=== PATIENT | male | born 1945 | race Caucasian/White ===

== ENCOUNTER → 2019-08-10 08:56 | Outpatient (CLI) | payer MEDICARE, SELFPAY ==
[2019-08-07 15:00] VITALS: BMI 33.2
[2019-08-10 10:26] LABS: AST(SGOT) 18 U/L (15-37); Alanine Aminotransfer ALT/SGPT 27 U/L (16-61); Albumin, Serum 3.7 g/dL (3.2-5.0); Alkaline Phosphatase 42 U/L (45-117); Bilirubin, Direct 0.17 mg/dL (0.00-0.30); Cholesterol 194 mg/dL (200); High Density Lipoprotein 51 mg/dL; Protein, Total 7.7 g/dL (6.4-8.2); Triglycerides 102 mg/dL; Very Low Density Lipoprotein 20 mg/dL (5-40)
== END ==
PROVIDERS: Family Provider Family Medicine; PCP Family Medicine; Referring Provider Internal Medicine Cardiovascular Disease; Visit Provider Internal Medicine Cardiovascular Disease
DX: E78.00 Pure hypercholesterolemia, unspecified (principal)
CPT/HCPCS: 36415; 80061; 80076

== ENCOUNTER → 2019-08-23 15:03 | Outpatient (CLI) | payer MEDICARE, SELFPAY ==
[2019-08-07 15:00] VITALS: BMI 33.2
--- NOTE | 2019-08-23 15:06 | ECHOD_ITS ---
Reason For Study: CHEST PAIN Procedure This was a 2D Doppler, Color Flow transthoracic echocardiogram. Exam performed in department. Left Ventricle Normal size and thickness. The estimated ejection fraction is 65 %. Stage 2 diastolic dysfunction. No regional wall motion abnormalities noted. Right Ventricle Normal size and thickness. Normal systolic function. Atria The left atrium is moderately enlarged. The right atrium is mildly enlarged. Normal atrial septum. Mitral Valve The mitral valve is structurally normal. No prolapse or stenosis seen. Tricuspid Valve Normal tricuspid valve. Trivial tricuspid valve insufficiency. Right ventricular systolic pressure estimated to be 29 mmHg. Aortic Valve Trisinus/trileaflet aortic valve. Pulmonic Valve Normal pulmonic valve. Trivial pulmonic valve insufficiency. Great Vessels Normal aortic root. Normal arch. Normal inferior vena cava. Inferior vena cava collapse with sniff. Pericardium/Pleural No pericardial effusion. MMode/2D Measurements & Calculations LVIDd: 4.9 cm IVSd: 1.2 cm Ao root diam: 2.9 cm LVIDs: 3.1 cm LVPWd: 1.2 cm RVDd: 3.4 cm FS: 35.5 % LAV(MOD-bp): 89.8 ml LA A4 area: 26.4 cm2 LA dimension(2D): 4.1 cm LAV(MOD-bp) Indexed: 43.3 ml/m2 LAV(MOD-sp2): 92.1 ml LAV(MOD-sp4): 87.8 ml RA A4 area: 21.2 cm2 Time Measurements MV dec time: 0.19 sec Doppler Measurements & Calculations MV E max woo: 79.9 cm/sec Lat Peak E' Woo: 6.6 cm/sec Med Peak E' Woo: 5.7 cm/sec MV A max woo: 73.3 cm/sec E/E' lat: 12.1 E/E' med: 14.1 MV E/A: 1.1 Ao V2 max: 137.0 cm/sec LV V1 max: 80.6 cm/sec PA V2 max: 84.6 cm/sec Ao max P.5 mmHg LV V1 max P.6 mmHg TR max woo: 250.2 cm/sec TR max P.0 mmHg Interpretation Summary The estimated ejection fraction is 65 %. Stage 2 diastolic dysfunction. The left atrium is moderately enlarged. The right atrium is mildly enlarged. Right ventricular systolic pressure estimated to be 29 mmHg. There is no comparison study available. Ordering Physician: Wilfred Yepez Referring Physician: Marcial Grover Performed By: Saundra Mendoza RDCS, RVT
== END ==
PROVIDERS: Family Provider Family Medicine; PCP Family Medicine; Referring Provider Internal Medicine Cardiovascular Disease; Visit Provider Internal Medicine Cardiovascular Disease
DX: R00.2 Palpitations (principal)
CPT/HCPCS: 93306

== ENCOUNTER → 2019-08-30 13:26 | Outpatient (CLI) | payer MEDICARE, SELFPAY ==
[2019-08-07 15:00] VITALS: BMI 33.2
--- NOTE | 2019-08-30 13:30 | STEWCON_ITS ---
Reason For Study: CHEST PAIN Stress Results Protocol: Stress Echocardiogram Maximum Predicted HR: 147 bpm Target HR: 125 bpm % Maximum Predicted HR: 90 % Heart Stage Duration Rate BP Comment (mm:ss) (bpm) DILUTED DEFINITY 3 CC USED. TRIGEMINY AND QUADRIGEMINY BASELINE 75 148/84PVCS AISHWARYA PROTOCOL- STAGE 1 3:00 120 130/80TRIGEMINY AND QUADRIGEMINY PVCS, NO CP AISHWARYA PROTOCOL- STAGE 2 3:00 133 144/84TRIGEMINY AND QUADRIGEMINY PVCS, NO CP, FATIGUE RECOVERY 93 120/74NO COMPLAINT Stress Duration: 6:00 mm:ss Maximum Stress HR: 133 bpm Baseline Echocardiogram Findings The estimated ejection fraction is 65 %. Stress Echo Wall motion Data Resting WM Intermediate WM Stress WM Resting Wall Motion Wall Motion Stress No regional wall motion Posterior-Basal: Mildly abnormalities noted. hypokinetic. Mid-Posterior: Mildly hypokinetic. Basal inferoseptal: Mildly hypokinetic. EKG Data The baseline ECG displays normal sinus rhythm. The patient exercised according to the regular Aishwarya protocol for a total duration of 6:07. The maximum heart rate attained was 133 beats per minute. This was 90% of maximum predicted heart rate. The patient exercised into stage 3 of the Aishwarya protocol. During stress, there were no ST or T wave changes noted to suggest ischemia. No clinical angina was noted. Interpretation Summary The estimated ejection fraction is 65 %. Posterior-Basal: Mildly hypokinetic Mid-Posterior: Mildly hypokinetic Basal inferoseptal: Mildly hypokinetic Abnormal, adequate, treadmill echocardiogram. Positive for ischemia by echocardiographic criteria. No anginal symptoms noted. Frequent PVCs during exercise in a trigeminal pattern. Patient appeared develop mid inferior posterior hypokinesis at peak exercise. Final LVEF of 55%. Poor echo windows requiring Definity agent may affect the outcome of the test. Test terminated due to target heart rate achieved and fatigue as well as dyspnea which may be an anginal equivalent. Patient tolerated the procedure well. No complications. The study was technically difficult. Contrast injection was performed. Ordering Physician: Wilfred Yepez Referring Physician: Wilfred Yepez Performed By: Azalea Garcia RDCS
== END ==
PROVIDERS: Family Provider Family Medicine; PCP Family Medicine; Referring Provider Internal Medicine Cardiovascular Disease; Visit Provider Internal Medicine Cardiovascular Disease
DX: R07.9 Chest pain, unspecified (principal)
CPT/HCPCS: 93017; 93350; Q9957; A4216; C8928

== ENCOUNTER 2019-09-14 09:42 | Day surgery (SDC) | payer MEDICARE, SELFPAY ==
--- NOTE | 2019-08-07 03:37 | HP_ITS ---
HPI HPI History of Present Illness Surgical H&P: Yes Details: Mr. Vazquez is a very pleasant 74-year-old nondiabetic, currently non- smoking gentleman with a history of hypertension, referred to our office for palpitations and shortness of breath. Patient has a history of [id number] smoking when quit in 1992. The patient's most recent nuclear stress test took place on 12/17/2008 at [facility] oriented no chest pain during exercise, negative EKG, and negative nuclear results. His most recent echocardiogram took place on 11/15/2008 which showed an EF of 55%, mild concentric LVH, stage I diastolic dysfunction, and elevated RVSP of 37 mmHg. His most recent EKG dated 12/18/2008 showed normal sinus rhythm, nonspecific ST and T wave changes. Patient was in normal health up until last when he developed and noted new onset midsternal chest pressure, which was nonradiating and described as a 4 out of 10 in severity. Apparently he had been engaging quite heavy work the day before, and had no associated nausea, vomiting, shortness of breath or dyspnea on exertion. Patient has noted a decrease in his exercise capacity over the last 6 months. This is the first time he had actual chest pressure however. He has never had a heart catheterization, TIA, CVA. He is compliant with his antihypertensive medications. His blood pressures at home range in the 140s to 160s systolic. In our office today's blood pressure is 140/70, pulse is 64 and regular. His physical exam demonstrates clear lungs bilaterally, no carotid bruits, regular rate and rhythm, normal S1/S2, no S3 or S4. No murmurs detected. No edema noted. Lipids dated 10/02/2018 showed an HDL of 46 and an LDL of 113. Intake Vital Signs 08/07/19 Height 5 ft 7 in 08/07/19 Weight: 212 lb 08/07/19 Body Mass Index (BMI) 33.2 08/07/19 Blood Pressure 140/70 H 08/07/19 Blood Pressure Location Lt brachial 08/07/19 Blood Pressure Position Sitting 08/07/19 Respiratory Rate 20 H 08/07/19 Pulse Rate 64 08/07/19 Pulse Source Auscultation Intake Visit Reasons: SOB, IRREG HR, HTN (SELF/FAMILY REF) Shank Maker Required: No Accompanied by: Is patient in pain?: No Allergies nitroglycerin Allergy (Intermediate, Verified 08/06/19 14:04) Unknown Medications Atenolol [Tenormin (beta Andrae)] 25 mg PO DAILY 09/25/17 [History Confirmed 08/06/19] losartan 25 mg tablet 25 mg PO DAILY 08/06/19 [History Confirmed 08/06/19] aspirin 81 mg tablet,delayed release 81 mg PO DAILY #30 tab 08/07/19 [Rx Confirmed 08/07/19] [facility] Medical History (Updated 08/07/19 @ 15:02 by Valarie Bucio) Palpitations (Acute) Shortness of breath (Acute) Essential hypertension (Chronic) Arthritis (Chronic) Asthma (Chronic) 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 Brother heart on right side Tachycardia Social History (Updated 08/07/19 @ 15:37 by Wilfred Yepez MD) Smoking Status: Never smoker alcohol intake: current ROS Const Const: Positive for other (referred self: sob and palps, Rocio Grover is PCP); negative for fatigue, weakness, body ache, fever(s), headache(s), chills, frequent falls, night sweats, daytime sleepiness, difficulty sleeping, excessive sweating, weight gain, weight loss, increased appetite, poor appetite or anorexia Eyes Eyes: Negative for blind spots, loss of peripheral vision, transient loss of vision, blurry vision, change in vision, double vision, floaters, tunnel vision or other ENT ENT: Negative for headache(s), dizziness, hearing loss, tinnitus, Nosebleed/epistaxis, balance problems, post nasal drip, lip swelling, tongue swelling, bleeding gums, hoarseness, neck pain, dry mouth or other Cardio Chest Pain: Yes (hasn't had for a long time, then last tuesday had some) Frequency: other (isolated incident) Character: other (discomfort, ache like a bruise) Onset: at rest Location: mid sternal Duration: hours (a couple hours until he took ibuprofen) Palpitations: Yes (None today) feels like its: skipping Edema: None Muscle aches with walking: None Resp Respiratory: Positive for SOB with activity (States noticed last 2 years with gaining weight in abdomen (not fluid)); negative for SOB at rest, SOB orthopnea\SOB lying down, Cough, Coughing up blood/hemoptysis, chest congestion, pain on inspiration, snoring, stridor, wheezing, crackles, paroxysmal nocturnal dyspnea or other GI GI: Negative nausea, vomiting, heartburn, constipation, belching, bloating, cramping, vomiting blood/hematemesis, bright, red blood in stools, black,tarry stools, loose stools, Difficulty Swallowing or other : Negative for hematuria, frequent nighttime urination/ nocturia, erectile dysfunction or abnormal vaginal bleeding Musc Musc: Negative for muscle aches/ myalgia, muscle weakness, joint pain or balance problems Skin Skin: Negative redness, non-healing lesions, rash, unusual bruising, skin ulcer, wounds, jaundice or other Neuro Neuro: Negative for dizziness, lightheadedness, near syncope, syncope, orthostatic symptoms, frequent falls, headache(s), weakness, confusion, memory loss, restless legs, blurry vision, double vision, vertigo, seizures, lack of coordination or other Jamal Hematologic/Lymphatic: Negative for easy bleeding, easy bruising, enlarged lymph nodes or other Endo Endo: Negative for fatigue, cold intolerance, heat intolerance, excessive sweating, flushing, increased thirst/drinking, increased hunger, hair loss, hair growth or other Psych Psych: Negative for anxiety, depression, thoughts of harming anyone, thoughts of harming yourself, visual hallucinations, panic attacks or audible hallucinations Allergy Allergy/Immunology: Negative for throat swelling, Negative for tongue swelling, Negative for hives, Negative for rash, Negative for lip swelling Cardiology Exam Const Appearance: cooperative, healthy appearing and no acute distress Nutritional Appearance: well nourished Orientation: alert, oriented x3 and oriented to person Head Head: normal to inspection, normocephalic and atraumatic Nose: external nose normal Face and Sinus: face symmetric Mouth: oral mucosae normal Eyes General: appearance normal, both eyes and all related structures Eyelids: eyelids normal Conjunctivae: conjunctivae normal Pupils: PERRL and normal by confrontation EOM: EOM intact bilaterally Neck Neck: normal visual inspection and full ROM Carotids: normal carotid upstroke Chest Chest inspection: normal inspection of the chest Auscultation: Bilateral: Clear to Auscultation Cardio Palpation: normal PMI Rate: regular rate Rhythm: regular rhythm Heart sounds: S1 normal and S2 normal GI GI: normal to inspection, no hepatosplenomegaly and bowel sounds present Neuro General: alert, awake, oriented x3, CN's II-XI intact bilaterally and moves all extremities Skin Skin: no rashes or lesions noted Extremities Pulses: Normal: Right Femoral Pulse, Left Femoral Pulse, Right Dorsalis Pedis Pulse, Left Dorsalis Pedis Pulse, Right Posterior Tibial Pulse, Left Posterior Tibial Pulse, Right Radial Pulse, Left Radial Pulse Lower Extremity Edema: None: Bilateral Psych Psychological: normal affect Assessment & Plan 1. Chest pain R07.9 Plan 1. Chest pain: The patient has new onset substernal chest pressure occurring last after heavy exertion. Is possible the patient may have hypertension induced chest pain but given the patient's age, hypertension, previous heavy smoking, I am concerned that he may have concomitant coronary atherosclerosis contributing to his symptoms. I recommended the patient undergo a repeat 2D echo with Doppler to determine if he has any deterioration in his LV function compared to October 2008. Assuming this is normal, I would recommend also that he undergo a treadmill echocardiogram to evaluate for chronotropic competence, blood pressure response to exercise, angina, or ischemia. If either 1 of these are grossly abnormal, he may require diagnostic coronary angiogram. In addition we will obtain an EKG today. In the meantime we will start him on baby aspirin preventatively 81 mg p.o. daily, continue his atenolol and losartan. 2. Hyperlipidemia: Recommend obtaining a fasting in the profile. Would recommend treating his LDL of greater than 130. 3. Return office in 6 months. This note was generated using a voice recognition system and there may be incorrect words, spelling or punctuation that were not noted when reviewing the office note prior to saving. Orders Orders: Stress Test Echo w/o Contrast Today Plan Detail Other Orders Orders: 12 Lead EKG performed by [facility] Today R00.2, R06.02 Lipid Profile 1 Week E78.00 Liver Profile 1 Week E78.00 Echo Complete Today R00.2 Other Medications New: aspirin (Adult Aspirin Regimen) 81 mg PO DAILY 30 tabs 11RF Follow Up +6M (Lucho) Coding Level of Care Code Off vis,new,level 4 Diagnoses Chest pain R07.9 Coding Level of Care Code Off vis,new,level 4 Diagnoses Chest pain R07.9 Supplemental Info Supplemental Information Labs LDL Cholesterol 123 mg/dL (0-130) 06/16/16 HDL Cholesterol 54 mg/dL (40-) 06/16/16 Triglycerides 74 mg/dL (-199) 06/16/16 VLDL Cholesterol 15 mg/dL (5-40) 06/16/16 08/07/19 1538 <Electronically signed by Wilfred Yepez MD> Date _ Wilfred Yepez MD
[2019-08-07 15:00] VITALS: BMI 33.2
[2019-09-03 10:54] VITALS: BMI 33.2
--- NOTE | 2019-09-03 11:35 | RAD_ITS ---
STUDY: X-RAY CHEST REASON FOR EXAM: Male, 74 years old. Shortness of breath TECHNIQUE: Frontal and lateral views of the chest. COMPARISON: None. FINDINGS: The lungs are clear and expanded. There is no demonstrated pleural abnormality. Normal size heart. Normal mediastinum and yo. Normal visualized pulmonary arteries. There is atherosclerotic calcification of the aortic arch with tortuosity. There are diffuse degenerative changes of the visualized thoracic spine. Normal visualized ribs, clavicles, and shoulders. There is no demonstrated abnormality of the visualized soft tissue structures of the upper abdomen. RAD/Chest PA and Lateral IMPRESSION: No acute chest disease. Electronically Signed: King Valladares MD at 23:21 EST , Service support ,
[2019-09-03 12:25] LABS: Hematocrit 45.6 % (40-54); Hemoglobin 15.3 g/dL (13.0-16.5); Mean Corp Hgb Conc 33.6 g/dL (32-36); Mean Corpuscular Hgb 31.1 pg (27.0-32.0); Mean Corpuscular Volume 92.7 fL (80-94); Mean Platelet Vol. 9.7 fl (6.2-12.0); Platelet Count 172 K/mm3 (150-450); RBC Distribution Width CV 12.9 % (11.6-14.6); RBC Distribution Width SD 43.9 fl (35.1-43.9); Red Blood Count 4.92 M/mm3 (4.6-6.2); White Blood Count 7.2 K/mm3 (4.4-11.0)
[2019-09-03 12:33] LABS: International Normalized Ratio 1.1; Prothrombin Time (Protime)PT. 14.2 SECONDS (11.7-14.9)
[2019-09-03 12:34] LABS: Partial Thromboplast Time 31.7 Seconds (24.1-36.2)
[2019-09-03 13:10] LABS: Anion Gap 5 (5-15); BUN 12 mg/dL (7-18); BUN/Creat Ratio 10.9 RATIO (10-20); Calcium,Total 8.7 mg/dL (8.5-10.1); Chloride 109 mmol/L (98-107); EST Glomerular Filtration Rate 70 mL/min (>60); Est Glom Filt Rate - Afr Amer 84 mL/min (>60); Glucose 77 mg/dL (74-106); Potassium 4.1 mmol/L (3.5-5.1); Sodium Level 139 mmol/L (136-145)
[2019-09-04 09:31] VITALS: BMI 33.2
--- NOTE | 2019-09-14 10:14 | HP.PCM_ITS ---
History and Physical Date of Admission: 09/14/19 Mr. Vazquez is a very pleasant 74-year-old nondiabetic, currently non-smoking gentleman with a history of hypertension, referred to our office for palpitations and shortness of breath. Patient has a history of [id number] smoking when quit in 1992. He did undergo a stress echo which was positive for ischemia, the mid inferior posterior was noted to be hypokinetic at peak exercise. He is here today to undergo a left heart cath. Patient was in normal health up until about a month ago when he developed and noted new onset midsternal chest pressure, which was nonradiating and described as a 4 out of 10 in severity. Apparently he had been engaging quite heavy work the day before, and had no associated nausea, vomiting, shortness of breath or dyspnea on exertion. Patient has noted a decrease in his exercise capacity over the last 6 months. This is the first time he had actual chest pressure however. He has never had a heart catheterization, TIA, CVA. He is compliant with his antihypertensive medications. His blood pressures at home range in the 140s to 160s systolic. Intake VS see list Allergies nitroglycerin Allergy (Intermediate, Verified 08/06/19 14:04) Unknown Medications See list [facility] Medical History (Updated 08/07/19 @ 15:02 by Valarie Bucio) Palpitations (Acute) Shortness of breath (Acute) Essential hypertension (Chronic) Arthritis (Chronic) Asthma (Chronic) 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 Brother heart on right side Tachycardia Social History (Updated 08/07/19 @ 15:37 by Wilfred Yepez MD) Smoking Status: Never smoker alcohol intake: current ROS Const Const: Positive for other (referred self: sob and palps, Rocio Grover is PCP); negative for fatigue, weakness, body ache, fever(s), headache(s), chills, frequent falls, night sweats, daytime sleepiness, difficulty sleeping, excessive sweating, weight gain, weight loss, increased appetite, poor appetite or anorexia Eyes Eyes: Negative for blind spots, loss of peripheral vision, transient loss of vision, blurry vision, change in vision, double vision, floaters, tunnel vision or other ENT ENT: Negative for headache(s), dizziness, hearing loss, tinnitus, Nosebleed/epistaxis, balance problems, post nasal drip, lip swelling, tongue swelling, bleeding gums, hoarseness, neck pain, dry mouth or other Cardio Chest Pain: Yes (hasn't had for a long time, then last tuesday had some) Frequency: other (isolated incident) Character: other (discomfort, ache like a bruise) Onset: at rest Location: mid sternal Duration: hours (a couple hours until he took ibuprofen) Palpitations: Yes (None today) feels like its: skipping Edema: None Muscle aches with walking: None Resp Respiratory: Positive for SOB with activity (States noticed last 2 years with gaining weight in abdomen (not fluid)); negative for SOB at rest, SOB orthopnea\SOB lying down, Cough, Coughing up blood/hemoptysis, chest congestion, pain on inspiration, snoring, stridor, wheezing, crackles, paroxysmal nocturnal dyspnea or other GI GI: Negative nausea, vomiting, heartburn, constipation, belching, bloating, cramping, vomiting blood/hematemesis, bright, red blood in stools, black,tarry stools, loose stools, Difficulty Swallowing or other : Negative for hematuria, frequent nighttime urination/ nocturia, erectile dysfunction or abnormal vaginal bleeding Musc Musc: Negative for muscle aches/ myalgia, muscle weakness, joint pain or balance problems Skin Skin: Negative redness, non-healing lesions, rash, unusual bruising, skin ulcer, wounds, jaundice or other Neuro Neuro: Negative for dizziness, lightheadedness, near syncope, syncope, orthostatic symptoms, frequent falls, headache(s), weakness, confusion, memory loss, restless legs, blurry vision, double vision, vertigo, seizures, lack of coordination or other Jamal Hematologic/Lymphatic: Negative for easy bleeding, easy bruising, enlarged lymph nodes or other Endo Endo: Negative for fatigue, cold intolerance, heat intolerance, excessive sweating, flushing, increased thirst/drinking, increased hunger, hair loss, hair growth or other Psych Psych: Negative for anxiety, depression, thoughts of harming anyone, thoughts of harming yourself, visual hallucinations, panic attacks or audible hallucinations Allergy Allergy/Immunology: Negative for throat swelling, Negative for tongue swelling, Negative for hives, Negative for rash, Negative for lip swelling Cardiology Exam Const Appearance: cooperative, healthy appearing and no acute distress Nutritional Appearance: well nourished Orientation: alert, oriented x3 and oriented to person Head Head: normal to inspection, normocephalic and atraumatic Nose: external nose normal Face and Sinus: face symmetric Mouth: oral mucosae normal Eyes General: appearance normal, both eyes and all related structures Eyelids: eyelids normal Conjunctivae: conjunctivae normal Pupils: PERRL and normal by confrontation EOM: EOM intact bilaterally Neck Neck: normal visual inspection and full ROM Carotids: normal carotid upstroke Chest Chest inspection: normal inspection of the chest Auscultation: Bilateral: Clear to Auscultation Cardio Palpation: normal PMI Rate: regular rate Rhythm: regular rhythm Heart sounds: S1 normal and S2 normal GI GI: normal to inspection, no hepatosplenomegaly and bowel sounds present Neuro General: alert, awake, oriented x3, CN's II-XI intact bilaterally and moves all extremities Skin Skin: no rashes or lesions noted Extremities Pulses: Normal: Right Femoral Pulse, Left Femoral Pulse, Right Dorsalis Pedis Pulse, Left Dorsalis Pedis Pulse, Right Posterior Tibial Pulse, Left Posterior Tibial Pulse, Right Radial Pulse, Left Radial Pulse Lower Extremity Edema: None: Bilateral Psych Psychological: normal affect Assessment & Plan 1. Chest pain/abnormal stress test: pt will undergo a heart cath for further evaluation. He will follow up accordingly in our office. 2. Hyperlipidemia: Recommend obtaining a fasting in the profile. Would recommend treating his LDL of greater than 130.
--- NOTE | 2019-09-14 11:28 | HP.PCM_ITS ---
Problem List (1) Abnormal stress echo Status: Acute (2) PVCs (premature ventricular contractions) Status: Acute (3) Palpitations Status: Acute (4) Shortness of breath Status: Acute (5) Essential hypertension Status: Chronic History and Physical Date of Admission: 09/14/19 [facility] [address] [place] [address] OFFICE VISIT Date of Service: 08/07/19 MR#: [id number] Acct: [id number] Name: JODEE VAZQUEZ Rep #: [id number] : 1945 Provider: Wilfred cardona MD Age/Sex: 74/M Location: [facility] [place] Status: Signed HPI HPI History of Present Illness Surgical H&P: Yes Details: Mr. Vazquez is a very pleasant 74-year-old nondiabetic, currently non- smoking gentleman with a history of hypertension, referred to our office for palpitations and shortness of breath. Patient has a history of [id number] smoking when quit in 1992. The patient's most recent nuclear stress test took place on 12/17/2008 at [facility] oriented no chest pain during exercise, negative EKG, and negative nuclear results. His most recent echocardiogram took place on 11/15/2008 which showed an EF of 55%, mild concentric LVH, stage I diastolic dysfunction, and elevated RVSP of 37 mmHg. His most recent EKG dated 12/18/2008 showed normal sinus rhythm, nonspecific ST and T wave changes. Patient was in normal health up until last when he developed and noted new onset midsternal chest pressure, which was nonradiating and described as a 4 out of 10 in severity. Apparently he had been engaging quite heavy work the day before, and had no associated nausea, vomiting, shortness of breath or dyspnea on exertion. Patient has noted a decrease in his exercise capacity over the last 6 months. This is the first time he had actual chest pressure however. He has never had a heart catheterization, TIA, CVA. He is compliant with his antihypertensive medications. His blood pressures at home range in the 140s to 160s systolic. In our office today's blood pressure is 140/70, pulse is 64 and regular. His physical exam demonstrates clear lungs bilaterally, no carotid bruits, regular rate and rhythm, normal S1/S2, no S3 or S4. No murmurs detected. No edema noted. Lipids dated 10/02/2018 showed an HDL of 46 and an LDL of 113. Intake Vital Signs 08/07/19 Height 5 ft 7 in 08/07/19 Weight: 212 lb 08/07/19 Body Mass Index (BMI) 33.2 08/07/19 Blood Pressure 140/70 H 08/07/19 Blood Pressure Location Lt brachial 08/07/19 Blood Pressure Position Sitting 08/07/19 Respiratory Rate 20 H 08/07/19 Pulse Rate 64 08/07/19 Pulse Source Auscultation Intake Visit Reasons: SOB, IRREG HR, HTN (SELF/FAMILY REF) C Winforms Developer Required: No Accompanied by: Is patient in pain?: No Allergies nitroglycerin Allergy (Intermediate, Verified 08/06/19 14:04) Unknown Medications Atenolol [Tenormin (beta Andrae)] 25 mg PO DAILY 09/25/17 [History Confirmed 08/06/19] losartan 25 mg tablet 25 mg PO DAILY 08/06/19 [History Confirmed 08/06/19] aspirin 81 mg tablet,delayed release 81 mg PO DAILY #30 tab 08/07/19 [Rx Confirmed 08/07/19] PFS Medical History (Updated 08/07/19 @ 15:02 by Valarie Bucio) Palpitations (Acute) Shortness of breath (Acute) Essential hypertension (Chronic) Arthritis (Chronic) Asthma (Chronic) 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 Brother heart on right side Tachycardia Social History (Updated 08/07/19 @ 15:37 by Wilfred Yepez MD) Smoking Status: Never smoker alcohol intake: current ROS Const Const: Positive for other (referred self: sob and palps, Rocio Grover is PCP); negative for fatigue, weakness, body ache, fever(s), headache(s), chills, frequent falls, night sweats, daytime sleepiness, difficulty sleeping, excessive sweating, weight gain, weight loss, increased appetite, poor appetite or anorexia Eyes Eyes: Negative for blind spots, loss of peripheral vision, transient loss of vision, blurry vision, change in vision, double vision, floaters, tunnel vision or other ENT ENT: Negative for headache(s), dizziness, hearing loss, tinnitus, Nosebleed/epistaxis, balance problems, post nasal drip, lip swelling, tongue swelling, bleeding gums, hoarseness, neck pain, dry mouth or other Cardio Chest Pain: Yes (hasn't had for a long time, then last tuesday had some) Frequency: other (isolated incident) Character: other (discomfort, ache like a bruise) Onset: at rest Location: mid sternal Duration: hours (a couple hours until he took ibuprofen) Palpitations: Yes (None today) feels like its: skipping Edema: None Muscle aches with walking: None Resp Respiratory: Positive for SOB with activity (States noticed last 2 years with gaining weight in abdomen (not fluid)); negative for SOB at rest, SOB orthopnea\SOB lying down, Cough, Coughing up blood/hemoptysis, chest congestion, pain on inspiration, snoring, stridor, wheezing, crackles, paroxysmal nocturnal dyspnea or other GI GI: Negative nausea, vomiting, heartburn, constipation, belching, bloating, cramping, vomiting blood/hematemesis, bright, red blood in stools, black,tarry stools, loose stools, Difficulty Swallowing or other : Negative for hematuria, frequent nighttime urination/ nocturia, erectile dysfunction or abnormal vaginal bleeding Musc Musc: Negative for muscle aches/ myalgia, muscle weakness, joint pain or balance problems Skin Skin: Negative redness, non-healing lesions, rash, unusual bruising, skin ulcer, wounds, jaundice or other Neuro Neuro: Negative for dizziness, lightheadedness, near syncope, syncope, orthostatic symptoms, frequent falls, headache(s), weakness, confusion, memory loss, restless legs, blurry vision, double vision, vertigo, seizures, lack of coordination or other Jamal Hematologic/Lymphatic: Negative for easy bleeding, easy bruising, enlarged lymph nodes or other Endo Endo: Negative for fatigue, cold intolerance, heat intolerance, excessive sweating, flushing, increased thirst/drinking, increased hunger, hair loss, hair growth or other Psych Psych: Negative for anxiety, depression, thoughts of harming anyone, thoughts of harming yourself, visual hallucinations, panic attacks or audible hallucinations Allergy Allergy/Immunology: Negative for throat swelling, Negative for tongue swelling, Negative for hives, Negative for rash, Negative for lip swelling Cardiology Exam Const Appearance: cooperative, healthy appearing and no acute distress Nutritional Appearance: well nourished Orientation: alert, oriented x3 and oriented to person Head Head: normal to inspection, normocephalic and atraumatic Nose: external nose normal Face and Sinus: face symmetric Mouth: oral mucosae normal Eyes General: appearance normal, both eyes and all related structures Eyelids: eyelids normal Conjunctivae: conjunctivae normal Pupils: PERRL and normal by confrontation EOM: EOM intact bilaterally Neck Neck: normal visual inspection and full ROM Carotids: normal carotid upstroke Chest Chest inspection: normal inspection of the chest Auscultation: Bilateral: Clear to Auscultation Cardio Palpation: normal PMI Rate: regular rate Rhythm: regular rhythm Heart sounds: S1 normal and S2 normal GI GI: normal to inspection, no hepatosplenomegaly and bowel sounds present Neuro General: alert, awake, oriented x3, CN's II-XI intact bilaterally and moves all extremities Skin Skin: no rashes or lesions noted Extremities Pulses: Normal: Right Femoral Pulse, Left Femoral Pulse, Right Dorsalis Pedis Pulse, Left Dorsalis Pedis Pulse, Right Posterior Tibial Pulse, Left Posterior Tibial Pulse, Right Radial Pulse, Left Radial Pulse Lower Extremity Edema: None: Bilateral Psych Psychological: normal affect Assessment & Plan 1. Chest pain R07.9 Plan 1. Chest pain: The patient has new onset substernal chest pressure occurring last after heavy exertion. Is possible the patient may have hypertension induced chest pain but given the patient's age, hypertension, previous heavy smoking, I am concerned that he may have concomitant coronary atherosclerosis contributing to his symptoms. I recommended the patient undergo a repeat 2D echo with Doppler to determine if he has any deterioration in his LV function compared to October 2008. Assuming this is normal, I would recommend also that he undergo a treadmill echocardiogram to evaluate for chronotropic competence, blood pressure response to exercise, angina, or ischemia. If either 1 of these are grossly abnormal, he may require diagnostic coronary angiogram. In addition we will obtain an EKG today. In the meantime we will start him on baby aspirin preventatively 81 mg p.o. daily, continue his atenolol and losartan. 2. Hyperlipidemia: Recommend obtaining a fasting in the profile. Would recommend treating his LDL of greater than 130. 3. Return office in 6 months. This note was generated using a voice recognition system and there may be incorrect words, spelling or punctuation that were not noted when reviewing the office note prior to saving. Orders Orders: Stress Test Echo w/o Contrast Today Plan Detail Other Orders Orders: 12 Lead EKG performed by BMS Today R00.2, R06.02 Lipid Profile 1 Week E78.00 Liver Profile 1 Week E78.00 Echo Complete Today R00.2 Other Medications New: aspirin (Adult Aspirin Regimen) 81 mg PO DAILY 30 tabs 11RF Follow Up +6M (Lucho) Coding Level of Care Code Off vis,new,level 4 Diagnoses Chest pain R07.9 Coding Level of Care Code Off vis,new,level 4 Diagnoses Chest pain R07.9 Supplemental Info Supplemental Information Labs LDL Cholesterol 123 mg/dL (0-130) 06/16/16 HDL Cholesterol 54 mg/dL (40-) 06/16/16 Triglycerides 74 mg/dL (-199) 06/16/16 VLDL Cholesterol 15 mg/dL (5-40) 06/16/16 08/07/19 0778 <Electronically signed by Wilfred Yepez MD> Date _ Wilfred Yepez MD [facility] Signature: Date (if applicable) CC: Marcial Grover III, MD ~ Interventional cardiology addendum: Patient seen and examined and no interim change noted. The risk/benefits of the procedure were thoroughly explained the patient including specific attention to lack of onsite surgical backup, and informed consent was obtained. Catheterization to follow.
--- NOTE | 2019-09-14 11:56 | CL.D_ITS ---
Patient Name: JODEE DONOVAN Study Date: 09/14/2019 Performing: Wilfred Yepez MD Ht: 66.92 inches 170 cm : 1945 Wt: 211.64 lbs 96 kg Age: 74 Gender: male BSA: 2.07 PROCEDURE(S) PERFORMED OP42-[id number]/COR/LV CLINICAL PROFILE AND INDICATIONS Indications: Suspected CAD, LV Dysfunction Heart Failure: NYHA Class: 1, Newly Diagnosed: No, Heart Failure Type: Systolic Stress/Imaging Date: 08/30/2019Stress Echocardiogram: Positive Low Risk Angina Classification Anginal Classification w/in 2 Weeks: No symptoms CAD Presentations: Other: Dyspnea on exertion, PVCs, abnl stress test Comorbidities/Risk Factors: Hypertension Dyslipidemia Prior CHF CONCLUSIONS Non obstructive coronary arteries Normal Left Ventricular systolic function LVEF: by LV gram 65 % Elevated Left Ventricular End Diastolic Pressure RECOMMENDATIONS Management as per referring Sales Ledger Administrator D/c plavix, cont baby asa, start zocor 20mg po qhs, increase losartan to 50mg po qd and start lasix 2 0mg po daily. Repeat BP check in 1 week, FLP in 6 weeks. Manual sheath removal. Medical management of small AV LCX unless or until pt has anginal symptoms; abnl stress test out of p roprortion to size of small LCX vessel. DESCRIPTION OF PROCEDURE The patient arrived to the procedure lab. The risks and benefits of the procedure as well as a full d escription of our services here and current unavailability of surgical backup were fully explained to the patient and/or their significant other prior to the catheterization. The Timeout was completed, verifying the correct patient and procedure. The patient's procedural site was prepped and draped in the usual fashion. Local anesthetic was given subcutaneously to right groin region with Lidocaine 2%. Using a modified Seldinger technique, arterial access was obtained via the right femoral artery, a 4 Fr sheath was inserted Left Coronary Artery selective angiography was performed in multiple views us ing a 4 Fr. JL5 catheter. Right Coronary Artery selective angiography was then performed in multiple views using a 4 Fr. 3DRC catheter. Left Ventriculography was performed in TARANGO projection using a 4 Fr . Pigtail catheter. LV to AO pullback pressures were then recorded.The arterial sheath was pulled and manual compression applied until hemostasis is achieved. CORONARY ANGIOGRAPHY DOMINANCE: Right Dominant LEFT HEART ASSESSMENT Left Ventricular Ejection Fraction: by LV Gram 65 % Normal LV wall motion Normal Left Ventricular systolic function LVEDP: 17 mmHg LEFT MAIN: Angiographically normal LEFT ANTERIOR DESCENDING ARTERY: Angiographically normal CIRCUMFLEX ARTERY: MID CIRC: Moderate luminal irregularities up to 50% OM 1: Proximal - Angiographically normal RIGHT CORONARY ARTERY: Angiographically normal COMPLICATIONS No Complications PROCEDURE MEDICATIONS Versed 1 mg IV Oxygen: 2 L/min via nasal cannula SUMMARY OF HEMODYNAMIC DATA Time AIR REST ECG 10:06:33 AO 119/72 (93) SA 11:33:33 LV 144/-12, 10 11:39:15 LV 141/-9, 11 11:39:23 LVp 143/-13, 17 11:39:31 AOp 143/64 (94) 11:39:36 AO 146/63 (91) 11:39:40 Signed By Wilfred Yepez MD On 09/14/2019 11:55:14 Wilfred Yepez MD
== END 2019-09-14 16:15 | disposition home or self-care (01) ==
LOC: CLSP 09:45
PROVIDERS: Family Provider Family Medicine; PCP Family Medicine; Referring Provider Internal Medicine Cardiovascular Disease; Visit Provider Internal Medicine Cardiovascular Disease
DX: R07.9 Chest pain, unspecified (principal); R06.02 Shortness of breath; E78.5 Hyperlipidemia, unspecified; R94.39 Abnormal result of other cardiovascular function study; I49.3 Ventricular premature depolarization; I10 Essential (primary) hypertension; Z79.82 Long term (current) use of aspirin; Z87.891 Personal history of nicotine dependence
CPT/HCPCS: 36415; 71046; 80048; 85027; 85610; 85730; 93458; 99152; J7040; Q9967; C1769; C1894

== ENCOUNTER → 2020-08-13 13:07 | Outpatient (CLI) | payer MEDICARE, SELFPAY ==
[2020-02-25 10:29] VITALS: BMI 32.2
[2020-08-13 13:52] LABS: AST(SGOT) 15 U/L (15-37); Alanine Aminotransfer ALT/SGPT 25 U/L (16-61); Albumin, Serum 3.4 g/dL (3.2-5.0); Alkaline Phosphatase 47 U/L (45-117); Bilirubin, Direct 0.21 mg/dL (0.00-0.30); Cholesterol 195 mg/dL (200); High Density Lipoprotein 43 mg/dL; Protein, Total 7.4 g/dL (6.4-8.2); Triglycerides 82 mg/dL; Very Low Density Lipoprotein 16 mg/dL (5-40)
== END ==
PROVIDERS: PCP Family Medicine; Referring Provider Internal Medicine Cardiovascular Disease; Visit Provider Internal Medicine Cardiovascular Disease
DX: E78.00 Pure hypercholesterolemia, unspecified (principal); I10 Essential (primary) hypertension; R00.2 Palpitations; R06.02 Shortness of breath
CPT/HCPCS: 36415; 80061; 80076

== ENCOUNTER → 2020-10-13 12:07 | Outpatient (CLI) | payer MEDICARE, SELFPAY ==
[2020-10-07 15:33] VITALS: BMI 33.6
== END ==
PROVIDERS: PCP Family Medicine; Referring Provider Physician Assistant Medical; Visit Provider Physician Assistant Medical
DX: I25.10 Atherosclerotic heart disease of native coronary artery without angina pectoris (principal); R00.2 Palpitations
CPT/HCPCS: 93225; 93226

== ENCOUNTER 2022-01-29 00:48 | Emergency (ER) | payer MEDICARE, SELFPAY ==
[2022-01-29 00:49] VITALS: BP 200/76; PULSE 78; RESP 18; TEMP 36.1; O2SAT 98; BMI 34.9
[2022-01-29 01:11] LABS: Mucous, Urine 0 SEEN /hpf (<or=2+); Squamous Epithelial Cells - UA 0 SEEN /hpf (0-5)
[2022-01-29 01:12] LABS: Color, Urine Red (Yellow); Glucose, Dipstick Normal (Normal); Ketone-Dipstick 5 mg/dl (Negative); Leukocyte Esterase-Dipstick 25 /ul (Negative); Nitrite-Dipstick Positive (Negative); Occult Blood-Urine 250 /ul (Negative); Protein-Dipstick 100 mg/dl (Negative); Urine Bilirubin Dipstick Negative (Negative); Urine Clarity Cloudy (Clear); Urine Urobilinogen 1 mg/dl (Normal)
[2022-01-29 01:19] LABS: Bacteria 1+ /hpf (None Seen); Red Blood Cells-Urine > 100 SEEN /hpf (0-5); White Blood Cells 0-5 SEEN /hpf (0-5)
--- NOTE | 2022-01-29 01:28 | EDS_ITS ---
HPI History of Present Illness Chief Complaint: Complaint Informant: patient Narrative Narrative: Hematuria with suprapubic discomfort this evening. No fevers or back pain. No nausea or vomiting. History of enlarged prostate however had laser surgery in 2017 with urology 1 in [place]. He does not recall the physician's name. Does not want to go back to him. He is on baby aspirin. On blood pressure medicines. No history of kidney stones. [facility] Medical History (Updated 01/29/22 @ 02:[address] Schuyler Connell DO) Abnormal stress echo Arthritis Asthma Benign prostatic hyperplasia with lower urinary tract symptoms Essential hypertension Palpitations PVCs (premature ventricular contractions) Shortness of breath Home Medications aspirin 81 mg tablet,delayed release 81 mg PO DAILY #90 tab 10/12/21 [Rx Last Taken Unknown] losartan 100 mg tablet 100 mg PO DAILY #90 tab 10/12/21 [Rx Last Taken Unknown] metoprolol succinate 25 mg tablet,extended release 24 hr 25 mg PO DAILY #90 tab 10/12/21 [Rx Last Taken Unknown] cephalexin 500 mg PO TID #21 cap 01/29/22 [Rx Last Taken Unknown] Allergy/AdvReac Type Severity Reaction Status Date / Time nitroglycerin Allergy Intermediate Unknown Verified 01/29/22 00:52 Family History Father Congestive heart failure Mother , pneumonia No problems noted. Brother heart on right side Tachycardia Surgical History History of hand surgery History of laparoscopic cholecystectomy History of left heart catheterization (09/14/19) History of prostate surgery (~2016) Social History Smoking Status: Never smoker alcohol intake: current ROS ROS ED Constitutional Constitutional ED: Denies chills, fever(s) or sweats Eyes Eyes: Denies change in vision ENT ENT ED: Denies dysphagia or sore throat Cardiovascular Cardiovascular: Denies chest pain, leg edema, palpitations or racing heartbeat Respiratory/Chest Respiratory/Chest: Denies cough, dyspnea or dyspnea on exertion Gastrointestinal Gastrointestinal: Denies abdominal pain, diarrhea, nausea or vomiting Genitourinary Genitourinary ED: Reports hematuria; Denies dysuria or urinary frequency Musculoskeletal Musculoskeletal: Denies back pain, extremity pain or neck pain Integumentary Denies rash or wounds Neurologic Neurologic: Denies headache(s), paresthesias or weakness EXAM Physical Exam Const Vital Signs: 01/29/22 00:49 Temperature 96.9 F L Temperature Source Temporal Pulse Rate 78 Respiratory Rate 18 Blood Pressure 200/76 H Blood Pressure Mean 117 Pulse Ox 98 Oxygen Delivery Method Room Air Positive well nourished and well developed General Appearance ED: well developed and NAD HEENT Reports moist mucous membranes normocephalic and atraumatic Eyes PERRL, EOMs intact bilaterally and conjunctivae normal General Eye ED: Yes normal appearance of both eyes Neck no lymphadenopathy and supple General: Negative for tenderness Chest Wall Chest: Negative for tenderness Resp normal respiratory effort and normal air movement Effort and Inspection: symmetric chest movement; Negative for respiratory distress Cardio regular rate, regular rhythm and no murmurs Peripheral Pulses: pulses 2+ throughout GI normal to inspection, nondistended, normoactive bowel sounds, non-tender and non-distended Palpation: soft; Negative for guarding or rebound tenderness present no CVA tenderness Back/Spine no CVA tenderness and no thoracic nor lumbar tenderness Extremity normal to inspection General Extremety ED: Negative for edema or tenderness General Extremity: Negative for edema Neuro oriented x3 and no sensory deficits noted Sensorium / Orientation: awake and alert Skin no rashes or lesions noted and no wounds Rashes: no rashes MDM MDM MDM Narrative Medical decision making narrative: Urine obtained from triage noted nitrites and blood. He is nontoxic-appearing. Does not present for concerns or kidney stones at this time. However I did check labs white count 7.1 hemoglobin 14.2 creatinine 1.28. He is given Rocephin with urine culture sent. Blood pressure elevated on arrival is asymptomatic. He is on blood pressure medicines. He did not want to follow-up with urology 1. He is given follow-up with urology here with Dr. Shaikh. I discussed return precautions with the patient. All questions were answered. Lab Data Attestation: I reviewed the patient's lab results. Labs: Laboratory Results - last 24 hr 01/29/22 01/29/22 01/29/22 01:05 01:40 01:40 WBC 7.1 RBC 4.42 L Hgb 14.2 Hct 41.0 MCV 92.8 MCH 32.1 H MCHC 34.6 RDW Std Deviation 44.1 H RDW Coeff of Avila 12.9 Plt Count 160 MPV 9.2 Immature Gran % (Auto) 0.300 Neut % (Auto) 44.7 L Lymph % (Auto) 38.8 Dougherty % (Auto) 13.0 H Eos % (Auto) 2.9 Baso % (Auto) 0.3 Absolute Neuts (auto) 3.2 Absolute Lymphs (auto) 2.77 Nucleated RBC % 0 Sodium 142 Potassium 3.8 Chloride 111 H Carbon Dioxide 27.0 Anion Gap 4 L BUN 24 H Creatinine 1.28 Estim Creat Clear Calc 46.62 Est GFR (MDRD) Af Amer 70 Est GFR (MDRD) Non-Af 58 L BUN/Creatinine Ratio 18.8 Glucose 116 H Calcium 9.1 Urine Color Red Urine Clarity Cloudy Urine pH 5.0 Ur Specific [place] 1.020 Urine Protein 100 H Urine Glucose (UA) Normal Urine Ketones 5 H Urine Occult Blood 250 H Urine Nitrite Positive H Urine Bilirubin Negative Urine Urobilinogen 1 H Ur Leukocyte Esterase 25 H Urine RBC > 100 SEEN Urine WBC 0-5 SEEN Ur Squamous Epith Cells 0 SEEN Urine Bacteria 1+ Urine Mucus 0 SEEN Discharge Plan Triage Chief Complaint: Complaint ED Provider: Schuyler Connell Dx/Rx/DC Orders Clinical Impression: Acute UTI, Hematuria, Essential hypertension Instructions: What is Hematuria?, Urinary Tract Infections in Men Prescriptions: New cephalexin [cephalexin] 500 MG capsule 500 mg PO TID Qty: 21 RF: 0 No Action aspirin [Adult Aspirin Regimen] 81 mg tablet,delayed release (DR/EC) 81 mg PO DAILY Qty: 90 RF: 3 losartan 100 mg tablet 100 mg PO DAILY Qty: 90 RF: 3 metoprolol succinate [Toprol XL] 25 mg tablet extended release 24 hr 25 mg PO DAILY Qty: 90 RF: 3 Primary Care Provider: Deo Castellanos Referrals: Charles Shaikh MD [STAFF PHYSICIAN] - 3-5 Days Deo Castellanos MD [Primary Care Provider] - Activity Restrictions/Additional Instructions: Urinary tract infection with blood. Take antibiotic as prescribed. Follow-up with Dr. Shaikh. Disposition Disposition: Home, Self Care Discharge Date/Time: 01/29/22 02:42
[2022-01-29 01:44] LABS: Absolute Lymphocyte Count 2.77 X10^3/uL (0.83-4.51); Absolute Neutrophil Count 3.2 X10^3/uL (2.0-7.7); Basophil# 0.02 X10^3/uL; Basophil% 0.3 % (0-1); Eosinophil# 0.21 X10^3/uL; Eosinophils% 2.9 % (0-5); Hemoglobin 14.2 g/dL (13.0-16.5); Lymphocyte # 2.77 X10^3/ul (0.83-4.51); Lymphocyte % 38.8 % (19-41); Mean Corp Hgb Conc 34.6 g/dL (32-36); Mean Corpuscular Hgb 32.1 pg (27.0-32.0); Mean Corpuscular Volume 92.8 fL (80-94); Mean Platelet Vol. 9.2 fl (6.2-12.0); Monocyte# 0.93 X10^3/uL; NRBC Flagged by Analyzer 0 % (0-5); Neutrophil # 3.18 X10^3/uL (2.7-7.7); Neutrophil % 44.7 % (47-70); Platelet Count 160 K/mm3 (150-450); RBC Distribution Width CV 12.9 % (11.6-14.6); RBC Distribution Width SD 44.1 fl (35.1-43.9); Red Blood Count 4.42 M/mm3 (4.6-6.2); White Blood Count 7.1 K/mm3 (4.4-11.0)
[2022-01-29] MEDS: Ceftriaxone 1 GM/50 ML BAG IV (01:54)
[2022-01-29 02:04] LABS: Anion Gap 4 (5-15); BUN 24 mg/dL (7-18); BUN/Creat Ratio 18.8 RATIO (10-20); Calcium,Total 9.1 mg/dL (8.5-10.1); Chloride 111 mmol/L (98-107); Creatinine, Serum 1.28 mg/dL (0.70-1.30); EST Glomerular Filtration Rate 58 mL/min (>60); Est Glom Filt Rate - Afr Amer 70 mL/min (>60); Estimated Creatinine Clearance 46.62 ml/min; Glucose 116 mg/dL (74-106); Potassium 3.8 mmol/L (3.5-5.1); Sodium Level 142 mmol/L (136-145)
== END 2022-01-29 02:42 | disposition home or self-care (01) ==
PROVIDERS: Emergency Medicine; Emergency Provider Emergency Medicine; PCP Family Medicine; Visit Provider Emergency Medicine
DX: N39.0 Urinary tract infection, site not specified (principal); R31.9 Hematuria, unspecified; I10 Essential (primary) hypertension; M19.90 Unspecified osteoarthritis, unspecified site; J45.909 Unspecified asthma, uncomplicated; Z79.899 Other long term (current) drug therapy; N40.0 Benign prostatic hyperplasia without lower urinary tract symptoms
CPT/HCPCS: 80048; 81001; 85025; 87086; 87088; 96365; 99283; J7050; A4216

== ENCOUNTER → 2022-02-08 | Outpatient (CLI) | payer MEDICARE, SELFPAY ==
--- NOTE | 2022-02-08 16:26 | CT_ITS ---
STUDY: CT ABDOMEN AND PELVIS WITH AND WITHOUT CONTRAST REASON FOR EXAM: Male, 76 years old. GROSS HEMATURIA RADIATION DOSAGE (If Supplied By Facility): CTDIvol = ( 26.17 ) mGy, DLP = ( 3836.65 ) mGycm TECHNIQUE: Transaxial images were obtained from the dome of the diaphragm to the symphysis pubis without oral contrast. IV 100mL Isovue-300 was administered. Precontrast and delayed series also obtained. Sagittal and coronal images were reconstructed. Individualized dose optimization techniques were used for this CT. COMPARISON: CT abdomen pelvis 09/25/2017. FINDINGS: LOWER CHEST: Unremarkable. LIVER: Unremarkable. GALLBLADDER/BILE DUCTS: Gallbladder not identified presumed surgically absent. PANCREAS: Unremarkable. SPLEEN: Unremarkable. ADRENAL GLANDS: Unremarkable. KIDNEYS / URETERS: No calculi demonstrated. There is a 1.5 cm cyst in the lower pole left kidney. Kidneys otherwise appear unremarkable. Symmetric cortical enhancement and excretion of contrast from both kidneys. No hydronephrosis.. BOWEL / MESENTERY: Scattered diverticula throughout the colon. No bowel obstruction. APPENDIX: Identified and normal. No evidence of acute appendicitis. PERITONEUM: No free air. No free fluid. VESSELS: Abdominal aorta is normal caliber. RETROPERITONEUM: Unremarkable. REPRODUCTIVE ORGANS: Prostate enlarged and heterogeneous. Projects into the base of the bladder. BLADDER: Minimally distended. Prominent wall. ABDOMINAL WALL: Small bilateral inguinal hernias containing only fat, no bowel. BONES: No acute abnormality. OTHER: None. CT/CT Abd/Pelvis W/WO Contrast IMPRESSION: Prominent bladder wall may be due to nondistention, cystitis, or secondary to prostate disease. Enlarged prostate. Small left renal cyst. Colonic diverticulosis. Electronically Signed: Ami Naylor MD at 4:05 EDT ,
[2022-02-08 16:52] LABS: Anion Gap 5 (5-15); BUN 16 mg/dL (7-18); BUN/Creat Ratio 16.2 RATIO (10-20); Calcium,Total 9.3 mg/dL (8.5-10.1); Chloride 109 mmol/L (98-107); Creatinine, Serum 0.99 mg/dL (0.70-1.30); EST Glomerular Filtration Rate 78 mL/min (>60); Est Glom Filt Rate - Afr Amer 95 mL/min (>60); Glucose 84 mg/dL (74-106); PSA,Total- Diagnostic 6.07 ng/mL (0.0-4.0); Sodium Level 140 mmol/L (136-145)
== END | disposition home or self-care (01) ==
PROVIDERS: PCP Family Medicine; Referring Provider Urology; Visit Provider Urology
DX: N40.1 Benign prostatic hyperplasia with lower urinary tract symptoms (principal); R31.0 Gross hematuria
CPT/HCPCS: 36415; 74178; 80048; 84153; Q9967

== ENCOUNTER 2022-03-03 14:04 | Observation (INO) | payer MEDICARE, SELFPAY ==
--- NOTE | 2022-03-02 14:12 | EKG12_ITS ---
Test Reason : PRE-OP Blood Pressure : / mmHG Vent. Rate : 074 BPM Atrial Rate : 074 BPM P-R Int : 194 ms QRS Dur : 086 ms QT Int : 384 ms P-R-T Axes : 038 -12 070 degrees QTc Int : 426 ms Normal sinus rhythm Poor R wave progression Confirmed by KEELY MAN, JODEE ([id number]), commercial production editor DAVID GREWAL ([id number]) on 03/03/2022 10:05:08 AM Referred By: Charles Shaikh Confirmed By:JODEE RIGGS MD
[2022-03-03] VITALS (10 sets, daily range): BP systolic 136–169; BP diastolic 74–95; PULSE 64–81; RESP 16–18; TEMP 36.2–36.6; O2SAT 91–100; BMI 34.5
--- NOTE | 2022-03-03 | PROS_PTH ---
PATIENT: JODEE DONOVAN LOC: MS3 U#:[id number] AGE/SX: 76/M ROOM: [facility] [place] RE03/03/[address]: Dr. Charles Shaikh MD : 1945 BED: 1 DIS: 03/04/2022 SPEC #: [id number] RECD: 03/03/22 16:11 STATUS: CARMELITA JACQUES #: [id number] LEAH: 03/03/22 00:[address]: Charles Shaikh DEPT: SURGICAL PATHOLOGY RECD BY: Brad Hernandez ENTERED: 03/04/22 08:47 SP TYPE: TURP OTHR DR: Dr. Deo Castellanos MD Tissues: Prostate, NOS Procedures: Surgery Specimen Level IV HEADER OPERATION: Cysto, TUR Prostate, Olympus PRE-OP DIAGNOSIS: BPH with lower urinary tract symptoms TISSUE SUBMITTED: Prostate tissue MICROSCOPIC DIAGNOSIS Prostate tissue, transurethral resection: Benign prostatic hyperplasia, glandular and stromal type. Chronic inflammation. SJ:ileana 03/05/2022 MICROSCOPIC DESCRIPTION Slides are reviewed. GROSS DESCRIPTION Received is one container labeled with the patient's name and designated prostate tissue. The specimen consists of multiple irregular fragments of pink-cohen, rubbery, soft tissue that in aggregate weigh 19.4 gm and measure in aggregate 7 x 6 x 3 cm. Farm Mortgage Agent tissue is submitted in ten cassettes. / ALIZA:ileana 03/04/2022 TC:5 CPT: 14019
[2022-03-03] MEDS: Lactated Ringers 1,000 ML 15 ML IV (11:57)
--- NOTE | 2022-03-03 14:05 | HP.PCM_ITS ---
HPI - General HPI Narrative JODEE DONOVAN, is a 76 M who presents for transurethral resection of the prostate he had obstructive tissue seen on cystoscopy he does have some leakage I told the patient that I think the leakage is from overflow incontinence hopefully with resecting the prostate and the improving bladder emptying his leakage will get better but he understands no guarantees the leakage will get better after surgery he understood the signed consent form and we will get a proceed with a TURP. [facility] Medical History Abnormal stress echo Arthritis Asthma Benign prostatic hyperplasia with lower urinary tract symptoms Essential hypertension Palpitations PVCs (premature ventricular contractions) Shortness of breath Wears glasses Home Medications aspirin 81 mg tablet,delayed release (Adult Aspirin Regimen) 81 mg PO DAILY #90 tabs 10/12/21 [Rx Last Taken 02/26/22] losartan 100 mg tablet 100 mg PO DAILY #90 tabs 10/12/21 [Rx Last Taken 03/03/22] metoprolol succinate 25 mg tablet,extended release 24 hr (Toprol XL) 25 mg PO DAILY #90 tabs 10/12/21 [Rx Last Taken 03/03/22] ciprofloxacin HCl 500 mg tablet (Cipro) 500 mg PO BID #10 tabs 03/03/22 [Rx Last Taken Unknown] Allergy/AdvReac Type Severity Reaction Status Date / Time nitroglycerin Allergy Intermediate Unknown Verified 03/02/22 16:01 Family History Father Congestive heart failure Mother , pneumonia No problems noted. Brother heart on right side Tachycardia Surgical History History of hand surgery History of laparoscopic cholecystectomy History of left heart catheterization (09/14/19) History of prostate surgery (~2017) Social History Smoking Status: Never smoker alcohol intake: current Vital Signs Vital Signs Vital Signs: 03/03/22 11:48 03/03/22 11:48 Temperature 97.8 F Temperature Source Temporal Pulse Rate 69 Respiratory Rate 16 Respiratory Pattern Normal Blood Pressure 160/81 H Blood Pressure Mean 107 Blood Pressure Source Monitor Blood Pressure Position Supine Blood Pressure Location Left Arm Pulse Ox 96 Oxygen Delivery Method Room Air Weight Weight: 100 kg Body Mass Index (BMI) 34.5
--- NOTE | 2022-03-03 14:06 | DCINST_ITS ---
Discharge Instructions Diet Discharge Diet: No restrictions Follow Up Care Please Follow Up With: Charles Shaikh MD Test Results: Test results from this visit will be discussed in further detail at your follow- up appointment, if applicable. Discharge Plan Admission Primary Reason for Your Visit: STEFFI Attending Provider: Charles Shaikh Primary Care Provider: Deo Castellanos Instructions Patient Instructions: STEFFI Home Recovery Discharge Orders/Prescriptions Prescriptions: New ciprofloxacin HCl [Cipro] 500 mg tablet 500 mg PO BID Qty: 10 0RF Continued losartan 100 mg tablet 100 mg PO DAILY Qty: 90 3RF metoprolol succinate [Toprol XL] 25 mg tablet extended release 24 hr 25 mg PO DAILY Qty: 90 3RF Held aspirin [Adult Aspirin Regimen] 81 mg tablet,delayed release (DR/EC) 81 mg PO DAILY Qty: 90 3RF Hold Instructions: Resume on 03/17/22. Other Ambulatory Orders: 12 Lead EKG (Routine) Timeframe: 20220302 Location: None Selected Ordered By: Dr. Karsten Zepeda Referrals / Follow Up: Charles Shaikh MD [STAFF PHYSICIAN] - Deo Castellanos MD [Primary Care Provider] - Disposition Disposition (needs filled in before D/C Order can be placed): Home, Self Care
[2022-03-03] MEDS: Cefazolin 2 GM in 0.9% Normal Saline 100 ML IV (14:08)
--- NOTE | 2022-03-03 15:34 | OP.PCM_ITS ---
Report of Operation Date of Procedure: 03/03/22 Pre-Operative Diagnosis: Stress incontinence, BPH with obstruction and retention of urine Post-Operative Diagnosis: The same Surgery/Procedure Performed:: Transurethral resection of prostate Description of Surgical Findings:: This is a 76-year-old male he had a laser procedure for the prostate years ago and he claims that ever since that procedure he has been having bladder control problems and leakage problems. On cystoscopy was found to have significant regrowth of the channel very high riding bladder neck and obstruction and a very distended bladder I suspect his leakage is probably overflow incontinence but is also possible could be sphincter incontinence. So today when taken back to surgery for transurethral section of the prostate unfortunately I could not guarantee the patient that he would have 100% control of his bladder since his prior laser surgery he reports having incontinence and may have incontinence after this TURP he never had a prior TURP this will be his first TURP. Patient was taken back to the operating room at the smooth induction of general anesthesia the penis and testicles were prepped and draped in usual sterile fashion I went into the bladder with a 24 Welsh noncontinuous flow Olympus resectoscope went to the urethra quite easily got to the membranous urethra this was clear bulbar urethra is clear no strictures or scar tissue along the channel got to the sphincter he Had an open sphincter was not coapting together we could see but then there was a lot of obstructive BPH tissue really had to push the scope down a lot to get over this obstructive tissue. Once I got inside the bladder very distended bladder I then switched over to the resectoscope using a large loop I started resecting median lobe then resected the high bladder neck then resected back and when I found out is that the 2 lobes of the tissue the obstructive tissue had kind of fused together and were overlying and covering the verumontanum and then looking at the prior laser surgery and looked like the laser surgery went super close to this urinary sphincter had lasered beyond the verumontanum is very close to the urinary sphincter pulled back into the beyond the sphincter and the sphincter would coapt together but would not touch each other's edges, I then went forward beyond the obstructive tissue and then continued resecting I resected the obstructive tissue over the room in time to I got freed up the verumontanum and then I continued with a TURP on the right side and the left side of the prostate again only going to the verumontanum but it looked like a prior laser had gone the on this very close to the sphincter. And then I raised resected the apical tissue very carefully and resected the roof of the prostate very carefully I then switched over to the button to shave and smooth out the resection and then use electrocautery with the button to obtain good hemostasis. I pulled back behind the prostate again I could see the sphincter pulled together but it would not coapt all the way and it looked like the laser had lasered very close to the sphincter area from prior surgery but I did not resect anywhere near this. Did a flow test he had a web open flow but again my concern is that his sphincter may not be coming together from prior surgery, as expected I this was explained to the surgery to the patient prior hopefully this he will do well but after with the end of resection of the channel obtain hemostasis 22 Welsh catheter was put into the bladder and continuous irrigation and he was anesthetic was reversed and is taken back to [facility] in good condition this was his first TURP he did not have a prior TURP. I explained the findings to the patient and his family and hopefully they understand that the postoperative recovery may not be perfect due to the prior laser surgery. Surgeon: Charles Shaikh Type of Anesthesia: General Drains: [address] Admit VTE Documentation VTE Present on Admission: No VTE Mechan Device Prophylaxis: SCD's VTE Pharm Prophylaxis ordered?: No
[2022-03-03] MEDS: Ciprofloxacin 500 MG Tablet PO (21:02)
[2022-03-04] MEDS: Acetaminophen 500 MG Tablet PO ×2 (00:17→07:31)
[2022-03-04 03:20] VITALS: BP 129/76; PULSE 74; RESP 16; TEMP 36.7; O2SAT 92
[2022-03-04] MEDS: Losartan Potassium 100 MG Tablet PO (07:33)
[2022-03-04 07:34] VITALS: PULSE 92
[2022-03-04] MEDS: Metoprolol(XL)Succ 25 MG Tablet PO (07:34)
[2022-03-04] MEDS: Ciprofloxacin 500 MG Tablet PO (07:34)
[2022-03-04 08:17] VITALS: BP 133/77; PULSE 92; RESP 16; TEMP 36.9; O2SAT 93
== END 2022-03-04 09:30 | disposition home or self-care (01) ==
LOC: SDC 16:54 → MS3 16:54
PROVIDERS: Admitting Provider Urology; PCP Family Medicine; Referring Provider Urology; Visit Provider Urology
PROC: (CPT 52630; principal; 2022-03-03 13:05)
DX: N40.1 Benign prostatic hyperplasia with lower urinary tract symptoms (principal); N39.3 Stress incontinence (female) (male); I10 Essential (primary) hypertension; N39.490 Overflow incontinence; R33.8 Other retention of urine; N13.8 Other obstructive and reflux uropathy; Z79.82 Long term (current) use of aspirin; Z79.899 Other long term (current) drug therapy; R39.12 Poor urinary stream; J45.909 Unspecified asthma, uncomplicated; M19.90 Unspecified osteoarthritis, unspecified site; I49.3 Ventricular premature depolarization; R00.2 Palpitations; R06.02 Shortness of breath; I25.10 Atherosclerotic heart disease of native coronary artery without angina pectoris; R94.39 Abnormal result of other cardiovascular function study
CPT/HCPCS: 52630; 00914; 88305; 93005; 99218; J7120; G0378; J2405

== ENCOUNTER → 2022-03-18 | Outpatient (CLI) | payer MEDICARE, SELFPAY | END | disposition home or self-care (01) | LOC: LABSPEC 16:17 | PROVIDERS: PCP Family Medicine; Visit Provider Urology | DX: R31.9 Hematuria, unspecified (principal) | CPT/HCPCS: 87086; 87088 ==

== ENCOUNTER → 2022-04-27 | Outpatient (CLI) | payer MEDICARE, SELFPAY | END | disposition home or self-care (01) | LOC: LABSPEC 16:19 | PROVIDERS: PCP Family Medicine; Referring Provider Urology; Visit Provider Urology | DX: R31.0 Gross hematuria (principal); R30.0 Dysuria | CPT/HCPCS: 87086; 87088 ==

== ENCOUNTER 2023-05-26 13:35 | Emergency (ER) | payer MEDICARE, SELFPAY ==
[2023-05-26 13:36] VITALS: BP 129/88; PULSE 94; RESP 15; TEMP 36; O2SAT 97; BMI 35.2
--- NOTE | 2023-05-26 13:53 | RAD_ITS ---
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 COMPARISON: None. FINDINGS: Normal metacarpal head. Normal metacarpophalangeal joint. Normal proximal phalanx. Normal middle phalanx. There has been amputation of the distal phalanx of the fifth digit. Normal proximal interphalangeal joint. No radiopaque foreign body is seen. 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 No radiopaque foreign body is seen. Electronically Signed: Jasen Ocasio MD at 14:03 EDT ,
--- NOTE | 2023-05-26 15:26 | EX.ED.UPPERE ---
HPI History of Present Illness HPI Narrative: Left small finger splinter Chief Complaint: Foreign Body Informant: patient and spouse/S.O. Occured/Mechanism Mechanism/Context: Yes injury Onset/Context/Timing Onset: Today, Hours and - (Around 7 AM.) Context: Sudden Onset Timing: Continuous Quality of Pain: Sharp Current Severity: Mild Maximum Severity: Mild Associated Symptoms Associated Symptoms: Negative for Parasthesia, Weakness or Loss of Funtion Narrative Narrative: 77-year-old [employer] male with splinter in his left small finger on the palmar side proximal phalanx. Today around 7 AM. [id number]. 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 Tetanus is not up-to-date. Tetanus Immunization: >10 years Prior similar symptoms: No Recent Illness/Hospitalization: No PFSH PFSH Medical History Abnormal stress echo Arthritis Asthma Benign prostatic hyperplasia with lower urinary tract symptoms Essential hypertension Palpitations PVCs (premature ventricular contractions) Shortness of breath Wears glasses Home Medications aspirin 81 mg tablet,delayed release (Adult Aspirin Regimen) 81 mg PO DAILY #90 tabs 10/12/21 [Rx Last Taken 02/26/22] losartan 100 mg tablet 100 mg PO DAILY 09/06/22 [History Last Taken Unknown] metoprolol succinate 25 mg tablet,extended release 24 hr See Rx Instructions .Route .COMPLEX #90 tabs 11/23/22 [Rx Last Taken Unknown] cephalexin 500 mg capsule 500 mg PO TID #15 caps 05/26/23 [Rx Last Taken Unknown] Allergy/AdvReac Type Severity Reaction Status Date / Time nitroglycerin Allergy Intermediate Unknown Verified 05/26/23 14:43 Family History Father Congestive heart failure Mother , pneumonia No problems noted. Brother heart on right side Tachycardia Surgical History History of hand surgery History of laparoscopic cholecystectomy History of left heart catheterization (09/14/19) History of prostate surgery (~2017) Social History Smoking Status: Never smoker alcohol intake: current ROS ROS ED ROS Narrative Denies recent illness Review of Systems ROS Unobtainable: Denies due to encephalopathy Constitutional Constitutional ED: Denies chills or fever(s) Eyes Eyes: Denies blurry vision ENT ENT ED: Denies ear pain Cardiovascular Cardiovascular: Denies chest pain Respiratory/Chest Respiratory/Chest: Denies cough or dyspnea Gastrointestinal Gastrointestinal: Denies abdominal pain Genitourinary Genitourinary ED: Denies dysuria or hematuria Musculoskeletal Musculoskeletal: Denies back pain Integumentary Denies abscess Neurologic Neurologic: Denies headache(s) Psychiatric Psychiatric: Denies anxiety Endocrine Endocrinology: Denies cold intolerance Hematologic/Lymphatic Hematologic/Lymphatic: Denies easy bleeding or easy bruising Allergic/Immunologic Allergic/Immunologic ED: Denies mouth swelling or tongue swelling EXAM Physical Exam Narrative Exam Narrative: 77-year-old male. Vital signs stable afebrile. HEENT exam unremarkable. Lungs clear. Heart regular rhythm. Abdomen soft nontender. All 4 extremities. Neurovascular intact.Left hand palmar aspect there is a tiny splinter entering the ulnar side of his proximal phalanx patient of the small finger coming out on the radial side. Still throughout 1-1 and half inches in length. There is no infection. He has full flexion extension. No cellulitis. No pus. The distal phalanx was amputated years ago of the left small finger it healed well. Const Vital Signs: 05/26/23 13:36 05/26/23 14:46 Temperature 96.8 F L Temperature Source Temporal Pulse Rate 94 Respiratory Rate 15 Respiratory Effort Normal Non-Labored Respiratory Pattern Normal Blood Pressure 129/88 H Blood Pressure Mean 101 Pulse Ox 97 Oxygen Delivery Method Room Air Positive well nourished and well developed; Negative for cachectic, contractures or unkempt General Appearance ED: well developed and NAD; Negative for unkempt, cachectic, contractures, cyanotic or diaphoretic Nutritional Appearance: Negative for cachectic HEENT Reports moist mucous membranes normocephalic and atraumatic; Negative for trauma or tenderness Eyes PERRL and EOMs intact bilaterally General Eye ED: Negative for other Neck full ROM and supple General: Negative for tenderness Lymph Lymphatic: Negative for other Chest Wall inspection of chest normal and palpation of chest normal Chest: Negative for other Resp normal respiratory effort and clear to auscultation bilaterally Effort and Inspection: Negative for pain with movement Auscultation: Negative for rales, rhonchi or wheezes Cardio regular rate, regular rhythm, S1 normal heart sound, S2 normal heart sound and no murmurs GI non-tender, non-distended and no masses Auscultation: normoactive bowel sounds Palpation: soft; Negative for tender or guarding Extremity normal to inspection and full ROM Extremity Narrative: Stepped pine splinter in the proximal aspect palmar side of his left small finger. The distal phalanx was amputated years ago. No signs of infection. Normal flexion extension. Normal touch sensation. Neuro oriented x3, CN's II-XII intact bilaterally, moves all extremities and no focal motor deficits Sensorium / Orientation: oriented to person, oriented to place and oriented to time; Negative for orientation impaired Motor Exam: strength 5/5 throughout Psych mental status grossly normal Appearance: Negative for unkempt Attitude: No agitated Mood & Affect: Negative for depressed, anxious or tearful Skin Skin Narrative: Puncture wound left small finger with a fine needle foreign body. General Skin Exam: Negative for petechiae Lesions: no lesions Rashes: no rashes Trauma: no lacerations or abrasions MDM MDM MDM Narrative Medical decision making narrative: Patient is a pine needle foreign body in his left small finger. X-ray was obtained by nursing protocol in triage which was unremarkable. Typically this would not show up on x-rays so I did not expect it to. His tetanus will be updated. This will need to be locally anesthetized with a digital block. I will try to remove the iNatal foreign body. To be placed on antibiotic. 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 No radiopaque foreign body is seen. Electronically Signed: Jasen Ocasio MD at 14:03 EDT , Small finger x-ray 3 views interpreted both by myself and the radiologist shows no acute abnormality. Prior amputation of distal phalanx years ago. No foreign body noted. No subcu air. Procedures Other Procedures Procedure(s): Finger foreign body:. Digital block performed with lidocaine. Once proper anesthetic was obtained. I made incision along the axis of the foreign body tract. Blunt probe the wound. I could not see or feel or find any type of foreign body. Patient may have gotten the vast majority of it out. Or it went too deep and is below the flexor tendon. Was irrigated. It was loosely closed with two 4-0 Ethilon sutures. He tolerated procedure well. He was instructed on close follow-up. I have a plastic surgery on page. He will be placed on Keflex 500 mg 3 times a day for the next 5 days. Return if any signs of infection. Discharge Plan Triage Chief Complaint: Foreign Body ED Provider: Daniel Steele Dx/Rx/DC Orders Clinical Impression: Foreign body (FB) in soft tissue Instructions: ED Foreign Body Soft Tissue Prescriptions: New cephalexin 500 mg capsule 500 mg PO TID Qty: 15 0RF No Action losartan 100 mg tablet 100 mg PO DAILY aspirin [Adult Aspirin Regimen] 81 mg tablet,delayed release (DR/EC) 81 mg PO DAILY Qty: 90 3RF Hold Instructions: Resume on 03/17/22. metoprolol succinate 25 mg tablet extended release 24 hr See Rx Instructions .ROUTE .COMPLEX Qty: 90 3RF Dose Instruction: TAKE 1 TABLET BY MOUTH EVERY DAY Rx Instructions: TAKE 1 TABLET BY MOUTH EVERY DAY Primary Care Provider: Deo Castellanos Referrals: Danial Petit MD [Med Staff - Active Staff] - As soon as possible Deo Castellanos MD [Primary Care Provider] - Activity Restrictions/Additional Instructions: Follow-up with the plastic surgeon soon as possible. They may just watch this. If it gets infected they will need to go and explore it further to see if there is any retained foreign body that I could not find at this time. Call their office tomorrow to set up an appointment. Antibiotic Keflex 1 pill 3 times a day for the next 5 days. Signs of infection such as significant swelling, pus, redness, streaks or fever return to have for this evaluation. Leave dressing on for 3 days. Then clean it daily with soap and water. Disposition Disposition: Home, Self Care
[2023-05-26] MEDS: Diphth,Pertuss(Acell),Tet Vac 0.5 ML Vial IM (15:36)
[2023-05-26] MEDS: Lidocaine 1% (20 ml mdv) 20 ML Vial 10 ML INFILT (15:37)
[2023-05-26 17:21] VITALS: BP 158/78; PULSE 70; RESP 17; O2SAT 95
== END 2023-05-26 17:24 | disposition home or self-care (01) ==
PROVIDERS: Emergency Provider Emergency Medicine; PCP Family Medicine; Visit Provider Emergency Medicine
DX: S60.552A Superficial foreign body of left hand, initial encounter (principal); I10 Essential (primary) hypertension; Z79.82 Long term (current) use of aspirin; Z79.899 Other long term (current) drug therapy; Z90.49 Acquired absence of other specified parts of digestive tract; Z23 Encounter for immunization; W45.8XXA Other foreign body or object entering through skin, initial encounter
CPT/HCPCS: 10120; 73140; 90471; 90715; 99284

== ENCOUNTER → 2023-07-25 | Outpatient (CLI) | payer MEDICARE, SELFPAY ==
[2023-07-25 15:01] LABS: PSA,Total- Diagnostic 3.09 ng/mL (0.0-4.0)
== END | disposition home or self-care (01) ==
LOC: LAB 13:38
PROVIDERS: PCP Family Medicine; Referring Provider Urology; Visit Provider Urology
DX: R97.20 Elevated prostate specific antigen [PSA] (principal)
CPT/HCPCS: 36415; 84153

== ENCOUNTER → 2023-12-20 | Outpatient (CLI) | payer MEDICARE, SELFPAY ==
[2023-12-20 09:31] LABS: Hematocrit 42.4 % (40-54); Hemoglobin 14.2 g/dL (13.0-16.5); Mean Corp Hgb Conc 33.5 g/dL (32-36); Mean Corpuscular Hgb 31.3 pg (27.0-32.0); Mean Corpuscular Volume 93.6 fL (80-94); Mean Platelet Vol. 9.4 fl (6.2-12.0); Platelet Count 201 K/mm3 (150-450); RBC Distribution Width CV 13.2 % (11.6-14.6); RBC Distribution Width SD 45.4 fl (35.1-43.9); Red Blood Count 4.53 M/mm3 (4.6-6.2); White Blood Count 8.9 K/mm3 (4.4-11.0)
[2023-12-20 10:13] LABS: ALB/GLOB Ratio 0.9 RATIO (0.9-2.4); AST(SGOT) 16 U/L (15-37); Alanine Aminotransfer ALT/SGPT 30 U/L (16-61); Albumin, Serum 3.6 g/dL (3.2-5.0); Alkaline Phosphatase 40 U/L (45-117); Anion Gap 4 (5-15); BUN 18 mg/dL (7-18); BUN/Creat Ratio 16.2 RATIO (10-20); Calcium,Total 9.2 mg/dL (8.5-10.1); Chloride 109 mmol/L (98-107); Cholesterol 217 mg/dL (200); Creatinine, Serum 1.11 mg/dL (0.70-1.30); EST Glomerular Filtration Rate 68 mL/min (>60); Est Glom Filt Rate - Afr Amer 83 mL/min (>60); Globulin 3.8 g/dL (2.2-4.2); Glucose 121 mg/dL (74-106); High Density Lipoprotein 49 mg/dL; Potassium 4.1 mmol/L (3.5-5.1); Protein, Total 7.4 g/dL (6.4-8.2); Sodium Level 140 mmol/L (136-145); Triglycerides 104 mg/dL; Very Low Density Lipoprotein 21 mg/dL (5-40)
== END | disposition home or self-care (01) ==
PROVIDERS: PCP Family Medicine; Referring Provider Internal Medicine Cardiovascular Disease; Visit Provider Internal Medicine Cardiovascular Disease
DX: I25.10 Atherosclerotic heart disease of native coronary artery without angina pectoris (principal); E78.5 Hyperlipidemia, unspecified; I10 Essential (primary) hypertension; R06.02 Shortness of breath; R94.39 Abnormal result of other cardiovascular function study; I49.3 Ventricular premature depolarization
CPT/HCPCS: 36415; 80053; 80061; 85027

== ENCOUNTER → 2024-06-28 | Outpatient (CLI) | payer MEDICARE, SELFPAY ==
--- NOTE | 2024-06-28 15:36 | MRI_ITS ---
STUDY: MRI LUMBAR SPINE WITHOUT CONTRAST REASON FOR EXAM: Male, 78 years old. LOW BACK PAIN TECHNIQUE: Standardized fat and water weighted pulse sequences were obtained in the sagittal and axial planes. Noncontrast images obtained. Contrast: No contrast administered COMPARISON: None FINDINGS: Vertebral bodies and alignment. 1. Vertebral body height and alignment are maintained. No evidence of marrow edema or occult fracture. There is mild diffuse heterogeneous marrow signal. 2. Paraspinous soft tissue planes have normal appearance. Normal appearance of the muscular fascial planes of the erector spinae. 3. Normal appearance of the sacrum and sacroiliac joints. Intervertebral disks levels. T12-L1: Mild disc desiccation without disc herniation canal or foraminal stenosis. No evidence cord or nerve root impingement. Endplate: No focal endplate marrow changes or endplate deformity. L1-2: Mild disc desiccation without disc herniation canal or foraminal stenosis. Mild facet hypertrophic changes. No evidence of nerve root impingement. No evidence of foraminal stenosis. Endplate: Mild contour deformity of the endplates with a subtle Modic type II changes present. L2-3: Disc desiccation, broad-based disc bulge with eccentric LEFT posterior lateral protrusion deforming the anterior epidural space with compression LEFT lateral recess and the LEFT neural foramen. Potential nerve root impingement without central canal stenosis. The RIGHT neural foramen is widely patent. Endplate: No focal endplate marrow changes or endplate deformity. L3-4: Disc desiccation, broad-based concentric disc bulge, central thecal sac is narrowed to approximately 7 mm in part contributed by posterior epidural lipomatosis. Facet and ligamentum flavum hypertrophic changes however present which results in a LEFT lateral recess compression and expected nerve root impingement. There is foraminal stenosis greater on the LEFT than RIGHT. Endplate: Mild endplate deformity without evidence kaleb Modic changes. L4-5: Disc desiccation, broad-based a concentric disc bulge without central canal stenosis. Facet and ligamentum flavum hypertrophic changes are present. Mild crowding and potential early impingement of nerve roots in the lateral recesses greater on the LEFT than RIGHT. Bilateral foraminal narrowing without nerve root compression. Endplate: No focal endplate marrow changes or endplate deformity. L5-S1: Normal disc height, hydration and morphology. Normal bilateral facet joints. Normal central canal and bilateral lateral recesses. Normal bilateral intervertebral neural foramina. Endplate: No focal endplate marrow changes or endplate deformity. Spinal cord: Normal appearance of the spinal cord and conus. Conus is located at T12. Cauda equina has normal appearance. No evidence of cord compression or edema. No intramedullary signal abnormality noted. Paraspinous soft tissues: Normal visualized paraspinous soft tissue structures. MRI/Spine Lumbar (Routine) IMPRESSION: 1. Multilevel lumbar spondylosis with disc desiccation disc bulges at multiple levels, however there is a eccentric LEFT posterior lateral disc protrusion at L2-3 with compression LEFT lateral recess and LEFT neural foramen with potential nerve root impingement. 2. Broad-based disc bulge facet and ligamentum flavum hypertrophic changes at L3-4 with compression of lateral recesses greater on the LEFT than RIGHT with potential nerve root impingement. 3. Lateral recess narrowing at L4-5 due to broad-based disc bulge and facet and ligamentum flavum changes without canal stenosis. 4. Normal appearance of the spinal cord and conus. Electronically Signed: Yehuda Carcamo MD at 21:43 EDT ,
== END | disposition home or self-care (01) ==
LOC: MRI 15:30
PROVIDERS: PCP Family Medicine
DX: M54.50 Low back pain, unspecified (principal)
CPT/HCPCS: 72148

== ENCOUNTER → 2024-08-06 | Outpatient (CLI) | payer MEDICARE, SELFPAY ==
[2024-08-06 09:59] LABS: PSA,Total- Diagnostic 2.26 ng/mL (0.0-4.0)
== END | disposition home or self-care (01) ==
LOC: LAB 09:02
PROVIDERS: PCP Family Medicine; Referring Provider Urology; Visit Provider Urology
DX: R97.20 Elevated prostate specific antigen [PSA] (principal)
CPT/HCPCS: 36415; 84153

== ENCOUNTER → 2024-08-29 | Outpatient (CLI) | payer MEDICARE, SELFPAY ==
--- NOTE | 2024-08-29 12:46 | RAD_ITS ---
INDICATION: PRE OP OTHER FACILITY EXAMINATION/TECHNIQUE: X-RAY - XR Chest 2 Views COMPARISON: Prior study dated: 09/03/2019 FINDINGS: LINES/DEVICES: None. LUNGS: The lungs are well expanded. No consolidation, edema or effusion. No pneumothorax. MEDIASTINUM AND CARDIOVASCULAR STRUCTURES: Cardiac silhouette not enlarged. Aortic calcification. Central airways and mediastinal contour are unremarkable. BONES AND SOFT TISSUES: No acute abnormality. RAD/Chest PA and Lateral IMPRESSION: No acute pulmonary finding. Electronically Signed: Amando Dinh MD at 22:47 EST ,
[2024-08-29 12:59] LABS: Absolute Lymphocyte Count 2.75 X10^3/uL (0.83-4.51); Absolute Neutrophil Count 5.9 X10^3/uL (2.0-7.7); Basophil# 0.05 X10^3/uL; Basophil% 0.5 % (0-1); Eosinophil# 0.18 X10^3/uL; Eosinophils% 1.8 % (0-5); Hematocrit 40.6 % (40-54); Hemoglobin 13.9 g/dL (13.0-16.5); Lymphocyte # 2.75 X10^3/ul (0.83-4.51); Lymphocyte % 28.2 % (19-41); Mean Corp Hgb Conc 34.2 g/dL (32-36); Mean Corpuscular Hgb 32.2 pg (27.0-32.0); Mean Platelet Vol. 9.8 fl (6.2-12.0); Monocyte# 0.82 X10^3/uL; Monocyte% 8.4 % (0-10); NRBC Flagged by Analyzer 0 % (0-5); Neutrophil % 60.7 % (47-70); Platelet Count 218 K/mm3 (150-450); RBC Distribution Width CV 12.6 % (11.6-14.6); RBC Distribution Width SD 43.5 fl (35.1-43.9); Red Blood Count 4.32 M/mm3 (4.6-6.2); White Blood Count 9.7 K/mm3 (4.4-11.0)
[2024-08-29 13:38] LABS: Albumin, Serum 3.4 g/dL (3.2-5.0); Anion Gap 6 (5-15); BUN 21 mg/dL (7-18); BUN/Creat Ratio 15.7 RATIO (10-20); Calcium,Total 9.3 mg/dL (8.5-10.1); Chloride 108 mmol/L (98-107); Creatinine, Serum 1.34 mg/dL (0.70-1.30); EST Glomerular Filtration Rate 55 mL/min (>60); Est Glom Filt Rate - Afr Amer 66 mL/min (>60); Glucose 140 mg/dL (74-106); Sodium Level 140 mmol/L (136-145)
[2024-08-30 05:07] LABS: Prealbumin 25 mg/dL (9-32)
== END | disposition home or self-care (01) ==
LOC: LAB 12:21
PROVIDERS: PCP Family Medicine
DX: Z01.818 Encounter for other preprocedural examination (principal); M48.061 Spinal stenosis, lumbar region without neurogenic claudication
CPT/HCPCS: 36415; 71046; 80048; 82040; 84134; 85025; 87081

== ENCOUNTER 2025-05-07 22:48 | Emergency (ER) | payer MEDICARE, SELFPAY ==
[2025-05-07 22:49] VITALS: BP 118/71; PULSE 85; RESP 18; TEMP 37; O2SAT 95; BMI 34.2
--- NOTE | 2025-05-07 23:26 | EX.ED.DYSGE1 ---
HPI History of Present Illness Chief Complaint: Nosebleed Informant: patient and spouse/S.O. Narrative Narrative: Patient is a 79-year-old male with past medical history of hypertension and hyperlipidemia. He states that yesterday he blew his nose and there was blood coming from the left nostril. He states this stopped after a few minutes. He reports today he was working out in his shop when he suddenly started having bleeding from the left nostril once again. He states that he takes a natural herbal pain pill daily which he reports thins his blood but he denies any true blood thinner such as Coumadin Eliquis Xarelto or Plavix. He states the bleeding would not stop which concerned him especially as it presented 2 days in a row and therefore EMS was called. By the time EMS arrived the patient states his bleeding spontaneously quit but because of the 2 separate events he was brought in for evaluation. [facility] Medical History Obesity Foreign body (FB) in soft tissue Wears glasses Atherosclerosis of [place] coronary artery of [place] heart without angina pectoris PVCs (premature ventricular contractions) Abnormal stress echo Palpitations Shortness of breath Arthritis Asthma Essential hypertension Benign prostatic hyperplasia with lower urinary tract symptoms Home Medications ?Medication ?Instructions ?Recorded ?Last Taken ?Type amlodipine 5 mg tablet 5 mg PO DAILY #90 tabs 10/12/24 Unknown Rx losartan 100 mg tablet 100 mg PO DAILY #90 tabs 10/12/24 Unknown Rx metoprolol succinate 25 mg 25 mg PO QDAY #90 tabs 10/12/24 Unknown Rx tablet,extended release 24 hr Allergy/AdvReac Type Severity Reaction Status Date / Time nitroglycerin Allergy Mild unknown Verified 05/07/25 22:49 Family History Father Congestive heart failure Mother , pneumonia No problems noted. Brother heart on right side Tachycardia Surgical History History of hand surgery History of laparoscopic cholecystectomy History of left heart catheterization (09/14/19) History of prostate surgery (~2017) Social History Smoking Status: Former smoker alcohol intake: current ROS ROS ED Constitutional Constitutional ED: Denies chills or fever(s) Eyes Eyes: Denies change in vision ENT ENT ED: Reports other Details: Positive nosebleed ; Denies sore throat Cardiovascular Cardiovascular: Denies chest pain, palpitations or racing heartbeat Respiratory/Chest Respiratory/Chest: Denies cough or dyspnea Gastrointestinal Gastrointestinal: Denies abdominal pain, diarrhea, nausea or vomiting Musculoskeletal Musculoskeletal: Denies neck pain Integumentary Denies rash Neurologic Neurologic: Denies headache(s) Hematologic/Lymphatic Hematologic/Lymphatic: Reports easy bleeding and easy bruising EXAM Physical Exam Const Vital Signs: 05/07/25 22:49 Temperature 98.6 F Temperature Source Oral Pulse Rate 85 Respiratory Rate 18 Blood Pressure 118/71 Blood Pressure Mean 86 Pulse Ox 95 Oxygen Delivery Method Room Air Positive well nourished and well developed General Appearance ED: well developed; Negative for pallor HEENT HEENT Narrative: There is dried blood present in both nostrils but it is greatest in the left side consistent with history of left-sided nosebleed. The septum is friable on this side. There is no obvious active bleeding noted. No drainage in the posterior pharynx No tongue or lip swelling no oral lesions no airway edema or compromise; no secondary findings in the posterior pharynx to suggest infection Eyes PERRL and EOMs intact bilaterally General Eye ED: Negative for pale conjunctiva Neck supple Resp normal respiratory effort and clear to auscultation bilaterally Cardio regular rate and regular rhythm Extremity normal to inspection Neuro oriented x3, CN's II-XII intact bilaterally and no sensory deficits noted Sensorium / Orientation: alert Motor Exam: strength 5/5 throughout Psych mental status grossly normal Skin no rashes or lesions noted and no wounds Skin Narrative: Capillary refills less than 3 seconds General Skin Exam: Negative for jaundice or pallor MDM MDM MDM Narrative Medical decision making narrative: Patient arrived to the ER with stable vitals and spontaneous resolution of his nosebleed. With stable vitals and no true anticoagulation I felt no need to check bleeding times or a CBC is at low concern for thrombocytopenia or acute blood loss anemia. The nose was packed with lidocaine with epinephrine soaked cotton balls as well as Afrin. These were kept in place for 20 minutes. When they were removed there is no active bleeding or clots noted. The septum does appear friable but there is no obvious area of active bleeding necessitating silver nitrate cauterization. Therefore at this time his vitals are stable and there is been spontaneous resolution of bleeding without rebleed I do not feel the need for further intervention he is otherwise safe for discharge with outpatient ENT follow-up. History & Record Review Discussion w/independent historian: Patient and Significant other Discharge Plan Triage Chief Complaint: Nosebleed ED Provider: Shade Valiente Dx/Rx/DC Orders Clinical Impression: Acute anterior epistaxis, Dyslipidemia, Essential hypertension Instructions: ED Epistaxis (Adult) Prescriptions: No Action amlodipine 5 mg tablet 5 mg PO DAILY Qty: 90 3RF losartan 100 mg tablet 100 mg PO DAILY Qty: 90 3RF metoprolol succinate 25 mg tablet extended release 24 hr 25 mg PO QDAY Qty: 90 3RF Primary Care Provider: Deo Castellanos Referrals: Vu Sinclair MD [Med Staff - Active Staff] - (Epistaxis) Deo Castellanos MD [Primary Care Provider] - Activity Restrictions/Additional Instructions: If bleeding returns please hold pressure constantly for 10 minutes. If you release pressure and there is still bleeding after 10 minutes hold again for another 10 minutes for a total of 20 minutes of direct pressure. If there is still bleeding after this then you will need to be seen in the ER for further intervention. Please place Vaseline on each side of your septum/nose at night to help prevent rebleeding. Follow-up with ENT for repeat evaluation Print Language: Luxem[place]ish Disposition Disposition: Home, Self Care
[2025-05-07] MEDS: Oxymetazoline 0.05% 1 SPRAY SPRAY.BTL 2 SPRAY NASAL (23:29)
[2025-05-07] MEDS: Lidocaine 2% /Epi 1:100 (20ml) 20 ML VIAL INFILT (23:30)
--- OUTSIDE RECORDS SUMMARY | 2025-05-07 23:59 | XMS RPT_ITS | CCD ---
Author Organization [facility] Care Team Providers Care Manager Book Name Role Phone Hank CampaRohan Unavailable Unavailable Vidal Grover Unavailable Unavailable Jayde Castellanos MD Primary Care Provider Dr. Vidal Grover III Referring Provider Osmany CARDENAS, ADEN Swain Attending Provider Dr. Jayde Castellanos Primary Care Provider [phone] Dr. Jayde Castellanos Primary Care Provider Dr. Clark Gary Attending Provider Dr. Charles Shaikh Referring Provider Jayde Castellanos MD Primary Care Provider Dr. Jayde Castellanos Primary Care Provider Dr. Jayde Castellanos Referring Provider Dr. Catherine Kong Attending Provider [phone] [place] [address] Serum or plasma creatinine m easurement (mass/volume)Ordered By: Catherine Kong on 12-20-2023 Creatinine [Mass/Vol] 1.11 mg/dL 0.70-1.30 [facility] Comment on above: The validity of the calculated GFR & GFRAA in patients over 70 years has not been determined. Clinical correlation is essential. Serum or plasma urea nitroge n measurement (mass/volume)Ordered By: Catherine Kong on 12-20-2023 Urea nitrogen [Mass/Vol] 18 mg/dL 7-18 [facility] Thin prep Papanicolaou smear with manual screeningOrdered By: Catherine Kong on 12-20-2023 Thin prep Papanicolaou smear with manual screening 3.6 g/dL 3.2-5.0 [facility] Thin prep Papanicolaou smear with manual screening 16 U/L 15-37 [facility] Thin prep Papanicolaou smear with manual screening 4 5-15 [facility] Cardiology Visit Reporton Cardiology Visit Report [facility] [address] [place] [address] OFFICE VISIT Date of Service: 12/12/23 MR#: [id number] Acct: [id number] Name: CLARK DONOVAN Rep #: [id number] : 1945 Provider: Dr. Catherine Kong MD Age/Sex: 78/M Location: [facility] Status: Signed HPI [facility] History of Present Illness Details: This gentleman is here for follow-up visit. Denies any complaints. No chest pains. No shortness of breath. Patient stopped taking his aspirin as according to him, he was bruising easily. Per him, he bruises easily anyway and aspirin was making it worse. Intake Vital Signs 05/31/23 14:03 12/12/23 09:03 Height 5 ft 7 in 5 ft 7 in Weight: 228 lb 226 lb BMI 35.6 35.4 BP 133/83 H 121/78 H Blood Pressure Location Lt brachial Lt brachial Position Sitting Sitting Respiration 16 16 Pulse 84 81 Pulse Source Auscultation Auscultation Intake Visit Reasons: 6 M Decorator Mannequin Required: No Accompanied by: Self Is patient in pain?: No Allergies No Known Allergies Allergy (Unverified 12/12/23 09:06) Medications amlodipine 5 mg tablet 5 mg PO DAILY 05/30/23 [History Confirmed 12/12/23] metoprolol succinate 25 mg tablet,extended release 24 hr 12.5 mg PO DAILY 05/31/23 [History Confirmed 12/12/23] losartan 100 mg tablet 100 mg PO DAILY 12/12/23 [History Confirmed 12/12/23] Ejection fraction %: 65 to 70 PFSH Medical History Abnormal stress echo Arthritis Asthma Atherosclerosis of [place] coronary artery of [place] heart without angina pectoris Benign prostatic hyperplasia with lower urinary tract symptoms Essential hypertension Foreign body (FB) in soft tissue Obesity Palpitations PVCs (premature ventricular contractions) Shortness of breath Wears glasses Surgical History History of hand surgery History of laparoscopic cholecystectomy History of left heart catheterization (09/14/19) History of prostate surgery ( 2017) Family History Father Congestive heart failure Mother , pneumonia No problems noted. Brother heart on right side Tachycardia Social History Smoking Status: Never smoker alcohol intake: current ROS Const Const: Positive for daytime sleepiness; Negative for fatigue, weakness, headache(s), frequent falls, difficulty sleeping or excessive sweating Eyes Eyes: Negative for loss of peripheral vision, transient loss of vision, blurry vision, double vision or tunnel vision ENT ENT: Negative for headache(s), dizziness, Nosebleed/epistaxis or balance problems Cardio Chest Pain: No Palpitations: No Edema: Bilateral (slightly occ) Muscle aches with walking: None Resp Respiratory: Positive for SOB with activity; Negative for SOB at rest, SOB orthopnea SOB lying down, Cough or paroxysmal nocturnal dyspnea GI GI: Positive for heartburn (occ); Negative nausea, vomiting or black,tarry stools : Negative for hematuria Musc Musc: Negative for muscle aches/ myalgia, muscle weakness, joint pain or balance problems Skin Skin: Negative non-healing lesions, rash or unusual bruising Neuro Neuro: Negative for dizziness, lightheadedness, near syncope, syncope, frequent falls, headache(s), weakness, blurry vision, double vision or lack of coordination Jamal Hematologic/Lymphatic: Negative for easy bleeding or easy bruising Endo Endo: Negative for fatigue, excessive sweating or increased thirst/drinking Psych Psych: Negative for anxiety or depression Allergy Allergy/Immunology: Negative for hives and Negative for rash Cardiology Exam Const Appearance: comfortable and no acute distress Nutritional Appearance: well nourished Neck Neck: no JVD Carotids: Negative bruit Chest Auscultation: Bilateral: Clear to Auscultation Cardio Rate: regular rate Rhythm: regular rhythm Heart sounds: S1 normal and S2 normal Grade 1/6 systolic murmur noted at base. Neuro General: patient alert, patient awake and patient oriented x3 Extremities Lower Extremity Edema: Trace: Bilateral Supplemental Info Supplemental Information Echocardiogram in 2019 demonstrates: The estimated ejection fraction is 65 %. Stage 2 diastolic dysfunction. The left atrium is moderately enlarged. The right atrium is mildly enlarged. Right ventricular systolic pressure estimated to be 29 mmHg. There is no comparison study available. The estimated ejection fraction is 65 %. Posterior-Basal: Mildly hypokinetic Mid-Posterior: Mildly hypokinetic Basal inferoseptal: Mildly hypokinetic STRESS ECHOCARDIOGRAM 04/11/23: CONCLUSIONS - Technically difficult exam due to body habitu (more content not included)... Normal [facility] No Panel InformationOrdered By: Charles Shaikh on 07-25-2023 Prostate Specific Antigen Total 3.09 ng/mL 0.0-4.0 [facility] Comment on above: This test was perfor med using the TPSA assay method for [employer] chemistry system. Values obtained with differentassay methods cannot be used interchangably.When changing PSA assays in the course of monitoring apatient, additional sequential testing should be carriedout to confirm baseline values. Basophil percentageon 2021 Chloride [Moles/Vol] 109 mmol/L 98-[address] [facility] Work Phone: Glucose [Mass/Vol] 84 mg/dL 74-106 [facility] Work Phone: Potassium [Moles/Vol] 4.0 mmol/L 3.5-5.1 [facility] Work Phone: Sodium [Moles/Vol] 140 mmol/L 136-145 [facility] Work Phone: Laboratory - Chemistry and C hemistry - challengeon 02-08-2022 CO2 [Moles/Vol] 26.0 mmol/L 21.0-32.0 [facility] Work Phone: Urea nitrogen/Creatinine [Mass ratio] 16.2 mg/mg 10-20 [facility] Work Phone: No Panel Informationon 02-08 Estimated GFR (MDRD) Amer 95 mL/min >60 [facility] Work Phone: Comment on above: GFR Calc Estimated GFR (MDRD) Non-Af Amer 78 mL/min >60 [facility] Work Phone: Comment on above: Non- GFR Calc Prostate Specific Antigen Total 6.07 ng/mL 0.0-4.0 [facility] Work Phone: Comment on above: This test was perfor med using the TPSA assay method for [employer] chemistry system. Values obtained with differentassay methods cannot be used interchangably.When changing PSA assays in the course of monitoring apatient, additional sequential testing should be carriedout to confirm baseline values. Serum or plasma calcium billy urement (mass/volume)on 02-08-2022 Calcium [Mass/Vol] 9.3 mg/dL 8.5-10.1 [facility] Work Phone: Serum or plasma creatinine m easurement (mass/volume)on 02-08-2022 Creatinine [Mass/Vol] 0.99 mg/dL 0.70-1.30 [facility] Work Phone: Comment on above: The validity of the calculated GFR & GFRAA in patients over 70 years has not been determined. Clinical correlation is essential. Serum or plasma urea nitroge n measurement (mass/volume)on 02-08-2022 Urea nitrogen [Mass/Vol] 16 mg/dL 7-18 [facility] Work Phone: Thin prep Papanicolaou smear with manual screeningon 02-08-2022 Thin prep Papanicolaou smear with manual screening 5 5-15 [facility] Work Phone: Absolute lymphocyte counton 01-29-2022 Lymphocytes Auto (Unsp spec) [#/Vol] 2.77 10*3/uL 0.83-4.51 [facility] Work Phone: Basophil percentageon 2021 Basophils/100 WBC (Bld) 0.3 % 0-1 [facility] Work Phone: Chloride [Moles/Vol] 111 mmol/L 98-[address] [facility] Work Phone: Eosinophils/100 WBC (Bld) 2.9 % 0-5 [facility] Work Phone: Glucose [Mass/Vol] 116 mg/dL 74-106 [facility] Work Phone: Comment on above: Fasting Glucose resu lt from 100 to 125 mg/dL suggests IMPAIRED HOMEOSTASIS per A.D.A. criteria. Neutrophils (Bld) [#/Vol] 3.2 10*3/uL 2.0-7.7 [facility] Work Phone: Neutrophils/100 WBC (Bld) 44.7 % 47-70 [facility] Work Phone: Potassium [Moles/Vol] 3.8 mmol/L 3.5-5.1 [facility] Work Phone: Sodium [Moles/Vol] 142 mmol/L 136-145 [facility] Work Phone: WBC (Bld) [#/Vol] 7.1 10*3/uL 4.4-11.0 [facility] Work Phone: Basophil percentage 0-5 SEEN /hpf 0-5 [facility] Work Phone: Bilirubin Test strip Ql (U)o n 01-29-2022 Bilirubin Ql (U) Negative Negative [facility] Work Phone: Blood erythrocytes count (nu mber/volume)on 01-29-2022 RBC (Bld) [#/Vol] 4.42 10*6/uL 4.6-6.2 [facility] Work Phone: Blood hemoglobin measurement (mass/volume)on 01-29-2022 Hemoglobin (Bld) [Mass/Vol] 14.2 g/dL 13.0-16.5 [facility] Work Phone: Blood lymphocytes/100 leukoc yteson 01-29-2022 Lymphocytes/100 WBC (Bld) 38.8 % 19-41 [facility] Work Phone: Blood monocytes/100 leukocyt eson 01-29-2022 Monocytes/100 WBC (Bld) 13.0 % 0-10 [facility] Work Phone: Blood platelet mean volumeon 01-29-2022 Platelet mean volume (Bld) [Entitic vol] 9.2 fL 6.2-12.0 [facility] Work Phone: Culture, urineon 01-29-2022 Bacteria identified Cx Nom (U) Positive [facility] Work Phone: Determination of erythrocyte mean corpuscular volume (MCV)on 01-29-2022 MCV (RBC) [Entitic vol] 92.8 fL 80-94 [facility] Work Phone: Hematocrit Auto (Bld) [Volum e fraction]on 01-29-2022 Hematocrit (Bld) [Volume fraction] 41.0 % 40-54 [facility] Work Phone: Ketones Test strip Ql (U)on 01-29-2022 Ketones Ql (U) 5 mg/dl Negative [facility] Work Phone: Laboratory - Chemistry and C hemistry - challengeon 01-29-2022 CO2 [Moles/Vol] 27.0 mmol/L 21.0-32.0 [facility] Work Phone: Urea nitrogen/Creatinine [Mass ratio] 18.8 mg/mg 10-20 [facility] Work Phone: Laboratory - Hematology and Cell countson 01-29-2022 Erythrocyte distribution width (RBC) [Entitic vol] 44.1 fL 35.1-43.9 [facility] Work Phone: Erythrocyte distribution width (RBC) [Ratio] 12.9 % 11.6-14.6 [facility] Work Phone: Immature granulocytes/100 WBC (Bld) 0.300 % 0.0-0.9 [facility] Work Phone: Comment on above: IG% - Immature Granu locytes (promyelocytes, myelocytes and metamyelocytes) > 1% indicates that a LEFT SHIFT is Present. MCH (RBC) [Entitic mass] 32.1 pg 27.0-32.0 [facility] Work Phone: Nucleated RBC/100 WBC (Bld) [Ratio] 0 % 0-5 [facility] Work Phone: MCHC Auto (RBC) [Mass/Vol]on 01-29-2022 MCHC (RBC) [Mass/Vol] 34.6 g/dL 32-36 [facility] Work Phone: Mucus LM Ql (Urine sed)on Mucus Ql (Urine sed) 0 SEEN /hpf [facility] Work Phone: Nitrite Test strip Ql (U)on 01-29-2022 Nitrite Ql (U) Positive Negative [facility] Work Phone: No Panel Informationon 01-29 Estimated Creatinine Clearance Calc 46.62 ml/min [facility] Work Phone: Estimated GFR (MDRD) Amer 70 mL/min >60 [facility] Work Phone: Comment on above: GFR Calc Estimated GFR (MDRD) Non-Af Amer 58 mL/min >60 [facility] Work Phone: Comment on above: Non- GFR Calc Platelets bldon 01-29-2022 Platelets (Bld) [#/Vol] 160 10*3/uL 150-450 [facility] Work Phone: Protein Test strip Ql (U)on 01-29-2022 Protein Ql (U) 100 mg/dl Negative [facility] Work Phone: Serum or plasma calcium billy urement (mass/volume)on 01-29-2022 Calcium [Mass/Vol] 9.1 mg/dL 8.5-10.1 [facility] Work Phone: Serum or plasma creatinine m easurement (mass/volume)on 01-29-2022 Creatinine [Mass/Vol] 1.28 mg/dL 0.70-1.30 [facility] Work Phone: Comment on above: The validity of the calculated GFR & GFRAA in patients over 70 years has not been determined. Clinical correlation is essential. Serum or plasma urea nitroge n measurement (mass/volume)on 01-29-2022 Urea nitrogen [Mass/Vol] 24 mg/dL 7-18 [facility] Work Phone: Squamous epithelial cells de tection in urine sediment by light microscopyon 01-29-2022 Epithelial cells.squamous LM Ql (Urine sed) 0 SEEN /hpf 0-5 [facility] Work Phone: Thin prep Papanicolaou smear with manual screeningon 01-29-2022 Thin prep Papanicolaou smear with manual screening 4 5-15 [facility] Work Phone: Urine blood detectionon 01-17 RBC Ql (U) 250 /ul Negative [facility] Work Phone: RBC Ql (U) > 100 SEEN /hpf 0-5 [facility] Work Phone: Urine clarityon 01-29-2022 Clarity (U) Cloudy Clear [facility] Work Phone: Urine color determinationon 01-29-2022 Color (U) Red Yellow [facility] Work Phone: Urine glucose detectionon Glucose Ql (U) Normal mg/dl Normal [facility] Work Phone: Urine leukocyte esterase det ection by dipstickon 01-29-2022 Leukocyte esterase Test strip Ql (U) 25 /ul Negative [facility] Work Phone: Urine pHon 01-29-2022 pH (U) 5.0 [pH] 5.0 - 8.0 [facility] Work Phone: Urine sediment bacteria coun t by microscopy (number/high power field)on 01-29-2022 Bacteria LM.HPF (Urine sed) [#/Area] 1 /[HPF] None Seen [facility] Work Phone: Urine specific gravity measu rementon 01-29-2022 Specific gravity (U) [Rel density] 1.020 1.002-1.030 [facility] Work Phone: Urobilinogen Auto test strip Ql (U)on 01-29-2022 Urobilinogen Ql (U) 1 mg/dl Normal [facility] Work Phone: ORon 09-08-2017 [facility] DATE OF [facility]: 09/[facility]/2017PREOPERATIVE DIAGNOSIS: Benign prostatic hypertrophy with obstruction.POSTOPERAT ALEXIS DIAGNOSES:1. Benign prostatic hypertrophy with obstruction.2. A 2-cm bladder stone.OPERATION:1. Laser vaporization of the prostate.2. Cystolitholapaxy with holmium laser.SURGEON: Hank Campa MDANESTHESIA: General.DRAINS: [place] 20-Citizen Of [place].FINDINGS: Approximately a 5-cm prostatic urethra status post UroLift procedure and2-cm bladder stone.DESCRIPTION OF PROCEDURE: Mr. Donovan was administered intravenous antibiotics andtaken into the operating room where he was administered a general anesthetic. He wasplaced in the lithotomy position, prepped with ChloraPrep, and sterilely draped. [id number] laser scope was used to examine the bladder, prostate, and perform theprocedure. GreenLight laser vaporization of the prostate was performed from thebladder neck down to the proximal portion of the verumontanum down into the surgicalcapsule circumferentially. After this, I used the holmium laser to fracture thestone into 1-mm to 2-mm fragments. I removed the scope, placed a 20-Citizen Of [place],irrigated the catheter on traction for several minutes, and the effluent becameclear. The patient tolerated the procedure well. SHANNON Vargas/[id number]: 09/08/2017 09:09DT: 09/08/2017 09:45SSI File#: [id number] #: [id number] d by09/08/17 1837 [facility] NAME: CLARK DONOVAN [id number] [facility] [address] [place] MEDICAL REC #: [id number], [place] [address] DATE:DISCHARGE DATE:OPERATIVE REPORT ATTENDING PHY: Hank Campa MD [facility] Culture, urine Bacteria identified Cx Nom (U) Positive [facility] Work Phone: Vital Signs Date Time Vital Sign Value Performing Clinician Facility 05-06-2025 19:29-0400 Body mass index (BMI) [Ratio] 36.2 kg/m2 Jayde Castellanos MD Work Phone: [facility] 05-06-2025 19:29-0400 Body weight 102.5 kg Jayde Castellanos MD Work Phone: [facility] 05-06-2025 19:29-0400 Diastolic blood pressure 78 mm[Hg] Jayde Castellanos MD Work Phone: [facility] 05-06-2025 19:29-0400 Heart rate 92 /min Jayde Castellanos MD Work Phone: [facility] 05-06-2025 19:29-0400 Respiratory rate 18 /min Jayde Castellanos MD Work Phone: [facility] 05-06-2025 19:29-0400 SaO2% (BldA) [Mass fraction] 95 % Jayde Castellanos MD Work Phone: [facility] 05-06-2025 19:29-0400 Systolic blood pressure 130 mm[Hg] Jayde Castellanos MD Work Phone: [facility] 01-07-2025 08:11-0400 Diastolic blood pressure 82 mm[Hg] Herb Dacosta APRN.CLOTHING DESIGNER Work Phone: [facility] 01-07-2025 08:11-0400 Systolic blood pressure 132 mm[Hg] Herb Dacosta APRN.CLOTHING DESIGNER Work Phone: [facility] 01-07-2025 07:51-0400 Body mass index (BMI) [Ratio] 37 kg/m2 Herb Isael POSTAL SORTING OFFICER.CLOTHING DESIGNER Work Phone: [facility] 01-07-2025 07:51-0400 Body weight 104.78 kg Herb Isael POSTAL SORTING OFFICER.CLOTHING DESIGNER Work Phone: [facility] 01-07-2025 07:51-0400 Heart rate 94 /min Herb Isael POSTAL SORTING OFFICER.CLOTHING DESIGNER Work Phone: [facility] 01-07-2025 07:51-0400 Respiratory rate 16 /min Herb Isael POSTAL SORTING OFFICER.CLOTHING DESIGNER Work Phone: [facility] 01-07-2025 07:51-0400 SaO2% (BldA) [Mass fraction] 95 % Herb Isael POSTAL SORTING OFFICER.CLOTHING DESIGNER Work Phone: [facility] 11-27-2024 08:53-0400 Diastolic blood pressure 80 mm[Hg] Brea Jenkins DO Work Phone: [facility] 11-27-2024 08:53-0400 Heart rate 95 /min Brea Jenkins DO Work Phone: [facility] 11-27-2024 08:53-0400 SaO2% (BldA) [Mass fraction] 95 % Brea Jenkins DO Work Phone: [facility] 11-27-2024 08:53-0400 Systolic blood pressure 126 mm[Hg] Breaclarisse Jenkins DO Work Phone: [facility] 10-12-2024 09:57-0500 Body mass index (BMI) [Ratio] 36.62 kg/m2 Jayde Castellanos MD Work Phone: [facility] 10-12-2024 09:57-0500 Body weight 103.7 kg Jayde Castellanos MD Work Phone: [facility] 10-12-2024 09:57-0500 Diastolic blood pressure 78 mm[Hg] Jayde Castellanos MD Work Phone: [facility] 10-12-2024 09:57-0500 Heart rate 87 /min Jayde Castellanos MD Work Phone: [facility] 10-12-2024 09:57-0500 Respiratory rate 18 /min Jayde Castellanos MD Work Phone: [facility] 10-12-2024 09:57-0500 SaO2% (BldA) [Mass fraction] 95 % Jayde Castellanos MD Work Phone: [facility] 10-12-2024 09:57-0500 Systolic blood pressure 146 mm[Hg] Jayde Castellanos MD Work Phone: [facility] 10-01-2024 12:08-0500 Body temperature 97.81 [degF] Vidal Salas MD Work Phone: [facility] [place] 10-01-2024 12:08-0500 Diastolic blood pressure 76 mm[Hg] Vidal Salas MD Work Phone: [facility] [place] 10-01-2024 12:08-0500 Heart rate 88 /min Vidal Salas MD Work Phone: [facility] 10-01-2024 12:08-0500 Respiratory rate 20 /min Vidal Salas MD Work Phone: [facility] [place] 10-01-2024 12:08-0500 SaO2% (BldA) [Mass fraction] 96 % Vidal Salas MD Work Phone: [facility] 10-01-2024 12:08-0500 Systolic blood pressure 146 mm[Hg] Vidal Salas MD Work Phone: [facility] 09-29-2024 03:17-0500 Body mass index (BMI) [Ratio] 37.33 kg/m2 Vidal Salas MD Work Phone: [facility] 09-29-2024 03:17-0500 Body weight 104.9 kg Vidal Salas MD Work Phone: [facility] 09-26-2024 16:34-0500 SaO2% (BldA) [Mass fraction] 96 % Vidal Salas MD Work Phone: [facility] 09-26-2024 09:23-0500 Body height 167.6 cm Vidal Salas MD Work Phone: [facility] 08-27-2024 13:34-0500 Body mass index (BMI) [Ratio] 36.52 kg/m2 Herb Isael POSTAL SORTING OFFICER.CLOTHING DESIGNER Work Phone: [facility] 08-27-2024 13:34-0500 Body weight 103.42 kg Herb Isael POSTAL SORTING OFFICER.CLOTHING DESIGNER Work Phone: [facility] 08-27-2024 13:34-0500 Diastolic blood pressure 80 mm[Hg] Herb Isael POSTAL SORTING OFFICER.CLOTHING DESIGNER Work Phone: [facility] 08-27-2024 13:34-0500 Heart rate 67 /min Herb Isael POSTAL SORTING OFFICER.CLOTHING DESIGNER Work Phone: [facility] 08-27-2024 13:34-0500 Respiratory rate 16 /min Herb Isael POSTAL SORTING OFFICER.CLOTHING DESIGNER Work Phone: [facility] 08-27-2024 13:34-0500 SaO2% (BldA) [Mass fraction] 96 % Herb Martinil POSTAL SORTING OFFICER.CLOTHING DESIGNER Work Phone: [facility] 08-27-2024 13:34-0500 Systolic blood pressure 130 mm[Hg] Herb Isael POSTAL SORTING OFFICER.CLOTHING DESIGNER Work Phone: [facility] 07-04-2024 08:47-0400 Body mass index (BMI) [Ratio] 37.33 kg/m2 Diana Escobar POSTAL SORTING OFFICER.CLOTHING DESIGNER Work Phone: [facility] 07-04-2024 08:47-0400 Body weight 105.7 kg Diana Escobar POSTAL SORTING OFFICER.CLOTHING DESIGNER Work Phone: [facility] 07-04-2024 08:47-0400 Diastolic blood pressure 66 mm[Hg] Diana Escobar POSTAL SORTING OFFICER.CLOTHING DESIGNER Work Phone: [facility] 07-04-2024 08:47-0400 Heart rate 103 /min Diana Tannhof POSTAL SORTING OFFICER.CLOTHING DESIGNER Work Phone: [facility] 07-04-2024 08:47-0400 Respiratory rate 16 /min Diana Tannhof POSTAL SORTING OFFICER.CLOTHING DESIGNER Work Phone: [facility] 07-04-2024 08:47-0400 SaO2% (BldA) [Mass fraction] 96 % Diana Tannhof POSTAL SORTING OFFICER.CLOTHING DESIGNER Work Phone: [facility] 07-04-2024 08:47-0400 Systolic blood pressure 126 mm[Hg] Diana Tannhof POSTAL SORTING OFFICER.CLOTHING DESIGNER Work Phone: [facility] 04-17-2024 08:13-0400 Diastolic blood pressure 66 mm[Hg] Brea Jenkins DO Work Phone: [facility] 04-17-2024 08:13-0400 Heart rate 83 /min Brea Jenkins DO Work Phone: [facility] 04-17-2024 08:13-0400 SaO2% (BldA) [Mass fraction] 95 % Brea Jenkins DO Work Phone: [facility] 04-17-2024 08:13-0400 Systolic blood pressure 133 mm[Hg] Brea Jenkins DO Work Phone: [facility] 01-02-2024 09:50-0400 Body weight 99.79 kg Diana Tannhof POSTAL SORTING OFFICER.CLOTHING DESIGNER Work Phone: [facility] 01-02-2024 09:50-0400 Diastolic blood pressure 68 mm[Hg] Diana Tannhof POSTAL SORTING OFFICER.CLOTHING DESIGNER Work Phone: [facility] 01-02-2024 09:50-0400 Heart rate 84 /min Diana Tannhof POSTAL SORTING OFFICER.CLOTHING DESIGNER Work Phone: [facility] 01-02-2024 09:50-0400 Respiratory rate 16 /min Diana Tannhof POSTAL SORTING OFFICER.CLOTHING DESIGNER Work Phone: [facility] 01-02-2024 09:50-0400 SaO2% (BldA) [Mass fraction] 95 % Diana Escobar POSTAL SORTING OFFICER.CLOTHING DESIGNER Work Phone: [facility] 01-02-2024 09:50-0400 Systolic blood pressure 120 mm[Hg] Diana Escobar POSTAL SORTING OFFICER.CLOTHING DESIGNER Work Phone: [facility] 12-12-2023 09:03-0400 Body height 170.[address] Jayde Castellanos Work Phone: [facility] 12-12-2023 09:03-0400 Body mass index (BMI) [Ratio] 35.4 kg/m2 Dr. Jayde Castellanos Work Phone: [facility] 12-12-2023 09:03-0400 Body weight 102.[address] Jayde Castellanos Work Phone: [facility] 12-12-2023 09:03-0400 Diastolic blood pressure 78 mm[Hg] Dr. Jayde Castellanos Work Phone: [facility] 12-12-2023 09:03-0400 Heart rate 81 /min Dr. Jayde Castellanos Work Phone: [facility] 12-12-2023 09:03-0400 Respiratory rate 16 /min Dr. Jayde Castellanos Work Phone: [facility] 12-12-2023 09:03-0400 Systolic blood pressure 121 mm[Hg] Dr. Jayde Castellanos Work Phone: [facility] 06-27-2023 10:29-0400 Body weight 100.7 kg Diana Escobar POSTAL SORTING OFFICER.CLOTHING DESIGNER Work Phone: [facility] 06-27-2023 10:29-0400 Diastolic blood pressure 68 mm[Hg] Diana Escobar POSTAL SORTING OFFICER.CLOTHING DESIGNER Work Phone: [facility] 06-27-2023 10:29-0400 Heart rate 102 /min Diana Escobar POSTAL SORTING OFFICER.CLOTHING DESIGNER Work Phone: [facility] 06-27-2023 10:29-0400 Respiratory rate 16 /min Diana Luz POSTAL SORTING OFFICER.CLOTHING DESIGNER Work Phone: [facility] 06-27-2023 10:29-0400 SaO2% (BldA) [Mass fraction] 98 % Diana Luz POSTAL SORTING OFFICER.CLOTHING DESIGNER Work Phone: [facility] 06-27-2023 10:29-0400 Systolic blood pressure 112 mm[Hg] Diana Luz POSTAL SORTING OFFICER.CLOTHING DESIGNER Work Phone: [facility] 05-31-2023 14:03-0400 Body height 170.[address] Jayde Castellanos Work Phone: [facility] 05-31-2023 14:03-0400 Body mass index (BMI) [Ratio] 35.6 kg/m2 Dr. Jayde Castellanos Work Phone: [facility] 05-31-2023 14:03-0400 Body weight 103.[address] Jayde Castellanos Work Phone: [facility] 05-31-2023 14:03-0400 Diastolic blood pressure 83 mm[Hg] Dr. Jayde Castellanos Work Phone: [facility] 05-31-2023 14:03-0400 Heart rate 84 /min Dr. Jayde Castellanos Work Phone: [facility] 05-31-2023 14:03-0400 Respiratory rate 16 /min Dr. Jayde Castellanos Work Phone: [facility] 05-31-2023 14:03-0400 Systolic blood pressure 133 mm[Hg] Dr. Jayde Castellanos Work Phone: [facility] 05-26-2023 17:21-0400 Diastolic blood pressure 78 mm[Hg] [facility] 05-26-2023 17:21-0400 Heart rate 70 /min [facility] 05-26-2023 17:21-0400 Respiratory rate 17 /min [facility] 05-26-2023 17:21-0400 SaO2% (BldA) [Mass fraction] 95 % [facility] 05-26-2023 17:21-0400 Systolic blood pressure 158 mm[Hg] [facility] 05-26-2023 13:36-0400 Body height 170.18 cm [facility] 05-26-2023 13:36-0400 Body mass index (BMI) [Ratio] 35.2 kg/m2 [facility] 05-26-2023 13:36-0400 Body temperature 96.8 [degF] [facility] 05-26-2023 13:36-0400 Body weight 102.05 kg [facility] 03-10-2022 15:48-0400 Body weight 99.34 kg Diana Escobar POSTAL SORTING OFFICER.CLOTHING DESIGNER Work Phone: [facility] 03-10-2022 15:48-0400 Diastolic blood pressure 70 mm[Hg] Diana Buenrostrohof POSTAL SORTING OFFICER.CLOTHING DESIGNER Work Phone: [facility] 03-10-2022 15:48-0400 Heart rate 88 /min Diana Buenrostrohof POSTAL SORTING OFFICER.CLOTHING DESIGNER Work Phone: [facility] 03-10-2022 15:48-0400 Respiratory rate 20 /min Diana Buenrostrohof POSTAL SORTING OFFICER.CLOTHING DESIGNER Work Phone: [facility] 03-10-2022 15:48-0400 SaO2% (BldA) [Mass fraction] 95 % Diana Goref POSTAL SORTING OFFICER.CLOTHING DESIGNER Work Phone: [facility] 03-10-2022 15:48-0400 Systolic blood pressure 138 mm[Hg] Diana Buenrostrohof POSTAL SORTING OFFICER.CLOTHING DESIGNER Work Phone: [facility] 03-04-2022 08:17-0400 Body temperature 98.5 [degF] Dr. Vidal Grover III Work Phone: [facility] Work Phone: 03-04-2022 08:17-0400 Diastolic blood pressure 77 mm[Hg] Dr. Vidal Grover III Work Phone: [facility] Work Phone: 03-04-2022 08:17-0400 Heart rate 92 /min Dr. Vidal Grover III Work Phone: [facility] Work Phone: 03-04-2022 08:17-0400 Respiratory rate 16 /min Dr. Vidal Grover III Work Phone: [facility] Work Phone: 03-04-2022 08:17-0400 SaO2% (BldA) [Mass fraction] 93 % Dr. Vidal Grover III Work Phone: [facility] Work Phone: 03-04-2022 08:17-0400 Systolic blood pressure 133 mm[Hg] Dr. Vidal Grover III Work Phone: [facility] Work Phone: 03-03-2022 17:36-0400 Body height 170.[address] Vidal Grover III Work Phone: [facility] Work Phone: 03-03-2022 17:36-0400 Body mass index (BMI) [Ratio] 34.5 kg/m2 Dr. Vidal Grover III Work Phone: [facility] Work Phone: 03-03-2022 17:36-0400 Body weight [address] Vidal Grover III Work Phone: [facility] Work Phone: 03-03-2022 17:36-0400 Inhaled oxygen flow rate 2 L/min Dr. Jayde Castellanos Work Phone: [facility] Work Phone: 03-02-2022 16:13-0400 Diastolic blood pressure 72 mm[Hg] Dr. Vidal Grover III Work Phone: [facility] Work Phone: 03-02-2022 16:13-0400 Systolic blood pressure 150 mm[Hg] Dr. Vidal Grover III Work Phone: [facility] Work Phone: 03-02-2022 15:54-0400 Body mass index (BMI) [Ratio] 34.7 kg/m2 Dr. Vidal Grover III Work Phone: [facility] Work Phone: 03-02-2022 15:54-0400 Body weight 100.[address] Vidal Grover III Work Phone: [facility] Work Phone: 03-02-2022 15:54-0400 Heart rate 63 /min Dr. Vidal Grover III Work Phone: [facility] Work Phone: 03-02-2022 15:54-0400 Respiratory rate 18 /min Dr. Vidal Grover III Work Phone: [facility] Work Phone: 03-02-2022 15:54-0400 SaO2% (BldA) [Mass fraction] 96 % Dr. Vidal Grover III Work Phone: [facility] Work Phone: 01-29-2022 00:49-0400 Body height 170.18 cm [facility] Work Phone: 01-29-2022 00:49-0400 Body mass index (BMI) [Ratio] 34.9 kg/m2 [facility] Work Phone: 01-29-2022 00:49-0400 Body temperature 96.9 [degF] [facility] Work Phone: 01-29-2022 00:49-0400 Body weight 101.4 kg [facility] Work Phone: 01-29-2022 00:49-0400 Diastolic blood pressure 76 mm[Hg] [facility] Work Phone: 01-29-2022 00:49-0400 Heart rate 78 /min [facility] Work Phone: 01-29-2022 00:49-0400 Respiratory rate 18 /min [facility] Work Phone: 01-29-2022 00:49-0400 SaO2% (BldA) [Mass fraction] 98 % [facility] Work Phone: 01-29-2022 00:49-0400 Systolic blood pressure 200 mm[Hg] [facility] Work Phone: Encounters Encounter Date Encounter Type Care Provider Facility Start: 05-06-2025 End: 05-06-2025 Office outpatient visit 25 minutes Jayde Castellanos MD Work Phone: [facility] Comment on above: Type 2 diabetes bryant itus without complication, without long- term current use of insulin (HCC) Start: 05-02-2025 End: 05-02-2025 Telephone encounter Jayde Castellanos MD Work Phone: [facility] Start: 05-01-2025 End: 05-01-2025 Telephone encounter Jayde Castellanos MD Work Phone: [facility] Comment on above: requesting medicatio n that is Start: 03-11-2025 End: 03-11-2025 ambulatory JAYDE CASTELLAONS [facility] Start: 03-05-2025 End: 03-05-2025 ambulatory Jayde Castellanos MD Work Phone: [facility] Comment on above: Allied Health Visit (Medication Adherence Outreach ) Start: 02-22-2025 End: 02-22-2025 ambulatory Jayde Castellanos MD Work Phone: [facility] Comment on above: Allied Health Visit (Medication Adherence Outreach/) Start: 01-18-2025 End: 01-18-2025 [facility] Start: 01-18-2025 End: 01-18-2025 [facility] Comment on above: Population Health Na vigation Outreach ([employer]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) Start: 01-07-2025 End: 01-07-2025 ambulatory HERB DACOSTA Facility:[facility] Start: 01-07-2025 End: 01-07-2025 Patient encounter procedure Herb Dacosta APRN.CNP Work Phone: [facility] Comment on above: Medicare annual well ness visit, subsequent (Primary Dx); Type 2 diabetes mellitus without complication, without long-term current use of insulin (HCC); Essential hypertension, benign; Screening for depression; Encounter for screening examination for other mental health and behavioral disorders; Mild intermittent asthma without complication (HCC) Start: 01-02-2025 End: 03-04-2025 Follow-up encounter Herb Dacosta APRN.CNP Work Phone: [facility] Start: 01-01-2025 End: 01-01-2025 ambulatory JAYDE CASTELLANOS Facility:[facility] Start: 11-27-2024 End: 11-27-2024 ambulatory BREA JENKINS Facility:[facility] Start: 11-27-2024 End: 11-27-2024 Patient encounter procedure Brea Jenkins DO Work Phone: Vascular Surgery Comment on above: PAD (peripheral justin ry disease) (HCC) (Primary Dx) Start: 10-22-2024 End: 10-22-2024 Telephone encounter Jayde Castellanos MD Work Phone: [facility] Comment on above: Results Start: 10-18-2024 End: 10-18-2024 ambulatory JAYDE CASTELLANOS Facility:[facility] Start: 10-18-2024 End: 10-18-2024 Subsequent hospital visit by physician [facility] (I-Stat/1.5t) Work Phone: Radiology Comment on above: Other specified diso rders of kidney and ureter [N28.89] Start: 10-12-2024 End: 10-12-2024 ambulatory JAYDE CASTELLANOS Facility:[facility] Start: 10-12-2024 End: 10-12-2024 Patient encounter procedure Jayde Castellanos MD Work Phone: [facility] Comment on above: Status post lumbar s urgery (Primary Dx); Other specified disorders of kidney and ureter; Essential hypertension, benign; Type 2 diabetes mellitus without complication, without long-term current use of insulin (HCC); Renal mass Start: 10-05-2024 End: 10-05-2024 ambulatory DIANA ESCOBAR Facility:[facility] Start: 10-02-2024 End: 10-02-2024 Telephone encounter Jayde Castellanos MD Work Phone: [facility] Comment on above: Home Health Call-Pat ient Update Start: 10-01-2024 Encounter for other preprocedural examination BRITTNEY GOLDENBrandon [facility] Start: 09-26-2024 End: 10-01-2024 ambulatory VIDAL SALAS [facility] Start: 09-26-2024 End: 10-01-2024 Subsequent hospital visit by physician Vidal Salas MD Work Phone: [email or web address] ICU [employer] 4[employer] Comment on above: Acute hypoxemic resp iratory failure (Primary Dx); S/P lumbar laminectomy Start: 08-29-2024 End: 08-29-2024 ambulatory Catherine Kong Facility:[facility] Start: 08-29-2024 ambulatory Jayde Castellanos [facility] y:[facility] Start: 08-29-2024 End: 08-29-2024 ambulatory Jayde Castellanos Facility:[facility] Start: 08-27-2024 End: 08-27-2024 ambulatory HERB DACOSTA Facility:[facility] Start: 08-27-2024 Encounter for other preprocedural examination HERB DACOSTA [facility] Start: 08-27-2024 End: 08-27-2024 Office outpatient visit 40 minutes Herb Dacosta APRN.CNP Work Phone: [facility] Comment on above: Pre-op exam (Primary Dx); Type 2 diabetes mellitus without complication, without long-term current use of insulin (HCC); Essential hypertension, benign; Mild intermittent asthma with acute exacerbation; PAD (peripheral artery disease) (HCC) Start: 08-27-2024 End: 08-27-2024 Preprocedural examination done Herb Dacosta APRN.CLOTHING DESIGNER Work Phone: [facility] Work Phone: Start: 08-06-2024 End: 08-06-2024 ambulatory Charles Shaikh Facility:[facility] Start: 08-02-2024 End: 08-02-2024 Telephone encounter Jayde Castellanos MD Work Phone: [facility] Comment on above: Medication Request Start: 07-06-2024 End: 07-09-2024 Telephone encounter Diana Escobar APRN.CLOTHING DESIGNER Work Phone: [facility] Comment on above: Results (Labs ) Start: 07-05-2024 End: 07-05-2024 ambulatory JAYDE CASTELLANOS Facility:[facility] Start: 07-04-2024 End: 07-04-2024 Patient encounter procedure Diana Escobar APRN.CLOTHING DESIGNER Work Phone: [facility] Comment on above: Prediabetes (Primary Dx); Essential hypertension, benign; Mild intermittent asthma with acute exacerbation; Arthritis of low back Start: 07-04-2024 End: 07-04-2024 ambulatory JAYDE CASTELLANOS Facility:[facility] Start: 06-28-2024 End: 06-28-2024 ambulatory BRITTNEY GUEVARA Facility:[facility] Start: 06-12-2024 End: 06-12-2024 ambulatory Catherine Kong Facility:[facility] Start: 05-29-2024 End: 05-29-2024 Patient encounter procedure Brea Jenkins DO Work Phone: Vascular Surgery Comment on above: PAD (peripheral justin ry disease) (HCC) (Primary Dx) Start: 05-29-2024 End: 05-29-2024 ambulatory JAYDE CASTELLANOS Facility:[facility] Start: 04-17-2024 End: 04-17-2024 Patient encounter procedure Brea Jenkins DO Work Phone: Vascular Surgery Comment on above: PAD (peripheral justin ry disease) (HCC) Start: 03-13-2024 Telephone encounter Jayde santana MD Work Phone: [facility] Comment on above: Patient Question (re ferral vascular) Start: 01-05-2024 Telephone encounter Diana espinal POSTAL SORTING OFFICER.CLOTHING DESIGNER Work Phone: [facility] Comment on above: Results (A1C) Start: 01-02-2024 End: 01-02-2024 Patient encounter procedure Diana Escobar APRN.CLOTHING DESIGNER Work Phone: [facility] Comment on above: Elevated glucose (Pr imary Dx); Essential hypertension, benign; Arthritis of low back; Mild intermittent asthma with acute exacerbation Start: 12-20-2023 End: 12-20-[address] Jayde Castellanos Work Phone: [facility] Work Phone: Start: 12-20-2023 End: 12-20-[address] Jayde Castellanos Work Phone: [facility] Work Phone: Start: 12-20-2023 End: 12-20-2023 [facility] Start: 12-12-2023 End: 12-12-[address] Jayde Castellanos Work Phone: [facility] Work Phone: Start: 12-12-2023 End: 12-12-2023 ambulatory Jayde Castellanos Facility:[facility] Start: 07-25-2023 End: 07-25-[address] Jayde Castellanos Work Phone: [facility] Work Phone: Start: 07-25-2023 End: 07-25-[address] [facility] Start: 07-18-2023 Telephone encounter Diana espinal APRN.CLOTHING DESIGNER Work Phone: [facility] Comment on above: Medication Problem Start: 06-27-2023 End: 06-27-2023 Patient encounter procedure Diana Escobar APRN.CLOTHING DESIGNER Work Phone: [facility] Comment on above: Essential hypertensi on, benign (Primary Dx); Mild intermittent asthma with acute exacerbation; Arthritis of low back Start: 05-31-2023 End: 05-31-[address] Jayde Castellanos Work Phone: [facility] Work Phone: Start: 05-26-2023 End: 05-26-2023 [facility] Start: 05-06-2023 Refill Jayde gibson MD Work Phone: [facility] Comment on above: Refill Request Start: 04-05-2023 Telephone encounter Nurse Card Admin [facility] Work Phone: Cardiology Comment on above: Procedure Start: 08-24-2022 Telephone encounter Jayde santana MD Work Phone: [facility] Comment on above: Patient Update Start: 04-27-2022 End: 04-27-[address] Jayde Castellanos Work Phone: [facility], Specimen Start: 03-18-2022 End: 03-18-[address] Jayde Castellanos Work Phone: [facility], Specimen Start: 03-10-2022 End: 03-10-2022 Patient encounter procedure Diana Escobar APRN.CLOTHING DESIGNER Work Phone: [facility] Comment on above: Hospital discharge f ollow-up (Primary Dx); Benign prostatic hyperplasia with lower urinary tract symptoms, symptom details unspecified Start: 03-03-2022 End: 03-04-2022 Evaluation and management of inpatient Dr. Vidal Grover III Work Phone: [facility]Medical Surgical 3 Start: 03-02-2022 End: 03-02-[address] Vidal Grover III Work Phone: [facility] Start: 03-02-2022 End: 03-04-2022 Non-patient / Non-visit Dr. Jayde Castellanos Work Phone: [facility] Start: 02-08-2022 End: 02-08-2022 Patient encounter procedure [facility]Cat [facility], [facility] Start: 01-29-2022 End: 01-29-2022 Emergency department patient visit [facility] Start: 01-28-2022 ambulatory Althea Urbina RN [employer]UE [employer] AUDIO ENGINEER Comment on above: Urinary Problem Start: 09-08-2017 Evaluation and management of inpatient Hank Campa Facility:[facility] Procedures Date Procedure Procedure Detail Performing Clinician Start: 01-07-2025 Adult depression scr eening assessment Herb Dacosta POSTAL SORTING OFFICER.CLOTHING DESIGNER Work Phone: Start: 10-01-2024 Us retroperitoneal r eal time w/image complete Randolph Nelson DO Work Phone: Start: 10-01-2024 Gluc bld gluc mntr d ev cleared fda spec home use Wilfred Calles MD Work Phone: Start: 10-01-2024 Anion gap [Moles/Vol] D vida Calles MD Work Phone: Start: 10-01-2024 Basic metabolic pane l calcium total Wilfred Calles MD Work Phone: Start: 10-01-2024 GLOMERULAR FILTRATIO N RATE, ESTIMATED Wilfred Calles MD Work Phone: Start: 09-30-2024 Gluc bld gluc mntr d ev cleared fda spec home use Wilfred Calles MD Work Phone: Start: 09-30-2024 Gluc bld gluc mntr d ev cleared fda spec home use Wilfred Calles MD Work Phone: Start: 09-30-2024 Gluc bld gluc mntr d ev cleared fda spec home use Wilfred Calles MD Work Phone: Start: 09-30-2024 Creatinine other source Wilfred Calles MD Work Phone: Start: 09-30-2024 Urnls dip stick/tabl et reagent auto microscopy Wilfred Calles MD Work Phone: Start: 09-30-2024 Anion gap [Moles/Vol] D vida Calles MD Work Phone: Start: 09-30-2024 End: 09-30-2024 Basic metabolic panel calcium total Wilfred Calles MD Work Phone: Start: 09-30-2024 GLOMERULAR FILTRATIO N RATE, ESTIMATED Wilfred Calles MD Work Phone: Start: 09-29-2024 Gluc bld gluc mntr d ev cleared fda spec home use Wilfred Calles MD Work Phone: Start: 09-29-2024 Rhythm ecg 1-3 leads w/interpretation & report Unknown Provider Result Start: 09-29-2024 Radiologic exam ches t single view Wilfred Calles MD Work Phone: Start: 09-29-2024 Blood count complete auto&auto difrntl wbc Alfie Andrews PA-C Work Phone: Start: 09-28-2024 Rhythm ecg 1-3 leads w/interpretation & report Unknown Provider Result Start: 09-28-2024 Anion gap [Moles/Vol] S thien Gonzalez DO Work Phone: Start: 09-28-2024 Basic metabolic pane l calcium total Anup Gonzalez DO Work Phone: Start: 09-28-2024 GLOMERULAR FILTRATIO N RATE, ESTIMATED Anup Gonzalez DO Work Phone: Start: 09-28-2024 Rhythm ecg 1-3 leads w/interpretation & report Unknown Provider Result Start: 09-28-2024 Ecg routine ecg w/le ast 12 lds i&r only Anup Gonzalez DO Work Phone: Start: 09-28-2024 Rhythm ecg 1-3 leads w/interpretation & report Unknown Provider Result Start: 09-28-2024 Blood count complete auto&auto difrntl wbc Alfie Andrews PA-C Work Phone: Start: 09-27-2024 Rhythm ecg 1-3 leads w/interpretation & report Unknown Provider Result Start: 09-27-2024 Rhythm ecg 1-3 leads w/interpretation & report Unknown Provider Result Start: 09-27-2024 Gluc bld gluc mntr d ev cleared fda spec home use Vidal Salas MD Work Phone: Start: 09-27-2024 Blood count complete auto&auto difrntl wbc Alfie Andrews PA-C Work Phone: Start: 09-27-2024 Rhythm ecg 1-3 leads w/interpretation & report Unknown Provider Result Start: 09-26-2024 Rhythm ecg 1-3 leads w/interpretation & report Unknown Provider Result Start: 09-26-2024 Gas panel - Arterial blood Vidal Salas MD Work Phone: Start: 09-26-2024 Radex spine 1 view s pecify level Vidal Salas MD Work Phone: Start: 09-26-2024 End: 09-26-2024 Coombs facetectomy & foramotomy 1 segment lumbar Vidal Salas MD Work Phone: Start: 09-26-2024 Antibody screen Vidal manning MD Work Phone: Comment on above: Performed at [facility] [address] [place] [id number] Start: 09-26-2024 Blood typing serologic abo Danial Schmitz PA-C Work Phone: Start: 01-02-2024 Adult depression scr eening assessment Brea Jenkins DO Work Phone: Start: 05-26-2023 Diagnostic radiograp hy of finger Start: 03-03-2022 Cysto,TUR,Prostate,O lympus (Not Applicable) Dr. Ceja Cebul III Work Phone: Start: 02-08-2022 Computed tomography of abdomen and pelvis with contrast Start: 01-29-2022 Urine culture Start: 11-14-2018 Adult depression scr eening assessment Althea Urbina RN Start: 07-02-2016 Colonoscopy Althea james RN Urine culture Dr. Vidal joseph III Work Phone: Plan of Treatment Date Care Activity Detail Author Start: 05-26-2033 DTaP/Tdap/Td vaccine (3 - Td or Tdap) DTaP/Tdap/Td vaccine (3 - T[facility]ap[facility] Start: 05-26-2033 Urine microalbumin profile [facility] Start: 01-01-2027 Diabetes Screening Diabetes Screening [facility] Start: 05-06-2026 Annual PCP Team Chronic Disease Visit Annual PCP Team Chronic Disease Visit [facility] Start: 02-04-2026 DIABETES SCREEN DIABETES SCREEN [facility] Start: 02-04-2026 Diabetes Screening Diabetes Screening [facility] Start: 01-07-2026 Annual PCP Team Chronic Disease Visit Annual PCP Team Chronic Disease Visit [facility] Start: 01-07-2026 Anxiety Screening Anxiety Screening [facility] Start: 01-07-2026 Depression Screening Depression Screening [facility] Start: 01-01-2026 Hepatitis B surface antibody level LDL Cholesterol [facility] Start: 11-26-2025 End: 11-26-2025 Patient encounter procedure Vascul[facility] Genie lopez Comment on above: PAD (peripheral artery disease) (HCC) [I 73.9] 1 yr follow up Start: 10-12-2025 Annual PCP Team Chronic Disease Visit Annual PCP Team Chronic Disease Visit [facility] Start: 10-01-2025 GFR test (Diabetes, CKD 3-4, OR last GFR 15-59) GFR test (Diabetes, CKD 3-4, OR last GFR 15-59) [facility] Start: 08-27-2025 Annual PCP Team Chronic Disease Visit Annual PCP Team Chronic Disease Visit [facility] Start: 07-09-2025 End: 10-08-2025 Comprehensive metabolic 2000 panel - Serum or Plasma COMPREHENSIVE METABOLIC PANEL Lab Routine Essential hypertension, benign Expected: 07/09/2025 (Approximate), Expires: 10/08/2025 [facility] Comment on above: Expected: 07/09/2025 (Approximate), Expi res: 10/08/2025 Start: 07-09-2025 End: 10-08-2025 Hemoglobin A1c in Blood HEMOGLOBIN A1C Lab Routine Type 2 diabetes mellitus without complication, without long-term current use of insulin (HCC) Expected: 07/09/2025 (Approximate), Expires: 10/08/2025 [facility] Work Phone: Comment on above: Expected: 07/09/2025 (Approximate), Expi res: 10/08/2025 Start: 07-09-2025 End: 10-08-2025 Microalbumin/Creatinine [Mass Ratio] in Urine ALBUMIN/CREATININE RATIO, URINE Lab Routine Type 2 diabetes mellitus without complication, without long-term current use of insulin (HCC) Expected: 07/09/2025 (Approximate), Expires: 10/08/2025 [facility] Comment on above: Expected: 07/09/2025 (Approximate), Expi res: 10/08/2025 Start: 07-08-2025 End: 07-08-2025 Patient encounter procedure 07/08/2025 8:40 AM EDT Office Visit Family Medicine Crist[facility] [address] [place], [place] [phone] Herb Dacosta APRN.CLOTHING DESIGNER [address] [place], [place] [phone] [address] [facility] Crista Comment on above: 6 month follow up Start: 07-05-2025 Hepatitis B surface antibody level LDL Cholesterol [facility] Start: 07-04-2025 Annual PCP Team Chronic Disease Visit Annual PCP Team Chronic Disease Visit [facility] Start: 07-04-2025 BP Controlled (<130/80) BP Controlled (<130/80) [facility] Start: 07-04-2025 Hepatitis C screening Hepatitis C Screening [facility] Comment on above: Postponed from 1964 (Declined at t his time) Start: 07-04-2025 Pneumococcal Vaccine: 50+ (1 of 2 - PCV) Pneumococcal Vaccine: 50+ (1 of 2 - PCV) [facility] Comment on above: Postponed from 1965 (Declined at t his time) Start: 07-04-2025 Pneumococcal Vaccine: 65+ (1 of 1 - PCV) Pneumococcal Vaccine: 65+ (1 of 1 - PCV) [facility] Comment on above: Postponed from 2011 (Declined at t his time) Start: 07-04-2025 Pneumococcal Vaccine: 65+ (1 of 2 - PCV) Pneumococcal Vaccine: 65+ (1 of 2 - PCV) [facility] Comment on above: Postponed from 1952 (Declined at t his time) Start: 07-04-2025 RSV Vaccine (1 - 1-dose 75+ series) RSV Vaccine (1 - 1-dose 75+ series) [facility] Comment on above: Postponed from 2021 (Declined at t his time) Start: 07-04-2025 Shingrix Vaccine (1 of 2) Shingrix Vaccine (1 of 2) [facility] Comment on above: Postponed from 1996 (Declined at t his time) Start: 07-04-2025 Spirometry Spirometry [facility] Comment on above: Postponed from 1964 (Declined at t his time) Start: 07-03-2025 Hemoglobin A1c measurement HbA1C [facility] Start: 05-20-2025 Influenza vaccination [facility] Start: 05-06-2025 End: 05-06-2025 Patient encounter procedure 05/06/2025 7:40 PM EDT Office Visit Family Dayna Tobin [address] [place] [phone] Jayde Castellanos MD [address] [place] [phone] States that he has been weak for while (couple months) Family Medicine Crist[facility] Comment on above: States that he has been weak for while ( couple months) Start: 04-04-2025 Hemoglobin A1c measurement HbA1C [facility] Start: 03-18-2025 Influenza vaccination Influenza Vaccine (#1) [facility] tim Comment on above: Postponed from 05/20/2024 (Declined at t his time) Start: 01-03-2025 Hemoglobin A1c measurement HbA1C [facility] Start: 01-02-2025 End: 01-02-2025 Patient encounter procedure 01/02/2025 9:00 AM EDT Office Visit Family Dayna Tobin [address] [place] [phone] Diana Escobar APRN.CLOTHING DESIGNER [address] [facility] [place] [address] 6 month follow up Family Medicine Crista Comment on above: 6 month follow up Start: 01-01-2025 Annual PCP Team Chronic Disease Visit Annual PCP Team Chronic Disease Visit [facility] Start: 01-01-2025 Anxiety Screening Anxiety Screening [facility] Start: 01-01-2025 BP Controlled (<130/80) BP Controlled (<130/80) [facility] Start: 01-01-2025 End: 04-02-2025 CBC panel - Blood by Automated count COMPLETE BLOOD COUNT Lab Routine Essential hypertension, benign Expected: 01/01/2025 (Approximate), Expires: 04/02/2025 [facility] Comment on above: Expected: 01/01/2025 (Approximate), Expi res: 04/02/2025 Start: 01-01-2025 End: 04-02-2025 Comprehensive metabolic 2000 panel - Serum or Plasma COMPREHENSIVE METABOLIC PANEL Lab Routine Type 2 diabetes mellitus without complication, without long-term current use of insulin (HCC) Expected: 01/01/2025 (Approximate), Expires: 04/02/2025 [facility] Comment on above: Expected: 01/01/2025 (Approximate), Expi res: 04/02/2025 Start: 01-01-2025 Depression Screening Depression Screening [facility] Start: 01-01-2025 End: 04-02-2025 Hemoglobin A1c in Blood HEMOGLOBIN A1C Lab Routine Type 2 diabetes mellitus without complication, without long-term current use of insulin (HCC) Expected: 01/01/2025 (Approximate), Expires: 04/02/2025 [facility] Comment on above: Expected: 01/01/2025 (Approximate), Expi res: 04/02/2025 Start: 01-01-2025 End: 04-02-2025 Lipid 1996 panel - Serum or Plasma LIPID PANEL BASIC Lab Routine Type 2 diabetes mellitus without complication, without long-term current use of insulin (HCC) Expected: 01/01/2025 (Approximate), Expires: 04/02/2025 [facility] Comment on above: Expected: 01/01/2025 (Approximate), Expi res: 04/02/2025 Start: 12-03-2024 DIABETES SCREEN DIABETES SCREEN [facility] Start: 11-27-2024 End: 11-27-2024 Patient encounter procedure 11/27/2024 9:15 AM EDT Office Visit Vascular Surgery [address] [place] [address] Brea Jenkins, DO [address] [place] [address] 6 month follow up Vascular Surgery Comment on above: 6 month follow up Start: 10-18-2024 End: 10-18-2024 Patient encounter procedure 10/18/2024 10:30 AM EST Appointment Radiology [address] [place] [phone] Other specified disorders of kidney and ureter [N28.89] Radiology Comment on above: Other specified disorders of kidney and ureter [N28.89] Start: 10-12-2024 End: 10-12-2024 Patient encounter procedure 10/12/2024 10:00 AM EST Office Visit Family Medicine [place] [address] [place] [phone] Jayde Castellanos MD [address] [place] [phone] Hospital follow up ([facility] ) back surgery Family Medicine [place] Comment on above: Hospital follow up ([facility] ) back surgery Start: 10-06-2024 End: 01-05-2025 Comprehensive metabolic 2000 panel - Serum or Plasma COMPREHENSIVE METABOLIC PANEL Lab Routine Type 2 diabetes mellitus without complication, without long-term current use of insulin (HCC) Expected: 10/06/2024, Expires: 01/05/2025 [facility] Comment on above: Expected: 10/06/2024, Expires: Start: 10-06-2024 End: 01-05-2025 Hemoglobin A1c in Blood HEMOGLOBIN A1C Lab Routine Type 2 diabetes mellitus without complication, without long-term current use of insulin (HCC) Expected: 10/06/2024, Expires: 01/05/2025 [facility] Work Phone: Comment on above: Expected: 10/06/2024, Expires: Start: 10-01-2024 End: 10-01-2024 ambulatory 10/01/2024 9:00 AM EST Results Only Crist[facility] Draw Station [address] [place] [address] lab [facility] Comment on above: lab Start: 09-26-2024 Annual Wellness Visit (Medicare) Annual Wellness Visit (Medicare) [facility] Start: 09-19-2024 Advance Directive Discussion Advance Directive Discussion [facility] Start: 07-04-2024 End: 07-04-2024 Patient encounter procedure 07/04/2024 9:00 AM EDT Office Visit Family Medicine Crist[place] [address] [place] [address] Diana Escobar APRN.CLOTHING DESIGNER [address] [place] [address] 6 month follow up with lab Family Medicine Crista Comment on above: 6 month follow up with lab Start: 06-27-2024 Annual PCP Team Chronic Disease Visit Annual PCP Team Chronic Disease Visit [facility] Start: 06-27-2024 BP Controlled (<130/80) BP Controlled (<130/80) [facility] Start: 06-27-2024 Hepatitis C Screening Hepatitis C Screening [facility] Comment on above: Postponed from 1964 (Declined at t his time) Start: 06-27-2024 Hepatitis C screening Hepatitis C Screening [facility] Comment on above: Postponed from 1964 (Declined at t his time) Start: 06-27-2024 Pneumococcal Vaccine: 65+ (1 - PCV) Pneumococcal Vaccine: 65+ (1 - PCV) [facility] Comment on above: Postponed from 1952 (Declined at t his time) Start: 06-27-2024 Pneumococcal Vaccine: 65+ (1 of 1 - PCV) Pneumococcal Vaccine: 65+ (1 of 1 - PCV) [facility] Comment on above: Postponed from 2011 (Declined at t his time) Start: 10-09-2024 Shingrix Vaccine (1 of 2) Shingrix Vaccine (1 of 2) [facility] Comment on above: Postponed from 1996 (Declined at t his time) Start: 06-25-2024 End: 09-24-2024 Comprehensive metabolic 2000 panel - Serum or Plasma COMPREHENSIVE METABOLIC PANEL Lab Routine Prediabetes Expected: 06/25/2024, Expires: 09/24/2024 [facility] Work Phone: Comment on above: Expected: 06/25/2024, Expires: 5 Start: 06-25-2024 End: 09-24-2024 Hemoglobin A1c in Blood HEMOGLOBIN A1C Lab Routine Prediabetes Expected: 06/25/2024, Expires: 09/24/2024 [facility] Work Phone: Comment on above: Expected: 06/25/2024, Expires: Start: 06-25-2024 End: 09-24-2024 Lipid 1996 panel - Serum or Plasma LIPID PANEL BASIC Lab Routine Essential hypertension, benign Expected: 06/25/2024, Expires: 09/24/2024 [facility] Work Phone: Comment on above: Expected: 06/25/2024, Expires: Start: 05-29-2024 End: 05-29-2024 Patient encounter procedure [facility]cul[facility] jessica Comment on above: PAD (peripheral artery disease) (HCC) [I 73.9] follow up after test ing Start: 05-20-2024 COVID-19 Vaccine ( season) [facility] Start: 05-20-2024 Influenza vaccination [facility] Start: 04-19-2024 Influenza vaccination Flu vaccine (#1) [facility] Start: 04-17-2024 End: 04-17-2024 Patient encounter procedure 04/17/2024 8:00 AM EDT Office Visit Vascular Surgery [address] [place] [address] Brea Jenkins, DO [address] [place], [place] [phone] PAD (peripheral artery disease) ([facility]) [I73.9] Vascular Surgery Comment on above: PAD (peripheral artery disease) ([facility]) [I 73.9] Start: 03-18-2024 Influenza vaccination Influenza Vaccine (#1) [facility] dumont Comment on above: Postponed from 05/20/2023 (Declined at t his time) Start: 03-07-2024 ANNUAL PCP TEAM CHRONIC DISEASE VISIT ANNUAL PCP TEAM CHRONIC DISEASE VISIT [facility] Start: 10-02-2023 LIPID SCREEN LIPID SCREEN [facility] Start: 05-26-2023 Incision & removal foreign body subq tiss simple REMOVE FOREIGN BODY [facility] Start: 05-20-2023 Influenza vaccination INFLUENZA (#1) [facility] Start: 03-10-2023 ANNUAL PCP TEAM CHRONIC DISEASE VISIT ANNUAL PCP TEAM CHRONIC DISEASE VISIT [facility] Start: 12-03-2022 ANNUAL PCP TEAM CHRONIC DISEASE VISIT ANNUAL PCP TEAM CHRONIC DISEASE VISIT [facility] Start: 09-19-2022 ADVANCE DIRECTIVE DISCUSSION ADVANCE DIRECTIVE DISCUSSION [facility] Start: 05-20-2022 Influenza vaccination [facility] Start: 03-04-2022 Patient discharge [facility] Work Phone: Start: 03-04-2022 Removal of urinary catheter [facility] Work Phone: Start: 03-03-2022 Following clinical pathway protocol [facility] Work Phone: Start: 03-03-2022 Admission procedure [facility] Work Phone: Start: 03-03-2022 Irrigation of urinary bladder [facility] Work Phone: Start: 03-03-2022 Anesthesia transurethral resection of prostate ANESTH REMOVAL OF PROSTATE [facility] Work Phone: Start: 03-03-2022 Trurl rescj residual/regrowth obstr prstate tiss REMOVE PROSTATE REGROWTH [facility] Work Phone: Start: 01-29-2022 Bacteria identified in Urine by Culture Urine Culture [facility] Work Phone: Start: 09-19-2021 ADVANCE DIRECTIVE DISCUSSION ADVANCE DIRECTIVE DISCUSSION [facility] Start: 09-19-2021 DEPRESSION ASSESSMENT DEPRESSION ASSESSMENT [facility] Start: 2021 Respiratory Syncytial Virus (RSV) or age 60 yrs+ (1 - 1-dose 75+ series) Respiratory Syncytial Virus (RSV) or age 60 yrs+ (1 - 1-dose 75+ series) [facility] Start: 11-14-2019 Adult depression screening assessment DEPRESSION SCREENING [facility] Start: 07-02-2019 Colonoscopy COLONOSCOPY [facility] Start: 07-02-2019 COLORECTAL CANCER SCREENING COLORECTAL CANCER SCREENING [facility] Start: 05-31-2017 Urine microalbumin profile DTAP,TDAP,TD (2 - Td or Tdap) [facility] Start: 2006 RSV Vaccine (1 - 1-dose 60+ series) RSV Vaccine (1 - 1-dose 60+ series) [facility] Start: 1996 Shingles vaccine (1 of 2) Shingles vaccine (1 of 2) [facility] Start: 1996 SHINGRIX VACCINE (1 of 2) SHINGRIX VACCINE (1 of 2) [facility] Start: 1991 COLOGUARD (FIT-DNA) COLOGUARD (FIT-DNA) [facility] Start: [address] COLONOGRAPHY [facility] Start: 1991 FECAL OCCULT BLOOD FECAL OCCULT BLOOD [facility] Start: 1991 SIGMOIDOSCOPY SIGMOIDOSCOPY [facility] Start: 1964 BP CONTROLLED (<130/80) BP CONTROLLED (<130/80) [facility] Start: 1964 HEPATITIS C SCREENING HEPATITIS C SCREENING [facility] Start: 1964 Hepatitis C screening [facility] screen [facility] Start: 1964 SPIROMETRY SPIROMETRY [facility] Start: 1964 Urine screening for protein Diabetic Alb to Cr ratio (uACR) test [facility] Start: 1958 Depression Screen Depression Screen [facility] Start: 1956 Diabetic foot examination Diabetic Foot Exam [facility] Start: 1956 Glaucoma screening Dilated Retinal Exam [facility] Start: 1956 Hepatitis B screening Urine Albumin:Creatinine Ratio [facility] Start: 1952 Pneumococcal 65+ years Vaccine (1 of 2 - PCV) Pneumococcal 65+ years Vaccine (1 of 2 - PCV) [facility] Start: 1952 PNEUMOCOCCAL: 65+ (1 - PCV) PNEUMOCOCCAL: 65+ (1 - PCV) [facility] Start: 1951 COVID-19 VACCINE (#1) COVID-19 VACCINE (#1) [facility] Start: [birth year]1947 COVID-19 VACCINE (#1) COVID-19 VACCINE (#1) [facility] Adult NIV/Positive A irway Pressure Adult NIV/Positive Airway Pressure Respiratory Care Routine Every 4hr until discontinued starting 09/26/2024 [facility] Work Phone: Comment on above: Every 4hr until discontinued starting End: 10-02-2024 Basic metabolic 2000 panel - Serum or Plasma Basic Metabolic Panel Lab Routine Daily for 3 Days starting 09/30/2024 until 10/02/2024, 2 completed [facility] Comment on above: Daily for 3 Days starting 09/30/2024 unt il 10/02/2024, 2 completed End: 10-02-2024 CBC panel - Blood by Automated count CBC Lab Routine Daily for 3 Days starting 09/30/2024 until 10/02/2024, 2 completed [facility] Comment on above: Daily for 3 Days starting 09/30/2024 unt il 10/02/2024, 2 completed Continuous pulse oximetry Pulse oximetry, continuous Respiratory Care Routine Every 4hr until discontinued starting 09/26/2024 [facility] Comment on above: Every 4hr until discontinued starting End: 09-29-2024 Echo (TTE) complete (PRN contrast/bubble/strain/3D) [facility] Comment on above: One Time for 1 Occurrences starting 09/19 until 09/29/2024 Electrocardiographic procedure [facility] Work Phone: Glucose [Mass/volume ] in Serum or Plasma [facility] Comment on above: 4X Daily (AC & HS) until discontinued st arting 09/29/2024, 6 completed As Needed until disc ontinued starting 09/29/2024 Lipid 1996 panel - S todd or Plasma [facility] Work Phone: Lipid 1996 panel - S todd or Plasma [facility] End: 10-02-2024 Magnesium [Mass/volume] in Serum or Plasma Magnesium Lab Routine Daily for 3 Days starting 09/30/2024 until 10/02/2024, 2 completed [facility] Comment on above: Daily for 3 Days starting 09/30/2024 unt il 10/02/2024, 2 completed End: 11-11-2025 MR Kidney WO and W contrast IV MRI KIDNEY WO/W IVCON Radiology Routine Other specified disorders of kidney and ureter 1 Occurrences starting 10/12/2024 until 11/11/2025 [facility] Work Phone: Comment on above: 1 Occurrences starting 10/12/2024 until 11/11/2025 MR Kidney WO and W c ontrast IV MRI KIDNEY WO/W IVCON Radiology Routine Other specified disorders of kidney and ureter 10/18/2024 11:15 AM EST [facility] Work Phone: Oxygen therapy [[facility] Data Set] Initiate Oxygen Therapy Protocol Respiratory Care Routine As Needed until discontinued starting 09/26/2024 [facility] Work Phone: Comment on above: As Needed until discontinued starting Patient Education [facility] Work Phone: Patient referral [facility] Work Phone: Spirometry panel Incentive gracie metry Respiratory Care Routine Every 2hr while awake until discontinued starting 09/26/2024 [facility] Comment on above: Every 2hr while awake until discontinued starting 09/26/2024 End: 04-17-2025 US.doppler Extremity arteries - bilateral for physiologic artery study at rest and with exercise PVR LEG W/EXC [facility] Vascular Lab Routine PAD (peripheral artery disease) (HCC) 1 Occurrences starting 04/17/2024 until 04/17/2025 [facility] Work Phone: Comment on above: 1 Occurrences starting 04/17/2024 until 04/17/2025 End: 11-27-2025 US.doppler Extremity arteries - bilateral for physiologic artery study at rest and with exercise PVR LEG W/EXC [facility] Vascular Lab Routine PAD (peripheral artery disease) (HCC) 1 Occurrences starting 11/27/2024 until 11/27/2025 [facility] Work Phone: Comment on above: 1 Occurrences starting 11/27/2024 until 11/27/2025 Vibratory Airway Clearance Vibra tory Airway Clearance Respiratory Care Routine As Needed until discontinued starting 09/30/2024 [facility] Comment on above: As Needed until discontinued starting [facility] Immunizations Immunization Date Immunization Notes Care Provider [facility] 05-26-2023 tetanus toxoid, redu jaimee diphtheria toxoid, and acellular pertussis vaccine, adsorbed [facility] 11-14-2018 influenza virus vaccine, unspecified formulation Diana Escobar APRN.CNP Work Phone: [facility] 05-31-2007 tetanus toxoid, redu jaimee diphtheria toxoid, and acellular pertussis vaccine, adsorbed Althea Urbina RN [facility] Work Phone: Payers Date Payer Category Payer Self-pay [id number] 2023 Medicare HUMANA MEDICARE HUMANA GOLD PLUS [id number] 2023-Present [phone] [place] [id number] [id number] 2023 Medicare (Managed Care) HUMANA G OLD PLUS [id number] 2023 Medicare [id number] 2021 Unknown ANTHEM BLUE CROS S AND BLUE SHIELD ANTHEM MEDIBLUE HMO [id number] 2021-Present [phone] [address] [place] [address] O [id number] 2021 Unknown [id number] 2021 Medicare HUMANA MEDICARE HUMANA GOLD PLUS [id number] 2021-Present [phone] [address] [address] [place] [address] O [id number] 2014 Unknown [id number] 1945 Unknown [id number] 3 1945 Unknown [id number] 51 Medicare [id number] Unknown [id number] 63 Unknown [id number] 62 Unknown [id number] 62 Unknown [id number] 62 Unknown [id number] 62 Unknown [id number] 62 Unknown [id number] 62 Unknown [id number] 62 Social History Date Type Detail Facility Start: 01-29-2022 End: 12-12-2023 Tobacco smoking status COIS Unknown if ever smoked [facility] Start: 1945 Sex Assigned At Male W [facility] Start: 12-28-2011 End: 02-04-2023 Tobacco smoking status COIS Ex-smoker [facility] Start: 12-03-2021 End: 05-06-2025 Alcohol intake Current drinker of alcohol (finding) [facility] Start: 12-28-2011 End: 02-04-2023 Tobacco Comment quit 1992 [facility] Start: 1945 Sex Assigned At Not on file C [facility] Start: 02-28-2022 End: 03-10-2022 Exposure to SARS-CoV-2 (event) Not sure [facility] Start: 09-19-1992 History of tobacco use Current smoke r [facility] Start: 12-28-2011 End: 02-04-2023 Tobacco use and exposure Smokeless tobacco non-user [facility] Start: 02-04-2023 End: 03-07-2023 History of Social function [facility] Work Phone: Start: 02-04-2023 End: 03-07-2023 Tobacco use panel [facility] Work Phone: Start: 08-20-2012 Adult Depression Screening Assessment 0 [facility] Work Phone: Start: 09-19-1992 History of tobacco use Cigarette Smo ker [facility] Has the Lumiant s, Videojug, or water [employer] threatened to shut off services in your home in past 12Mo No [facility] (I/We) worried whezackary er (my/our) food would run out before (I/we) got money to buy more. Never true [facility] Start: 09-20-2024 Alcohol Comment occasionally [facility] [employer] [facility] How often to you hav e a drink containing alcohol? Monthly or less [facility] How many standard drinks containing alcohol do you have on a typical day? 1 or 2 [facility] How often do you hav e 6 or more drinks on 1 occasion? Never [facility] Goals Date Patient Goal Desired Activity /State Personal health goal Functional Status Date Assessment Result Facility 01-07-2025 Total score [AUDIT-C] 1 01/08/20 25 8:05 AM Herb Delacruz APRN.[facility] 03-04-2022 Functional status [facility] Work Phone: 10-23-2018 Are you deaf, or do you have serious difficulty hearing No 10/23/2018 7:56 PM Vidal Meehan III, MD No [facility] 10-23-2018 Are you blind, or do you have serious difficulty seeing, even when wearing glasses No 10/23/2018 7:56 PM Vidal Meehan III, MD No [facility] 10-23-2018 Do you have serious difficulty walking or climbing stairs No 10/23/2018 7:56 PM Vidal Meehan III, MD No [facility] 10-23-2018 Do you have difficul ty dressing or bathing No 10/23/2018 7:56 PM Vidal Meehan III, MD No [facility] 10-23-2018 Because of a physica l, mental, or emotional condition, do you have difficulty doing errands alone such as visiting a physician's office or shopping No 10/23/2018 7:56 PM Vidal Meehan III, MD No [facility] Mental Status Date Assessment Result Facility 05-26-2023 Cognitive function Level Of Cons ciousness Awake;Alert;Appropriate;Fol lows Commands [facility] Work Phone: 03-04-2022 Cognitive function Voice/Name;Touch/Herminia ingram [facility] Work Phone: 10-23-2018 Because of a physica l, mental, or emotional condition, do you have serious difficulty concentrating, remembering, or making decisions No 10/23/2018 7:56 PM Vidal Meehan III, MD No [facility] Clinical Notes 08-27-2020 to 05-06-2025 Jayde Castellanos MD - 05/06/2025 7:29 PM EDTTelephone Encounter - Herb Dacosta APRN.CLOTHING DESIGNER - 05/02/2025 4:41 PM EDTTelephone Encounter - Herb Dacosta APRN.CLOTHING DESIGNER - 05/02/2025 4:41 PM EDTAttachments Note Date & Type Note Facility 05-06-2025 History of Present illness Narrative Chief Complaint Patient presents with: Weakness: X several months HPI Clark Donovan is a 79-year-old male with a history of prediabetes, arthritis, and wheezing, presenting for evaluation of hyperglycemia and associated symptoms. Clark reports experiencing hyperglycemia with a recorded blood glucose level last week of 285 mg/dL, which was measured postprandially. He attributes this elevation to increased stress levels last week. He has been monitoring his blood glucose levels using fingerstick measurements and notes fasting glucose readings ranging from 129 to 159 mg/dL. He denies any side effects from the metformin, which he started approximately one week ago, taking one tablet daily. He feels he is doign better since starting metformin. He reports feeling weak during episodes of hyperglycemia and has been taking Advil for arthritis-related pain, consuming up to four tablets at a time. He expresses concern that the pain medication may be causing blood thinning effects. He inquires about the possibility of using Vicodin, which was previously prescribed by Dr. Grover and taken on an as-needed basis. Clark also reports experiencing wheezing, for which he uses an inhaler at home, though he notes it provides minimal relief. He mentions that inhaling polo oil seems to alleviate the wheezing. He denies any specific triggers for the wheezing episodes. Recording using AgentPair software for draft documentation of the visit was discussed with the patient/authorized automobile sales representative; all questions welcomed and answered. Patient/authorized automobile sales representative agreed to proceed Past medical history, appointments, medications, allergies reviewed. Previous Medical History No past medical history on file. Previous Surgical History PAST SURGICAL HISTORY Procedure Laterality Date COLSC FLX W/RMVL OF TUMOR POLYP LESION SNARE TQ 07/02/2016 Adenomatous [id number] follow-up LAPAROSCOPY SURG CHOLECYSTECTOMY Cholecystectomy, lap PAST SURGICAL HISTORY OF 09/26/2024 Back surgery - removal of arthritis mid to lower back Family History FAMILY HISTORY Problem Relation Age of Onset COPD Mother Diabetes Father Heart Father chf Heart Brother a fib Cancer Father prostate Patient Allergies ALLERGIES Allergen Reactions Nitroglycerin Decreased blood pressure Ntg [Nitrate Analog* Current Medications Current Outpatient Medications on File Prior to Visit Medication Sig metoprolol succinate ER (TOPROL XL) 25 mg 24 hr tablet Take 1 tablet by mouth once daily. amLODIPine (NORVASC) 5 mg tablet Take 1 tablet by mouth once daily. losartan (COZAAR) 100 mg tablet Take 1 tablet by mouth once daily. aspirin, enteric coated (ASPIRIN, ENTERIC COATED) 81 mg EC tablet Take 1 tablet by mouth every other day. (Patient not taking: Reported on 05/06/2025) COMPOUNDED PRESCRIPTION Immunis patient unsure of directions. COMPOUNDED PRESCRIPTION Livergy no sure of directions COMPOUNDED PRESCRIPTION Cyto-Sym not sure of directions. COMPOUNDED PRESCRIPTION ADRENIX NOT SURE OF DIRECTIONS. DEXCHLORPH/P-EPHED HC/METHSCOP (D-HIST D ORAL) Take by mouth. Patient not sure of directions PRASTERONE, DHEA, (DHEA ORAL) Take by mouth. Patient not sure of directions (Patient not taking: Reported on 05/06/2025) COMPOUNDED PRESCRIPTION Healthy Prostate and ovary-Patient not sure of directions COMPOUNDED PRESCRIPTION Eco Thyro37- Patient not sure of directions COMPOUNDED PRESCRIPTION Integra-cell=Patient not sure of directions COMPOUNDED PRESCRIPTION Kardi-Ar=Patient not sure of directions COMPOUNDED PRESCRIPTION Fulvic Acid=Patient not sure of directions No current facility-administered medications on file prior to visit. Social History SOCIAL HISTORY[1] EXAM: BP 130/78 Pulse 92 Resp 18 Wt 102.5 kg (225 lb 15.5 oz) SpO2 95% BMI 36.20 kg/m General Appearance: Well appearing, alert, in no acute distress, well-hydrated, well nourished.. Lungs: Lungs clear to auscultation. No wheezing, rhonchi, rales.. Heart: RRR without murmur, gallop, or rubs. No ectopy. Health Maintenance List Urine Albumin:Creatinine Ratio Never done Dilated Retinal Exam Never done Diabetic Foot Exam Never done RSV Vaccine(1 - 1-dose 75+ series) due on 07/04/2025 Hepatitis C Screening due on 07/04/2025 Shingrix Vaccine(1 of 2) due on 07/04/2025 Pneumococcal Vaccine: 50+(1 of 2 - PCV) due on 07/04/2025 Influenza Vaccine(1) due on 05/20/2025 HbA1C due on 07/03/2025 LDL Cholesterol due on 01/01/2026 Annual PCP Team Chronic Disease Visit due on 01/07/2026 Depression Screening due on 01/07/2026 Anxiety Screening due on 01/07/2026 DTaP,Tdap,Td Vaccine(4 - Td or Tdap) due on 05/26/2033 Advance Directive Discussion Completed Medicare Advantage Annual Wellness Visit Completed Colorectal Cancer Screening Discontinued Data reviewed none 1. Type 2 diabetes mellitus without complication, without long-term current use of insulin (HCC) (E11.9) Recent postprandial glucose spike to 285 mg/dL, likely exacerbated by stress; fasting glucose readings range from 129-159 mg/dL. Metformin initiated one week ago with no reported side effects. - Continue metformin 1 tablet daily; may increase to 2 tablets daily in the morning if needed. - Educated on target glucose ranges: fasting glucose should remain below 160-180 mg/dL, and postprandial glucose should remain below 300 mg/dL; advised to avoid excessive intake of high-sugar foods such as ice cream. - Follow-up with Herb in a couple of months for lab work and reassessment of glycemic control. I agree with the Chief Complaint, ROS, and Past Histories independently gathered by the clinical lab support tech and the remaining scribed note accurately describes my personal service to the patient. Medical Decision Making: Problems: Moderate: 1+ chronic illnesses with change Risk: Moderate: Drug management Medical Decision Making Level: 4 - Moderate Jayde Castellanos MD The documentation for this note was completed by Carola Miguel MA acting as scribe for Jayde Castellanos MD. May 06, 2025 7:33 PM. Carola Miguel MA [1] Social History Tobacco Use Smoking status: Former Smokeless tobacco: Never Tobacco comments: quit 1992 Substance Use Topics Alcohol use: Yes Comment: occasional Drug use: No documented in this encounter [facility] 05-02-2025 Telephone encounter Note Agree with recommendations, should be evaluated in the office. Herb Dacosta APRN.CNP [facility] 05-02-2025 Miscellaneous Notes Agree with recommendations, should be evaluated in the office. Herb Dacosta APRN.CNP Patient calls and states that for the past couple of months he has felt weak and has had a slight headache. Patient thinks it is due to his blood sugars being too high. Patient reports blood sugars of 157 and 285. Patient is asking if there is anyway to bring down his blood sugar quick. Patient states that his last blood pressure was 148/79 Pulse 89. Advised patient that he needs seen in office for concerns. Patient scheduled office visit with Dr. Castellanos 05/06/2025. Ana Painter RN documented in this encounter [facility] 05-02-2025 Telephone encounter Note Patient calls and states that for the past couple of months he has felt weak and has had a slight headache. Patient thinks it is due to his blood sugars being too high. Patient reports blood sugars of 157 and 285. Patient is asking if there is anyway to bring down his blood sugar quick. Patient states that his last blood pressure was 148/79 Pulse 89. Advised patient that he needs seen in office for concerns. Patient scheduled office visit with Dr. Castellanos 05/06/2025. Ana Painter RN [facility] 05-01-2025 Telephone encounter Note Oz noted . Herb [facility] 05-01-2025 Miscellaneous Notes Oz noted . Herb Pt has never taken the Metformin until yesterday evening. Pt states he wasn't feeling well so he tested his blood sugar and it was 285 so he took the first dose of his Metformin. This was after he ate supper. Pt took another Metformin this morning as well. His blood sugar was 175 this morning but pt had not eaten yet. This evening blood sugar was 207 after dinner. Pt instructed to take Metformin as directed-once daily with breakfast. Pt does not need any refills as he has just taken the first 2 pills our of a bottle with 30 tablets in it from 08/2024. Pt instructed to monitor blood sugars daily and if they are not decreasing with diet changes and taking the Metformin, he needs to call numbers in to office for further instructions. Mailed booklets Healthy You: A Guide to Diabetes Self-Care. Planning Healthy Meals and Survival Skills. Pt's next follow up is scheduled for 07/08. Called and left message on patients voicemail to return call to the office and ask to speak with a triage nurse. Coni Rhodes MA Can we reach out to the patient and ask him if he is taking the metformin and if so, when did he resume? Herb Dacosta APRN.SHADI Per med list medication was d/c. Last Rx given in Aug 2024. Last Wellness visit notes pt taking Berberine. Pt seen in 12/2024, next visit 07/08/25. Coni Rhodes MA Patient's spouse calling to request medication: metFORMIN ER (GLUCOPHAGE XR) 500 mg 24 hr tablet Patient last seen: 01-07-25 Future visit scheduled: yes PHARMACY. [facility] documented in this encounter [facility] 05-01-2025 Telephone encounter Note Pt has never taken the Metformin until yesterday evening. Pt states he wasn't feeling well so he tested his blood sugar and it was 285 so he took the first dose of his Metformin. This was after he ate supper. Pt took another Metformin this morning as well. His blood sugar was 175 this morning but pt had not eaten yet. This evening blood sugar was 207 after dinner. Pt instructed to take Metformin as directed-once daily with breakfast. Pt does not need any refills as he has just taken the first 2 pills our of a bottle with 30 tablets in it from 08/2024. Pt instructed to monitor blood sugars daily and if they are not decreasing with diet changes and taking the Metformin, he needs to call numbers in to office for further instructions. Mailed booklets Healthy You: A Guide to Diabetes Self-Care. Planning Healthy Meals and Survival Skills. Pt's next follow up is scheduled for 07/08. [facility] 05-01-2025 Telephone encounter Note Called and left message on patients voicemail to return call to the office and ask to speak with a triage nurse. Coni Rhodes MA [facility] 05-01-2025 Telephone encounter Note Can we reach out to the patient and ask him if he is taking the metformin and if so, when did he resume? Herb Dacosta APRN.SHADI [facility] 05-01-2025 Telephone encounter Note Per med list medication was d/c. Last Rx given in Aug 2024. Last Wellness visit notes pt taking Berberine. Pt seen in 12/2024, next visit 07/08/25. Coni Rhodes MA [facility] 05-01-2025 Telephone encounter Note Patient's spouse calling to request medication: metFORMIN ER (GLUCOPHAGE XR) 500 mg 24 hr tablet Patient last seen: 01-07-25 Future visit scheduled: yes PHARMACY. [facility] 03-05-2025 Note HNO ID: [id number] Author: TEAGAN BOYKIN CPhT Service: ? Author Type: Pit Clerk Type: Progress Notes Filed: 03/05/2025 10:35 Note Text: Patient is identified through a medication adherence outreach initiative based on pharmacy claims data from: [employer] Medication Adherence Category: Hypertension Second Attempt Medication(s) Losartan 100 mg 1 tab daily Due 01/13/25 last filled 10/16/24 for 90 ds Medication Status per portal/Epic Reconcile Dispense: Filled late - Greater than 7 days after next fill date Date Filled (MM/DD): 02/25 Day Supply: 90 Medication Status per Profile Review: No issues per profile review Patient identified by name and Outreach to patient: No outreach required, patient filled medication Teagan Boykin CPhT [facility] Pharmacy Team [facility] 03-05-2025 History of Present illness Narrative Patient is identified through a medication adherence outreach initiative based on pharmacy claims data from: [employer] Medication Adherence Category: Hypertension Second Attempt Medication(s) Losartan 100 mg 1 tab daily Due 01/13/25 last filled 10/16/24 for 90 ds Medication Status per portal/Epic Reconcile Dispense: Filled late - Greater than 7 days after next fill date Date Filled (MM/DD): 02/25 Day Supply: 90 Medication Status per Profile Review: No issues per profile review Patient identified by name and Outreach to patient: No outreach required, patient filled medication Teagan Boykin CPhT [facility] documented in this encounter [facility] 03-05-2025 Note Patient Outreach ( POHE) CLARK DONOVAN ([id number]) 1945 M Date Time Provider Department 03/05/25 JAYDE CASTELLANOS During your visit today, we recorded the following information about you: Teagan Boykin CPhT 03/05/2025 10:35 AM Signed Patient is identified through a medication adherence outreach initiative based on pharmacy claims data from: [employer] Medication Adherence Category: Hypertension Second Attempt Medication(s) Losartan 100 mg 1 tab daily Due 01/13/25 last filled 10/16/24 for 90 ds Medication Status per [employer] Reconcile Dispense: Filled late - Greater than 7 days after next fill date Date Filled (MM/DD): 02/25 Day Supply: 90 Medication Status per Profile Review: No issues per profile review Patient identified by name and Outreach to patient: No outreach required, patient filled medication Teagan Boykin CPhT [facility] Allergies As of Date: 03/05/2025 Noted Allergy Reaction NITROGLYCERIN 01/03/2009 Comments: Decreased blood pressure NTG (NITRATE ANALOGUES) 01/03/2009 Date Reviewed: 01/07/2025 Reviewed by: Ana Hernandez LPN - Fully Assessed Reason for Visit: Allied Health Visit [5] Cmt: Medication Adherence Outreach Prescriptions as of 03/05/2025 - aspirin, enteric coated (ASPIRIN, ENTERIC COATED) 81 mg EC tablet Take 1 tablet by mouth every other day. - metoprolol succinate ER (TOPROL XL) 25 mg 24 hr tablet Take 1 tablet by mouth once daily. - amLODIPine (NORVASC) 5 mg tablet Take 1 tablet by mouth once daily. - losartan (COZAAR) 100 mg tablet Take 1 tablet by mouth once daily. - COMPOUNDED PRESCRIPTION Immunis patient unsure of directions. - COMPOUNDED PRESCRIPTION Livergy no sure of directions - COMPOUNDED PRESCRIPTION Cyto-Sym not sure of directions. - COMPOUNDED PRESCRIPTION ADRENIX NOT SURE OF DIRECTIONS. - DEXCHLORPH/P-EPHED HC/METHSCOP (D-HIST D ORAL) Take by mouth. Patient not sure of directions - PRASTERONE, DHEA, (DHEA ORAL) Take by mouth. 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/07/2006 Other malaise and fatigue [R53.81, R53.83] 06/09/2006 05/27/2016 BENIGN HYPERTENSION [I10] 06/09/2006 Mild intermittent asthma with acute exacerbatio*09/29/2006 Lateral epicondylitis of elbow [M77.10] 05/31/2007 05/27/2016 Pain in limb [M79.609] 04/26/2008 05/27/2016 Elevated prostate specific antigen (PSA) [R97.2*09/10/2008 Bladder Neck Obstruction [N32.0] 08/07/2009 Arthritis of both knees [M17.0] 05/27/2016 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 Author Type: Pit Clerk Type: Progress Notes Filed: 02/22/2025 13:47 Note Text: Patient is identified through a medication adherence outreach initiative based on pharmacy claims data from: [employer] Medication Adherence Category: Hypertension Second Attempt Medication(s) Losartan 100 mg Medication Status per portal/Epic Reconcile Dispense: Not filled Medication Status per Profile Review: No issues per profile review Patient identified by name and Outreach to patient: Left Voicemail/message for return call What was primary intervention? No intervention Diana West CPhT [facility] 02-22-2025 History of Present illness Narrative Patient is identified through a medication adherence outreach initiative based on pharmacy claims data from: [employer] Medication Adherence Category: Hypertension Second Attempt Medication(s) Losartan 100 mg Medication Status per portal/Epic Reconcile Dispense: Not filled Medication Status per Profile Review: No issues per profile review Patient identified by name and Outreach to patient: Left Voicemail/message for return call What was primary intervention? No intervention Diana West CPhT [facility] documented in this encounter [facility] 02-22-2025 Note Patient Outreach ( POHE) CLARK DONOVAN ([id number]) 1945 M Date Time Provider Department 02/22/25 JAYDE CASTELLANOS During your visit today, we recorded the following information about you: Diana West CPhT 02/22/2025 1:47 PM Signed Patient is identified through a medication adherence outreach initiative based on pharmacy claims data from: [employer] Medication Adherence Category: Hypertension Second Attempt Medication(s) Losartan 100 mg Medication Status per portal/Epic Reconcile Dispense: Not filled Medication Status per Profile Review: No issues per profile review Patient identified by name and Outreach to patient: Left Voicemail/message for return call What was primary intervention? No intervention Diana West, clinical laboratory aide [facility] Allergies As of Date: 02/22/2025 Noted Allergy Reaction NITROGLYCERIN 01/03/2009 Comments: Decreased blood pressure NTG (NITRATE ANALOGUES) 01/03/2009 Date Reviewed: 01/07/2025 Reviewed by: Ana Hernandez LPN - Fully Assessed Reason for Visit: Allied Health Visit [5] Cmt: Medication Adherence Outreach Prescriptions as of 03/05/2025 - aspirin, enteric coated (ASPIRIN, ENTERIC COATED) 81 mg EC tablet Take 1 tablet by mouth every other day. - metoprolol succinate ER (TOPROL XL) 25 mg 24 hr tablet Take 1 tablet by mouth once daily. - amLODIPine (NORVASC) 5 mg tablet Take 1 tablet by mouth once daily. - losartan (COZAAR) 100 mg tablet Take 1 tablet by mouth once daily. - COMPOUNDED PRESCRIPTION Immunis patient unsure of directions. - COMPOUNDED PRESCRIPTION Livergy no sure of directions - COMPOUNDED PRESCRIPTION Cyto-Sym not sure of directions. - COMPOUNDED PRESCRIPTION ADRENIX NOT SURE OF DIRECTIONS. - DEXCHLORPH/P-EPHED HC/METHSCOP (D-HIST D ORAL) Take by mouth. Patient not sure of directions - PRASTERONE, DHEA, (DHEA ORAL) Take by mouth. 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/07/2006 Other malaise and fatigue [R53.81, R53.83] 06/09/2006 05/27/2016 BENIGN HYPERTENSION [I10] 06/09/2006 Mild intermittent asthma with acute exacerbatio*09/29/2006 Lateral epicondylitis of elbow [M77.10] 05/31/2007 05/27/2016 Pain in limb [M79.609] 04/26/2008 05/27/2016 Elevated prostate specific antigen (PSA) [R97.2*09/10/2008 Bladder Neck Obstruction [N32.0] 08/07/2009 Arthritis of both knees [M17.0] 05/27/2016 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 Author Type: Pit Clerk Type: Progress Notes Filed: 02/08/2025 10:20 Note Text: Patient is identified through a medication adherence outreach initiative based on pharmacy claims data from: [employer] Medication Adherence Category: Hypertension First Review Attribution Status: Correct attribution Medication(s) Losartan 100 mg Medication Status per portal/Epic Reconcile Dispense: Not filled Medication Status per Profile Review: No issues per profile review Patient/provider appropriate for outreach? Yes Patient identified by name and Outreach to patient: Left Voicemail/message for return call What was primary intervention? No intervention - patient previously held Losartan - may have some on hand Diana Mon CPhT [facility] Pharmacy Team [facility] 02-08-2025 Note Patient Outreach (PH POHE) CLARK DONOVAN ([id number]) 1945 M Date Time Provider Department 02/08/25 JAYDE CASTELLANOS During your visit today, we recorded the following information about you: Diana Mon CPhT 02/08/2025 10:20 AM Signed Patient is identified through a medication adherence outreach initiative based on pharmacy claims data from: [employer] Medication Adherence Category: Hypertension First Review Attribution Status: Correct attribution Medication(s) Losartan 100 mg Medication Status per portal/Epic Reconcile Dispense: Not filled Medication Status per Profile Review: No issues per profile review Patient/provider appropriate for outreach? Yes Patient identified by name and Outreach to patient: Left Voicemail/message for return call What was primary intervention? No intervention - patient previously held Losartan - may have some on hand Diana Mon CPhT [facility] Pharmacy Team Allergies As of Date: 02/08/2025 Noted Allergy Reaction NITROGLYCERIN 01/03/2009 Comments: Decreased blood pressure NTG (NITRATE ANALOGUES) 01/03/2009 Date Reviewed: 01/07/2025 Reviewed by: Ana Hernandez LPN - Fully Assessed Prescriptions as of 02/08/2025 - aspirin, enteric coated (ASPIRIN, ENTERIC COATED) 81 mg EC tablet Take 1 tablet by mouth every other day. - metoprolol succinate ER (TOPROL XL) 25 mg 24 hr tablet Take 1 tablet by mouth once daily. - amLODIPine (NORVASC) 5 mg tablet Take 1 tablet by mouth once daily. - losartan (COZAAR) 100 mg tablet Take 1 tablet by mouth once daily. - COMPOUNDED PRESCRIPTION Immunis patient unsure of directions. - COMPOUNDED PRESCRIPTION Livergy no sure of directions - COMPOUNDED PRESCRIPTION Cyto-Sym not sure of directions. - COMPOUNDED PRESCRIPTION ADRENIX NOT SURE OF DIRECTIONS. - DEXCHLORPH/P-EPHED HC/METHSCOP (D-HIST D ORAL) Take by mouth. Patient not sure of directions - PRASTERONE, DHEA, (DHEA ORAL) Take by mouth. Patient not sure of directions - COMPOUNDED PRESCRIPTION Healthy Prostate and ovary-Patient not sure of directions - COMPOUNDED PRESCRIPTION Eco Thyro37- Patient not sure of directions - COMPOUNDED PRESCRIPTION Integra-cell=Patient not sure of directions - COMPOUNDED PRESCRIPTION Kardi-Ar=Patient not sure of directions - COMPOUNDED PRESCRIPTION Fulvic Acid=Patient not sure of directions Problem List As Of Date 02/08/2025 Noted Resolved BPH with obstruction/lower urinary tract sympto*01/07/2006 Other malaise and fatigue [R53.81, R53.83] 06/09/2006 05/27/2016 BENIGN HYPERTENSION [I10] 06/09/2006 Mild intermittent asthma with acute exacerbatio*09/29/2006 Lateral epicondylitis of elbow [M77.10] 05/31/2007 05/27/2016 Pain in limb [M79.609] 04/26/2008 05/27/2016 Elevated prostate specific antigen (PSA) [R97.2*09/10/2008 Bladder Neck Obstruction [N32.0] 08/07/2009 Arthritis of both knees [M17.0] 05/27/2016 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 Author Type: Accessories Repairer Type: Progress Notes Filed: 01/18/2025 12:36 Note Text: POPULATION HEALTH NAVIGATION OUTREACH Action/FYI Eyes checked outside of [facility]. Reason for Outreach Returned Call/MyChart Patient Contacted: Spoke to patient/parent/or legal guardian Patient identified by name and date of : Yes Returned call/MyChart actions taken: Patient declined: Patient Declines Navigation Scheduling / Outreach Navigation Signature: Charles East MA January 18, 2025 12:35 PM POPULATION HEALTH NAVIGATION OUTREACH Action/FYI Gaps due: DIABETIC RETINAL EXAM KED due but pcp placed lab orders for future appt for next schd visit. No med adherence. Reason for Outreach Care Gap/HCC or Scheduling Wellness Visits Care Gaps due: Diabetic Eye Exam Patient Contacted: Unable or unnecessary to reach patient: Left message Navigation Signature: Charles East MA January 18, 2025 11:59 AM [facility] 01-18-2025 History of Present illness Narrative POPULATION HEALTH NAVIGATION OUTREACH Action/FYI Eyes checked outside of [facility]. Reason for Outreach Returned Call/MyChart Patient Contacted: Spoke to patient/parent/or legal guardian Patient identified by name and date of : Yes Returned call/MyChart actions taken: Patient declined: Patient Declines Navigation Scheduling / Outreach Navigation Signature: Charles East MA January 18, 2025 12:35 PM POPULATION HEALTH NAVIGATION OUTREACH Action/FYI Gaps due: DIABETIC RETINAL EXAM KED due but pcp placed lab orders for future appt for next schd visit. No med adherence. Reason for Outreach Care Gap/HCC or Scheduling Wellness Visits Care Gaps due: Diabetic Eye Exam Patient Contacted: Unable or unnecessary to reach patient: Left message Navigation Signature: Charles East MA January 18, 2025 11:59 AM documented in this encounter [facility] 01-18-2025 Note Patient Outreach (RAMSES TNAV) CLARK DONOVAN ([id number]) 1945 M Date Time Provider Department 01/18/25 CHARLES EASTV During your visit today, we recorded the following information about you: Charles East MA 01/18/2025 12:36 PM Addendum POPULATION HEALTH NAVIGATION OUTREACH Action/FYI Eyes checked outside of [facility]. Reason for Outreach Returned Call/MyChart Patient Contacted: Spoke to patient/parent/or legal guardian Patient identified by name and date of : Yes Returned call/MyChart actions taken: Patient declined: Patient Declines Navigation Scheduling / Outreach Navigation Signature: Charles East MA January 18, 2025 12:35 PM POPULATION HEALTH NAVIGATION OUTREACH Action/FYI Gaps due: DIABETIC RETINAL EXAM KED due but pcp placed lab orders for future appt for next schd visit. No med adherence. Reason for Outreach Care Gap/HCC or Scheduling Wellness Visits Care Gaps due: Diabetic Eye Exam Patient Contacted: Unable or unnecessary to reach patient: Left message Navigation Signature: Charles East MA January 18, 2025 11:59 AM Allergies As of Date: 01/18/2025 Noted Allergy Reaction NITROGLYCERIN 01/03/2009 Comments: Decreased blood pressure NTG (NITRATE ANALOGUES) 01/03/2009 Date Reviewed: 01/07/2025 Reviewed by: Ana Hernandez LPN - Fully Assessed Reason for Visit: Population Health Navigation Outreach [3910] Cmt: Ramila tobin Prescriptions as of 01/18/2025 - aspirin, enteric coated (ASPIRIN, ENTERIC COATED) 81 mg EC tablet Take 1 tablet by mouth every other day. - metoprolol succinate ER (TOPROL XL) 25 mg 24 hr tablet Take 1 tablet by mouth once daily. - amLODIPine (NORVASC) 5 mg tablet Take 1 tablet by mouth once daily. - losartan (COZAAR) 100 mg tablet Take 1 tablet by mouth once daily. - COMPOUNDED PRESCRIPTION Immunis patient unsure of directions. - COMPOUNDED PRESCRIPTION Livergy no sure of directions - COMPOUNDED PRESCRIPTION Cyto-Sym not sure of directions. - COMPOUNDED PRESCRIPTION ADRENIX NOT SURE OF DIRECTIONS. - DEXCHLORPH/P-EPHED HC/METHSCOP (D-HIST D ORAL) Take by mouth. Patient not sure of directions - PRASTERONE, DHEA, (DHEA ORAL) Take by mouth. Patient not sure of directions - COMPOUNDED PRESCRIPTION Healthy Prostate and ovary-Patient not sure of directions - COMPOUNDED PRESCRIPTION Eco Thyro37- Patient not sure of directions - COMPOUNDED PRESCRIPTION Integra-cell=Patient not sure of directions - COMPOUNDED PRESCRIPTION Kardi-Ar=Patient not sure of directions - COMPOUNDED PRESCRIPTION Fulvic Acid=Patient not sure of directions Problem List As Of Date 01/18/2025 Noted Resolved BPH with obstruction/lower urinary tract sympto*01/07/2006 Other malaise and fatigue [R53.81, R53.83] 06/09/2006 05/27/2016 BENIGN HYPERTENSION [I10] 06/09/2006 Mild intermittent asthma with acute exacerbatio*09/29/2006 Lateral epicondylitis of elbow [M77.10] 05/31/2007 05/27/2016 Pain in limb [M79.609] 04/26/2008 05/27/2016 Elevated prostate specific antigen (PSA) [R97.2*09/10/2008 Bladder Neck Obstruction [N32.0] 08/07/2009 Arthritis of both knees [M17.0] 05/27/2016 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 Clark Donovan is a 79 year old male here for a Medicare wellness visit. Medicare Health Risk Assessment General Health Good Exercise: Minutes/Day 30 min Exercise: Days/Week 3 days Alcohol: Daily Use Monthly or less Alcohol: Drinks/Day 1 or 2 Alcohol: 6 or more drinks Never Feel off balance No Concerns: Teeth/Dentures No Concerns: Sexual function Decline Troubled by feelings None of the above Frequency: Eating healthy diet Several days ADLs requiring help None of the above Safety precautions in home/vehicle Yes Smoke, vape, chews tobacco No Difficulty hearing Yes, I wear a hearing aid Difficulty seeing No Current Providers Specialists: I have reviewed specialist-related care of the patient in the medical record. Medical/Family history review Reviewed and updated problem list, medical/surgical/family/social history, medications, and allergies. Opioid use review Opioid Medications (last 90 days) No data to display Anxiety/Depression screening PHQ-2 Score: 0 (Lower risk for depression) NANDO-2 Score: 0 (Lower risk for anxiety) Recommendation: no further intervention at this time Cognitive screening Mini Cog Score: 5 Cognitive screening reviewed and No further action needed (score 3-5). Functional Observation Was the patient's Timed Up & Go test unsteady or >= 12 seconds? No Advance Care Planning Surrogate decision maker and/or advance care plan documented Measurements BP 132/82 Pulse 94 Resp 16 Wt 104.8 kg (231 lb) SpO2 95% BMI 37.00 kg/m Vision Screening: Declines visual acuity screen Assessment/Plan Medicare annual wellness visit, subsequent (Z00.00) - Counseled on healthy diet and regular exercise - Fall avoidance information provided - Personalized prevention plan provided Herb Dacosta APRN.CLOTHING DESIGNER Additional Concerns The following concerns were also discussed with the patient: Clark is a 79-year-old male with a history of DM, HTN, and recent back surgery, presenting for a routine follow-up and Medicare wellness visit. Clark reports gradual improvement in his overall health, noting that he is getting better all the time since undergoing back surgery in September. He had been experiencing chronic low back pain prior to the surgery, which was performed in [place]. He recalls a prolonged hospital stay post-surgery, initially expecting to stay for 2 days but ended up staying from Tuesday to Tuesday without clear discharge orders. He eventually decided to discharge himself. During his hospital stay, he was prescribed pain medications that made him feel disoriented, leading him to discontinue their use. He reports a recent HbA1c of 7.0, down from 7.5 in September. He attributes this improvement to taking berberine and monitoring his blood glucose levels. He is currently on a medication regimen that includes losartan 100 mg once daily, amlodipine 5 mg once daily, aspirin every other day, and metoprolol 25 mg once daily. He checks his blood pressure at home occasionally but finds his home monitor unreliable. He denies ongoing chest pain, syncope, depression, or anxiety. He last had an eye exam approximately 4 years ago and recently got new lenses for his glasses. He is independent in activities of daily living, including showering, medication management, and cooking. He denies smoking or alcohol consumption. He describes his health as good for my age. He attempts to engage in exercise, including walking and other activities, but finds it challenging. He wears support hose to help with leg and knee support. He reports no falls but notes occasional balance issues, particularly when changing positions. He uses a cane for additional support, especially during the winter months in [place], where he was recuperating from back surgery. He reports dyspnea and difficulty with weight loss, currently weighing 231 lbs. He notes that his weight has been consistent over the years, within 10 lbs of what it was 5 years ago. He recalls weighing 170 lbs in 2012 after following a diet. He also mentions a family history of obesity, with a brother who is taller and weighs over 255 lbs. History of asthma. He is not on any inhalers at this time. PHYSICAL EXAM BP 132/82 Pulse 94 Resp 16 Wt 104.8 kg (231 lb) SpO2 95% BMI 37.00 kg/m GENERAL: well appearing, alert, in no acute distress CARDIOVASCULAR: regular rate and rhythm. No murmur, rubs or gallops. PULMONARY: clear to auscultation, no wheezing, rhonchi, or crackles ABDOMEN: soft, non-tender, non-distended, no masses or organomegaly EXTREMITY: no lower extremity edema. No skin discoloration. Latest Ref Rng 10/05/2024 01/01/2025 Protein, Total 6.3 - 8.0 g/dL 6.8 7.4 Albumin 3.9 - 4.9 g/dL 3.6 (L) 4.0 Calcium 8.5 - 10.2 mg/dL 8.9 9.6 Bilirubin, Total 0.2 - 1.3 mg/dL 0.4 0.4 Alkaline Phosphatase 38 - 113 U/L 58 52 AST 14 - 40 U/L 21 19 ALT 10 - 54 U/L 25 23 Glucose 74 - 99 mg/dL 106 (H) 145 (H) BUN 9 - 24 mg/dL 14 20 Creatinine 0.73 - 1.22 mg/dL 1.16 1.03 Sodium 136 - 144 mmol/L 138 139 Potassium 3.7 - 5.1 mmol/L 4.1 4.3 Chloride 98 - 107 mmol/L 100 105 CO2 22 - 30 mmol/L 26 23 Anion Gap 8 - 15 mmol/L 12 11 eGFR >=60 mL/min/1.73m 64 74 WBC 3.70 - 11.00 k/uL 8.75 RBC 4.20 - 6.00 m/uL 4.53 Hemoglobin 13.0 - 17.0 g/dL 14.2 Hematocrit 39.0 - 51.0 % 42.7 MCV 80.0 - 100.0 fL 94.3 MCH 26.0 - 34.0 pg 31.3 MCHC 30.5 - 36.0 g/dL 33.3 RDW-CV 11.5 - 15.0 % 12.5 Platelet Count 150 - 400 k/uL 212 MPV 9.0 - 12.7 fL 10.0 Absolute nRBC <0.01 k/uL <0.01 Cholesterol, Total <200 mg/dL 187 Triglyceride <150 mg/dL 104 HDL Cholesterol >39 mg/dL 44 Non HDL Cholesterol <130 mg/dL 143 (H) Fasting Time hrs 13 VLDL Cholesterol <30 mg/dL 21 TC:HDL Ratio <5.10 4.25 LDL Cholesterol <100 mg/dL 122 (H) LDL:HDL Ratio <2.54 2.77 (H) Hemoglobin A1C 4.3 - 5.6 % 7.5 (H) 7.0 (H) Estimated Average Glucose mg/dL 169 154 1. Medicare annual wellness visit, subsequent (Z00.00) Completed Medicare annual wellness visit. Patient is independent in activities of daily living, denies depression or anxiety, and does not smoke or drink. Emergency contact is [place]. No recent eye exam in the past four years. - Recommended annual eye exams due to diabetes. - Scheduled follow-up in 6 months. 2. Type 2 diabetes mellitus without complication, without long-term current use of insulin (HCC) (E11.9) Hemoglobin A1c improved from 7.5% in September to 7.0%. Patient is taking Berberine. Recent glucose level was 145 mg/dL. - Continue current management. - Ordered hemoglobin A1c and metabolic profile in 6 months. 3. Essential hypertension, benign (I10) Blood pressure well-controlled on current regimen: Losartan 100 mg daily, Amlodipine 5 mg daily, Metoprolol 25 mg daily, and Aspirin every other day. Blood pressure today was 132/82 mmHg. Continue current antihypertensive regimen. 4. Screening for depression (Z13.31) Encounter for screening examination for other mental health and behavioral disorders (Z13.39) No signs of depression or anxiety reported. 5. Mild intermittent asthma without complication ([facility]) (J45.20) Patient reports some shortness of breath, but lung auscultation is clear. Belives it is from weight and deconditioning. Herb Dacosta APRN.SHADI documented in this encounter [facility] 01-07-2025 Note HNO ID: [id number] Author: HERB DACOSTA APRN.CNP Service: ? Author Type: Nurse Practitioner Type: Progress Notes Filed: 01/07/2025 08:19 Note Text: Clark Donovan is a 79 year old male here for a Medicare wellness visit. Medicare Health Risk Assessment General Health Good Exercise: Minutes/Day 30 min Exercise: Days/Week 3 days Alcohol: Daily Use Monthly or less Alcohol: Drinks/Day 1 or 2 Alcohol: 6 or more drinks Never Feel off balance No Concerns: Teeth/Dentures No Concerns: Sexual function Decline Troubled by feelings None of the above Frequency: Eating healthy diet Several days ADLs requiring help None of the above Safety precautions in home/vehicle Yes Smoke, vape, chews tobacco No Difficulty hearing Yes, I wear a hearing aid Difficulty seeing No Current Providers Specialists: I have reviewed specialist-related care of the patient in the medical record. Medical/Family history review Reviewed and updated problem list, medical/surgical/family/social history, medications, and allergies. Opioid use review Opioid Medications (last 90 days) No data to display Anxiety/Depression screening PHQ-2 Score: 0 (Lower risk for depression) NANDO-2 Score: 0 (Lower risk for anxiety) Recommendation: no further intervention at this time Cognitive screening Mini Cog Score: 5 Cognitive screening reviewed and No further action needed (score 3-5). Functional Observation Was the patient's Timed Up AND Go test unsteady or >= 12 seconds? No Advance Care Planning Surrogate decision maker and/or advance care plan documented Measurements BP 132/82 Pulse 94 Resp 16 Wt 104.8 kg (231 lb) SpO2 95% BMI 37.00 kg/m? Vision Screening: Declines visual acuity screen Assessment/Plan Medicare annual wellness visit, subsequent (Z00.00) - Counseled on healthy diet and regular exercise - Fall avoidance information provided - Personalized prevention plan provided Herb Dacosta APRN.CLOTHING DESIGNER Additional Concerns The following concerns were also discussed with the patient: Clark is a 79-year-old male with a history of DM, HTN, and recent back surgery, presenting for a routine follow-up and Medicare wellness visit. Clark reports gradual improvement in his overall health, noting that he is getting better all the time since undergoing back surgery in September. He had been experiencing chronic low back pain prior to the surgery, which was performed in [place]. He recalls a prolonged hospital stay post-surgery, initially expecting to stay for 2 days but ended up staying from Tuesday to Tuesday without clear discharge orders. He eventually decided to discharge himself. During his hospital stay, he was prescribed pain medications that made him feel disoriented, leading him to discontinue their use. He reports a recent HbA1c of 7.0, down from 7.5 in September. He attributes this improvement to taking berberine and monitoring his blood glucose levels. He is currently on a medication regimen that includes losartan 100 mg once daily, amlodipine 5 mg once daily, aspirin every other day, and metoprolol 25 mg once daily. He checks his blood pressure at home occasionally but finds his home monitor unreliable. He denies ongoing chest pain, syncope, depression, or anxiety. He last had an eye exam approximately 4 years ago and recently got new lenses for his glasses. He is independent in activities of daily living, including showering, medication management, and cooking. He denies smoking or alcohol consumption. He describes his health as good for my age. He attempts to engage in exercise, including walking and other activities, but finds it challenging. He wears support hose to help with leg and knee support. He reports no falls but notes occasional balance issues, particularly when changing positions. He uses a cane for additional support, especially during the winter months in [place], where he was recuperating from back surgery. He reports dyspnea and difficulty with weight loss, currently weighing 231 lbs. He notes that his weight has been consistent over the years, within 10 lbs of what it was 5 years ago. He recalls weighing 170 lbs in 2012 after following a diet. He also mentions a family history of obesity, with a brother who is taller and weighs over 255 lbs. History of asthma. He is not on any inhalers at this time. PHYSICAL EXAM BP 132/82 Pulse 94 Resp 16 Wt 104.8 kg (231 lb) SpO2 95% BMI 37.00 kg/m? GENERAL: well appearing, alert, in no acute distress CARDIOVASCULAR: regular rate and rhythm. No murmur, rubs or gallops. PULMONARY: clear to auscultation, no wheezing, rhonchi, or crackles ABDOMEN: soft, non-tender, non-distended, no masses or organomegaly EXTREMITY: no lower extremity edema. No skin discoloration. Latest Ref Rng 10/05/2024 01/01/2025 Protein, Total 6.3 - 8.0 g/dL 6.8 7.4 Albumin 3.9 - 4.9 g/dL 3.6 (L) 4.0 Calcium 8.5 - 10.2 mg/dL 8.9 9.6 B (more content not included)... [facility] 01-07-2025 Instructions Herb Dacosta APRN.CLOTHING DESIGNER - 01/07/2025 7:56 AM EDT We discussed your diabetes: - Your hemoglobin A1c has improved from 7.5 in September to 7.0, which is at goal. This indicates better blood sugar control. - Continue monitoring your blood sugar levels as you have been. No changes to your current diabetes management plan are needed at this time. - You mentioned taking Berberine as a natural supplement for blood sugar control. Please continue to monitor your response to this. We discussed your blood pressure: - Your current medications include Losartan (100 mg once daily), Amlodipine (5 mg once daily), Metoprolol (25 mg once daily), and aspirin (every other day). Continue taking these as prescribed. - Your blood pressure today was 132/82, which is within an acceptable range. It improved after rechecking. - You mentioned that your home blood pressure monitor may not be reliable. If you would like, we can discuss options for a new monitor at your next visit. - Be cautious when transitioning from sitting or lying down to standing, as your blood pressure medications may cause lightheadedness. Make these movements slowly to avoid balance issues. We discussed your cholesterol: - Your cholesterol levels are well-controlled. Total cholesterol is 187, LDL (bad cholesterol) is 122, and triglycerides are 104. No changes to your cholesterol management are needed. We discussed your overall health and wellness: - Your recent blood work, including kidney function, liver enzymes, electrolytes, and complete blood count, was normal. - You reported no ongoing depression, anxiety, or issues with daily activities. You remain independent in managing your medications, cooking, and other tasks. - You are encouraged to continue light physical activity, such as walking and exercises, as tolerated. This will help with your overall strength and mobility. - You mentioned using compression stockings, which can help with swelling. Continue using them as needed. We discussed your vision: - You last had an eye exam about four years ago. Since you have diabetes, I recommend scheduling an eye exam to check for any changes in your retina. Annual eye exams are important for monitoring diabetic eye health. We discussed your weight: - Your weight has been stable, and you are within 10 pounds of your weight from five years ago. Continue your current efforts to stay active and maintain a healthy weight. We discussed your back surgery recovery: - You are feeling stronger and more mobile since your surgery in September. Continue engaging in activities like fishing and light exercise as tolerated. - You mentioned seeing a chiropractor once or twice a month. Be cautious with any adjustments, especially after back surgery, to avoid potential complications. Follow-up plan: - I have ordered blood work for six months from now to monitor your hemoglobin A1c and metabolic profile, including kidney function and electrolytes. No cholesterol testing is needed at that time. - Please schedule an eye exam to monitor yo, ur diabetic eye health. - We will see you back in six months for your next follow-up. If you have any new concerns or symptoms before then, please contact our office. Screening schedule The following prevention plan is recommended: Urine Albumin:Creatinine Ratio Never done Dilated Retinal Exam Never done Diabetic Foot Exam Never done BP Controlled (<130/80) due on 06/27/2024 Advance Directive Discussion due on 09/19/2024 Depression Screening due on 01/01/2025 Anxiety Screening due on 01/01/2025 WHAT YOU CAN DO TO PREVENT FALLS Many falls can be prevented. By making some changes, you can lower your chances of falling. Four things YOU can do to prevent falls for you* and your caregiver 1. Begin a regular exercise program Exercise is one of the most important ways to lower your chances of falling. It makes you stronger and helps you feel better. Exercises that improve balance and coordination (like [place] [employer]) are the most helpful. Lack of exercise leads to weakness and increases your chances of falling. Ask your doctor or health care provider about the best type of exercise program for you. 2. Have your health care provider review your medicines Have your doctor or pharmacist review all the medicines you take, even [id number] medicines. As you get older, the way medicines work in your body can change. Some medicines, or combinations of medicines, can make you sleepy or dizzy and can cause you to fall. 3. Have your vision checked Have your eyes checked by an eye doctor at least once a year. You may be wearing the wrong glasses or have a condition like glaucoma or cataracts that limits your vision. Poor vision can increase your chances of falling. 4. Make your home safer About half of all falls happen at home. To make your home safer: Remove things you can trip over (like papers, books, clothes, and shoes) from stairs and places where you walk. Remove small throw rugs or use double-sided tape to keep the rugs from slipping. Keep items you use often in cabinets you can reach easily without using a step stool. Have grab bars put in next to your toilet and in the tub or shower. Use non-slip mats in the bathtub and on shower floors. Improve the lighting in your home. As you get older, you need brighter lights to see well. Hang light-weight curtains or shades to reduce glare. Have handrails and lights put in on all staircases. Wear shoes both inside and outside the house. Avoid going barefoot or wearing slippers. For more information, contact: Centers for Disease Control and Prevention www.cdc.gov/injury * This information may not apply if you have certain medical conditions. documented in this encounter [facility] 11-27-2024 Note HNO ID: [id number] Author: BREA JENKINS, DO Service: ? Author Type: Physician Type: Progress Notes Filed: 11/27/2024 09:54 Note Text: [facility] [place] DEPARTMENT OF VASCULAR SURGERY OUTPATIENT VISIT DATE November 27, 2024 OUTPATIENT VISIT TYPE ESTABLISHED SERVICE DATE: 11/27/2024 SERVICE TIME: 9:15 AM PRIMARY CARE PHYSICIAN: Jayde Castellanos MD HISTORY OF PRESENT ILLNESS: Mr. Donovan is a 79 year old male who presents today for a vascular surgery follow-up visit for peripheral arterial disease. Still having claudication although he does have back pain. States legs feeling better . No past medical history on file. PAST SURGICAL HISTORY Procedure Laterality Date COLSC FLX W/RMVL OF TUMOR POLYP LESION SNARE TQ 07/02/2016 Adenomatous ctjky-dolih-pjjn follow-up LAPAROSCOPY SURG CHOLECYSTECTOMY Cholecystectomy, lap PAST SURGICAL HISTORY OF 09/26/2024 Back surgery - removal of arthritis mid to lower back SOCIAL HISTORY Social History Tobacco Use Smoking status: Former Smokeless tobacco: Never Tobacco comments: quit 1992 Substance Use Topics Alcohol use: Yes Comment: occasional Drug use: No MEDICATIONS: aspirin, enteric coated (ASPIRIN, ENTERIC COATED) 81 mg EC tablet Take 1 tablet by mouth every other day. metoprolol succinate ER (TOPROL XL) 25 mg 24 hr tablet Take 1 tablet by mouth once daily. amLODIPine (NORVASC) 5 mg tablet Take 1 tablet by mouth once daily. losartan (COZAAR) 100 mg tablet Take 1 tablet by mouth once daily. (Patient not taking: Reported on 10/12/2024) COMPOUNDED PRESCRIPTION Immunis patient unsure of directions. COMPOUNDED PRESCRIPTION Livergy no sure of directions COMPOUNDED PRESCRIPTION Cyto-Sym not sure of directions. COMPOUNDED PRESCRIPTION ADRENIX NOT SURE OF DIRECTIONS. DEXCHLORPH/P-EPHED HC/METHSCOP (D-HIST D ORAL) Take by mouth. Patient not sure of directions PRASTERONE, DHEA, (DHEA ORAL) Take by mouth. Patient not sure of directions COMPOUNDED PRESCRIPTION Healthy Prostate and ovary-Patient not sure of directions COMPOUNDED PRESCRIPTION Eco Thyro37- Patient not sure of directions COMPOUNDED PRESCRIPTION Integra-cell=Patient not sure of directions COMPOUNDED PRESCRIPTION Kardi-Ar=Patient not sure of directions COMPOUNDED PRESCRIPTION Fulvic Acid=Patient not sure of directions ALLERGIES: ALLERGIES Allergen Reactions Nitroglycerin Decreased blood pressure Ntg [Nitrate Analog* PHYSICAL EXAM: BP 126/80 (BP Site: Right Arm, BP Position: Sitting, BP Cuff Size: Large Adult) Pulse 95 SpO2 95% Gen- no distress Ext- no ulceration or tissue loss, no edema, palpable dp bilaterally Diagnostic tests reviewed for today's visit: Most recent labs Most recent imaging IMPRESSION: Mr. Donovan is a 79 year old male with non-lifestyle limiting claudication . PLAN and RECOMMENDATIONS: Recommend continued non-interventional therapy Continue blood pressure and cholesterol control Follow up in 1 year with repeat imaging Continue walking and exercise Follow up sooner with any concerns SIGNATURE: Brea Jenkins DO PATIENT NAME: Clark Donovan DATE: November 27, 2024 TIME: 9:15 AM [facility] 11-27-2024 History of Present illness Narrative Images from the original note were not included. [facility] [place] DEPARTMENT OF VASCULAR SURGERY OUTPATIENT VISIT DATE November 27, 2024 OUTPATIENT VISIT TYPE ESTABLISHED SERVICE DATE: 11/27/2024 SERVICE TIME: 9:15 AM PRIMARY CARE PHYSICIAN: Jayde Castellanos MD HISTORY OF PRESENT ILLNESS: Mr. Donovan is a 79 year old male who presents today for a vascular surgery follow-up visit for peripheral arterial disease. Still having claudication although he does have back pain. States legs feeling better . No past medical history on file. PAST SURGICAL HISTORY Procedure Laterality Date COLSC FLX W/RMVL OF TUMOR POLYP LESION SNARE TQ 07/02/2016 Adenomatous ulauq-jkfts-tkbi follow-up LAPAROSCOPY SURG CHOLECYSTECTOMY Cholecystectomy, lap PAST SURGICAL HISTORY OF 09/26/2024 Back surgery - removal of arthritis mid to lower back SOCIAL HISTORY Social History Tobacco Use Smoking status: Former Smokeless tobacco: Never Tobacco comments: quit 1992 Substance Use Topics Alcohol use: Yes Comment: occasional Drug use: No MEDICATIONS: aspirin, enteric coated (ASPIRIN, ENTERIC COATED) 81 mg EC tablet Take 1 tablet by mouth every other day. metoprolol succinate ER (TOPROL XL) 25 mg 24 hr tablet Take 1 tablet by mouth once daily. amLODIPine (NORVASC) 5 mg tablet Take 1 tablet by mouth once daily. losartan (COZAAR) 100 mg tablet Take 1 tablet by mouth once daily. (Patient not taking: Reported on 10/12/2024) COMPOUNDED PRESCRIPTION Immunis patient unsure of directions. COMPOUNDED PRESCRIPTION Livergy no sure of directions COMPOUNDED PRESCRIPTION Cyto-Sym not sure of directions. COMPOUNDED PRESCRIPTION ADRENIX NOT SURE OF DIRECTIONS. DEXCHLORPH/P-EPHED HC/METHSCOP (D-HIST D ORAL) Take by mouth. Patient not sure of directions PRASTERONE, DHEA, (DHEA ORAL) Take by mouth. Patient not sure of directions COMPOUNDED PRESCRIPTION Healthy Prostate and ovary-Patient not sure of directions COMPOUNDED PRESCRIPTION Eco Thyro37- Patient not sure of directions COMPOUNDED PRESCRIPTION Integra-cell=Patient not sure of directions COMPOUNDED PRESCRIPTION Kardi-Ar=Patient not sure of directions COMPOUNDED PRESCRIPTION Fulvic Acid=Patient not sure of directions ALLERGIES: ALLERGIES Allergen Reactions Nitroglycerin Decreased blood pressure Ntg [Nitrate Analog* PHYSICAL EXAM: BP 126/80 (BP Site: Right Arm, BP Position: Sitting, BP Cuff Size: Large Adult) Pulse 95 SpO2 95% Gen- no distress Ext- no ulceration or tissue loss, no edema, palpable dp bilaterally Diagnostic tests reviewed for today's visit: Most recent labs Most recent imaging IMPRESSION: Mr. Donovan is a 79 year old male with non-lifestyle limiting claudication . PLAN and RECOMMENDATIONS: Recommend continued non-interventional therapy Continue blood pressure and cholesterol control Follow up in 1 year with repeat imaging Continue walking and exercise Follow up sooner with any concerns SIGNATURE: Brea Jenkins DO PATIENT NAME: Clark Donovan DATE: November 27, 2024 TIME: 9:15 AM documented in this encounter [facility] 10-22-2024 Telephone encounter Note Spoke with pt and information listed below given. Pt verbalizes understanding. Lilia Milton LPN [facility] 10-22-2024 Miscellaneous Notes Spoke with pt and information listed below given. Pt verbalizes understanding. Lilia Milton LPN Message left for pt to call back for results. Carola Miguel MA Please notify patient that the MRI of his kidneys looked good, no masses were seen. Nothing further needs to be done. Jayde Castellanos MD documented in this encounter [facility] 10-22-2024 Telephone encounter Note Message left for pt to call back for results. Carola Miguel MA [facility] 10-22-2024 Telephone encounter Note Please notify patient that the MRI of his kidneys looked good, no masses were seen. Nothing further needs to be done. Jayde Castellanos MD [facility] 10-18-2024 History of Present illness Narrative Radiology Service Progress Note DATE OF SERVICE: October 18, 2024 TIME: 10:54 AM PATIENT IDENTITY VERIFICATION COMPLETED USING TWO (2) STANDARD IDENTIFIERS: Name and Date of confirmed by patient verbally. FALL SCREENING: Has the patient had 2 falls in the last year or 1 fall with injury or currently using an Ambulatory Assistive Device (Walker, Cane, Wheelchair, Crutches, etc.)? No PATIENT GENDER DATA: Assigned male at PATIENT RELEVANT IMPLANT DATA REVIEWED: Yes PATIENT PRESENTS WITH AN IMPLANTABLE OR ATTACHED BULL DRIVER: No ALLERGIES: Reviewed and unchanged CONTRAST ALLERGY: NO. EXAM: MRI - CONTRAST TYPE: GROUP II PERIPHERAL IV DATA: Ambulatory: A peripheral IV was started in the Right forearm with a Angio cath: 22 gauge. RADIOLOGY DEPARTMENT: MR; Exam(s) Completed: Body: Renal SIGNATURE: RT Cesar(R) PATIENT NAME: Clark Donovan DATE: October 18, 2024 TIME: 10:54 AM documented in this encounter [facility] 10-18-2024 Note HNO ID: [id number] Author: GLENNA SIMMONS RT(Briseyda) Service: ? Author Type: Technologist Type: Progress Notes Filed: 10/18/2024 10:55 Note Text: Radiology Service Progress Note DATE OF SERVICE: October 18, 2024 TIME: 10:54 AM PATIENT IDENTITY VERIFICATION COMPLETED USING TWO (2) STANDARD IDENTIFIERS: Name and Date of confirmed by patient verbally. FALL SCREENING: Has the patient had 2 falls in the last year or 1 fall with injury or currently using an Ambulatory Assistive Device (Walker, Cane, Wheelchair, Crutches, etc.)? No PATIENT GENDER DATA: Assigned male at PATIENT RELEVANT IMPLANT DATA REVIEWED: Yes PATIENT PRESENTS WITH AN IMPLANTABLE OR ATTACHED BULL DRIVER: No ALLERGIES: Reviewed and unchanged CONTRAST ALLERGY: NO. EXAM: MRI - CONTRAST TYPE: GROUP II PERIPHERAL IV DATA: Ambulatory: A peripheral IV was started in the Right forearm with a Angio cath: 22 gauge. RADIOLOGY DEPARTMENT: MR; Exam(s) Completed: Body: Renal SIGNATURE: Glenna Torres Yvonne Simmons, RT(R) PATIENT NAME: Clark Donovan DATE: October 18, 2024 TIME: 10:54 AM [facility] 10-12-2024 History of Present illness Narrative Chief Complaint Hospital follow up HPI Clark Donovan is a 79 year old male who presents here today for a Hospital follow up. Pt here today for a Hospital follow up. Pt had L2-L5 laminectomy surgery at [facility] on 09/26/24. Pt spent 5 nights in the Hospital, but left AMA. Kidney function was being monitored during admission. Currently following with [facility]. He is doing well at home, recovering well. Doing therapy. Discharge summary: I had an extensive conversation with patient and family at bedside. Patient has acute YAZMIN with creatinine 2.2, was 1.1 on admission. Does have worsening lower extremity edema and was complaining of some orthopnea. Echocardiogram was done, has not yet been read. Renal ultrasound showing no hydronephrosis, but does show hypoechoic structure in the lower right kidney with recommendations of contrast-enhanced CT/MRI. Unable to do this imaging right now given the YAZMIN. Would like to trial the patient on diuresis with close monitoring of renal function. However patient is adamant that he is leaving the hospital today no matter what. He understands the risks of worsening renal function as well as potentially being in heart failure exacerbation. He understands the risks and states he is not staying in this hospital anymore. Given patient and family the following instructions from hospital standpoint -Hold losartan -Will not send the patient home with diuretics as he is diuretic na ve and we cannot monitor his renal function or output after administration -Call PCP for close follow-up as soon as possible for repeat BMP -Encourage ambulation to help with the lower extremity swelling -Encouraged to wear lower extremity compression stockings -Follow-up with cardiology for frequent PVCs as well as to go over the results of the echocardiogram that was performed today as results are not yet and to discuss with the patient -Monitor signs for worsening renal function/heart failure which would be increasing lower extremity edema, decreased urine output, and increasing shortness of breath. -Patient will need follow-up imaging on the right kidney lesion in the form of CT or MRI with contrast once renal function has improved -Follow-up with orthopedic surgery per their recommendations Patient and family understands what was discussed above. Will give these instructions to them when they leave. Electronically Signed by Randolph Nelson DO, MBA PGY-2 Internal Medicine Resident [facility] On 10/01/2024 at 3:40 PM Losartan is currently being held due to elevated creatinine. CMP on 10/05 showed normal renal function. Metformin 500 mg is ordered, pt is not taking and does not have medication available. Metoprolol 100 mg dosage was given at Hospital, but pt was on only 25 mg dosage prior to surgery. He has been taking 50 mg daily currently. Minimal to no peripheral edema. No SOB. Pt is on many supplements, per HH. Asking if PCP wants names/strength of all supplements. Per PCP, does not need list of supplements. Past medical history, appointments, medications, allergies reviewed. Previous Medical History No past medical history on file. Previous Surgical History PAST SURGICAL HISTORY Procedure Laterality Date COLSC FLX W/RMVL OF TUMOR POLYP LESION SNARE TQ 07/02/16 Adenomatous gktdc-hzhyv-ovqq follow-up LAPAROSCOPY SURG CHOLECYSTECTOMY Cholecystectomy, lap Family History FAMILY HISTORY Problem Relation Age of Onset COPD Mother Diabetes Father Heart Father chf Heart Brother a fib Cancer Father prostate Patient Allergies ALLERGIES Allergen Reactions Nitroglycerin Decreased blood pressure Ntg [Nitrate Analog* Current Medications Current Outpatient Medications on File Prior to Visit Medication Sig aspirin, enteric coated (ASPIRIN, ENTERIC COATED) 81 mg EC tablet Take 1 tablet by mouth every other day. metoprolol succinate ER (TOPROL XL) 25 mg 24 hr tablet Take 1 tablet by mouth once daily. metFORMIN ER (GLUCOPHAGE XR) 500 mg 24 hr tablet Take 1 tablet by mouth daily with breakfast. amLODIPine (NORVASC) 5 mg tablet Take 1 tablet by mouth once daily. albuterol HFA (VENTOLIN HFA) 90 mcg/actuation inhaler Inhale 2 Puffs as instructed every 4 hours as needed for wheezing/shortness of breath. (Patient not taking: Reported on 01/02/2024) losartan (COZAAR) 100 mg tablet Take 1 tablet by mouth once daily. COMPOUNDED PRESCRIPTION Immunis patient unsure of directions. COMPOUNDED PRESCRIPTION Livergy no sure of directions COMPOUNDED PRESCRIPTION Cyto-Sym not sure of directions. COMPOUNDED PRESCRIPTION ADRENIX NOT SURE OF DIRECTIONS. COMPOUNDED PRESCRIPTION [place]-Cava Patient not sure of directions. (Patient not taking: Reported on 04/17/2024) DEXCHLORPH/P-EPHED HC/METHSCOP (D-HIST D ORAL) Take by mouth. Patient not sure of directions PRASTERONE, DHEA, (DHEA ORAL) Take by mouth. Patient not sure of directions COMPOUNDED PRESCRIPTION Healthy Prostate and ovary-Patient not sure of directions COMPOUNDED PRESCRIPTION Eco Thyro37- Patient not sure of directions COMPOUNDED PRESCRIPTION Integra-cell=Patient not sure of directions COMPOUNDED PRESCRIPTION Kardi-Ar=Patient not sure of directions COMPOUNDED PRESCRIPTION Fulvic Acid=Patient not sure of directions No current facility-administered medications on file prior to visit. Social History Social History Tobacco Use Smoking status: Former Smokeless tobacco: Never Tobacco comments: quit 1992 Substance Use Topics Alcohol use: Yes Comment: occasional Drug use: No EXAM: There were no vitals taken for this visit. General Appearance: Well appearing, alert, in no acute distress, well-hydrated, well nourished. and Obese. Lungs: Lungs clear to auscultation. No wheezing, rhonchi, rales.. Heart: RRR without murmur, gallop, or rubs. No ectopy. Extremities: No deformities, edema, skin discoloration, clubbing or cyanosis. Good capillary refill. , Edema: None. Health Maintenance List Urine Albumin:Creatinine Ratio Never done Dilated Retinal Exam Never done Diabetic Foot Exam Never done BP Controlled (<130/80) due on 06/27/2024 Advance Directive Discussion due on 09/19/2024 Influenza Vaccine(1) due on 03/18/2025 Spirometry due on 07/04/2025 RSV Vaccine(1 - 1-dose 75+ series) due on 07/04/2025 Hepatitis C Screening due on 07/04/2025 Shingrix Vaccine(1 of 2) due on 07/04/2025 Pneumococcal Vaccine: 50+(1 of 2 - PCV) due on 07/04/2025 Depression Screening due on 01/01/2025 Anxiety Screening due on 01/01/2025 HbA1C due on 04/04/2025 LDL Cholesterol due on 07/05/2025 Annual PCP Team Chronic Disease Visit due on 08/27/2025 DTaP,Tdap,Td Vaccine(3 - Td or Tdap) due on 05/26/2033 Colorectal Cancer Screening Discontinued Covid-19 Vaccine Discontinued Data reviewed Appointment on 10/05/2024 Component Date Value Hemoglobin A1C 10/05/2024 7.5 (H) Estimated Average Glucose 10/05/2024 169 Protein, Total 10/05/2024 6.8 Albumin 10/05/2024 3.6 (L) Calcium, Total 10/05/2024 8.9 Bilirubin, Total 10/05/2024 0.4 Alkaline Phosphatase 10/05/2024 58 AST 10/05/2024 21 ALT 10/05/2024 25 Glucose 10/05/2024 106 (H) BUN 10/05/2024 14 Creatinine 10/05/2024 1.16 Sodium 10/05/2024 138 Potassium 10/05/2024 4.1 Chloride 10/05/2024 100 CO2 10/05/2024 26 Anion Gap 10/05/2024 12 Estimated Glomerular Rolando* 10/05/2024 64 ASSESSMENT/PLAN: 1. Status post lumbar surgery - ICD9: V45.89, ICD10: Z98.890 (primary diagnosis) Continue post op care 2. Other specified disorders of kidney and ureter - ICD9: 593.89, ICD10: N28.89 Will get MRI kidney to evaluate right renal mass - MRI KIDNEY WO/W IVCON 3. Essential hypertension, benign - ICD9: 401.1, ICD10: I10 - Controlled Resume losartan 50 mg daily, along with metoprolol 50 mg daily and amlodipine - COMPLETE BLOOD COUNT 4. Type 2 diabetes mellitus without complication, without long-term current use of insulin (HCC) - ICD9: 250.00, ICD10: E11.9 - Controlled on no meds - recheck in3 months - Counseled on healthy diet and regular exercise - COMPREHENSIVE METABOLIC PANEL - HEMOGLOBIN A1C - LIPID PANEL BASIC 5. Renal mass - ICD9: 593.9, ICD10: N28.89 MRI ordered Notify of MR results Has follow up in 3 months; labs prior Medical Decision Making: Problems: Moderate: New problem with uncertain prognosis and 2+ stable chronic illnesses Data: Unique test(s) ordered: 3+ Risk: Moderate: Drug management Medical Decision Making Level: 4 - Moderate Jayde Castellanos MD documented in this encounter [facility] 10-12-2024 Note HNO ID: [id number] Author: JAYDE CASTELLANOS MD Service: ? Author Type: Physician Type: Progress Notes Filed: 10/12/2024 10:47 Note Text: Chief Complaint Hospital follow up HPI Clark Donovan is a 79 year old male who presents here today for a Hospital follow up. Pt here today for a Hospital follow up. Pt had L2-L5 laminectomy surgery at [facility] on 09/26/24. Pt spent 5 nights in the Hospital, but left AMA. Kidney function was being monitored during admission. Currently following with [facility]. He is doing well at home, recovering well. Doing therapy. Discharge summary: I had an extensive conversation with patient and family at bedside. Patient has acute YAZMIN with creatinine 2.2, was 1.1 on admission. Does have worsening lower extremity edema and was complaining of some orthopnea. Echocardiogram was done, has not yet been read. Renal ultrasound showing no hydronephrosis, but does show hypoechoic structure in the lower right kidney with recommendations of contrast-enhanced CT/MRI. Unable to do this imaging right now given the YAZMIN. Would like to trial the patient on diuresis with close monitoring of renal function. However patient is adamant that he is leaving the hospital today no matter what. He understands the risks of worsening renal function as well as potentially being in heart failure exacerbation. He understands the risks and states he is not staying in this hospital anymore. Given patient and family the following instructions from hospital standpoint -Hold losartan -Will not send the patient home with diuretics as he is diuretic naive and we cannot monitor his renal function or output after administration -Call PCP for close follow-up as soon as possible for repeat BMP -Encourage ambulation to help with the lower extremity swelling -Encouraged to wear lower extremity compression stockings -Follow-up with cardiology for frequent PVCs as well as to go over the results of the echocardiogram that was performed today as results are not yet and to discuss with the patient -Monitor signs for worsening renal function/heart failure which would be increasing lower extremity edema, decreased urine output, and increasing shortness of breath. -Patient will need follow-up imaging on the right kidney lesion in the form of CT or MRI with contrast once renal function has improved -Follow-up with orthopedic surgery per their recommendations Patient and family understands what was discussed above. Will give these instructions to them when they leave. Electronically Signed by Randolph Nelson DO, MBA PGY-2 Internal Medicine Resident [facility] On 10/01/2024 at 3:40 PM Losartan is currently being held due to elevated creatinine. CMP on 10/05 showed normal renal function. Metformin 500 mg is ordered, pt is not taking and does not have medication available. Metoprolol 100 mg dosage was given at Hospital, but pt was on only 25 mg dosage prior to surgery. He has been taking 50 mg daily currently. Minimal to no peripheral edema. No SOB. Pt is on many supplements, per HH. Asking if PCP wants names/strength of all supplements. Per PCP, does not need list of supplements. Past medical history, appointments, medications, allergies reviewed. Previous Medical History No past medical history on file. Previous Surgical History PAST SURGICAL HISTORY Procedure Laterality Date COLSC FLX W/RMVL OF TUMOR POLYP LESION SNARE TQ 07/02/16 Adenomatous tzjvm-ykhow-ysoo follow-up LAPAROSCOPY SURG CHOLECYSTECTOMY Cholecystectomy, lap Family History FAMILY HISTORY Problem Relation Age of Onset COPD Mother Diabetes Father Heart Father chf Heart Brother a fib Cancer Father prostate Patient Allergies ALLERGIES Allergen Reactions Nitroglycerin Decreased blood pressure Ntg [Nitrate Analog* Current Medications Current Outpatient Medications on File Prior to Visit Medication Sig aspirin, enteric coated (ASPIRIN, ENTERIC COATED) 81 mg EC tablet Take 1 tablet by mouth every other day. metoprolol succinate ER (TOPROL XL) 25 mg 24 hr tablet Take 1 tablet by mouth once daily. metFORMIN ER (GLUCOPHAGE XR) 500 mg 24 hr tablet Take 1 tablet by mouth daily with breakfast. amLODIPine (NORVASC) 5 mg tablet Take 1 tablet by mouth once daily. albuterol HFA (VENTOLIN HFA) 90 mcg/actuation inhaler Inhale 2 Puffs as instructed every 4 hours as needed for wheezing/shortness of breath. (Patient not taking: Reported on 01/02/2024) losartan (COZAAR) 100 mg tablet Take 1 tablet by mouth once daily. COMPOUNDED PRESCRIPTION Immunis patient unsure of directions. COMPOUNDED PRESCRIPTION Livergy no sure of directions COMPOUNDED PRESCRIPTION Cyto-Sym not sure of directions. COMPOUNDED PRESCRIPTION ADRENIX NOT SURE OF DIRECTIONS. COMPOUNDED PRESCRIPTION [place]-Cava Patient not sure of directions. (Patient not taking: Reported on (more content not included)... [facility] 10-02-2024 Telephone encounter Note Noted; OK to wait until scheduled follow up visit to see how he is doing then and discuss meds. I do not need his list of supplements at this time. Jayde Castellanos MD [facility] 10-02-2024 Miscellaneous Notes Noted; OK to wait until scheduled follow up visit to see how he is doing then and discuss meds. I do not need his list of supplements at this time. Jayde Castellanos MD [place], [facility] Nurse calling in with patient update and question for Dr. Castellanos. Reports patient had back surgery on 09/26/24 and spent 5 nights in hospital ([facility]). Reports his kidney function was being monitored. Patient left AMA yesterday after being recommended to stay one more night. Start of Care began for Home Health nursing today. Patient to be getting Physical Therapy also. Patient has Hospital F/U scheduled with Dr. Castellanos on 10/12/24. Nurse Levar would like Dr. Castellanos to know: -according to hospital records, patient's Losartan is being held -patient is ordered Metformin 500 mg and is not taking and does not have this medication -Levar states according to record, the last Metoprolol dose given at hospital was 100 mg, and pt was on 25 mg prior to that 2. Patient is on many supplements. Levar asking if wants the names and strengths of all these supplements at this time? Levar reports he has entered them into [facility] record as non-formulary supplements. Call Levar back if PCP wishes to have the list of supplements, otherwise no call back needed. Barbi Jason RN documented in this encounter [facility] 10-02-2024 Telephone encounter Note Levar, [facility] Nurse calling in with patient update and question for Dr. Castellanos. Reports patient had back surgery on 09/26/24 and spent 5 nights in hospital ([facility]). Reports his kidney function was being monitored. Patient left AMA yesterday after being recommended to stay one more night. Start of Care began for Home Health nursing today. Patient to be getting Physical Therapy also. Patient has Hospital F/U scheduled with Dr. Castellanos on 10/12/24. Nurse Levar would like Dr. Castellanos to know: -according to hospital records, patient's Losartan is being held -patient is ordered Metformin 500 mg and is not taking and does not have this medication -Levar states according to record, the last Metoprolol dose given at hospital was 100 mg, and pt was on 25 mg prior to that 2. Patient is on many supplements. Levar asking if wants the names and strengths of all these supplements at this time? Levar reports he has entered them into [facility] record as non-formulary supplements. Call Levar back if PCP wishes to have the list of supplements, otherwise no call back needed. Barbi Jason RN [facility] 10-01-2024 History of Present illness Narrative Discharge teaching and instructions for diagnosis/procedure of status post surgery and kidney issues completed with patient using teachback method. AVS reviewed. Printed prescriptions given to patient. Patient voiced understanding regarding prescriptions, follow up appointments, and care of self at home. Discharged in a wheelchair to home with support per friend. Family present during discharge instructions. Education on s/s of heart failure as indicated on paperwork. [facility] STRZ ICU STEPDOWN TELEMETRY 4K Occupational Therapy Daily Note Discharge Recommendations: Home with Home Health OT Equipment Recommendations: Yes Monitor for RW, LHAE, BSC, and shower chair. Time In: 1114 Time Out: 1129 Timed Code Treatment Minutes: 15 Minutes Minutes: 15 Date: 10/01/2024 Patient Name: Clark Donovan, Gender: male Room: [facility]/002-A : 1945 (79 y.o.) Referring Practitioner: Alfie Andrews PA-C Diagnosis: Spinal stenosis of lumbar region with neurogenic claudication Additional Pertinent Hx: The patient is a 79-year-old male who presented to our service with significant symptoms of low back pain, hip pain, anterolateral thigh pain, which he describes as a pulling sensation in his right painting. His symptoms have been chronic in nature for the past several years and came without any obvious trauma or inciting events. 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 He reports his symptoms have been overall affecting his quality of life as well as affecting his ability to complete his ADLs. He has also failed to improve despite conservative treatments including pain medications and pain management approach, and he is worked up with an MRI which did demonstrate significant spinal canal stenosis from L2-L5. With his failed conservative treatment, he elected to proceed with surgical intervention, and he was surgically cleared by his PCP, Dr. Castellanos, as well as sap developer Dr. Catherine Kong, who is at [facility], to undergo surgery. 09/26/24: Dr. Salas L2-L5 LAMINECTOMY Restrictions/Precautions: Restrictions/Precautions: Fall Risk, Surgical Protocols Required Braces or Orthoses Spinal: Lumbar Corset Spinal Other: per ortho note 09/30 Discussed importance of deep breathing and to not wear the brace when in the chair or in bed. Only when standing and walking. Discussed that he does not need the brace on if simply going to the restroom and back but encouraged to wear when ambulating a far distance:. Position Activity Restriction Spinal Precautions: No Bending, No Lifting, No Twisting Other Position/Activity Restrictions: x1 hemovac drain at time of eval. Social/Functional History: Lives With: Spouse Type of Home: House Home Layout: Two level, Able to Live on Main level with bedroom/bathroom Home Access: Stairs to enter with rails Entrance Stairs - Number of Steps: 4-5 Entrance Stairs - Rails: Both Home Equipment: Cane Bathroom Shower/Tub: Tub/Shower unit (Pt's primary shower is in basement but able to use tub on main level after returning home.) Bathroom Toilet: Handicap height Receives Help From: Family Prior Level of Assist for ADLs: Independent Prior Level of Assist for Homemaking: Independent Prior Level of Assist for Transfers: Independent Prior Level of Assist for Ambulation: Independent household ambulator, with or without device Active District Wire Chief: No 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 He has strong family support in place in preparation for discharge to assist as needed. SUBJECTIVE: RN approved OT session. Patient resting in bed with present. Patient hesitant with engaging in therapy stating he is able to do whatever he needs to do when he goes home. Declined walking outside of room PAIN: denied with rest, increases with movement but no numeric given Vitals: Nurse checked vitals prior to session COGNITION: WNL ADL: Footwear Management: Maximum Assistance, X 1, with set-up, with verbal cues , and with increased time for completion. Negrito slipper socks. Tub Transfer: Contact Guard Assistance. Simulated tub shower transfer while in bathroom and use of grab bars, patient required CGA and cues for pacing for safety. . Patient engaged in discussion regarding LB dressing and footwear management while maintaining B-L-T spinal precautions. Patient required mod cues for spinal precautions while donning underpants/pants as well as socks. Patient states his intends to help him IADL: Not Tested BALANCE: Sitting Balance: Supervision. Standing Balance: Stand By Assistance. BED MOBILITY: Not Tested TRANSFERS: Sit to Stand: Stand By Assistance. Stand to Sit: Stand By Assistance. FUNCTIONAL MOBILITY: Assistive Device: Rolling Walker Assist Level: Stand By Assistance. Distance: To and from bathroom Patient required cues and education on safe walker use and technique as patient demonstrated pushing walker into door to push it open, educated patient on fall risk. ADDITIONAL ACTIVITIES: Review of spinal precautions and adaptations to I/ADL tasks to maintain set precautions. Patient verbalized understanding, however questionable carry over. Functional Outcome Measures: AM-[facility] Inpatient Daily Activity Raw Score: 19 Modified [place]: Current Functional Status: Not Applicable ASSESSMENT: Activity Tolerance: Patient tolerance of treatment: Good treatment tolerance Plan: Times Per Week: 6x Current Treatment Recommendations: Strengthening, ROM, Balance training, Functional mobility training, Endurance training, Pain management, Safety education & training, Patient/Caregiver education & training, Equipment evaluation, education, & procurement, Self-Care / ADL Education: Learners: Patient and Family Role of OT, Plan of Care, ADL's, Precautions, Equipment Education, Reviewed Prior Education, Home Safety, Importance of Increasing Activity, Fall Prevention, Assistive Device Safety, and Education Related to Potential Risks and Complications Due to Impairment/Illness/Injury Goals Short Term Goals Time Frame for Short Term Goals: Until discharge Short Term Goal 1: Pt will complete functional transfers with CGA and 0-2 cues for safety to increase (I) with ADLs. Short Term Goal 2: Pt will demonstrate dynamic standing x3-5 minutes using RW with CGA to increase (I) with sinkside grooming tasks. Short Term Goal 3: Pt will complete functional mobility using RW with CGA and 0-1 cues for safety to/from BSC and progressing to household distances. Short Term Goal 4: Pt will demonstrate ADL toileting routine with CGA and 0-2 cues for spinal precautions to progress to PLOF. Short Term Goal 5: Pt will complete LB ADLs with Moncho using adaptive strategies or AE as needed to maintain spinal precautions for increased (I) with ADLs. Additional Goals?: No Retirement Goals Time Frame for Retirement Goals : None stated d/t ELOS. Following session, patient left in safe position with all fall risk precautions in place. Echo completed at bedside. Echo ROW Dr. Rooney to read. At bedside 8:55-9:35. Department of Orthopedic Surgery Spine Service Progress Note Subjective: 09/27/24 Clark is resting in bed on 4K. BiPap post-op and weaned down to 2L NC. Surgical pain as expected, controlled. Improved pre-op pain. Plan to work with therapy today. Will need to hold patient if [facility] not available for patient 09/28/24 Clark is resting in bed. Increased surgical pain. Has not been utilizing pain medications. HR and BP elevated. Most likely secondary to pain. Some wheezing noted. O2 92% on RA. Denies CP or SOB. Will consult Hospitalist for assistance. Encouraged to ask for pain medication and continue ambulating. Denies flatus, will work on BM. 09/29/24 Clark is resting in the chair. Pain improving and described at aching. 2L NC with O2 sat 92-94%.+flatus, no BM. States Milk of Mag (MOM) combined with Lemon juice helped in the past. but unsure about lemon juice. Hospitalist consulted and appreciate recs. Will need to wean off of NC. Encouraged IS. Denies CP or SOB. Patient states he uses [facility] but they close at 1300 today and not open on Sundays. If patient is discharged this weekend. He will need to provide another pharmacy to fill his medications. 09/30/24 Clark is resting in the chair. 4x4 gauze from dressing site fell off the patient prior to rounding on him this morning. Dressing changed by myself and nursing staff at bedside. Discussed importance of deep breathing and to not wear the brace when in the chair or in bed. Only when standing and walking. Discussed that he does not need the brace on if simply going to the restroom and back but encouraged to wear when ambulating a far distance. Audible wheezing on exam, unchanged from yesterday. CXR completed yesterday defer to hospitalist. Elevated Cr and decreased GFR. Defer to hospitalist for treatment. Family at bedside. Discussed hospitalist has ordered more labs today and unsure if he is medically stable for discharge. Ambulation is gradually improving. Discussed we can send OP medication to [facility] today for the family to lemon picker prior to the long drive home. 10/01/24 Clark is resting in bed with at bedside. Reports feeling better but states his legs feel swollen. No wheezing noted on exam this morning. Hospitalist following. Ambulation improving. Patient states he wishes to discharge home today but discussed he will need to be medically stable per Hospitalist standpoint. Will order compression stockings as he does live more than 2 hours away. Vitals VITALS: BP (!) 161/85 Pulse 94 Temp 97.3 F (36.3 C) (Oral) Resp 17 Ht 1.676 m (5' 6) Wt 104.9 kg (231 lb 4.2 oz) SpO2 95% BMI 37.33 kg/m 24HR INTAKE/OUTPUT: No intake or output data in the 24 hours ending 10/01/24 0653 URINARY CATHETER OUTPUT (Mcclure): DRAIN/TUBE OUTPUT: Closed/Suction Drain Inferior;Lateral;Right Back Accordion-Output (ml): 90 ml VENT SETTINGS: Vent Information Ventilator ID: [id number] Additional Respiratory Assessments Pulse: 94 Respirations: 17 SpO2: 95 % PHYSICAL EXAM: Orientation: alert and oriented to person, place and time Incision: dressing in place, clean, dry, and intact Lower Extremity Motor : quadriceps, extensor hallucis longus, dorsiflexion, plantarflexion 5/5 bilaterally Lower Extremity Sensory: Intact L1-S1 Flatus: positive ABNORMAL EXAM FINDINGS: none LABS: Recent Labs 10/01/24 0545 HGB 11.3* HCT 34.0* CXR completed 09/29/24 Poor inflation of the lungs. Cardiomegaly. Tiny effusion left side. Moderate bibasilar atelectasis/pneumonia ASSESSMENT AND PLAN: Post operative day 5 Consult hospitalist for medical management. Respiratory Therapy consulted Ventricular Trigeminy; continue telemetry per hospitalist Pre-renal YAZMIN, treatment per hospitalist 1: Monitor labs and drain output; Ok to remove drain today with new dressing change of 4x4 gauze with ABD and paper tape. 2: Activity Level: OOB with therapy and staff 3: Pain Control: controlled, continue current regimen; Schedule Tylenol 4: Discharge Planning: Ok to discharge per orthospine. await medically stable per Hospitalist. OP pain meds sent to [facility]. [facility] accepted patient. 5: Work on BM. MOM prn. Utilize prn meds. Bladder scan showed 100ml Department of Orthopedic Surgery Spine Service Progress Note Subjective: 09/27/24 Clark is resting in bed on 4K. BiPap post-op and weaned down to 2L NC. Surgical pain as expected, controlled. Improved pre-op pain. Plan to work with therapy today. Will need to hold patient if [facility] not available for patient 09/28/24 Clark is resting in bed. Increased surgical pain. Has not been utilizing pain medications. HR and BP elevated. Most likely secondary to pain. Some wheezing noted. O2 92% on RA. Denies CP or SOB. Will consult Hospitalist for assistance. Encouraged to ask for pain medication and continue ambulating. Denies flatus, will work on BM. 09/29/24 Clark is resting in the chair. Pain improving and described at aching. 2L NC with O2 sat 92-94%.+flatus, no BM. States Milk of Mag (MOM) combined with Lemon juice helped in the past. but unsure about lemon juice. Hospitalist consulted and appreciate recs. Will need to wean off of NC. Encouraged IS. Denies CP or SOB. Patient states he uses [facility] but they close at 1300 today and not open on Sundays. If patient is discharged this weekend. He will need to provide another pharmacy to fill his medications. 09/30/24 Clark is resting in the chair. 4x4 gauze from dressing site fell off the patient prior to rounding on him this morning. Dressing changed by myself and nursing staff at bedside. Discussed importance of deep breathing and to not wear the brace when in the chair or in bed. Only when standing and walking. Discussed that he does not need the brace on if simply going to the restroom and back but encouraged to wear when ambulating a far distance. Audible wheezing on exam, unchanged from yesterday. CXR completed yesterday defer to hospitalist. Elevated Cr and decreased GFR. Defer to hospitalist for treatment. Family at bedside. Discussed hospitalist has ordered more labs today and unsure if he is medically stable for discharge. Ambulation is gradually improving. Discussed we can send OP medication to [facility] today for the family to lemon picker prior to the long drive home. Vitals VITALS: BP 103/76 Pulse 70 Temp 97.5 F (36.4 C) (Oral) Resp 19 Ht 1.676 m (5' 6) Wt 104.9 kg (231 lb 4.2 oz) SpO2 92% BMI 37.33 kg/m 24HR INTAKE/OUTPUT: Intake/Output Summary (Last 24 hours) at 09/30/2024906 Last data filed at 09/29/2024 2319 Gross per 24 hour Intake 450 ml Output 90 ml Net 360 ml URINARY CATHETER OUTPUT (Mcclure): DRAIN/TUBE OUTPUT: Closed/Suction Drain Inferior;Lateral;Right Back Accordion-Output (ml): 90 ml VENT SETTINGS: Vent Information Ventilator ID: [id number] Additional Respiratory Assessments Pulse: 70 Respirations: 19 SpO2: 92 % PHYSICAL EXAM: Orientation: alert and oriented to person, place and time Incision: dressing in place, clean, dry, and intact Lower Extremity Motor : quadriceps, extensor hallucis longus, dorsiflexion, plantarflexion 5/5 bilaterally Lower Extremity Sensory: Intact L1-S1 Flatus: positive ABNORMAL EXAM FINDINGS: none LABS: Recent Labs 09/30/24 0754 HGB 12.0* HCT 36.6* CXR completed 09/29/24 Poor inflation of the lungs. Cardiomegaly. Tiny effusion left side. Moderate bibasilar atelectasis/pneumonia ASSESSMENT AND PLAN: Post operative day 4 Consult hospitalist for medical management. Respiratory Therapy consulted Ventricular Trigeminy; continue telemetry per hospitalist 1: Monitor labs and drain output 2: Activity Level: OOB with therapy and staff 3: Pain Control: controlled, continue current regimen; Schedule Tylenol 4: Discharge Planning: Pending clinical course await medically stable per Hospitalist. OP pain meds sent to [facility]. [facility] accepted patient. 5: Work on BM. MOM prn. Utilize prn meds. [facility] STRZ ICU STEPDOWN TELEMETRY 4K Occupational Therapy Daily Note Discharge Recommendations: Home with assist as needed and Home with Home Health OT Equipment Recommendations: Yes Monitor for RW, LHAE, BSC, and shower chair. Time In: 1510 Time Out: 1525 Timed Code Treatment Minutes: 15 Minutes Minutes: 15 Date: 09/29/2024 Patient Name: Clark Donovan, Gender: male Room: [facility] : 1945 (79 y.o.) Referring Practitioner: Alfie Andrews PA-C Diagnosis: Spinal stenosis of lumbar region with neurogenic claudication Additional Pertinent Hx: The patient is a 79-year-old male who presented to our service with significant symptoms of low back pain, hip pain, anterolateral thigh pain, which he describes as a pulling sensation in his right painting. His symptoms have been chronic in nature for the past several years and came without any obvious trauma or inciting events. 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 He reports his symptoms have been overall affecting his quality of life as well as affecting his ability to complete his ADLs. He has also failed to improve despite conservative treatments including pain medications and pain management approach, and he is worked up with an MRI which did demonstrate significant spinal canal stenosis from L2-L5. With his failed conservative treatment, he elected to proceed with surgical intervention, and he was surgically cleared by his PCP, Dr. Castellanos, as well as sap developer Dr. Catherine Kong, who is at [facility], to undergo surgery. 09/26/24: Dr. Salas L2-L5 LAMINECTOMY Restrictions/Precautions: Restrictions/Precautions: Fall Risk, Surgical Protocols Required Braces or Orthoses Spinal: Lumbar Corset Position Activity Restriction Spinal Precautions: No Bending, No Lifting, No Twisting Other Position/Activity Restrictions: x1 hemovac drain at time of eval. Social/Functional History: Lives With: Spouse Type of Home: House Home Layout: Two level, Able to Live on Main level with bedroom/bathroom Home Access: Stairs to enter with rails Entrance Stairs - Number of Steps: 4-5 Entrance Stairs - Rails: Both Home Equipment: Cane Bathroom Shower/Tub: Tub/Shower unit (Pt's primary shower is in basement but able to use tub on main level after returning home.) Bathroom Toilet: Handicap height Receives Help From: Family Prior Level of Assist for ADLs: Independent Prior Level of Assist for Homemaking: Independent Prior Level of Assist for Transfers: Independent Prior Level of Assist for Ambulation: Independent household ambulator, with or without device Active District Wire Chief: No 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 He has strong family support in place in preparation for discharge to assist as needed. SUBJECTIVE: Pt pleasant and cooperative; consent to O.T. treatment. PAIN: 9/10: Lumbar pain; with movement. Vitals: Vitals not assessed per clinical judgement, see nursing flowsheet COGNITION: Slow Processing, Decreased Recall, Decreased Insight, and Impulsive BALANCE: Standing Balance: Contact Guard Assistance, X 1. Pt complete static standing for about 1 minute prior to ambulation; no LOB noted. BED MOBILITY: Not Tested TRANSFERS: Sit to Stand: Contact Guard Assistance. Pt complete sit to stand from recliner c CGA and WW in place. FUNCTIONAL MOBILITY: Assistive Device: Walker Assist Level: Contact Guard Assistance. Distance: Within room Pt completed functional mobility from recliner to bathroom with CGA for steadying assistance and fall prevention utilizing WW with no LOB noted. Pt request to complete toileting routine,however pt taking extensive time, so pt was passed to PCT and education on pt status. Functional Outcome Measures: AM-PAC Inpatient Daily Activity Raw Score: 17 Modified [place]: Current Functional Status: Not Applicable ASSESSMENT: Activity Tolerance: Patient tolerance of treatment: Fair treatment tolerance, Poor treatment tolerance, and Limited by pain Plan: Times Per Week: 6x Current Treatment Recommendations: Strengthening, ROM, Balance training, Functional mobility training, Endurance training, Pain management, Safety education & training, Patient/Caregiver education & training, Equipment evaluation, education, & procurement, Self-Care / ADL Education: Learners: Patient Precautions Goals Short Term Goals Time Frame for Short Term Goals: Until discharge Short Term Goal 1: Pt will complete functional transfers with CGA and 0-2 cues for safety to increase (I) with ADLs. Short Term Goal 2: Pt will demonstrate dynamic standing x3-5 minutes using RW with CGA to increase (I) with sinkside grooming tasks. Short Term Goal 3: Pt will complete functional mobility using RW with CGA and 0-1 cues for safety to/from BSC and progressing to household distances. Short Term Goal 4: Pt will demonstrate ADL toileting routine with CGA and 0-2 cues for spinal precautions to progress to PLOF. Short Term Goal 5: Pt will complete LB ADLs with Moncho using adaptive strategies or AE as needed to maintain spinal precautions for increased (I) with ADLs. Additional Goals?: No Logger Goals Time Frame for Logger Goals : None stated d/t ELOS. Following session, patient left in safe position with all fall risk precautions in place. Patient given incentive spirometer. Patient educated on how to use incentive spirometer. Patient verbalized understanding and demonstrated proper use. Emphasized importance and usage of device, with coughing and deep breathing every 2 hours while awake. Department of Orthopedic Surgery Spine Service Progress Note Subjective: 09/27/24 Clark is resting in bed on 4K. BiPap post-op and weaned down to 2L NC. Surgical pain as expected, controlled. Improved pre-op pain. Plan to work with therapy today. Will need to hold patient if [facility] not available for patient 09/28/24 Clark is resting in bed. Increased surgical pain. Has not been utilizing pain medications. HR and BP elevated. Most likely secondary to pain. Some wheezing noted. O2 92% on RA. Denies CP or SOB. Will consult Hospitalist for assistance. Encouraged to ask for pain medication and continue ambulating. Denies flatus, will work on BM. 09/29/24 Clark is resting in the chair. Pain improving and described at aching. 2L NC with O2 sat 92-94%.+flatus, no BM. States Milk of Mag (MOM) combined with Lemon juice helped in the past. but unsure about lemon juice. Hospitalist consulted and appreciate recs. Will need to wean off of NC. Encouraged IS. Denies CP or SOB. Patient states he uses [facility] but they close at 1300 today and not open on Sundays. If patient is discharged this weekend. He will need to provide another pharmacy to fill his medications. Vitals VITALS: BP (!) 115/57 Pulse 97 Temp 97.9 F (36.6 C) (Oral) Resp 14 Ht 1.676 m (5' 6) Wt 104.9 kg (231 lb 4.2 oz) SpO2 94% BMI 37.33 kg/m 24HR INTAKE/OUTPUT: Intake/Output Summary (Last 24 hours) at 09/29/2024 1133 Last data filed at 09/28/2024 1500 Gross per 24 hour Intake -- Output 90 ml Net -90 ml URINARY CATHETER OUTPUT (Mcclure): DRAIN/TUBE OUTPUT: Closed/Suction Drain Inferior;Lateral;Right Back Accordion-Output (ml): 90 ml VENT SETTINGS: Vent Information Ventilator ID: [id number] Additional Respiratory Assessments Pulse: 97 Respirations: 14 SpO2: 94 % PHYSICAL EXAM: Orientation: alert and oriented to person, place and time Incision: dressing in place, clean, dry, and intact Lower Extremity Motor : quadriceps, extensor hallucis longus, dorsiflexion, plantarflexion 5/5 bilaterally Lower Extremity Sensory: Intact L1-S1 Flatus: positive ABNORMAL EXAM FINDINGS: none LABS: Recent Labs 09/29/24 0710 HGB 11.4* HCT 34.5* ASSESSMENT AND PLAN: Post operative day 3 Consult hospitalist for medical management. Respiratory Therapy consulted 1: Monitor labs and drain output 2: Activity Level: OOB with therapy and staff 3: Pain Control: controlled, continue current regimen 4: Discharge Planning: Pending clinical course await medically stable per Hospitalist. Will need a pharmacy for the patient if discharged over the weekend as his normal pharmacy closes today at 1300 and not open on Sundays. [facility] accepted patient. 5: Work on [employer]. MOM prn. Images from the original note were not included. Hospitalist Progress Note Internal Medicine Resident Patient: Clark Donovan 79 y.o. male Unit/Bed: 4K-02/002-A Admit Date: 09/26/2024 Summary statement: 79-year-old male CC back pain, found to have spinal stenosis s/p laminectomy L2-5, partial S1 09/26/2024, pain control and blood pressure control. A&P: Checklist: Lines: Cath: DVT: Steroids: ABX: ASSESSMENT AND PLAN Active Problems Back pain s/p laminectomy 09/26/2024: Patient initially presented to the hospital for lower back pain, found to have lumbar spinal stenosis, s/p laminectomy L2-5 and partial S1. Orthopedic surgery team remains primary. Analgesia per primary: Tylenol, Dilaudid pain panel (0.25, 0.5 mg for moderate and severe pain, respectively) Acute hypoxic respiratory failure, improved: Patient was requiring BiPAP after procedure, weaned down to 1 L NC. Patient has no baseline supplemental O2 requirement. Patient reports use of inhalers at home, not listed in chart. Continue Xopenex as needed for wheezing Continue incentive spirometry Ventricular trigeminy several bouts noted on telemetry, increased metoprolol from 25 mg daily to 50 mg daily. Continue to monitor telemetry. Suspected BRENT: Patient with BiPAP requirement after procedure as described in respiratory failure section. No sleep study on file, will offer sleep study referral closer to discharge. HTN: Continuing losartan, metoprolol, Norvasc. Increased metoprolol to 50 mg daily NIDDM 2: Continue metformin. No HbA1c on file, will recheck 1 with morning labs. Hyperglycemic between 180 and 200 during 09/29, added low-dose SSI correction, POCT glucose checks ACHS, with hypoglycemia protocol in place. Acute macrocytic anemia: Hgb 11.4 (12.7 upon admission) monitor. Resolved Problems Chronic Conditions (reviewed and stable unless otherwise stated) LDA: []CVC / []PICC / []Midline / []Mcclure / []Drains / []Mediport / [x]None Antibiotics: None Steroids: None Labs (still needed?): [x]Yes / []No IVF (still needed?): []Yes / [x]No Level of care: [x]Step Down / []Med-Surg Bed Status: [x]Inpatient / []Observation Telemetry: [x]Yes / []No PT/OT: []Yes / []No DVT Prophylaxis: [] Lovenox / [] Heparin / [x] SCDs / [] Already on Systemic Anticoagulation / [] None Expected discharge date: 10/01 Disposition: Home Code status: Prior = Chief Complaint: Back pain Subjective (past 24 hours): Patient seen and examined at bedside, [facility] / Hospital Course: Patient is a 79-year-old male who presented with back pain. Found to have spinal stenosis of lumbar lobe lesion status post L2-L5 laminectomy and partial S1 laminectomy on 09/26/2024. Postprocedure patient was requiring BiPAP which is eventually weaned down to 2 L nasal cannula. Reports pain at the site of surgery at this time. Medications: Infusion Medications sodium chloride Scheduled Medications docusate sodium 100 mg Oral Daily amLODIPine 5 mg Oral Daily losartan 100 mg Oral Daily metoprolol succinate 25 mg Oral Daily naloxegol 12.5 mg Oral QAM sodium chloride flush 5-40 mL IntraVENous 2 times per day polyethylene glycol 17 g Oral Daily PRN Meds: sennosides-docusate sodium, magnesium hydroxide, ipratropium 0.5 mg-albuterol 2.5 mg, sodium chloride flush, sodium chloride, acetaminophen, ondansetron OR ondansetron, bisacodyl, sodium phosphate, cyclobenzaprine, oxyCODONE OR oxyCODONE, HYDROmorphone OR HYDROmorphone Exam: BP 116/70 Pulse 97 Temp 97.8 F (36.6 C) (Axillary) Resp 13 Ht 1.676 m (5' 6) Wt 104.9 kg (231 lb 4.2 oz) SpO2 93% BMI 37.33 kg/m General: No distress, appears stated age. Eyes: PERRL. Conjunctivae/corneas clear. HENT: Head normal appearing. Nares normal. Oral mucosa moist. Hearing intact. Neck: Supple, with full range of motion. Trachea midline. No gross JVD appreciated. Respiratory: Normal effort. Diffuse wheezing. Cardiovascular: Normal rate, regular rhythm with normal S1/S2 without murmurs. No lower extremity edema. Abdomen: Soft, non-tender, non-distended with normal bowel sounds. Musculoskeletal: No joint swelling or tenderness. Normal tone. No abnormal movements. Skin: Warm and dry. No rashes or lesions. Neurologic: No focal sensory/motor deficits in the upper or lower extremities. Cranial nerves: grossly non-focal 2-12. Psychiatric: Alert and oriented, normal insight and thought content. Capillary Refill: Brisk,< 3 seconds. Peripheral Pulses: +2 palpable, equal bilaterally. Labs/Radiology: See chart or assessment above. Case was discussed with Attending, Dr. Carcamo. Associated attestation - Charles Carcamo DO - 10/01/2024 4:52 PM EST Attending Physician s Attestation Statement I have discussed this patient's care with the Resident taking care of this patient. I have seen the patient independently and agree with the assessment and plan. Consulted postoperatively for hypoxia and frequent PVCs. Patient states he has a history of frequent PVCs and follows with cardiology. Will increase his beta-constantino to attempt to control is better. Echocardiogram ordered. Patient did require BiPAP and oxygen postoperatively, suspect likely atelectasis. No evidence of pneumonia or indication for antimicrobials at this time. Encourage incentive spirometer and ambulation out of bed is much as possible. Date of Service - 09/29/2024 [facility] ICU STEPDOWN TELEMETRY 4K Occupational Therapy Daily Note Discharge Recommendations: Home with assist as needed and Home with Home Health OT Equipment Recommendations: Yes Monitor for RW, LHAE, BSC, and shower chair. Time In: 1023 Time Out: 1056 Timed Code Treatment Minutes: 33 Minutes Minutes: 33 Date: 09/28/2024 Patient Name: Clark Donovan, Gender: male Room: -A : 1945 (79 y.o.) Referring Practitioner: Alfie Andrews PA-C Diagnosis: Spinal stenosis of lumbar region with neurogenic claudication Additional Pertinent Hx: The patient is a 79-year-old male who presented to our service with significant symptoms of low back pain, hip pain, anterolateral thigh pain, which he describes as a pulling sensation in his right painting. His symptoms have been chronic in nature for the past several years and came without any obvious trauma or inciting events. 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 He reports his symptoms have been overall affecting his quality of life as well as affecting his ability to complete his ADLs. He has also failed to improve despite conservative treatments including pain medications and pain management approach, and he is worked up with an MRI which did demonstrate significant spinal canal stenosis from L2-L5. With his failed conservative treatment, he elected to proceed with surgical intervention, and he was surgically cleared by his PCP, Dr. Castellanos, as well as sap developer Dr. Catherine Kong, who is at [facility], to undergo surgery. 09/26/24: Dr. Salas L2-L5 LAMINECTOMY Restrictions/Precautions: Restrictions/Precautions: Fall Risk, Surgical Protocols Required Braces or Orthoses Spinal: Lumbar Corset Position Activity Restriction Spinal Precautions: No Bending, No Lifting, No Twisting Other Position/Activity Restrictions: x1 hemovac drain at time of eval. Social/Functional History: Lives With: Spouse Type of Home: House Home Layout: Two level, Able to Live on Main level with bedroom/bathroom Home Access: Stairs to enter with rails Entrance Stairs - Number of Steps: 4-5 Entrance Stairs - Rails: Both Home Equipment: Cane Bathroom Shower/Tub: Tub/Shower unit (Pt's primary shower is in basement but able to use tub on main level after returning home.) Bathroom Toilet: Handicap height Receives Help From: Family Prior Level of Assist for ADLs: Independent Prior Level of Assist for Homemaking: Independent Prior Level of Assist for Transfers: Independent Prior Level of Assist for Ambulation: Independent household ambulator, with or without device Active District Wire Chief: No 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 He has strong family support in place in preparation for discharge to assist as needed. SUBJECTIVE: RN approved session, patient supine in bed upon OT arrival and spouse present. Patient initially difficult to rouse and stay alert. Patient A & O x 3. Patient unaware of spinal precautions and was re-edu. Patient seated on chair alarm and activated at end of session. PAIN: pain in low back; did not rate. Vitals: Oxygen: patient on room air and demo audible wheezing with O2 at 91-92% during seated rest break. Cues for pursed lip breathing and pacing self t/o tx. COGNITION: Slow Processing, Decreased Recall, Decreased Insight, Decreased Problem Solving, Decreased Safety Awareness, Decreased Arousal, and Difficulty Following Commands ADL: Grooming: Contact Guard Assistance. Standing at sink with cues for 2 w/w placement to complete oral care with patient demo 2 post LOB with MIN A to correct when completing two hand release. Stood at sink again after toileting to wash hands with no LOB. Footwear Management: Maximum Assistance. To doff/don slipper socks and attempting to bed over past 90 degrees with edu in B-L-T precautions. Toileting: Minimal Assistance. For clothing mgmt Toilet Transfer: Contact Guard Assistance. To lower onto toilet. Patient spent increased time on toilet to urinate and started to fall asleep with cues to rouse and initiate in sit to stand with grab bars with MIN A. . IADL: Not Tested BALANCE: Sitting Balance: Stand By Assistance, Contact Guard Assistance. Standing Balance: Contact Guard Assistance, Minimal Assistance. With use of 2 w/w for support and occasional post LOB/unsteadiness BED MOBILITY: Supine to Sit: Moderate Assistance, X 1 with increased time, cues for tech and sequencing for spinal precautions TRANSFERS: Sit to Stand: Contact Guard Assistance, Minimal Assistance. From each seated surface with cues for tech FUNCTIONAL MOBILITY: Assistive Device: Rolling Walker Assist Level: Contact Guard Assistance and Minimal Assistance. Distance: To and from bathroom and Within room Slow pace, audible wheezing Functional Outcome Measures: AM-[facility] Inpatient Daily Activity Raw Score: 17 Modified [place]: Current Functional Status: Not Applicable ASSESSMENT: Activity Tolerance: Patient tolerance of treatment: Good treatment tolerance Plan: Times Per Week: 6x Current Treatment Recommendations: Strengthening, ROM, Balance training, Functional mobility training, Endurance training, Pain management, Safety education & training, Patient/Caregiver education & training, Equipment evaluation, education, & procurement, Self-Care / ADL Education: Learners: Patient and Significant Other Role of OT, Plan of Care, ADL's, Precautions, Reviewed Prior Education, Importance of Increasing Activity, Fall Prevention, Assistive Device Safety, and Pursed Lip Breathing Goals Short Term Goals Time Frame for Short Term Goals: Until discharge Short Term Goal 1: Pt will complete functional transfers with CGA and 0-2 cues for safety to increase (I) with ADLs. Short Term Goal 2: Pt will demonstrate dynamic standing x3-5 minutes using RW with CGA to increase (I) with sinkside grooming tasks. Short Term Goal 3: Pt will complete functional mobility using RW with CGA and 0-1 cues for safety to/from BSC and progressing to household distances. Short Term Goal 4: Pt will demonstrate ADL toileting routine with CGA and 0-2 cues for spinal precautions to progress to PLOF. Short Term Goal 5: Pt will complete LB ADLs with Moncho using adaptive strategies or AE as needed to maintain spinal precautions for increased (I) with ADLs. Additional Goals?: No Logger Goals Time Frame for Logger Goals : None stated d/t ELOS. Following session, patient left in safe position with all fall risk precautions in place. Department of Orthopedic Surgery Spine Service Progress Note Subjective: 09/27/24 Clark is resting in bed on 4K. BiPap post-op and weaned down to 2L NC. Surgical pain as expected, controlled. Improved pre-op pain. Plan to work with therapy today. Will need to hold patient if [facility] not available for patient 09/28/24 Clark is resting in bed. Increased surgical pain. Has not been utilizing pain medications. HR and BP elevated. Most likely secondary to pain. Some wheezing noted. O2 92% on RA. Denies CP or SOB. Will consult Hospitalist for assistance. Encouraged to ask for pain medication and continue ambulating. Denies flatus, will work on BM. Vitals VITALS: BP (!) 157/63 Pulse 61 Temp 98.5 F (36.9 C) (Oral) Resp 18 Ht 1.676 m (5' 6) Wt 105.3 kg (232 lb 2.3 oz) SpO2 91% BMI 37.47 kg/m 24HR INTAKE/OUTPUT: Intake/Output Summary (Last 24 hours) at 09/28/2024 9433 Last data filed at 09/28/2024 0632 Gross per 24 hour Intake 666.43 ml Output 840 ml Net -173.57 ml URINARY CATHETER OUTPUT ([place]clure): DRAIN/TUBE OUTPUT: Closed/Suction Drain Inferior;Lateral;Right Back Accordion-Output (ml): 25 ml VENT SETTINGS: Vent Information Ventilator ID: [id number] Additional Respiratory Assessments Pulse: 61 Respirations: 18 SpO2: 91 % PHYSICAL EXAM: Orientation: alert and oriented to person, place and time Incision: dressing in place, clean, dry, and intact Lower Extremity Motor : quadriceps, extensor hallucis longus, dorsiflexion, plantarflexion 5/5 bilaterally Lower Extremity Sensory: Intact L1-S1 Flatus: negative ABNORMAL EXAM FINDINGS: none LABS: Recent Labs 09/28/24 0526 HGB 12.0* HCT 36.9* ASSESSMENT AND PLAN: Post operative day 2 Consult hospitalist for medical management. 1: Monitor labs and drain output 2: Activity Level: OOB with therapy and staff 3: Pain Control: controlled, continue current regimen 4: Discharge Planning: Pending clinical course. [facility] accepted patient 5: Work on BM. Clark Donovan was evaluated today and a DME order was entered for a wheeled walker because he requires this to successfully complete daily living tasks of eating, bathing, toileting, personal cares, ambulating, grooming, hygiene, dressing upper body, dressing lower body, and meal preparation. A wheeled walker is necessary due to the patient's unsteady gait, upper body weakness, and inability to lemon picker an ambulation device; and he can ambulate only by pushing a walker instead of a lesser assistive device such as a cane, crutch, or standard walker. The need for this equipment was discussed with the patient and he understands and is in agreement. [facility] INPATIENT PHYSICAL THERAPY EVALUATION [facility] [[email or web address]] ICU STEPDOWN TELEMETRY 4K - 4K--A Discharge Recommendations: Home with Home health PT Equipment Recommendations: Yes (Pt will need RW for home. Sergei counseling case manager aware.) Time In: 1131 Time Out: 1200 Timed Code Treatment Minutes: 12 Minutes Minutes: 29 Date: 09/27/2024 Patient Name: Clark Donovan, Gender: male : 1945 (79 y.o.) Referring Practitioner: Alfie Andrews PA-C Diagnosis: Spinal stenosis of lumbar region with neurogenic claudication Additional Pertinent Hx: Per EMR:The patient is a 79-year-old male who presented to our service with significant symptoms of low back pain, hip pain, anterolateral thigh pain, which he describes as a pulling sensation in his right painting. His symptoms have been chronic in nature for the past several years and came without any obvious trauma or inciting events. 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 He reports his symptoms have been overall affecting his quality of life as well as affecting his ability to complete his ADLs. He has also failed to improve despite conservative treatments including pain medications and pain management approach, and he is worked up with an MRI which did demonstrate significant spinal canal stenosis from L2-L5. Pt underwent L2-L5 LAMINECTOMY and partial S1 laminectomy on 09/26/23. Pt was placed on Bipap post-op but since has been weaned to nasal cannula. Restrictions/Precautions: Restrictions/Precautions: Fall Risk, Surgical Protocols Spinal Precautions: No Bending, No Lifting, No Twisting Other Position/Activity Restrictions: x1 hemovac drain at time of eval. Required Braces or Orthoses?: Yes Spinal: Lumbar Corset Subjective: Chart Reviewed: Yes Patient assessed for rehabilitation services?: Yes Family/Caregiver Present: Yes Subjective: RN approved session, patient sitting up in bedside chair with 1L 02. Back brace on but not tightened in the chair. Family present but both asleep on the couch for most of session. Patient's spouse did want to have a RW for home prior to d/c. Message left for counseling case manager. General: Overall Orientation Status: Within Functional Limits Vision: Within Functional Limits Hearing: Exceptions to WFL Pain: 3/10: back at rest. RN just gave pain medications Vitals: Vitals: 09/27/24 1103 BP: Pulse: (!) 101 Resp: 20 Temp: 98.1 F (36.7 C) SpO2: 97% Sp02 at rest=95% on 1L. RN okayed getting to bathroom and back without use of 02. Sp02 on room air 96%. RN okay to leave patient on room air at end of session. Social/Functional History: Lives With: Spouse Type of Home: House Home Layout: Two level, Able to Live on Main level with bedroom/bathroom Home Access: Stairs to enter with rails Entrance Stairs - Number of Steps: 4-5 Entrance Stairs - Rails: Both Home Equipment: Cane Bathroom Shower/Tub: Tub/Shower unit (Pt's primary shower is in basement but able to use tub on main level after returning home.) Bathroom Toilet: Handicap height Receives Help From: Family Prior Level of Assist for ADLs: Independent Prior Level of Assist for Homemaking: Independent Prior Level of Assist for Transfers: Independent Prior Level of Assist for Ambulation: Independent household ambulator, with or without device Active District Wire Chief: No Additional Comments: Pt reports independent at baseline for ADLs and mobility ocasionally using cane. He has strong family support in place in preparation for discharge to assist as needed. OBJECTIVE: Range of Motion: Bilateral Lower Extremity: WFL Strength: Bilateral Lower Extremity: grossly 4/5 Balance: Static Standing Balance: Contact Guard Assistance, to stand without UE support to use urinal in bathroom. VC needed for optimal body mechanics and safety with use of RW in tight space like the bathroom. Pt walking away from walker at times and reaching outside SANDRA without decreased body mechanics. Dynamic Standing Balance: Contact Guard Assistance, with use of RW and without, to reach outside SANDRA to manage using urinal and washing/drying hands in standing position. Bed Mobility: Scooting: Stand By Assistance, to scoot forward and back. Transfers: Sit to Stand: Contact Guard Assistance, X 1, cues for hand placement Stand to Sit:Contact Guard Assistance, X 1, cues for hand placement, cues for alignment to surface and for safety with assistive device Ambulation: Contact Guard Assistance Distance: 20 feet + 35 feet Surface: Level Tile Device: Rolling Walker Gait Deviations: Forward Flexed Posture, Slow Dam[place], Decreased Step Length Bilaterally, Decreased Heel Strike Bilaterally, Wide Base of Support, and Verbal and tactile cues for safety and sequencing required during gait training in order for a more normalized gait pattern and fall preventions. Without verbal and tactile cues, patient would require more physical assistance in order to complete task Stairs: Not Tested Exercise: Patient was guided in 1 set(s) 10 reps of exercises to both lower extremities: ,Seated heel/toe raises and Long arc quads. Exercises were completed for increased independence with functional mobility. Functional Outcome Measures: [facility] (6 CLICK) BASIC MOBILITY AM-[facility] Inpatient Mobility Raw Score : 18 AM-[facility] Inpatient T-Scale Score : 43.63 Modified [place]: Premorbid Functional Status: Not Applicable Current Functional Status: Not Applicable ASSESSMENT: Activity Tolerance: Patient tolerance of treatment:Good. Treatment Initiated: Treatment and education initiated within context of evaluation. Evaluation time included review of current medical information, gathering information related to past medical, social and functional history, completion of standardized testing, formal and informal observation of tasks, assessment of data and development of plan of care and goals. Treatment time included skilled education and facilitation of tasks to increase safety and independence with functional mobility for improved independence and quality of life. Assessment: Body Structures, Functions, Activity Limitations Requiring Skilled Therapeutic Intervention: Decreased functional mobility , Decreased strength, Decreased body mechanics, Increased pain Assessment: Clark Donovan is a 79 y.o. male that presents with Spinal stenosis of lumbar region with neurogenic claudication. Pt demonstrates a decrease in baseline by way of bed mobility, transfers and ambulation secondary to decreased activity tolerance, strength, fatigue, and balance deficits. Pt will benefit from skilled PT services throughout admission and beyond hospital discharge for improvements in functional mobility and in order to decrease fall risk and return pt to OF. Therapy Prognosis: Good Requires PT Follow-Up: Yes Patient Education: . Patient Education Education Given To: Patient, Family Education Provided: Role of Therapy, Plan of Care, Equipment Education Method: Verbal Barriers to Learning: None Education Outcome: Verbalized understanding Plan: Current Treatment Recommendations: Strengthening, Balance training, Functional mobility training, Transfer training, Gait training, Stair training, Safety education & training, Patient/Caregiver education & training, Equipment evaluation, education, & procurement, Therapeutic activities General Plan: (6xO) Goals: Patient Goals : Pt goal to go home Short Term Goals Time Frame for Short Term Goals: By discharge Short Term Goal 1: Supine to/from sit at Mod I in order to get in/out of bed. Short Term Goal 2: Sit to/from stand at Mod I in order to get up to walk. Short Term Goal 3: Ambulate 150 feet with RW at Mod I in order to walk in home safely. Short Term Goal 4: Ascend/Descend 4 steps with 2 handrails at SBA in order to enter/exit home. Logger Goals Time Frame for Logger Goals : NA due to short ELOS Following session, patient left in safe position with all fall risk precautions in place. [facility] INPATIENT OCCUPATIONAL THERAPY STRZ ICU STEPDOWN TELEMETRY 4K EVALUATION Discharge Recommendations: Continue to assess pending progress, Patient would benefit from continued therapy after discharge Equipment Recommendations: Yes Monitor for RW, LHAE, BSC, and shower chair. Time In: 946 Time Out: 1018 Timed Code Treatment Minutes: 23 Minutes Minutes: 31 Date: 09/27/2024 Patient Name: Clark Donovan, Gender: male : 1945 (79 y.o.) Referring Practitioner: Alfie Andrews PA-C Diagnosis: Spinal stenosis of lumbar region with neurogenic claudication Additional Pertinent Hx: The patient is a 79-year-old male who presented to our service with significant symptoms of low back pain, hip pain, anterolateral thigh pain, which he describes as a pulling sensation in his right painting. His symptoms have been chronic in nature for the past several years and came without any obvious trauma or inciting events. 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 He reports his symptoms have been overall affecting his quality of life as well as affecting his ability to complete his ADLs. He has also failed to improve despite conservative treatments including pain medications and pain management approach, and he is worked up with an MRI which did demonstrate significant spinal canal stenosis from L2-L5. With his failed conservative treatment, he elected to proceed with surgical intervention, and he was surgically cleared by his PCP, Dr. Castellanos, as well as sap developer Dr. Catherine Kong, who is at [facility], to undergo surgery. 09/26/24: Dr. Salas L2-L5 LAMINECTOMY Restrictions/Precautions: Restrictions/Precautions: Fall Risk, Surgical Protocols Required Braces or Orthoses Spinal: Lumbar Corset Position Activity Restriction Spinal Precautions: No Bending, No Lifting, No Twisting Other Position/Activity Restrictions: x1 hemovac drain at time of eval. Subjective Chart Reviewed: Yes, Orders, Progress Notes, History and Physical, Imaging, Operative Notes, Labs Subjective: Pt in bed upon arrival, agreeable to OT eval. RN okayed therapy session. Pain: 05/29: Back (with activity) Vitals: Oxygen: Pt 97% on 2L O2 following mobility Heart Rate: 110 bpm folowing mobility Social/Functional History: Lives With: Spouse Type of Home: House Home Layout: Two level Home Access: Stairs to enter with rails Entrance Stairs - Number of Steps: 4-5 Home Equipment: Cane Bathroom Shower/Tub: Tub/Shower unit (Pt's primary shower is in basement but able to use tub on main level after returning home.) Bathroom Toilet: Handicap height Receives Help From: Family Prior Level of Assist for ADLs: Independent Prior Level of Assist for Homemaking: Independent Prior Level of Assist for Transfers: Independent Active District Wire Chief: No 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 He has strong family support in place in preparation for discharge to assist as needed. VISION: Pt wears glasses. HEARING: Pt reports [place]- does not have hearing aids present at time of eval. COGNITION: Decreased Recall, Decreased Insight, Decreased Problem Solving, and Decreased Safety Awareness. Pt educated for 3/3 spinal precautions and verbalized understanding. 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 Hand Dominance: Right SENSATION: WFL- denies numbness/tingling in BLE ADL: Upper Extremity Dressing: Moderate Assistance. Donning LSO brace seated EOB in prep for mobility . IADL: Not Tested BALANCE: Sitting Balance: Stand By Assistance. EOB Standing Balance: Contact Guard Assistance, Minimal Assistance. Standing at RW in prep for mobility- pt demo'd brief 2 UE release from AD requiring Moncho to sustain standing balance. BED MOBILITY: Rolling to Left: Moderate Assistance, X 1 Supine to Sit: Moderate Assistance, X 1 Raising trunk to seated position Scooting: Minimal Assistance, X 1 EOB Comment: Pt demo'd good log roll tech TRANSFERS: Sit to Stand: Minimal Assistance, X 1. From EOB Stand to Sit: Contact Guard Assistance, X 1. To chair Comment: Educated for proper hand placement. FUNCTIONAL MOBILITY: Assistive Device: Rolling Walker Assist Level: Contact Guard Assistance, Minimal Assistance, and X 1. Distance: Within room Short distance from EOB to chair, no LOB with heavy BUE reliance on RW noted. Pt reports mod fatigue following with increased pain at low back- denies dizziness or STANTON. Activity Tolerance: Patient tolerance of treatment: Good treatment tolerance Functional Outcome Measures: AM-PAC Inpatient Daily Activity Raw Score: 16 Assessment: Assessment: Pt is a 79 yo male that presents with below new performance deficits secondary to lumbar laminectomy 09/26/24. Pt is requiring increased assistance for ADLs, functional mobility, ADL transfers compared to baseline level of function. Skilled OT services is warranted to improve below performance deficits and progress pt towards PLOF. Without OT pt is at risk for falls, further decline in functional abilities, increased caregiver burden, increased risk for medical complication as a result of reduce mobility and inability to return to prior level of living. Performance deficits / Impairments: Decreased functional mobility , Decreased endurance, Decreased ADL status, Decreased posture, Decreased ROM, Decreased balance, Decreased strength, Decreased safe awareness REQUIRES OT FOLLOW-UP: Yes Decision Making: Medium Complexity Treatment Initiated: Treatment and education initiated within context of evaluation. Evaluation time included review of current medical information, gathering information related to past medical, social and functional history, completion of standardized testing, formal and informal observation of tasks, assessment of data and development of plan of care and goals. Treatment time included skilled education and facilitation of tasks to increase safety and independence with ADL's for improved functional independence and quality of life. Patient Education: Patient Education Education Given To: Patient;Family Education Provided: Role of Therapy;Plan of Care;ADL Adaptive Strategies;Transfer Training;Fall Prevention Strategies;Family Education;Mobility Training;Home Exercise Program;Energy Conservation;Equipment;Precaution s;IADL Safety Education Method: Demonstration;Verbal Barriers to Learning: None Education Outcome: Verbalized understanding;Demonstrated understanding;Continued education needed Plan: Times Per Week: 6x Current Treatment Recommendations: Strengthening, ROM, Balance training, Functional mobility training, Endurance training, Pain management, Safety education & training, Patient/Caregiver education & training, Equipment evaluation, education, & procurement, Self-Care / ADL. See long-term goal time frame for expected duration of plan of care. If no long-term goals established, a short length of stay is anticipated. Goals: Short Term Goals Time Frame for Short Term Goals: Until discharge Short Term Goal 1: Pt will complete functional transfers with CGA and 0-2 cues for safety to increase (I) with ADLs. Short Term Goal 2: Pt will demonstrate dynamic standing x3-5 minutes using RW with CGA to increase (I) with sinkside grooming tasks. Short Term Goal 3: Pt will complete functional mobility using RW with CGA and 0-1 cues for safety to/from BSC and progressing to household distances. Short Term Goal 4: Pt will demonstrate ADL toileting routine with CGA and 0-2 cues for spinal precautions to progress to PLOF. Short Term Goal 5: Pt will complete LB ADLs with Moncho using adaptive strategies or AE as needed to maintain spinal precautions for increased (I) with ADLs. Additional Goals?: No Retirement Goals Time Frame for Logger Goals : None stated d/t ELOS. AM-PAC Inpatient Daily Activity Raw Score: 16 AM-PAC Inpatient ADL T-Scale Score : 35.96 Following session, patient left in safe position with all fall risk precautions in place. Department of Orthopedic Surgery Spine Service Progress Note Subjective: 09/27/24 Clark is resting in bed on 4K. BiPap post-op and weaned down to 2L NC. Surgical pain as expected, controlled. Improved pre-op pain. Plan to work with therapy today. Will need to hold patient if [facility] not available for patient, Vitals VITALS: BP 123/67 Pulse 100 Temp 98 F (36.7 C) (Axillary) Resp 18 Ht 1.676 m (5' 6) Wt 105.3 kg (232 lb 2.3 oz) SpO2 94% BMI 37.47 kg/m 24HR INTAKE/OUTPUT: Intake/Output Summary (Last 24 hours) at 09/27/2024 0692 Last data filed at 09/27/2024 0628 Gross per 24 hour Intake 3492.34 ml Output 915 ml Net 2577.34 ml URINARY CATHETER OUTPUT ([place]cl[place]): DRAIN/TUBE OUTPUT: Closed/Suction Drain Inferior;Lateral;Right Back Accordion-Output (ml): 90 ml VENT SETTINGS: Vent Information Ventilator ID: [id number] Additional Respiratory Assessments Pulse: 100 Respirations: 18 SpO2: 94 % PHYSICAL EXAM: Orientation: alert and oriented to person, place and time Incision: dressing in place, clean, dry, and intact Lower Extremity Motor : quadriceps, extensor hallucis longus, dorsiflexion, plantarflexion 5/5 bilaterally Lower Extremity Sensory: Intact L1-S1 Flatus: negative ABNORMAL EXAM FINDINGS: none LABS: Recent Labs 09/27/24 0439 HGB 12.7* HCT 39.4* ASSESSMENT AND PLAN: Post operative day 1 Wean off NC 1: Monitor labs and drain output 2: Activity Level: OOB with therapy and staff 3: Pain Control: controlled, continue current regimen 4: Discharge Planning: Pending clinical course and will require [facility] set up for drain and wound care. Pt admitted to [facility] via cart/stretcher. Complaints: Laminectomy surgical . IV normal saline infusing into the hand left, condition patent and no redness at a rate of 125 mls/ hour with about 1,000 mls in the bag still. IV site free of s/s of infection or infiltration. Vital signs obtained. Assessment and data collection initiated. Two nurse skin assessment performed by Nilton Wiley RN and Mirna SANCHEZ. Oriented to room. Policies and procedures for explained. All questions answered with no further questions at this time. Fall prevention and safety brochure discussed with patient. Bed alarm on. Call light in reach. Would you like your Primary Care Physician notified? No The best day to schedule a follow up Dr appointment is: Tuesday, Tuesday, Tuesday, , Tuesday, and Tuesday a.m. 1422- pt to pacu, oral airway present, VSS, pt appears in no acute distress 1430- pt opens eyes to name, oral airway remains present, VSS, pt appears in no acute distress 1438- oral airway removed, pt medicated for pain per HAIR SPINNER 1442- pt with oxygen desaturation to 85%, pt with snoring 1450- pt responds to name, pt not responding verbally, pt groans with asked about pain, VSS, pt appears in no acute distress 1455- pt oriented, pt states pain 7/10 in hip, pt rest back down with eyes closed and snoring mid questions, pt appears in no acute distress, resp easy and snoring, VSS 1505- pt resting in bed with eyes closed and snoring, VSS, pt remains on 10L NC, pt appears in no acute distress 1508- duo neb given 1515- spoke with Dr. Reddy due to oxygenation needs, BiPAP order received 1523- respiratory therapist here to placed pt on BiPAP 1530- dilaudid given 1540- pt stable on BiPAP, resp easy and unlabored, VSS, pt appears in no acute distress 1545- dilaudid given 1600- pt resting in bed with eyes closed, resp easy and unlabored, VSS, pt appears in no acute distress 1620- pt remains in stable condition 1635- ABGs drawn 1640- Dr. Botello updated on pt's condition 1650- Shima from respiratory completed positive gag reflex test 1710- pt resting in bed with eyes closed, resp easy and unlabored, VSS, pt appears in no acute distress 1720- report called to Rosalba Wiley RN on 173- pt meets criteria for discharge from pacu, pt transported to floor in stable condition with RT and RT students Patient oriented to Same Day department and admitted to Same Day Surgery room 4. Patient verbalized approval for first name, last initial with physician name on unit whiteboard. Plan of care reviewed with patient. Patient room whiteboard filled out and discussed with patient and responsible adult. Patient and responsible adult offered Same Day Welcome Packet to review. Call light in reach. Bed in lowest position, locked, with one bed rail up. SCDs and warming blanket in place. Appropriate arm bands on patient. Bathroom offered. All questions and concerns of patient addressed. Meds to Beds: Patient informed of [facility]'s Meds to Beds program during admission. Patient is agreeable to program. Contact information for the pharmacy and the Meds to Beds program: Name: [place] Relationship to patient:spouse/significant other Phone number: [phone] Called Ros[address]inda at Dr Salas office for Labs, EKG, CXR also clearance PAT call attempted, patient unavailable, left message to please call us back at your earliest convenience; [phone] Patient asked for PAT to [facility] [phone]. He is busy at this time but will call PAT back. PAT call attempted, patient unavailable, left message to please call us back at your earliest convenience; [phone] documented in this encounter [facility] 10-01-2024 Note PROCEDURE: US RENAL COMPLETE CLINICAL INFORMATION: Acute kidney injury TECHNIQUE: Ultrasound of the kidneys and urinary bladder was performed. Grayscale and color images were obtained. COMPARISON: None FINDINGS: The right kidney measures 11.2 x 5.9 x 5.4 cm and the left kidney measures 11.7 x 5.8 x 5.5 cm. Renal cortical thickness is normal. A poorly defined and poorly visualized hypoechoic structure at the lower right kidney measures 2.6 cm. There is no hydronephrosis or renal calculi. Color Doppler demonstrates expected waveforms in the bilateral arteries. The right arcuate resistive index is at the upper limits of normal. The left arcuate resistive index is elevated at 1.0. The distended urinary bladder is unremarkable. The patient did not void at the conclusion of the study. [facility] 10-01-2024 Note PROCEDURE: US RENAL COMPLETE CLINICAL INFORMATION: Acute kidney injury TECHNIQUE: Ultrasound of the kidneys and urinary bladder was performed. Grayscale and color images were obtained. COMPARISON: None FINDINGS: The right kidney measures 11.2 x 5.9 x 5.4 cm and the left kidney measures 11.7 x 5.8 x 5.5 cm. Renal cortical thickness is normal. A poorly defined and poorly visualized hypoechoic structure at the lower right kidney measures 2.6 cm. There is no hydronephrosis or renal calculi. Color Doppler demonstrates expected waveforms in the bilateral arteries. The right arcuate resistive index is at the upper limits of normal. The left arcuate resistive index is elevated at 1.0. The distended urinary bladder is unremarkable. The patient did not void at the conclusion of the study. IMPRESSION: 1. Poorly defined hypoechoic structure at the lower right kidney of indeterminate etiology. Malignancy cannot be excluded and multiphase contrast-enhanced CT or MRI is recommended for further evaluation. 2. Elevated left-sided arcuate resistive index. 3. Unremarkable urinary bladder. This report has been created using voice recognition software. It may contain minor errors which are inherent in voice recognition technology. Electronically signed by Dr. Lavell Singh Interpreted by: Lavell Singh MD Signed by: Lavell Singh MD 10/01/24 Final result [facility] 09-29-2024 Note PROCEDURE: XR CHEST PORTABLE CLINICAL INFORMATION: residual O2 req COMPARISON: No prior study. TECHNIQUE: A single mobile view of the chest was obtained. [facility] 09-29-2024 Note PROCEDURE: XR CHEST PORTABLE CLINICAL INFORMATION: residual O2 req COMPARISON: No prior study. TECHNIQUE: A single mobile view of the chest was obtained. IMPRESSION: 1. Poor inflation of the lungs. Cardiomegaly. Tiny effusion left side. 2. Moderate bibasilar atelectasis/pneumonia. This report has been created using voice recognition software. It may contain minor errors which are inherent in voice recognition technology. Electronically signed by Dr. Moncho Silverio Interpreted by: Moncho Silverio MD Signed by: Moncho Silverio MD 09/29/24 Final result [facility] 01-09-2025 Hospital Discharge instructions Randolph Nelson DO - 09/27/2024 2:[address] Salas: [phone] DEANN ClineC: [phone] DEANN WatkinsC: [phone] Home Health RN: All [facility] surgery patients with MARTIN or Hemovac drains need to be seen daily for drain output totals following discharge from the hospital. Typically, the cervical surgery patients have one MARTIN drain and the lumbar have two hemovac drains.We request that these visits occur at similar times in the day as to get accurate 24 drain output totals. The drains need to be emptied into a measuring cup and outputs recorded.These outputs are then to be phoned to Dr. Salas or one of his PA's; Alfie Andrews or Danial Schmitz numbers are provided. This phone call needs to take place while the HH nurse is still with the patient as verbal orders may be given such as drain removal or dressing change orders. Supplies including gauze, paper tape, and suture removal scissors will be needed. If the drain outputs are high, orders will be given to leave in drain and check outputs again in 24hrs. This is very important that consistency be maintained for safety of our patients. Once the drains have been removed there is not a strict need for daily visits HOSPITALIST RECOMMENDATIONS -Hold losartan on discharge -Follow up with PCP as soon as possible upon leaving hospital for repeat blood work to check renal function -Monitor for signs/symptoms of worsening heart failure/renal failure --> check for worsening leg swelling and shortness of breath -Walk as much as tolerated to help with the leg swelling -Wear lower extremity compression stockings to help with leg swelling -Primary care doctor will need to follow up on lesion seen on lower right kidney (appreciated on ultrasound) -Unable to get CT/MRI w/ contrast in the hospital due to acute kidney injury as well as the patient leaving against medical advice -Follow up with orthopedic surgery per their recommendations. -Will need to follow up with your sap developer to go over ECHO results as well as to discuss frequent PVC burden The following attachments cannot be sent through Care Everywhere.cyclobenzaprine (Bulgarian)oxycodone (Bulgarian)documented in this encounter [facility] 09-03-2024 Note HNO ID: [id number] Author: HERB DACOSTA APRN.SHADI Service: ? Author Type: Nurse Practitioner Type: Progress Notes Filed: 09/03/2024 10:07 Note Text: Received results from ordered blood work, EKG, chest x-ray. Reviewed. Patient was cleared by [facility] on 08/29/2024. Paperwork sent to orthopedic surgeon office. Herb Dacosta APRN.CNP [facility] 08-27-2024 Note HNO ID: [id number] Author: HERB DACOSTA APRN.SHADI Service: ? Author Type: Nurse Practitioner Type: Progress Notes Filed: 09/06/2024 13:13 Note Text: Chief Complaint Patient presents with: Pre-Op Exam HPI Clark Donovan is a 79 year old male who presents here today for preop examination. Patient here for preop evaluation. On September 26, 2024 he is having L2-L5 lumbar surgery. Location is [facility]. At this time the patient is taking amlodipine, losartan, metoprolol for history of hypertension. He also takes aspirin 81 mg every other day. He does follow with cardiology. He has no history of CAD. He does have a history of peripheral artery disease. He follows with vascular, Dr. Jenkins. Has complaints of lower body fatigue, weakness. At this time, no intervention, he was encouraged to continue walking to improve conditioning and tolerance. Patient has a history of asthma. He is prescribed albuterol as needed. Has not had any emergency room visits in relation to his asthma recently. Last stress test was 2022. It was normal. Greater than 4.7 METS. Patient states that nothing has changed. He is without chest pain or shortness of breath. Patient does have a history of peripheral artery disease and diabetes. Diabetes is newly diagnosed. Hemoglobin A1c in June 2024 7.4%. He was prescribed metformin 500 mg twice daily in December 2023 due to prediabetes but never picked up or started the medication. Patient does take a large amount of herbal supplements. At this time the patient denies any fevers, chills, eye, ear, nose, throat complaints. Denies any chest pain, shortness of breath, abdominal pain, blood in stool or urine. Denies any syncope. Patient preop paperwork showing blood work, chest x-ray, EKG, MRSA by PCR to be ordered by surgeon office and reviewed by myself. Patient has not received any blood work, chest x-ray, EKG, MRSA swab orders or completed them. We will reach out to the surgeon office to ascertain where and when he is supposed to get these completed. Past medical history, appointments, medications, allergies reviewed. Previous Medical History No past medical history on file. Previous Surgical History PAST SURGICAL HISTORY Procedure Laterality Date COLSC FLX W/RMVL OF TUMOR POLYP LESION SNARE TQ 07/02/16 Adenomatous xhiao-ckpty-hldu follow-up LAPAROSCOPY SURG CHOLECYSTECTOMY Cholecystectomy, lap Family History FAMILY HISTORY Problem Relation Age of Onset COPD Mother Diabetes Father Heart Father chf Heart Brother a fib Cancer Father prostate Patient Allergies ALLERGIES Allergen Reactions Nitroglycerin Decreased blood pressure Ntg [Nitrate Analog* Current Medications Current Outpatient Medications on File Prior to Visit Medication Sig amLODIPine (NORVASC) 5 mg tablet Take 1 tablet by mouth once daily. losartan (COZAAR) 100 mg tablet Take 1 tablet by mouth once daily. COMPOUNDED PRESCRIPTION Immunis patient unsure of directions. COMPOUNDED PRESCRIPTION Cyto-Sym not sure of directions. COMPOUNDED PRESCRIPTION ADRENIX NOT SURE OF DIRECTIONS. DEXCHLORPH/P-EPHED HC/METHSCOP (D-HIST D ORAL) Take by mouth. Patient not sure of directions PRASTERONE, DHEA, (DHEA ORAL) Take by mouth. Patient not sure of directions COMPOUNDED PRESCRIPTION Healthy Prostate and ovary-Patient not sure of directions COMPOUNDED PRESCRIPTION Eco Thyro37- Patient not sure of directions COMPOUNDED PRESCRIPTION Integra-cell=Patient not sure of directions COMPOUNDED PRESCRIPTION Kardi-Ar=Patient not sure of directions COMPOUNDED PRESCRIPTION Fulvic Acid=Patient not sure of directions albuterol HFA (VENTOLIN HFA) 90 mcg/actuation inhaler Inhale 2 Puffs as instructed every 4 hours as needed for wheezing/shortness of breath. (Patient not taking: Reported on 01/02/2024) COMPOUNDED PRESCRIPTION Livergy no sure of directions COMPOUNDED PRESCRIPTION [place]-Cava Patient not sure of directions. (Patient not taking: Reported on 04/17/2024) No current facility-administered medications on file prior to visit. Social History Social History Tobacco Use Smoking status: Former Smokeless tobacco: Never Tobacco comments: quit 1992 Substance Use Topics Alcohol use: Yes Comment: occasional Drug use: No REVIEW OF SYSTEMS: as above Reviewed relevant PMHx, PSHx, Social Hx, current medications and allergies. EXAM: BP 130/80 Pulse 67 Resp 16 Wt 103.4 kg (228 lb) SpO2 96% BMI 36.52 kg/m? General Appearance: Well appearing, alert, in no acute distress, well-hydrated, well nourished.. Head: Normocephalic, no masses, lesions, tenderness or abnormalities. Eyes: Anicteric sclera. Pupils are equally round and reactive to light. Extraocular movements are intact. . Ears: External ears normal, canals clear. Nose/Sinuses: Nares normal, septum midline, mucosa normal, no drainage or sinus tenderness. Oropharynx: Lips, mucosa, and tongu (more content not included)... [facility] 08-27-2024 History of Present illness Narrative Chief Complaint Patient presents with: Pre-Op Exam HPI Clark Donovan is a 79 year old male who presents here today for preop examination. Patient here for preop evaluation. On September 26, 2024 he is having L2-L5 lumbar surgery. Location is [facility]. At this time the patient is taking amlodipine, losartan, metoprolol for history of hypertension. He also takes aspirin 81 mg every other day. He does follow with cardiology. He has no history of CAD. Patient has a history of asthma. He is prescribed albuterol as needed. Has not had any emergency room visits in relation to his asthma recently. Last stress test was 2022. It was normal. Greater than 4.7 METS. Patient states that nothing has changed. He is without chest pain or shortness of breath. Patient does have a history of peripheral artery disease and diabetes. Diabetes is newly diagnosed. Hemoglobin A1c in June 2024 7.4%. He was prescribed metformin 500 mg twice daily in December 2023 due to prediabetes but never picked up or started the medication. Patient does take a large amount of herbal supplements. At this time the patient denies any fevers, chills, eye, ear, nose, throat complaints. Denies any chest pain, shortness of breath, abdominal pain, blood in stool or urine. Denies any syncope. Patient preop paperwork showing blood work, chest x-ray, EKG, MRSA by PCR to be ordered by surgeon office and reviewed by myself. Patient has not received any blood work, chest x-ray, EKG, MRSA swab orders or completed them. We will reach out to the surgeon office to ascertain where and when he is supposed to get these completed. Past medical history, appointments, medications, allergies reviewed. Previous Medical History No past medical history on file. Previous Surgical History PAST SURGICAL HISTORY Procedure Laterality Date COLSC FLX W/RMVL OF TUMOR POLYP LESION SNARE TQ 07/02/16 Adenomatous pkbti-oamdd-qxte follow-up LAPAROSCOPY SURG CHOLECYSTECTOMY Cholecystectomy, lap Family History FAMILY HISTORY Problem Relation Age of Onset COPD Mother Diabetes Father Heart Father chf Heart Brother a fib Cancer Father prostate Patient Allergies ALLERGIES Allergen Reactions Nitroglycerin Decreased blood pressure Ntg [Nitrate Analog* Current Medications Current Outpatient Medications on File Prior to Visit Medication Sig amLODIPine (NORVASC) 5 mg tablet Take 1 tablet by mouth once daily. losartan (COZAAR) 100 mg tablet Take 1 tablet by mouth once daily. COMPOUNDED PRESCRIPTION Immunis patient unsure of directions. COMPOUNDED PRESCRIPTION Cyto-Sym not sure of directions. COMPOUNDED PRESCRIPTION ADRENIX NOT SURE OF DIRECTIONS. DEXCHLORPH/P-EPHED HC/METHSCOP (D-HIST D ORAL) Take by mouth. Patient not sure of directions PRASTERONE, DHEA, (DHEA ORAL) Take by mouth. Patient not sure of directions COMPOUNDED PRESCRIPTION Healthy Prostate and ovary-Patient not sure of directions COMPOUNDED PRESCRIPTION Eco Thyro37- Patient not sure of directions COMPOUNDED PRESCRIPTION Integra-cell=Patient not sure of directions COMPOUNDED PRESCRIPTION Kardi-Ar=Patient not sure of directions COMPOUNDED PRESCRIPTION Fulvic Acid=Patient not sure of directions albuterol HFA (VENTOLIN HFA) 90 mcg/actuation inhaler Inhale 2 Puffs as instructed every 4 hours as needed for wheezing/shortness of breath. (Patient not taking: Reported on 01/02/2024) COMPOUNDED PRESCRIPTION Livergy no sure of directions COMPOUNDED PRESCRIPTION [place]-Cava Patient not sure of directions. (Patient not taking: Reported on 04/17/2024) No current facility-administered medications on file prior to visit. Social History Social History Tobacco Use Smoking status: Former Smokeless tobacco: Never Tobacco comments: quit 1992 Substance Use Topics Alcohol use: Yes Comment: occasional Drug use: No REVIEW OF SYSTEMS: as above Reviewed relevant PMHx, PSHx, Social Hx, current medications and allergies. EXAM: BP 130/80 Pulse 67 Resp 16 Wt 103.4 kg (228 lb) SpO2 96% BMI 36.52 kg/m General Appearance: Well appearing, alert, in no acute distress, well-hydrated, well nourished.. Head: Normocephalic, no masses, lesions, tenderness or abnormalities. Eyes: Anicteric sclera. Pupils are equally round and reactive to light. Extraocular movements are intact. . Ears: External ears normal, canals clear. Nose/Sinuses: Nares normal, septum midline, mucosa normal, no drainage or sinus tenderness. Oropharynx: Lips, mucosa, and tongue normal, teeth and gums normal, oropharynx normal. Lungs: Lungs clear to auscultation. No wheezing, rhonchi, rales.. Heart: RRR without murmur, gallop, or rubs. No ectopy. Abdomen: Normal abdominal exam, Abdomen soft, non-tender. Bowel sounds normal. No masses, organomegaly. Extremities: No deformities, edema Health Maintenance List Urine Albumin:Creatinine Ratio Never done Dilated Retinal Exam Never done Diabetic Foot Exam Never done Influenza Vaccine(1) due on 03/18/2025 Spirometry due on 07/04/2025 RSV Vaccine(1 - 1-dose 75+ series) due on 07/04/2025 Hepatitis C Screening due on 07/04/2025 Shingrix Vaccine(1 of 2) due on 07/04/2025 Pneumococcal Vaccine: 65+(1 of 2 - PCV) due on 07/04/2025 Depression Screening due on 01/01/2025 Anxiety Screening due on 01/01/2025 HbA1C due on 01/03/2025 BP Controlled (<130/80) due on 07/04/2025 LDL Cholesterol due on 07/05/2025 Annual PCP Team Chronic Disease Visit due on 08/27/2025 DTaP,Tdap,Td Vaccine(3 - Td or Tdap) due on 05/26/2033 Advance Directive Discussion Completed Colorectal Cancer Screening Discontinued Covid-19 Vaccine Discontinued ASSESSMENT/PLAN: 1. Pre-op exam - ICD9: V72.84, ICD10: Z01.818 (primary diagnosis) -Patient's medical clearances to be determined at this time. He has not had any blood work, chest x-ray, EKG completed by preanesthesia testing. This was supposed to be completed prior to today's visit. -Patient's METS greater than 4.5. Had normal stress test 1-1/2 years ago. - After making contact with surgeon office, he was supposed to get labs, ecg, xray at [facility] in [place]. They will fax over order, make contact with patient. 2. Type 2 diabetes mellitus without complication, without long-term current use of insulin ([facility]) - ICD9: 250.00, ICD10: E11.9 - New diagnosis -Patient was not taking metformin. We will get him started on the medication. We will start with only 1 tablet daily. I discussed cutting back on any sugar containing beverages. He does have blood work ordered to be repeated in a few months to check on hemoglobin A1c. - METFORMIN ER 500 MG TABLET,EXTENDED RELEASE 24 HR 3. Essential hypertension, benign - ICD9: 401.1, ICD10: I10 - Controlled - Continue current medications - Recommend home blood pressure monitoring, to bring results to next visit - Encouraged sodium restriction, DASH or Mediterranean diet - Recommend regular aerobic exercise 4. Mild intermittent asthma with acute exacerbation - ICD9: 493.92, ICD10: J45.21 -Stable, continue albuterol as needed. 5. PAD (peripheral artery disease) ([facility]) - ICD9: 443.9, ICD10: I73.9 Herb Dacosta APRN.HSADI This note was partly generated using Cogn[employer] voice recognition dictation and may contain some misspelled or inaccurate words missed on review. documented in this encounter [facility] 08-02-2024 Telephone encounter Note The following approved medication requests have been transmitted electronically. Requested Prescriptions Signed Prescriptions Disp Refills amLODIPine (NORVASC) 5 mg tablet 90 tablet 3 Sig: Take 1 tablet by mouth once daily. Authorizing Provider: DIANA ESCOBAR APRN.CNP [facility] 08-02-2024 Miscellaneous Notes The following approved medication requests have been transmitted electronically. Requested Prescriptions Signed Prescriptions Disp Refills amLODIPine (NORVASC) 5 mg tablet 90 tablet 3 Sig: Take 1 tablet by mouth once daily. Authorizing Provider: DIANA ESCOBAR APRN.CLOTHING DESIGNER Medication below was removed on 07-04-24. Sending to provider to check is pt to be taking this. Lilia Milton LPN [facility] is calling Jayde Castellanos MD today to request a refill on medication not listed in current medication list amLODIPine (NORVASC) 5 mg tablet Please send to [facility] pharmacy. documented in this encounter [facility] 08-02-2024 Telephone encounter Note Medication below was removed on 07-04-24. Sending to provider to check is pt to be taking this. Lilia Milton LPN [facility] 08-02-2024 Telephone encounter Note [facility] is calling Jayde Castellanos MD today to request a refill on medication not listed in current medication list amLODIPine (NORVASC) 5 mg tablet Please send to [facility]. [facility] 07-09-2024 Telephone encounter Note Spoke with patient via telephone, prefers to start berberine to help with glucose at home. Will work on lifestyle changes. Instructed to get repeat labs completed in September. All questions answered. Diana Escobar APRN.CNP [facility] 07-09-2024 Miscellaneous Notes Spoke with patient via telephone, prefers to start berberine to help with glucose at home. Will work on lifestyle changes. Instructed to get repeat labs completed in September. All questions answered. Diana Escobar APRN.CNP Pt calls back. Notified of results and provider message. Pt is asking for a call back from Diana Escobar CNP to discuss Metformin. Rae Connolly LPN TC to pt. LM to call office, ask for triage nurse to get results. Anjana Kowalski LPN Can you please call the patient and let him know that I reviewed his lab results. Cholesterol was normal. His A1c has gone up from 6.3 to 7.4. This is now considered diabetes. If he is agreeable I would recommend starting the metformin to help with glucose and insulin resistance. I want him to work on eating a low-carb diet. I would like to recheck A1c in 3 months. If he is agreeable please verify pharmacy. Thank you Diana Escobar APRN.CNP documented in this encounter [facility] 07-09-2024 Telephone encounter Note Pt calls back. Notified of results and provider message. Pt is asking for a call back from Diana Escobar CNP to discuss Metformin. Rae Connolly LPN [facility] 07-06-2024 Telephone encounter Note TC to pt. LM to call office, ask for triage nurse to get results. Anjana Kowalski LPN [facility] 07-06-2024 Telephone encounter Note Can you please call the patient and let him know that I reviewed his lab results. Cholesterol was normal. His A1c has gone up from 6.3 to 7.4. This is now considered diabetes. If he is agreeable I would recommend starting the metformin to help with glucose and insulin resistance. I want him to work on eating a low-carb diet. I would like to recheck A1c in 3 months. If he is agreeable please verify pharmacy. Thank you Diana Escobar APRN.CLOTHING DESIGNER [facility] 07-04-2024 Instructions Diana Escobar APRN.SHADI - 07/04/2024 9:18 AM EDT Get fasting labs completed, no food 10-12 hours prior. May have black coffee and water. Continue to take all medication as prescribed. Keep scheduled appointments with specialists. Work on eating a low carb diet, increase protein, veggies, and get some form of exercise. Follow up in 6 months or sooner as needed. Pending lab results may consider berberine in the future to help sugars. Condiments: Stuart Garcia documented in this encounter [facility] 07-04-2024 History of Present illness Narrative This is a 78 year old male who presents today with: Patient presents with: Follow Up: 6 month follow up HISTORY OF PRESENT ILLNESS: Clark Donovan is a 78 year old male. Patient presents with: Follow Up: 6 month follow up 6 month follow up Diagnosed with prediabetes. Last A1c was 6.3. Prescribed metformin extended release 500 mg twice daily however never started, was not aware it was at pharamcy. Due for repeat labs. Working on eating a low carb diet but struggles. Difficulty with exercising due to chronic back pain. HTN: Taking ASA every other day due to bruising. Still taking Amlodipine 5 mg, Toprol XL 25 mg (1/2 tablet, refers that he cut this back due to low heart rate? ), and Losartan 100 mg daily. Checking blood pressure at home randomly at home, 130/80's. Denies chest pain, palpitations, dizziness, or edema. Following with cardiology, [facility] [place] [facility], annually. Working on trying to lose weight, eating protein, veggies, fruits, and exercise (bike). 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 Trying to decrease sugary foods. Cardiac: Stress test normal. Heart cath normal 2019. Asthma: Stable, not currently using any medication. Joint Pain: Will get intermittent pain in back and hip. Last office visit started on meloxicam 15 mg daily, developed itching after starting medication. Has been using Tylenol arthritis as needed. Seeing a Ortho specialist in [place], completing PT. Discussing surgery in the future. Vaccines: Denies wanting any vaccines at this time. PAST MEDICAL HISTORY: No past medical history on file. PAST SURGICAL HISTORY Procedure Laterality Date COLSC FLX W/RMVL OF TUMOR POLYP LESION SNARE TQ 07/02/16 Adenomatous syxdp-ymyej-xrva follow-up LAPAROSCOPY SURG CHOLECYSTECTOMY Cholecystectomy, lap ALLERGIES Nitroglycerin and Ntg [Nitrate Analogues] MEDICATIONS Current Outpatient Medications Medication Sig metFORMIN ER (GLUCOPHAGE XR) 500 mg 24 hr tablet Take 1 tablet by mouth two times a day with meals. (Patient not taking: Reported on 04/17/2024) aspirin, enteric coated (ASPIRIN, ENTERIC COATED) 81 mg EC tablet Take 81 mg by mouth once daily. (Patient not taking: Reported on 04/17/2024) atorvastatin (LIPITOR) 10 mg tablet Take 10 mg by mouth daily at bedtime. (Patient not taking: Reported on 04/17/2024) amLODIPine (NORVASC) 5 mg tablet Take 1 tablet by mouth once daily. albuterol HFA (VENTOLIN HFA) 90 mcg/actuation inhaler Inhale 2 Puffs as instructed every 4 hours as needed for wheezing/shortness of breath. (Patient not taking: Reported on 01/02/2024) losartan (COZAAR) 100 mg tablet Take 1 tablet by mouth once daily. metoprolol succinate ER (TOPROL XL) 25 mg 24 hr tablet Take 1 tablet by mouth once daily. COMPOUNDED PRESCRIPTION Immunis patient unsure of directions. COMPOUNDED PRESCRIPTION Livergy no sure of directions COMPOUNDED PRESCRIPTION Cyto-Sym not sure of directions. COMPOUNDED PRESCRIPTION ADRENIX NOT SURE OF DIRECTIONS. COMPOUNDED PRESCRIPTION [place]-Cava Patient not sure of directions. (Patient not taking: Reported on 04/17/2024) DEXCHLORPH/P-EPHED HC/METHSCOP (D-HIST D ORAL) Take by mouth. Patient not sure of directions PRASTERONE, DHEA, (DHEA ORAL) Take by mouth. Patient not sure of directions COMPOUNDED PRESCRIPTION Healthy Prostate and ovary-Patient not sure of directions COMPOUNDED PRESCRIPTION Eco Thyro37- Patient not sure of directions COMPOUNDED PRESCRIPTION Integra-cell=Patient not sure of directions COMPOUNDED PRESCRIPTION Kardi-Ar=Patient not sure of directions COMPOUNDED PRESCRIPTION Fulvic Acid=Patient not sure of directions No current facility-administered medications for this visit. FAMILY HISTORY Problem Relation Age of Onset COPD Mother Diabetes Father Heart Father chf Heart Brother a fib Cancer Father prostate Social History Tobacco Use Smoking status: Former Smokeless tobacco: Never Tobacco comments: quit 1993 Substance Use Topics Alcohol use: Yes Comment: occasional Drug use: No REVIEW OF SYSTEMS GENERAL: No weight loss, malaise or fevers/chills HEENT: Negative for frequent or significant headaches, No changes in hearing or vision. NECK: Negative for lumps, goiter, pain and significant neck swelling RESPIRATORY: Negative for cough, hemoptysis, wheezing, dyspnea or shortness of breath CARDIOVASCULAR: Negative for chest pain, leg swelling, orthopnea, or palpitations GI: No nausea, vomiting, or diarrhea/constipation. No hematochezia/melena. No heartburn or reflux symptoms. : No history of dysuria, frequency or incontinence MUSCULOSKELETAL: Negative for joint pain or swelling. SKIN: Negative for lesions, rash, and itching ENDOCRINE: Negative for cold or heat intolerance, polyuria, polydipsia and goiter NEURO: No history of headaches, syncope, paralysis, seizures or tremors MOOD: Negative for depression, anxiety, or suicidal ideation. EXAM: BP 126/66 Pulse 103 Resp 16 Wt 105.7 kg (233 lb 0.4 oz) SpO2 96% BMI 37.33 kg/m PHYSICAL EXAM: General Appearance: Well appearing, alert, in no acute distress, well-hydrated, well nourished.. Skin: Skin color, texture, turgor normal, no suspicious rashes or lesions. Head: Normocephalic, no masses, lesions, tenderness or abnormalities. Eyes: Anicteric sclera. Pupils are equally round and reactive to light. Extraocular movements are intact. . Lungs: Lungs clear to auscultation. No wheezing, rhonchi, rales.. Heart: RRR without murmur, gallop, or rubs. No ectopy. Extremities: No deformities, edema, skin discoloration, clubbing or cyanosis. Good capillary refill. . Peripheral Pulses: Normal, Capillary refill <2secs, strong peripheral pulses, Pulses palpable. Neurologic: Gait normal. Sensation grossly intact. ASSESSMENT/PLAN: 1. Prediabetes - ICD9: 790.29, ICD10: R73.03 (primary diagnosis) - Get labs completed - Continue good eating a low-carb diet at home. Increase lean protein, vegetables, and try to get some form of exercise. 2. Essential hypertension, benign - ICD9: 401.1, ICD10: I10 - Controlled - Continue current medications - Recommend home blood pressure monitoring, to bring results to next visit - Encouraged sodium restriction, DASH or Mediterranean diet - Recommend regular aerobic exercise - Keep scheduled appointments with Cardiology - AMLODIPINE 5 MG TABLET 3. Mild intermittent asthma with acute exacerbation - ICD9: 493.92, ICD10: J45.21 - Mild intermittent asthma stable - Continue current medications - Avoidance of triggers recommended 4. Arthritis of low back - ICD9: 721.90, ICD10: M47.819 - Stable, continue with Tylenol as needed. - Continue with PT - Keep scheduled appointments with orthopedics. Follow-up in 6 months or sooner pending test results. Discussed treatment plan and patient voices understanding. Patient's questions answered appropriately. Medications and potential side effects were discussed and patient voices understanding. Diana Escobar APRN.CLOTHING DESIGNER This note was partially generated using ParkAround recognition system. Note was reviewed for accuracy. There may be minor misspellings or grammar miscues with YapTime voice recognition. documented in this encounter [facility] 07-04-2024 Note HNO ID: [id number] Author: DIANA ESCOBAR APRN.SHADI Service: ? Author Type: Nurse Practitioner Type: Progress Notes Filed: 07/04/2024 12:35 Note Text: This is a 78 year old male who presents today with: Patient presents with: Follow Up: 6 month follow up HISTORY OF PRESENT ILLNESS: Clark Donovan is a 78 year old male. Patient presents with: Follow Up: 6 month follow up 6 month follow up Diagnosed with prediabetes. Last A1c was 6.3. Prescribed metformin extended release 500 mg twice daily however never started, was not aware it was at pharamcy. Due for repeat labs. Working on eating a low carb diet but struggles. Difficulty with exercising due to chronic back pain. HTN: Taking ASA every other day due to bruising. Still taking Amlodipine 5 mg, Toprol XL 25 mg (1/2 tablet, refers that he cut this back due to low heart rate? ), and Losartan 100 mg daily. Checking blood pressure at home randomly at home, 130/80's. Denies chest pain, palpitations, dizziness, or edema. Following with cardiology, [facility] [place] [facility], annually. Working on trying to lose weight, eating protein, veggies, fruits, and exercise (bike). 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 Trying to decrease sugary foods. Cardiac: Stress test normal. Heart cath normal 2019. Asthma: Stable, not currently using any medication. Joint Pain: Will get intermittent pain in back and hip. Last office visit started on meloxicam 15 mg daily, developed itching after starting medication. Has been using Tylenol arthritis as needed. Seeing a Ortho specialist in [place], completing PT. Discussing surgery in the future. Vaccines: Denies wanting any vaccines at this time. PAST MEDICAL HISTORY: No past medical history on file. PAST SURGICAL HISTORY Procedure Laterality Date COLSC FLX W/RMVL OF TUMOR POLYP LESION SNARE TQ 07/02/16 Adenomatous cmjln-wbxvq-frop follow-up LAPAROSCOPY SURG CHOLECYSTECTOMY Cholecystectomy, lap ALLERGIES Nitroglycerin and Ntg [Nitrate Analogues] MEDICATIONS Current Outpatient Medications Medication Sig metFORMIN ER (GLUCOPHAGE XR) 500 mg 24 hr tablet Take 1 tablet by mouth two times a day with meals. (Patient not taking: Reported on 04/17/2024) aspirin, enteric coated (ASPIRIN, ENTERIC COATED) 81 mg EC tablet Take 81 mg by mouth once daily. (Patient not taking: Reported on 04/17/2024) atorvastatin (LIPITOR) 10 mg tablet Take 10 mg by mouth daily at bedtime. (Patient not taking: Reported on 04/17/2024) amLODIPine (NORVASC) 5 mg tablet Take 1 tablet by mouth once daily. albuterol HFA (VENTOLIN HFA) 90 mcg/actuation inhaler Inhale 2 Puffs as instructed every 4 hours as needed for wheezing/shortness of breath. (Patient not taking: Reported on 01/02/2024) losartan (COZAAR) 100 mg tablet Take 1 tablet by mouth once daily. metoprolol succinate ER (TOPROL XL) 25 mg 24 hr tablet Take 1 tablet by mouth once daily. COMPOUNDED PRESCRIPTION Immunis patient unsure of directions. COMPOUNDED PRESCRIPTION Livergy no sure of directions COMPOUNDED PRESCRIPTION Cyto-Sym not sure of directions. COMPOUNDED PRESCRIPTION ADRENIX NOT SURE OF DIRECTIONS. COMPOUNDED PRESCRIPTION [place]-Cava Patient not sure of directions. (Patient not taking: Reported on 04/17/2024) DEXCHLORPH/P-EPHED HC/METHSCOP (D-HIST D ORAL) Take by mouth. Patient not sure of directions PRASTERONE, DHEA, (DHEA ORAL) Take by mouth. Patient not sure of directions COMPOUNDED PRESCRIPTION Healthy Prostate and ovary-Patient not sure of directions COMPOUNDED PRESCRIPTION Eco Thyro37- Patient not sure of directions COMPOUNDED PRESCRIPTION Integra-cell=Patient not sure of directions COMPOUNDED PRESCRIPTION Kardi-Ar=Patient not sure of directions COMPOUNDED PRESCRIPTION Fulvic Acid=Patient not sure of directions No current facility-administered medications for this visit. FAMILY HISTORY Problem Relation Age of Onset COPD Mother Diabetes Father Heart Father chf Heart Brother a fib Cancer Father prostate Social History Tobacco Use Smoking status: Former Smokeless tobacco: Never Tobacco comments: quit 1992 Substance Use Topics Alcohol use: Yes Comment: occasional Drug use: No REVIEW OF SYSTEMS GENERAL: No weight loss, malaise or fevers/chills HEENT: Negative for frequent or significant headaches, No changes in hearing or vision. NECK: Negative for lumps, goiter, pain and significant neck swelling RESPIRATORY: Negative for cough, hemoptysis, wheezing, dyspnea or shortness of breath CARDIOVASCULAR: Negative for chest pain, leg swelling, orthopnea, or palpitations GI: No nausea, vomiting, or diarrhea/constipation. No hematochezia/melena. No heartburn or reflux symptoms. : No history of dysuria, frequency or incontinence MUSCULOSKELETAL: Negative for joint pain or swelling. SKIN: Negative for lesions, rash, and itching ENDOCRINE: Negative for cold or heat intolerance, polyuria, polydipsia and g (more content not included)... [facility] 05-29-2024 Note HNO ID: [id number] Author: BREA JENKINS, DO Service: ? Author Type: Physician Type: Progress Notes Filed: 05/29/2024 08:44 Note Text: [facility] DEPARTMENT OF VASCULAR SURGERY OUTPATIENT VISIT DATE May 29, 2024 OUTPATIENT VISIT TYPE ESTABLISHED SERVICE DATE: 05/29/2024 SERVICE TIME: 8:37 AM PRIMARY CARE PHYSICIAN: Jayde Castellanos MD HISTORY OF PRESENT ILLNESS: Mr. Donovan is a 78 year old male who presents today for a vascular surgery follow-up visit follow up on PVRs. He has bilateral lower extremity fatigue, weakness, and lateral thigh and hip discomfort and tingling. No past medical history on file. PAST SURGICAL HISTORY 07/02/16: COLSC FLX W/RMVL OF TUMOR POLYP LESION SNARE TQ Comment: Adenomatous xctyl-qonpl-gwyg follow-up No date: LAPAROSCOPY SURG CHOLECYSTECTOMY Comment: Cholecystectomy, lap SOCIAL HISTORY Social History Tobacco Use Smoking status: Former Smokeless tobacco: Never Tobacco comments: quit 1993 Substance Use Topics Alcohol use: Yes Comment: occasional Drug use: No MEDICATIONS: metFORMIN ER (GLUCOPHAGE XR) 500 mg 24 hr tabletTake 1 tablet by mouth two times a day with meals.Disp: 60 tabletRfl: 5 (Patient not taking: Reported on 04/17/2024) aspirin, enteric coated (ASPIRIN, ENTERIC COATED) 81 mg EC tabletTake 81 mg by mouth once daily.Disp: Rfl: (Patient not taking: Reported on 04/17/2024) atorvastatin (LIPITOR) 10 mg tabletTake 10 mg by mouth daily at bedtime.Disp: Rfl: (Patient not taking: Reported on 04/17/2024) amLODIPine (NORVASC) 5 mg tabletTake 1 tablet by mouth once daily.Disp: 90 tabletRfl: 3 albuterol HFA (VENTOLIN HFA) 90 mcg/actuation inhalerInhale 2 Puffs as instructed every 4 hours as needed for wheezing/shortness of breath.Disp: 1 EachRfl: 3 (Patient not taking: Reported on 01/02/2024) losartan (COZAAR) 100 mg tabletTake 1 tablet by mouth once daily.Disp: 90 tabletRfl: 3 metoprolol succinate ER (TOPROL XL) 25 mg 24 hr tabletTake 1 tablet by mouth once daily.Disp: 90 tabletRfl: 3 COMPOUNDED PRESCRIPTIONImmunis patient unsure of directions.Disp: Rfl: COMPOUNDED PRESCRIPTIONLivergy no sure of directionsDisp: Rfl: COMPOUNDED PRESCRIPTIONCyto-Sym not sure of directions.Disp: Rfl: COMPOUNDED PRESCRIPTIONADRENIX NOT SURE OF DIRECTIONS.Disp: Rfl: COMPOUNDED PRESCRIPTIONEcklonia-Cava Patient not sure of directions.Disp: Rfl: (Patient not taking: Reported on 04/17/2024) DEXCHLORPH/P-EPHED HC/METHSCOP (D-HIST D ORAL)Take by mouth. Patient not sure of directionsDisp: Rfl: PRASTERONE, DHEA, (DHEA ORAL)Take by mouth. Patient not sure of directionsDisp: Rfl: COMPOUNDED PRESCRIPTIONHealthy Prostate and ovary-Patient not sure of directionsDisp: Rfl: COMPOUNDED PRESCRIPTIONEco Thyro37- Patient not sure of directionsDisp: Rfl: COMPOUNDED PRESCRIPTIONIntegra-cell=Patient not sure of directionsDisp: Rfl: COMPOUNDED PRESCRIPTIONKardi-Ar=Patient not sure of directionsDisp: Rfl: COMPOUNDED PRESCRIPTIONFulvic Acid=Patient not sure of directionsDisp: Rfl: ALLERGIES: ALLERGIES Allergen Reactions Nitroglycerin Decreased blood pressure Ntg [Nitrate Analog* PHYSICAL EXAM: There were no vitals taken for this visit. Gen- no distress CV- irregular Ext- faint dp bilaterally Diagnostic tests reviewed for today's visit: Most recent labs Most recent imaging PVRs- normal at rest, slight drop with exercise IMPRESSION: Mr. Donovan is a 78 year old male with peripheral arterial disease with claudication . PLAN and RECOMMENDATIONS: Continue walking and exercise as tolerated Continue non-interventional therapy He is following up with cardiology next week His symptoms are most likely multifactorial Follow up in 6 months SIGNATURE: Brea Jenkins DO PATIENT NAME: Clark Donovan DATE: May 29, 2024 TIME: 8:37 AM [facility] 05-29-2024 History of Present illness Narrative Images from the original note were not included. [facility] DEPARTMENT OF VASCULAR SURGERY OUTPATIENT VISIT DATE May 29, 2024 OUTPATIENT VISIT TYPE ESTABLISHED SERVICE DATE: 05/29/2024 SERVICE TIME: 8:37 AM PRIMARY CARE PHYSICIAN: Jayde Castellanos MD HISTORY OF PRESENT ILLNESS: Mr. Donovan is a 78 year old male who presents today for a vascular surgery follow-up visit follow up on PVRs. He has bilateral lower extremity fatigue, weakness, and lateral thigh and hip discomfort and tingling. No past medical history on file. PAST SURGICAL HISTORY 07/02/16: COLSC FLX W/RMVL OF TUMOR POLYP LESION SNARE TQ Comment: Adenomatous vmxwv-pukfz-hjzx follow-up No date: LAPAROSCOPY SURG CHOLECYSTECTOMY Comment: Cholecystectomy, lap SOCIAL HISTORY Social History Tobacco Use Smoking status: Former Smokeless tobacco: Never Tobacco comments: quit 1993 Substance Use Topics Alcohol use: Yes Comment: occasional Drug use: No MEDICATIONS: metFORMIN ER (GLUCOPHAGE XR) 500 mg 24 hr tablet^Take 1 tablet by mouth two times a day with meals.^Disp: 60 tablet^Rfl: 5 (Patient not taking: Reported on 04/17/2024) aspirin, enteric coated (ASPIRIN, ENTERIC COATED) 81 mg EC tablet^Take 81 mg by mouth once daily.^Disp: ^Rfl: (Patient not taking: Reported on 04/17/2024) atorvastatin (LIPITOR) 10 mg tablet^Take 10 mg by mouth daily at bedtime.^Disp: ^Rfl: (Patient not taking: Reported on 04/17/2024) amLODIPine (NORVASC) 5 mg tablet^Take 1 tablet by mouth once daily.^Disp: 90 tablet^Rfl: 3 albuterol HFA (VENTOLIN HFA) 90 mcg/actuation inhaler^Inhale 2 Puffs as instructed every 4 hours as needed for wheezing/shortness of breath.^Disp: 1 Each^Rfl: 3 (Patient not taking: Reported on 01/02/2024) losartan (COZAAR) 100 mg tablet^Take 1 tablet by mouth once daily.^Disp: 90 tablet^Rfl: 3 metoprolol succinate ER (TOPROL XL) 25 mg 24 hr tablet^Take 1 tablet by mouth once daily.^Disp: 90 tablet^Rfl: 3 COMPOUNDED PRESCRIPTION^Immunis patient unsure of directions.^Disp: ^Rfl: COMPOUNDED PRESCRIPTION^Livergy no sure of directions^Disp: ^Rfl: COMPOUNDED PRESCRIPTION^Cyto-Sym not sure of directions.^Disp: ^Rfl: COMPOUNDED PRESCRIPTION^ADRENIX NOT SURE OF DIRECTIONS.^Disp: ^Rfl: COMPOUNDED PRESCRIPTION^Ecklonia-Cava Patient not sure of directions.^Disp: ^Rfl: (Patient not taking: Reported on 04/17/2024) DEXCHLORPH/P-EPHED HC/METHSCOP (D-HIST D ORAL)^Take by mouth. Patient not sure of directions^Disp: ^Rfl: PRASTERONE, DHEA, (DHEA ORAL)^Take by mouth. Patient not sure of directions^Disp: ^Rfl: COMPOUNDED PRESCRIPTION^Healthy Prostate and ovary-Patient not sure of directions^Disp: ^Rfl: COMPOUNDED PRESCRIPTION^Eco Thyro37- Patient not sure of directions^Disp: ^Rfl: COMPOUNDED PRESCRIPTION^Integra-cell=Patient not sure of directions^Disp: ^Rfl: COMPOUNDED PRESCRIPTION^Kardi-Ar=Patient not sure of directions^Disp: ^Rfl: COMPOUNDED PRESCRIPTION^Fulvic Acid=Patient not sure of directions^Disp: ^Rfl: ALLERGIES: ALLERGIES Allergen Reactions Nitroglycerin Decreased blood pressure Ntg [Nitrate Analog* PHYSICAL EXAM: There were no vitals taken for this visit. Gen- no distress CV- irregular Ext- faint dp bilaterally Diagnostic tests reviewed for today's visit: Most recent labs Most recent imaging PVRs- normal at rest, slight drop with exercise IMPRESSION: Mr. Donovan is a 78 year old male with peripheral arterial disease with claudication . PLAN and RECOMMENDATIONS: Continue walking and exercise as tolerated Continue non-interventional therapy He is following up with cardiology next week His symptoms are most likely multifactorial Follow up in 6 months SIGNATURE: Brea Jenkins DO PATIENT NAME: Clark Donovan DATE: May 29, 2024 TIME: 8:37 AM documented in this encounter [facility] 04-17-2024 History of Present illness Narrative Images from the original note were not included. [facility] DEPARTMENT OF VASCULAR SURGERY OUTPATIENT VISIT DATE April 17, 2024 OUTPATIENT VISIT TYPE CONSULTATION SERVICE DATE: 04/17/2024 SERVICE TIME: 8:06 AM PRIMARY CARE PHYSICIAN: Jayde Castellanos MD REFERRING PROVIDER: Jayde Castellanos [address] [facility] [id number] Consult requested for an opinion regarding the evaluation and treatment of the above. My final impression and recommendations will be communicated back to the requesting physician by way of the shared medical record or letter via US mail. CHIEF COMPLAINT: Patient presents with: New Patient History of Present Illness: Patient is a 78 year old White male presenting for consultation, evaluation and possible treatment of leg pain. He can ambulate a few hundred feet prior to the onset of pain. Describe bilateral achy and tired from hips radiating down. He is a former smoker. He was unable to tolerate aspirin secondary to bruising and recently stopped his statin. He was referred by his chiropractor. PAIN ASSESSMENT: PAIN EVALUATION No data found in the last 1 encounters. Duration of Symptoms: Progressive CARDIOVASCULAR RISK FACTORS: Prior Smoking No past medical history on file. PAST SURGICAL HISTORY Procedure Laterality Date COLSC FLX W/RMVL OF TUMOR POLYP LESION SNARE TQ 07/02/16 Adenomatous uqxer-sdbvx-eozb follow-up LAPAROSCOPY SURG CHOLECYSTECTOMY Cholecystectomy, lap SOCIAL HISTORY: Social History Tobacco Use Smoking status: Former Smokeless tobacco: Never Tobacco comments: quit 1993 Substance Use Topics Alcohol use: Yes Comment: occasional Drug use: No FAMILY HISTORY Problem Relation Age of Onset COPD Mother Diabetes Father Heart Father chf Heart Brother a fib Cancer Father prostate MEDICATIONS: metFORMIN ER (GLUCOPHAGE XR) 500 mg 24 hr tablet^Take 1 tablet by mouth two times a day with meals.^Disp: 60 tablet^Rfl: 5 aspirin, enteric coated (ASPIRIN, ENTERIC COATED) 81 mg EC tablet^Take 81 mg by mouth once daily.^Disp: ^Rfl: atorvastatin (LIPITOR) 10 mg tablet^Take 10 mg by mouth daily at bedtime.^Disp: ^Rfl: amLODIPine (NORVASC) 5 mg tablet^Take 1 tablet by mouth once daily.^Disp: 90 tablet^Rfl: 3 albuterol HFA (VENTOLIN HFA) 90 mcg/actuation inhaler^Inhale 2 Puffs as instructed every 4 hours as needed for wheezing/shortness of breath.^Disp: 1 Each^Rfl: 3 (Patient not taking: Reported on 01/02/2024) losartan (COZAAR) 100 mg tablet^Take 1 tablet by mouth once daily.^Disp: 90 tablet^Rfl: 3 metoprolol succinate ER (TOPROL XL) 25 mg 24 hr tablet^Take 1 tablet by mouth once daily.^Disp: 90 tablet^Rfl: 3 COMPOUNDED PRESCRIPTION^Immunis patient unsure of directions.^Disp: ^Rfl: COMPOUNDED PRESCRIPTION^Livergy no sure of directions^Disp: ^Rfl: (Patient not taking: Reported on 03/07/2023) COMPOUNDED PRESCRIPTION^Cyto-Sym not sure of directions.^Disp: ^Rfl: COMPOUNDED PRESCRIPTION^ADRENIX NOT SURE OF DIRECTIONS.^Disp: ^Rfl: COMPOUNDED PRESCRIPTION^Ecklonia-Cava Patient not sure of directions.^Disp: ^Rfl: DEXCHLORPH/P-EPHED HC/METHSCOP (D-HIST D ORAL)^Take by mouth. Patient not sure of directions^Disp: ^Rfl: PRASTERONE, DHEA, (DHEA ORAL)^Take by mouth. Patient not sure of directions^Disp: ^Rfl: COMPOUNDED PRESCRIPTION^Healthy Prostate and ovary-Patient not sure of directions^Disp: ^Rfl: (Patient not taking: Reported on 01/02/2024) COMPOUNDED PRESCRIPTION^Eco Thyro37- Patient not sure of directions^Disp: ^Rfl: COMPOUNDED PRESCRIPTION^Integra-cell=Patient not sure of directions^Disp: ^Rfl: COMPOUNDED PRESCRIPTION^Kardi-Ar=Patient not sure of directions^Disp: ^Rfl: COMPOUNDED PRESCRIPTION^Fulvic Acid=Patient not sure of directions^Disp: ^Rfl: ALLERGIES: ALLERGIES Allergen Reactions Nitroglycerin Decreased blood pressure Ntg [Nitrate Analog* REVIEW of SYSTEMS: Constitutional: No weight loss, malaise or fevers. HEENT: Negative for frequent or significant headaches, Negative for frequent or significant headaches, significant change in vision, and nasal discharge or nose bleeds, Ears Positive for hearing loss Respiratory: Negative for cough and Positive for shortness of breath on exertion Cardiovascular: Negative for chest pain, leg swelling or palpitations Gatrointestinal: Negative for abdominal discomfort, blood in stools or black stools or change in bowel habits Genitourinary: No difficulty urination, nocturia >1 times per night or hematuria Musculoskeletal: Positive for back pain and joint pain Endocrine: Positive for heat intolerance Hematology/Lymphatic: Positive for bruises easily Neurologic: No history or headaches, syncope, paralysis, seizures or tremors Integumentary: Negative for lesions and itching and Positive for rash PHYSICAL EXAM: VITALS: There were no vitals taken for this visit. General: Alert, oriented, cooperative, healthy appearance Integumentary: Normal color, no rash, no lesions. HEENT: EOM, pupils equal, round and reactive. Cardiovascular: Pulse regular. Lungs: Normal breath sounds, no wheezes or crackles. Abdomen: Not examined Extremities: No deformity, no edema or tenderness, no joint swelling or clubbing. Neurological: AAOx3. Normal cognition and motor skills. Vascular: doppler signals bilaterally Diagnostic tests reviewed for today's visit: Most recent labs Most recent imaging IMPRESSION: Mr. Donovan is a 78 year old male with peripheral arterial disease with short distance claudication . PLAN and RECOMMENDATIONS: Recommend PVRs with exercise Continue antiplatelet therapy and he may benefit from addition of statin Continue blood pressure and cholesterol control Discussed continued walking and exercise Follow up after testing SIGNATURE: Brea Jenkins DO PATIENT NAME: Clark Donovan DATE: April 17, 2024 TIME: 8:06 AM documented in this encounter [facility] 03-13-2024 Telephone encounter Note Pt [place] notified. Transferred to [facility] to set up appt. Carola Miguel MA [facility] 03-13-2024 Miscellaneous Notes Pt [place] notified. Transferred to [facility] to set up appt. Carola Miguel MA OK for vascular med consult as ordered Jayde Castellanos MD Patient's calling requesting a referral to a vascular doctor due to weak legs and circulation issues per his chiropractor. Please review and advise. was advise that he may need an appointment to evaluate that we would call themback. Sierra Patel LPN documented in this encounter [facility] 03-13-2024 Telephone encounter Note OK for vascular med consult as ordered Jayde Castellanos MD [facility] 03-13-2024 Telephone encounter Note Patient's calling requesting a referral to a vascular doctor due to weak legs and circulation issues per his chiropractor. Please review and advise. was advise that he may need an appointment to evaluate that we would call themback. Sierra Patel LPN [facility] Work Phone: 01-05-2024 Miscellaneous Notes The following approved medication requests have been transmitted electronically. Requested Prescriptions Signed Prescriptions Disp Refills metFORMIN ER (GLUCOPHAGE XR) 500 mg 24 hr tablet 60 tablet 5 Sig: Take 1 tablet by mouth two times a day with meals. Authorizing Provider: DIANA ESCOBAR APRN.CLOTHING DESIGNER Patient notified of results, verbalizes understanding of instructions. Pt will start the Metformin. Please send RX to [facility] pharmacy. Anjana Kowalski LPN Can you please call the patient and let him know that I reviewed his A1c results. A1c was 6.3, this is considered prediabetes. Diabetes does start at 6.5. I would recommend making lifestyle changes at home to help improve this. Try to cut out processed foods in the diet. Work on eating a low-carb diet. Increase lean protein, vegetables, get some form exercise. He may consider adding on metformin to help with insulin resistance/glucose. I would like to check fasting labs in 6 months prior to next visit. Please let me know what he prefers. If he is agreeable to medication please verify pharmacy. Thank you. Diana Escobar APRN.SHADI documented in this encounter [facility] 01-02-2024 Instructions Diana Escobar APRN.CNP - 01/02/2024 10:19 AM EDT Get A1C lab completed Continue to take all medication as prescribed. Keep scheduled appointments with cardiology Work on eating a well balanced diet, increase lean protein, veggies, and get some form of exercise. Follow up in 6 months or sooner pending test results. documented in this encounter [facility] 01-02-2024 History of Present illness Narrative This is a 78 year old male who presents today with: Patient presents with: 6 Month Exam HISTORY OF PRESENT ILLNESS: Clark Donovan is a 78 year old male. Patient presents with: 6 Month Exam 6 month follow up HTN: Stopped the ASA due to bruising. Still taking Amlodipine 5 mg, Toprol XL 25 mg (1/2 tablet, refers that he cut this back due to low heart rate? ), and Losartan 100 mg daily. Checking blood pressure at home randomly at home, 130/80's. Denies chest pain, palpitations, dizziness, or edema. Following with cardiology, [facility], annually. Working on trying to lose weight, eating protein, veggies, fruits, and exercise (bike). 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 Trying to decrease sugary foods. Cardiac: Stress test normal. Heart cath normal 2019. Asthma: Stable, not currently using any medication. Joint Pain: Will get intermittent pain in back and hip. Last office visit started on meloxicam 15 mg daily, developed itching after starting medication. Has been using Tylenol arthritis as needed. PAST MEDICAL HISTORY: No past medical history on file. PAST SURGICAL HISTORY Procedure Laterality Date COLSC FLX W/RMVL OF TUMOR POLYP LESION SNARE TQ 07/02/16 Adenomatous wdzhn-dkefb-xwto follow-up LAPAROSCOPY SURG CHOLECYSTECTOMY Cholecystectomy, lap ALLERGIES Nitroglycerin and Ntg [Nitrate Analogues] MEDICATIONS Current Outpatient Medications Medication Sig amLODIPine (NORVASC) 5 mg tablet Take 1 tablet by mouth once daily. albuterol HFA (VENTOLIN HFA) 90 mcg/actuation inhaler Inhale 2 Puffs as instructed every 4 hours as needed for wheezing/shortness of breath. losartan (COZAAR) 100 mg tablet Take 1 tablet by mouth once daily. metoprolol succinate ER (TOPROL XL) 25 mg 24 hr tablet Take 1 tablet by mouth once daily. COMPOUNDED PRESCRIPTION Immunis patient unsure of directions. COMPOUNDED PRESCRIPTION Livergy no sure of directions (Patient not taking: Reported on 03/07/2023) COMPOUNDED PRESCRIPTION Cyto-Sym not sure of directions. COMPOUNDED PRESCRIPTION ADRENIX NOT SURE OF DIRECTIONS. COMPOUNDED PRESCRIPTION Ecklonia-Cava Patient not sure of directions. DEXCHLORPH/P-EPHED HC/METHSCOP (D-HIST D ORAL) Take by mouth. Patient not sure of directions PRASTERONE, DHEA, (DHEA ORAL) Take by mouth. Patient not sure of directions COMPOUNDED PRESCRIPTION Healthy Prostate and ovary-Patient not sure of directions COMPOUNDED PRESCRIPTION Eco Thyro37- Patient not sure of directions COMPOUNDED PRESCRIPTION Integra-cell=Patient not sure of directions COMPOUNDED PRESCRIPTION Kardi-Ar=Patient not sure of directions COMPOUNDED PRESCRIPTION Fulvic Acid=Patient not sure of directions Current Facility-Administered Medications Medication Dose Route Frequency perflutren lipid microspheres 1.3 mL in NaCl (PF) 0.9% 10 mL injection (DEFINITY) INTRAVENOUS DIRECTED PRN sodium chloride 0.9 % (flush) 10 mL (BD POSIFLUSH) 10 mL INTRAVENOUS DIRECTED PRN FAMILY HISTORY Problem Relation Age of Onset COPD Mother Diabetes Father Heart Father chf Heart Brother a fib Cancer Father prostate Social History Tobacco Use Smoking status: Former Smokeless tobacco: Never Tobacco comments: quit 1992 Substance Use Topics Alcohol use: Yes Comment: occasional Drug use: No REVIEW OF SYSTEMS GENERAL: No weight loss, malaise or fevers/chills HEENT: Negative for frequent or significant headaches, No changes in hearing or vision. NECK: Negative for lumps, goiter, pain and significant neck swelling RESPIRATORY: Negative for cough, hemoptysis, wheezing, dyspnea or shortness of breath CARDIOVASCULAR: Negative for chest pain, leg swelling, orthopnea, or palpitations GI: No nausea, vomiting, or diarrhea/constipation. No hematochezia/melena. No heartburn or reflux symptoms. : No history of dysuria, frequency or incontinence MUSCULOSKELETAL: Negative for joint pain or swelling. SKIN: Negative for lesions, rash, and itching ENDOCRINE: Negative for cold or heat intolerance, polyuria, polydipsia and goiter NEURO: No history of headaches, syncope, paralysis, seizures or tremors MOOD: Negative for depression, anxiety, or suicidal ideation. EXAM: BP 120/68 Pulse 84 Resp 16 Wt 99.8 kg (220 lb) SpO2 95% BMI 35.24 kg/m PHYSICAL EXAM: General Appearance: Well appearing, alert, in no acute distress, well-hydrated, well nourished. Skin: Skin color, texture, turgor normal, no suspicious rashes or lesions. Head: Normocephalic, no masses, lesions, tenderness or abnormalities. Eyes: Anicteric sclera. Extraocular movements are intact. Lungs: Lungs clear to auscultation. No wheezing, rhonchi, rales. Heart: RRR without murmur, gallop, or rubs. No ectopy. Extremities: No deformities, edema, skin discoloration, clubbing or cyanosis. Good capillary refill. Peripheral Pulses: Normal, Capillary refill <2secs, strong peripheral pulses, Pulses palpable. Neurologic: Gait normal. Sensation grossly intact. ASSESSMENT/PLAN: 1. Elevated glucose - ICD9: 790.29, ICD10: R73.09 (primary diagnosis) - Labs completed with Cardiology showed elevated glucose. - Get A1c completed - Instructed to work on eating a low carb diet, increase lean protein, vegetables, and get some form exercise. - HEMOGLOBIN A1C 2. Essential hypertension, benign - ICD9: 401.1, ICD10: I10 - Controlled - Continue current medications - Keep scheduled appointments with cardiology. - Recommend home blood pressure monitoring, to bring results to next visit - Encouraged sodium restriction, DASH or Mediterranean diet - Recommend regular aerobic exercise - Discussed need for and benefit of weight loss. BMI 35.24 kg/(m^2) 3. Arthritis of low back - ICD9: 721.90, ICD10: M47.819 - Stable, continue with Tylenol arthritis as needed. 4. Mild intermittent asthma with acute exacerbation - ICD9: 493.92, ICD10: J45.21 - Mild intermittent asthma stable - Avoidance of triggers recommended Follow-up in 6 months or sooner pending test results. Discussed treatment plan and patient voices understanding. Patient's questions answered appropriately. Medications and potential side effects were discussed and patient voices understanding. Diana Escobar APRN.CNP This note was partially generated using YapTime voice recognition system. Note was reviewed for accuracy. There may be minor misspellings or grammar miscues with YapTime voice recognition. documented in this encounter [facility] 07-20-2023 Miscellaneous Notes Phoned patient and went over notes below from Diana Escobar DATA ANALYST with patient [place] with understanding. Can you please call the patient back and let him know that I would recommend using Tylenol or Tylenol arthritis since he developed itching with the antiinflammatory. Thank you. Diana Escobar APRN.CNP Pt calls to report he had appt 06/27/23 and was prescribed Meloxicam for arthritis of back. Pt reports he does not take the medication all the time but when he does he feels itchy all over. Pt is asking if there is something different he can take. Please review and advise. Rae Connolly LPN documented in this encounter [facility] 06-27-2023 Instructions Diana Escobar APRN.SHADI - 06/27/2023 10:53 AM EDT Start Meloxicam 15 mg daily for pain, take with food. May use albuterol inhaler as needed for shortness of breath or wheezing. Continue to take all medication as prescribed. Keep up coming appointment with cardiology. Follow up in 6 months or sooner as needed. documented in this encounter [facility] 06-27-2023 History of Present illness Narrative This is a 77 year old male who presents today with: Patient presents with: Follow Up: 3 month HISTORY OF PRESENT ILLNESS: Clark Donovan is a 77 year old male. Patient presents with: Follow Up: 3 month 3 month follow up HTN: Stopped the ASA due to bruising. Still taking Amlodipine 5 mg, Toprol XL 25 mg, and Losartan 100 mg daily. Checking blood pressure at home randomly at home, not sure if BP monitor is reading correctly, 130/80's. Denies chest pain, palpitations, dizziness, or edema. [facility]. Working on trying to lose weight, eating protein, veggies, fruits, and exercise (bike). 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 Cardiac: Stress test normal. Heart cath normal 2019. Asthma: Stable, not currently using any medication. Joint Pain: Will get intermittent pain in back and hip. Would like to try something for pain. PAST MEDICAL HISTORY: No past medical history on file. PAST SURGICAL HISTORY Procedure Laterality Date COLSC FLX W/RMVL OF TUMOR POLYP LESION SNARE TQ 07/02/16 Adenomatous spbkp-lhldp-wocw follow-up LAPAROSCOPY SURG CHOLECYSTECTOMY Cholecystectomy, lap ALLERGIES Nitroglycerin and Ntg [Nitrate Analogues] MEDICATIONS Current Outpatient Medications Medication Sig amLODIPine (NORVASC) 5 mg tablet Take 1 tablet by mouth once daily. losartan (COZAAR) 100 mg tablet Take 1 tablet by mouth once daily. metoprolol succinate ER (TOPROL XL) 25 mg 24 hr tablet Take 1 tablet by mouth once daily. naproxen (NAPROSYN) 500 mg tablet Take 1 tablet by mouth twice daily as needed for pain. Take with food. COMPOUNDED PRESCRIPTION Immunis patient unsure of directions. COMPOUNDED PRESCRIPTION Livergy no sure of directions (Patient not taking: Reported on 03/07/2023) COMPOUNDED PRESCRIPTION Cyto-Sym not sure of directions. COMPOUNDED PRESCRIPTION ADRENIX NOT SURE OF DIRECTIONS. COMPOUNDED PRESCRIPTION Ecklonia-Cava Patient not sure of directions. DEXCHLORPH/P-EPHED HC/METHSCOP (D-HIST D ORAL) Take by mouth. Patient not sure of directions PRASTERONE, DHEA, (DHEA ORAL) Take by mouth. Patient not sure of directions COMPOUNDED PRESCRIPTION Healthy Prostate and ovary-Patient not sure of directions COMPOUNDED PRESCRIPTION Eco Thyro37- Patient not sure of directions COMPOUNDED PRESCRIPTION Integra-cell=Patient not sure of directions COMPOUNDED PRESCRIPTION Kardi-Ar=Patient not sure of directions COMPOUNDED PRESCRIPTION Fulvic Acid=Patient not sure of directions Current Facility-Administered Medications Medication Dose Route Frequency perflutren lipid microspheres 1.3 mL in NaCl (PF) 0.9% 10 mL injection (DEFINITY) INTRAVENOUS DIRECTED PRN sodium chloride 0.9 % (flush) 10 mL (BD POSIFLUSH) 10 mL INTRAVENOUS DIRECTED PRN FAMILY HISTORY Problem Relation Age of Onset COPD Mother Diabetes Father Heart Father chf Heart Brother a fib Cancer Father prostate Social History Tobacco Use Smoking status: Former Smokeless tobacco: Never Tobacco comments: quit 1992 Substance Use Topics Alcohol use: Yes Comment: occasional Drug use: No REVIEW OF SYSTEMS GENERAL: No weight loss, malaise or fevers/chills HEENT: Negative for frequent or significant headaches, No changes in hearing or vision. NECK: Negative for lumps, goiter, pain and significant neck swelling RESPIRATORY: Negative for cough, hemoptysis, wheezing, dyspnea or shortness of breath CARDIOVASCULAR: Negative for chest pain, leg swelling, orthopnea, or palpitations GI: No nausea, vomiting, or diarrhea/constipation. No hematochezia/melena. No heartburn or reflux symptoms. : No history of dysuria, frequency or incontinence MUSCULOSKELETAL: Negative for joint pain or swelling. SKIN: Negative for lesions, rash, and itching ENDOCRINE: Negative for cold or heat intolerance, polyuria, polydipsia and goiter NEURO: No history of headaches, syncope, paralysis, seizures or tremors MOOD: Negative for depression, anxiety, or suicidal ideation. EXAM: BP 112/68 Pulse 102 Resp 16 Wt 100.7 kg (222 lb) SpO2 98% BMI 35.56 kg/m PHYSICAL EXAM: General Appearance: Well appearing, alert, in no acute distress, well-hydrated, well nourished. Skin: Skin color, texture, turgor normal, no suspicious rashes or lesions. Head: Normocephalic, no masses, lesions, tenderness or abnormalities. Eyes: Anicteric sclera. Extraocular movements are intact. Lungs: Lungs clear to auscultation. No wheezing, rhonchi, rales. Heart: RRR without murmur, gallop, or rubs. No ectopy. Extremities: No deformities, edema, skin discoloration, clubbing or cyanosis. Good capillary refill. Peripheral Pulses: Normal, Capillary refill <2secs, strong peripheral pulses, Pulses palpable. Neurologic: Gait normal. Sensation grossly intact. ASSESSMENT/PLAN: 1. Essential hypertension, benign - ICD9: 401.1, ICD10: I10 (primary diagnosis) - Controlled - Continue current medications - Recommend home blood pressure monitoring, to bring results to next visit - Encouraged sodium restriction, DASH or Mediterranean diet - Recommend regular aerobic exercise - Discussed need for and benefit of weight loss. BMI 35.56 kg/(m^2) 2. Mild intermittent asthma with acute exacerbation - ICD9: 493.92, ICD10: J45.21 - Mild intermittent asthma stable - Start albuterol HFA (PROVENTIL HFA, VENTOLIN HFA) prn - Avoidance of triggers recommended - ALBUTEROL SULFATE HFA 90 MCG/ACTUATION AEROSOL INHALER 3. Arthritis of low back - ICD9: 721.90, ICD10: M47.819 - Start Meloxicam 15 mg daily. - MELOXICAM 15 MG TABLET Follow up in 6 months or sooner as needed. Discussed treatment plan and patient voices understanding. Patient's questions answered appropriately. Medications and potential side effects were discussed and patient voices understanding. Diana Escobar APRN.CLOTHING DESIGNER This note was partially generated using ParkAround recognition system. Note was reviewed for accuracy. There may be minor misspellings or grammar miscues with YapTime voice recognition. documented in this encounter [facility] 05-26-2023 Discharge summary Note Date/Time May 26, 2023 3:32pm [facility] Medical Records Department [address] [place] [address] Emergency Department Summary 05/26/23 MR#: [id number] Acct: [id number] Name: CLARK DONOVAN Rep #:[id number] : 1945 77 From: Daniel Steele MD PCP: Dr. Jayde Castellanos MD Status:RE G ER Location: ED HPI History of Present Illness HPI Narrative: Left small finger splinter Chief Complaint: Foreign Body Informant: patient and spouse/S.O. Occured/Mechanism Mechanism/Context: Yes injury Onset/Context/Timing Onset: Today, Hours and - (Around 7 AM.) Context: Sudden Onset Timing: Continuous Quality of Pain: Sharp Current Severity: Mild Maximum Severity: Mild Associated Symptoms Associated Symptoms: Negative for Parasthesia, Weakness or Loss of Funtion Narrative Narrative: 77-year-old Anabaptist male with splinter in his left small finger on the palmar sideproximal phalanx. Today around 7 AM. [id number]. 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 Tetanus is not up-to-date. Tetanus Immunization: >10 years Prior similar symptoms: No Recent Illness/Hospitalization: No PFSH PFSH Medical History Abnormal stress echo Arthritis Asthma Benign prostatic hyperplasia with lower urinary tract symptoms Essential hypertension Palpitations PVCs (premature ventricular contractions) Shortness of breath Wears glasses Home Medications aspirin 81 mg tablet,delayed release (Adult Aspirin Regimen) 81 mg PO DAILY #90 tabs 10/12/21 [Rx Last Taken 02/26/22] losartan 100 mg tablet 100 mg PO DAILY 09/06/22 [History Last Taken Unknown] metoprolol succinate 25 mg tablet,extended release 24 hr See Rx Instructions .Route .COMPLEX #90 tabs 11/23/22 [Rx Last Taken Unknown] cephalexin 500 mg capsule 500 mg PO TID #15 caps 05/26/23 [Rx Last Taken Unknown] Allergy/AdvReac Type Severity Reaction Status Date / Time nitroglycerin Allergy Intermediate Unknown Verified 05/26/23 14:43 Family History Father Congestive heart failure Mother , pneumonia No problems noted. Brother heart on right side Tachycardia Surgical History History of hand surgery History of laparoscopic cholecystectomy History of left heart catheterization (09/14/19) History of prostate surgery (~2016) Social History Smoking Status: Never smoker alcohol intake: current ROS ROS ED ROS Narrative Denies recent illness Review of Systems ROS Unobtainable: Denies due to encephalopathy Constitutional Constitutional ED: Denies chills or fever(s) Eyes Eyes: Denies blurry vision ENT ENT ED: Denies ear pain Cardiovascular Cardiovascular: Denies chest pain Respiratory/Chest Respiratory/Chest: Denies cough or dyspnea Gastrointestinal Gastrointestinal: Denies abdominal pain Genitourinary Genitourinary ED: Denies dysuria or hematuria Musculoskeletal Musculoskeletal: Denies back pain Integumentary Denies abscess Neurologic Neurologic: Denies headache(s) Psychiatric Psychiatric: Denies anxiety Endocrine Endocrinology: Denies cold intolerance Hematologic/Lymphatic Hematologic/Lymphatic: Denies easy bleeding or easy bruising Allergic/Immunologic Allergic/Immunologic ED: Denies mouth swelling or tongue swelling EXAM Physical Exam Narrative Exam Narrative: 77-year-old male. Vital signs stable afebrile. HEENT exam unremarkable. Lungsclear. Heart regular rhythm. Abdomen soft nontender. All 4 extremities. Neurovascular intact.Left hand palmar aspect there is a tiny splinter entering the ulnar side of his proximal phalanx patient of the small finger coming out onthe radial side. Still throughout 1-1 and half inches in length. There is no infection. He has full flexion extension. No cellulitis. No pus. The distal phalanx was amputated years ago of the left small finger it healed well. Const Vital Signs: 05/26/23 13:36 05/26/23 14:46 Temperature 96.8 F L Temperature Source Temporal Pulse Rate 94 Respiratory Rate 15 Respiratory Effort Normal Non-Labored Respiratory Pattern Normal Blood Pressure 129/88 H Blood Pressure Mean 101 Pulse Ox 97 Oxygen Delivery Method Room Air Positive well nourished and well developed; Negative for cachectic, contracturesor unkempt General Appearance ED: well developed and NAD; Negative for unkempt, cachectic, contractures, cyanotic or diaphoretic Nutritional Appearance: Negative for cachectic HEENT Reports moist mucous membranes normocephalic and atraumatic; Negative for trauma or tenderness Eyes PERRL and EOMs intact bilaterally General Eye ED: Negative for other Neck full ROM and supple General: Negative for tenderness Lymph Lymphatic: Negative for other Chest Wall inspection of chest normal and palpation of chest normal Chest: Negative for other Resp normal respiratory effort and clear to auscultation bilaterally Effort and Inspection: Negative for pain with movement Auscultation: Negative for rales, rhonchi or wheezes Cardio regular rate, regular rhythm, S1 normal heart sound, S2 normal heart sound and no murmurs GI non-tender, non-distended and no masses Auscultation: normoactive bowel sounds Palpation: soft; Negative for tender or guarding Extremity normal to inspection and full ROM Extremity Narrative: Stepped pine splinter in the proximal aspect palmar side of his left small finger. The distal phalanx was amputated years ago. No signs of infection. Normal flexion extension. Normal touch sensation. Neuro oriented x3, CN's II-XII intact bilaterally, moves all extremities and no focal motor deficits Sensorium / Orientation: oriented to person, oriented to place and oriented to time; Negative for orientation impaired Motor Exam: strength 5/5 throughout Psych mental status grossly normal Appearance: Negative for unkempt Attitude: No agitated Mood & Affect: Negative for depressed, anxious or tearful Skin Skin Narrative: Puncture wound left small finger with a fine needle foreign body. General Skin Exam: Negative for petechiae Lesions: no lesions Rashes: no rashes Trauma: no lacerations or abrasions MDM MDM MDM Narrative Medical decision making narrative: Patient is a pine needle foreign body in his left small finger. X-ray was obtained by nursing protocol in triage which was unremarkable. Typically this would not show up on x-rays so I did not expect it to. His tetanus will be updated. This will need to be locally anesthetized with a digital block. I will try to remove the iNatal foreign body. To be placed on antibiotic. 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 No radiopaque foreign body is seen. Electronically Signed: Jasen Ocasio MD at 14:03 EDT , Small finger x-ray 3 views interpreted both by myself and the radiologist shows no acute abnormality. Prior amputation of distal phalanx years ago. No foreignbody noted. No subcu air. Procedures Other Procedures Procedure(s): Finger foreign body:. Digital block performed with lidocaine. Once proper anesthetic was obtained. I made incision along the axis of the foreign body tract. Blunt probe the wound. I could not see or feel or find anytype of foreign body. Patient may have gotten the vast majority of it out. Or it went too deep and is below the flexor tendon. Was irrigated. It was loosely closed with two 4-0 Ethilon sutures. He tolerated procedure well. He was instructed on close follow-up. I have a plastic surgery on page. He will be placed on Keflex 500 mg 3 times a day for the next 5 days. Return if any signs of infection. Discharge Plan Triage Chief Complaint: Foreign Body ED Provider: Daniel Steele Dx/Rx/DC Orders Clinical Impression: Foreign body (FB) in soft tissue Instructions: ED Foreign Body Soft Tissue Prescriptions: New cephalexin 500 mg capsule 500 mg PO TID Qty: 15 0RF No Action losartan 100 mg tablet 100 mg PO DAILY aspirin [Adult Aspirin Regimen] 81 mg tablet,delayed release (DR/EC) 81 mg PO DAILY Qty: 90 3RF Hold Instructions: Resume on 03/17/22. metoprolol succinate 25 mg tablet extended release 24 hr See Rx Instructions .ROUTE .COMPLEX Qty: 90 3RF Dose Instruction: TAKE 1 TABLET BY MOUTH EVERY DAY Rx Instructions: TAKE 1 TABLET BY MOUTH EVERY DAY Primary Care Provider: Jayde Castellanos Referrals: Danial Petit MD [Med Staff - Active Staff] - As soon as possible Jayde Castellanos MD [Primary Care Provider] - Activity Restrictions/Additional Instructions: Follow-up with the plastic surgeon soon as possible. They may just watch this. If it gets infected they will need to go and explore it further to see if there is any retained foreign body that I could not find at this time. Call their office tomorrow to set up an appointment. Antibiotic Keflex 1 pill 3 times a day for the next 5 days. Signs of infection such as significant swelling, pus, redness, streaks or fever return to have for this evaluation. Leave dressing on for 3 days. Then clean it daily with soap and water. Disposition Disposition: Home, Self Care What to do if you have Problems For any increased pain, shortness of breath, bleeding, nausea or vomiting, chestpain, or any unexpected problems, contact your Primary Care Provider. Call [facility] ([phone]) or report to the closest Emergency Room. Call 911 if necessary. 05/26/231706 <Electronically signed by Daniel Steele MD> Cosigner Signature (if applicable): CC: Dr. Jayde Castellanos MD ~ Signed [facility] Work Phone: [phone] 585-125708-18-2023 Miscellaneous Notes* Telephone Encounter - Herb Dacosta APRN.CNP - 05/06/2023 9:20 AM EDT The following approved medication requests have been transmitted electronically. Requested Prescriptions Pending Prescriptions Disp Refills amLODIPine (NORVASC) 5 mg tablet 90 tablet 3 Sig: Take 1 tablet by mouth once daily. Herb Dacosta APRN.CLOTHING DESIGNER * Telephone Encounter - Rufus Dominguez - 05/06/2023 8:49 AM EDT Patient has been identified by name and date of : Yes Last office visit in this department: 03/07/2023 Labs-02/04/23 NOV-06/23/23 RX INSTRUCTIONS: Patient aware RX will be sent to pharmacy. No need to notify patient. Patient phones requesting refills as follows: Requested Prescriptions Pending Prescriptions Disp Refills amLODIPine (NORVASC) 5 mg tablet 90 tablet 3 Sig: Take 1 tablet by mouth once daily. Please review and advise. Rufus Dominguez documented [facility] Miscellaneous Notes* Telephone Encounter - Alvina Omer RN - 04/05/2023 9:41 AM EDT Called and reviewed the below instructions with the patient. Patient reports understanding. Alvina Omer RN You are scheduled for a stress test on 04/11/23. Please follow below instructions: *NOTHING BY MOUTH 4 HOURS prior to this test. (you may have sips of water) *NO CAFFEINE FOR 24 HOURS PRIOR TO TESTING (including TEA even decaf, COFFEE- even decaf, CHOCOLATE, DARIELA- even decaf) *Do NOT take MEDICATIONS CONTAINING CAFFEINE/XANTHINE for 24 HOURS prior to testing: Theophylline, Trental, Excedrin, Anacin, Goody Powders, No Doz, Vivarin, Midol, Diurex, Fiorinal, Fioricet, Esgic (butalbital) *Do NOT take Calcium Channel Blockers 24 HOURS prior to test. *Do NOT take Beta blockers 24 HOURS prior to test UNLESS your doctor tells you otherwise. *Do NOT use the following medications 48 HOURS prior to this test: Viagra(Sildenafil citrate), Cialis(Tadalafil), Vardenafil (Levitra, Stanyx), Avanfil (Stendra). *Do not take any of these meds prior to test unless provider directs you otherwise; Nitroglycerine (ex:Deponit, Nitrostat) Isosorbide (ex:Isordil, Sorbitrate,Imdur,Ismo). Medications on your list you should hold for 24 HOURS: metoprolol *All other medications may be taken as you normally would. *Guidelines for Diabetics: If you take insulin to control your blood sugar, ask you physician what amount you should take the day of the test. If you take pills to control blood sugar, on the day of the test, do NOT take them until AFTER the test. *FAILURE TO FOLLOW THESE INSTRUCTIONS WILL RESULT IN HAVING TO RESCHEDULE THE TEST. *Please wear comfortable clothes with a short-sleeved shirt and comfortable walking shoes. You willbe on the treadmill for this test. *If you use an inhaler, bring it along with you just in case. Please check in on the first floor at Radiology: [address]; [place] [address] * If you need to cancel or reschedule this test or have any questions regarding this test, please call [phone]. documented in this encounterF[facility]12-[facility]-2022 Miscellaneous Notes* Telephone Encounter - Jayde Castellanos MD - 08/24/2022 3:21 PM EST I agree with the advice given Jayde Castellanos MD * Telephone Encounter - Gisell Arnett LPN - 08/24/2022 2:55 PM EST Patient calling said he has URI that is just not going away. Patient said he has watery eyes, headache, cough. Asked if patient could have been exposed to anyone with COVID, he said he did not know. Advised to go [facility] evaluation. documented in this encounterF[facility]06-[facility]-2022 History of Present illness Narrative* Diana Escobar APRN.SHADI - 03/10/2022 4:00 PM EDT This is a 76 year old male who presents today with: Patient presents with: Follow Up: Hosp. Stay HISTORY OF PRESENT ILLNESS: Clark Donovan is a 76 year old male. Patient presents with: Follow Up: Hosp. Stay HOSPITAL/ER FOLLOW UP: Reason for visit: Turp with Dr. Shaikh (urology) Which facility: 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 Feels like he is emptying bladder more fully. No hematuria that he is aware of. Finished antiobiotics. Will be seeing Dr. Shaikh (Urology) on 03/18/2022. Denies any abdominal pain, dysuria,or fever/chills. No other concerns today. PAST MEDICAL HISTORY: No past medical history on file. PAST SURGICAL HISTORY Procedure Laterality Date COLSC FLX W/RMVL OF TUMOR POLYP LESION SNARE TQ 07/02/16 Adenomatous idnpk-eifey-cvtw follow-up LAPAROSCOPY SURG CHOLECYSTECTOMY Cholecystectomy, lap ALLERGIES Nitroglycerin and Ntg [Nitrate Analogues] MEDICATIONS Current Outpatient Medications Medication Sig losartan (COZAAR) 25 mg tablet Take 4 tablets by mouth once daily. metoprolol succinate ER (TOPROL XL) 25 mg 24 hr tablet Take 1 tablet by mouth once daily. naproxen (NAPROSYN) 500 mg tablet Take 1 tablet by mouth twice daily as needed for pain. Take with food. COMPOUNDED PRESCRIPTION Immunis patient unsure of directions. COMPOUNDED PRESCRIPTION Livergy no sure of directions COMPOUNDED PRESCRIPTION Cyto-Sym not sure of directions. COMPOUNDED PRESCRIPTION ADRENIX NOT SURE OF DIRECTIONS. COMPOUNDED PRESCRIPTION Ecklonia-Cava Patient not sure of directions. DEXCHLORPH/P-EPHED HC/METHSCOP (D-HIST D ORAL) Take by mouth. Patient not sure of directions PRASTERONE, DHEA, (DHEA ORAL) Take by mouth. Patient not sure of directions COMPOUNDED PRESCRIPTION Healthy Prostate and ovary-Patient not sure of directions COMPOUNDED PRESCRIPTION Eco Thyro37- Patient not sure of directions COMPOUNDED PRESCRIPTION Integra-cell=Patient not sure of directions COMPOUNDED PRESCRIPTION Kardi-Ar=Patient not sure of directions COMPOUNDED PRESCRIPTION Fulvic Acid=Patient not sure of directions No current facility-administered medications for this visit. FAMILY HISTORY Problem Relation Age of Onset COPD Mother Diabetes Father Heart Father chf Heart Brother a fib Cancer Father prostate Social History Tobacco Use Smoking status: Former Smoker Smokeless tobacco: Never Used Tobacco comment: quit 1992 Substance Use Topics Alcohol use: Yes Comment: occasional Drug use: No REVIEW OF SYSTEMS GENERAL: No weight loss, malaise or fevers/chills HEENT: Negative for frequent or significant headaches, No changes in hearing or vision. NECK: Negative for lumps, goiter, pain and significant neck swelling RESPIRATORY: Negative for cough, hemoptysis, wheezing, dyspnea or shortness of breath CARDIOVASCULAR: Negative for chest pain, leg swelling, orthopnea, or palpitations GI: No nausea, vomiting, or diarrhea/constipation. No hematochezia/melena. No heartburn or reflux symptoms. : No history of dysuria, frequency or incontinence MUSCULOSKELETAL: Negative for joint pain or swelling. SKIN: Negative for lesions, rash, and itching ENDOCRINE: Negative for cold or heat intolerance, polyuria, polydipsia and goiter NEURO: No history of headaches, syncope, paralysis, seizures or tremors MOOD: Negative for depression, anxiety, or suicidal ideation. EXAM: BP 138/70 Pulse 88 Resp 20 Wt 99.3 kg (219 lb) SpO2 95% BMI 34.30 kg/m PHYSICAL EXAM: General Appearance: Well appearing, alert, in no acute distress, well-hydrated, well nourished. Skin: Skin color, texture, turgor normal, no suspicious rashes or lesions. Head: Normocephalic, no masses, lesions, tenderness or abnormalities. Eyes: Anicteric sclera. Extraocular movements are intact. Lungs: Lungs clear to auscultation. No wheezing, rhonchi, rales. Heart: RRR without murmur, gallop, or rubs. No ectopy. Abdomen: Negative CVA tenderness. Extremities: No deformities, edema, skin discoloration, clubbing or cyanosis. Good capillary refill. Peripheral Pulses: Normal, Capillary refill <2secs, strong peripheral pulses, Pulses palpable. ASSESSMENT/PLAN: 1. Hospital discharge follow-up - ICD9: V67.59, ICD10: Z09 (primary diagnosis) - Doing well since hospital discharge. 2. Benign prostatic hyperplasia with lower urinary tract symptoms, symptom details unspecified - ICD9: 600.01, ICD10: N40.1 - Stay well hydrated. - Watch for worsening symptoms, discussed with patient. - Keep scheduled appointment with Dr. Shaikh (urology). Follow-up as needed or sooner if symptoms get worse or do not improve. Discussed treatment plan and patient voices understanding. Patient's questions answered appropriately. Medications and potential side effects were discussed and patient voices understanding. Diana Escobar APRN.SHADI This note was partially generated using YapTime voice recognition system. Note was reviewed for accuracy. There may be minor misspellings or grammar miscues with YapTime voice recognition. documented in this encounterF[facility]06-22-2022 Instructions* Patient Instructions* Diana Escobar APRN.CNP - 03/10/2022 3:59 PM EDT 1.) Keep scheduled appointment with Dr. Shaikh. 2.) Stay well hydrated. 3.) Watch for any urinary symptoms, such as burning with urinary, abdominal pain, flank pain, or Fever/chills. 4.) Continue to take all medication as prescribed. 5.) Follow up as needed. [facility] Hospital Discharge instructionsAmbulatory Orders* 12 Lead EKG [[facility]] Time Frame: 03/02/22, Location: None [facility] Work Phone: 1(137) 329-970305-12-2022 Miscellaneous Notes* Telephone Encounter - Althea Urbina RN - 01/28/2022 11:36 PM EDT Reason for Call : Bladder Pain, Inability to urinate, Urinating Blood. Outcome: Recommendation - Go To ED Now. Patient and verbalized understanding. Will attempt to call someone for assistance to get him in - advised if unable to locate help to call 911 to get him in to ED. Reason for Disposition Passing pure blood or large blood clots (i.e., size > a dime) (Exception: poncho or small strands) [1] Unable to urinate (or only a few drops) > 4 hours AND [2] bladder feels very full (e.g., palpable bladder or strong urge to urinate) Protocols used: URINE - BLOOD IN-ADULT- documented in this encounterF[facility]12[facility] History of Past illness Narrative* Problem Noted Date Resolved Date Renal stone 08/27/2020 12/03/2021 Pain in limb 04/26/2008 05/27/2016 Lateral epicondylitis of elbow 05/31/2007 0 05/27/2016 Other malaise and fatigue 06/09/20062015 documented as of this encounter (statuses as of 01/29/2022) [facility] of Past illness Narrative* Problem Noted Date Resolved Date Renal stone 08/27/2020 12/03/2021 Pain in limb 04/26/2008 05/27/2016 Lateral epicondylitis of elbow 05/31/2007 0 05/27/2016 Other malaise and fatigue 06/09/20062015 documented as of this encounter (statuses as of 03/10/2022) [facility] of Past illness Narrative* Problem Noted Date Resolved Date Renal stone 08/27/2020 12/03/2021 Pain in limb 04/26/2008 05/27/2016 Lateral epicondylitis of elbow 05/31/2007 0 05/27/2016 Other malaise and fatigue 06/09/20062015 documented as of this encounter (statuses as of 08/24/2022) [facility] of Past illness Narrative* Problem Noted Date Diagnosed Date Resolved Date Renal stone 08/27/2020 12/03/2021 Pain in limb 04/26/2008 05/27/2016 Lateral epicondylitis of elbow 05/31/2007 05/27/2016 Other malaise and fatigue 06/09/2006 documented as of this encounter (statuses as of 04/05/2023) [facility] of [facility] illness Narrative* Problem Noted Date Diagnosed Date Resolved Date Renal stone 08/27/2020 12/03/2021 Pain in limb 04/26/2008 05/27/2016 Lateral epicondylitis of elbow 05/31/2007 05/27/2016 Other malaise and fatigue 06/09/2006 documented as of this encounter (statuses as of 05/06/2023) [facility] of [facility] illness Narrative* Problem Noted Date Diagnosed Date Resolved Date Renal stone 08/27/2020 12/03/2021 Pain in limb 04/26/2008 05/27/2016 Lateral epicondylitis of elbow 05/31/2007 05/27/2016 Other malaise and fatigue 06/09/2006 documented as of this encounter (statuses as of 06/28/2023) [facility] of [facility] illness Narrative* Problem Noted Date Diagnosed Date Resolved Date Renal stone 08/27/2020 12/03/2021 Pain in limb 04/26/2008 05/27/2016 Lateral epicondylitis of elbow 05/31/2007 05/27/2016 Other malaise and fatigue 06/09/2006 documented as of this encounter (statuses as of 07/20/2023) [facility] of [facility] illness Narrative* Problem Noted Date Diagnosed Date Resolved Date Renal stone 08/27/2020 12/03/2021 Pain in limb 04/26/2008 05/27/2016 Lateral epicondylitis of elbow 05/31/2007 05/27/2016 Other malaise and fatigue 06/09/2006 documented as of this encounter (statuses as of 01/03/2024) [facility] History of Past illness Narrative* Problem Noted Date Diagnosed Date Resolved Date Renal stone 08/27/2020 12/03/2021 Pain in limb 04/26/2008 05/27/2016 Lateral epicondylitis of elbow 05/31/2007 05/27/2016 Other malaise and fatigue 06/09/2006 documented as of this encounter (statuses as of 01/06/2024) [facility] HospitalEvaluation noteNo assessment information availableWOhioHealth Shelby Hospital Work Phone: Evaluation note* Diagnosis Onset Date Resolution Status PVCs (premature ventricular contractions) acute [id number] chronic Essential hypertension chron ic [facility] Work Phone: Evaluation note* Diagnosis Hospital discharge follow-up- Primary Other follow-up examination Benign prostatic hyperplasia with lower urinary tract symptoms, symptom details unspecified documented [facility] this encounter [facility]* Diagnosis Essential hypertension, benign documented in this encounter [facility]* Diagnosis Essential hypertension, benign- Primary Mild intermittent asthma with acute exacerbation Unspecified asthma, with exacerbation 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 documented [facility] this encounter [facility]* Diagnosis Onset Date Resolution Status [id number] chronic Essential hypertension chron ic Obesity chronic PVCs (premature ventricular contractions) resolved [facility] Work Phone: Evaluation note* Diagnosis Onset Date Resolution Status [id number] chronic Dyslipidemia chronic Essential hypertension chron ic Obesity chronic PVCs (premature ventricular contractions) resolved [facility] Work Phone: Evaluation note* Diagnosis Elevated glucose- Primary Other abnormal glucose Essential hypertension, benign 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 Mild intermittent asthma with acute exacerbation Unspecified asthma, with exacerbation documented in this encounter [facility] note* Diagnosis Prediabetes- Primary Other abnormal glucose Essential hypertension, benign documented in this encounter [facility] note* Diagnosis PAD (peripheral artery disease) (HCC)- Primary Peripheral vascular disease, unspecified documented in this encounter [facility] note* Diagnosis PAD (peripheral artery disease) (HCC) Peripheral vascular disease, unspecified documented in this encounter [facility] note* Diagnosis PAD (peripheral artery disease) (HCC)- Primary Peripheral vascular disease, unspecified documented in this encounter [facility] note* Diagnosis Prediabetes- Primary Other abnormal glucose Essential hypertension, benign Mild intermittent asthma with acute exacerbation Unspecified asthma, with exacerbation 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 documented in this encounter [facility] note* Diagnosis Type 2 diabetes mellitus without complication, without long-term current use of insulin (HCC)- Primary documented in this encounter [facility] note* Diagnosis Essential hypertension, benign documented in this encounter [facility] note* Diagnosis Pre-op exam- Primary Preoperative examination, unspecified Type 2 diabetes mellitus without complication, without long-term current use of insulin (HCC) Essential hypertension, benign Mild intermittent asthma with acute exacerbation Unspecified asthma, with exacerbation PAD (peripheral artery disease) (HCC) Peripheral vascular disease, unspecified documented in this encounter [facility] note* Diagnosis Spinal stenosis of lumbar region with neurogenic claudication- Primary Spinal stenosis, lumbar region, with neurogenic claudication Acute hypoxemic respiratory failure S/P lumbar laminectomy Type 2 diabetes mellitus without complication (HCC) Acute hypoxemic respiratory failure documented in this encounter [facility] note* Diagnosis Status post lumbar surgery- Primary Other postprocedural status Other specified disorders of kidney and ureter Essential hypertension, benign Type 2 diabetes mellitus without complication, without long-term current use of insulin (HCC) Renal mass Unspecified disorder of kidney and ureter documented in this encounter [facility]* Diagnosis Other specified disorders of kidney and ureter documented in this encounter [facility] note* Diagnosis PAD (peripheral artery disease) (HCC)- Primary Peripheral vascular disease, unspecified documented in this encounter [facility] note* Diagnosis Medicare annual wellness visit, subsequent- Primary Routine general medical examination at a health care facility Type 2 diabetes mellitus without complication, without long-term current use of insulin (HCC) Essential hypertension, benign Screening for depression Encounter for screening examination for other mental health and behavioral disorders Mild intermittent asthma without complication ([facility]) Unspecified asthma documented in this encounter [facility]* Diagnosis Type 2 diabetes mellitus without complication, without long-term current use of insulin (HCC) documented in this encounter [facility] note* Diagnosis Type 2 diabetes mellitus without complication, without long-term current use of insulin ([facility]) [facility] Additional Instructions Urinary tract infection with blood. Take antibiotic as prescribed. Follow-up with Dr. Shaikh.[facility] Work Phone: Hospital Discharge instructionsWOhioHealth Shelby Hospital Work Phone: Hospital Discharge instructionsWOhioHealth [facility] Hospital Work Phone: Hospital Discharge instructionsV[facility] Work Phone: Hospital Discharge instructions Additional Instructions Follow-up with the plastic surgeon soon as possible. They may just watch this. If it gets infected they will need to go and explore it further to see if there is any retained foreign body that I could not find at this time. Call their office tomorrow to set up an appointment. Antibiotic Keflex 1 pill 3 times a day for the next 5 days. Signs of infection such as significant swelling, pus, redness, streaks or fever return to have for this evaluation. Leave dressing on for 3 days. Then clean it daily with soap and water.[facility] Work Phone: Reason for referral (narrative)* Outpatient Procedure (Routine) - Authorized Specialty Diagnoses / Procedures Referred By Contac t Referred To [facility] Diagnoses PAD (peripheral artery disease) (HCC) Procedures PVR LEG W/EXC [facility] N-INVAS PHYSIOLOGIC STD LXTR ART COMPL BI Brea Jenkins DO [address] [place] [address] [facility] [place] [address] [place] [address] Referral ID Status Reason Start Date Expiration Date Visits Requested Visits Authorized [id number] Authorized Auto-Generat ed Referral 04/17/2024 04/17/2025 1 1 [facility] Summary Purpose Family History Relationship Condition Age at Onset Recorded Date/T tony father Congestive heart failure Unknown brother Unknown Tachycardia Unknown Advance Directives Advance Directive Response Recorded Date/ Time Advance Directives Yes August 11:05am Living Will No January 29, 2022 1 2:53am Power of Field Associate No January 29, 2022 12:53am Documents on File Type Date Recorded 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 Advance Directive(s) 07/02/2016 9:46 AM Advance Directive(s) 07/01/2016 2:43 PM Advance Directive Response Recorded Date/ Time Name of Medical Power of Field Associate Catrachito mar February 24, 2022 1:05pm Advance Directives Yes August 11:05am Living Will No March 03, 2022 5:35pm Power of Field Associate No March 03 5:35pm Advance Directive Response Recorded Date/ Time Advance Directives Yes August 11:05am Living Will Yes May 26, 023 2:44pm Power of Field Associate No May 26, 2023 2:44pm Advance Directive Response Recorded Date/ Time Advance Directives Yes May 9:54am Living Will Yes May 27 023 9:54am Power of Field Associate No May 27, 2023 9:54am Advance Directive Response Recorded Date/ Time Advance Directives Yes May 10:54am Living Will Yes May 27, 023 10:54am Power of Field Associate No May 27, 2023 10:54am Date Activated Date Inactivated Comments 09/26/2024 8:52 AM 09/27/2024 12:35 AM Chief Complaint and Reason for Visit Chief Complaint peeing blood Chief Complaint peeing blood GROSS HEMATURIA Chief Complaint peeing blood GROSS HEMATURIA 6 m fu CYSTO TURP OLYMPUS Reason for Visit PVCs (premature vent ricular contractions) [id number] Essential hypertension Chief Complaint peeing blood GROSS HEMATURIA CYSTO TURP OLYMPUS 6 m fu CYSTO TURP OLYMPUS Reason for Visit PVCs (premature vent ricular contractions) [id number] Essential hypertension Chief Complaint peeing blood GROSS HEMATURIA CYSTO TURP OLYMPUS 6 m fu CYSTO TURP OLYMPUS URINE SAMPLE Reason for Visit PVCs (premature vent ricular contractions) [id number] Essential hypertension Chief Complaint SPLINTER IN FINGER Chief Complaint SPLINTER IN FINGER 8 m fu PREV PFM PT Reason for Visit [id number] Essential hypertension Obesity PVCs (premature ventricular contractions) Chief Complaint 6 M FU Reason for Visit [id number] Dyslipidemia Essential hypertension Obesity PVCs (premature ventricular contractions) Reason for Referral Specialty Diagnoses / Procedures Referred By Yari rowley Referred To Contact Vascular Medicine Diagnoses PAD (peripheral artery disease) ([facility]) Procedures CONSULT TO VASCULAR MEDICINE OFFICE/OUTPATIENT [facility] 60 MINUTES Jayde Castellanos MD [address] [place] [address] Referral ID Status Reason Start Date Expiration Date Visits Requested Visits Authorized [id number] Authorized PCP Requested Referral 03/13/2024 03/13/2025 1 1 Specialty Diagnoses / Procedures Referred By Yari rowley Referred To Contact MR IMAGING Diagnoses Other specified disorders of kidney and ureter Procedures MRI KIDNEY WO/W IVCON MRI ABDOMEN W/O & W/CONTRAST MATERIAL Jayde Castellanos MD [address] [place] [address] Mr Imaging [facility]95 Referral ID Status Reason Start Date Expiration Date Visits Requested Visits Authorized [id number] Authorized Auto-Generat ed Referral 10/18/2024 12/17/2024 1 1 Additional Source Comments (unrecognized sect ion and content) No Status Records FoundNo Status Records FoundNo Status Records FoundNo Status Records FoundNo Status Records Found INFORMATION SOURCE (unrecogn ized section and content) DATE CREATED AUTHOR 03/14/2018 [facility] ntari Pantojaon DATE CREATED AUTHOR AUTHOR'S ORGANIZ ATION 10/04/2024 [facility] DATE CREATED AUTHOR AUTHOR'S ORGANIZ ATION 11/09/2024 [facility] DATE CREATED AUTHOR AUTHOR'S ORGANIZ ATION 03/12/2025 [facility] DATE CREATED AUTHOR AUTHOR'S ORGANIZ ATION 05/03/2025 [facility] Goals (unrecognized section and content) Goals may be documented in a n alternate sectionGoals may be documented in an alternate sectionGoals may be documented in an alternate sectionGoals may be documented in an alternate sectionGoals may be documented in an alternate section Source Comments (unrecognize d section and content) In the event this informatio n is protected by the Federal Confidentiality of Alcohol and Drug Abuse Patient Records regulations: The Federal rules restrict any use of the information to criminally investigate or prosecute any alcohol or drug abuse patient.[facility] HospitalIn the event this information is protected by the Federal Confidentiality of Alcohol and Drug Abuse Patient Records regulations: The Federal rules restrict any use of the information to criminally investigate or prosecute any alcohol or drug abuse patient.[facility] HospitalIn the event this information is protected by the Federal Confidentiality of Alcohol and Drug Abuse Patient Records regulations: The Federal rules restrict any use of the information to criminally investigate or prosecute any alcohol or drug abuse patient.[facility] HospitalIn the event this information is protected by the Federal Confidentiality of Alcohol and Drug Abuse Patient Records regulations: The Federal rules restrict any use of the information to criminally investigate or prosecute any alcohol or drug abuse patient.[facility] HospitalIn the event this information is protected by the Federal Confidentiality of Alcohol and Drug Abuse Patient Records regulations: The Federal rules restrict any use of the information to criminally investigate or prosecute any alcohol or drug abuse patient.[facility] HospitalIn the event this information is protected by the Federal Confidentiality of Alcohol and Drug Abuse Patient Records regulations: The Federal rules restrict any use of the information to criminally investigate or prosecute any alcohol or drug abuse patient.[facility] HospitalIn the event this information is protected by the Federal Confidentiality of Alcohol and Drug Abuse Patient Records regulations: The Federal rules restrict any use of the information to criminally investigate or prosecute any alcohol or drug abuse patient.[facility] HospitalIn the event this information is protected by the Federal Confidentiality of Alcohol and Drug Abuse Patient Records regulations: The Federal rules restrict any use of the information to criminally investigate or prosecute any alcohol or drug abuse patient.[facility] HospitalIn the event this information is protected by the Federal Confidentiality of Alcohol and Drug Abuse Patient Records regulations: The Federal rules restrict any use of the information to criminally investigate or prosecute any alcohol or drug abuse patient.[facility] HospitalIn the event this information is protected by the Federal Confidentiality of Alcohol and Drug Abuse Patient Records regulations: The Federal rules restrict any use of the information to criminally investigate or prosecute any alcohol or drug abuse patient.[facility] HospitalIn the event this information is protected by the Federal Confidentiality of Alcohol and Drug Abuse Patient Records regulations: The Federal rules restrict any use of the information to criminally investigate or prosecute any alcohol or drug abuse patient.[facility] HospitalIn the event this information is protected by the Federal Confidentiality of Alcohol and Drug Abuse Patient Records regulations: The Federal rules restrict any use of the information to criminally investigate or prosecute any alcohol or drug abuse patient.[facility] HospitalIn the event this information is protected by the Federal Confidentiality of Alcohol and Drug Abuse Patient Records regulations: The Federal rules restrict any use of the information to criminally investigate or prosecute any alcohol or drug abuse patient.[facility] HospitalIn the event this information is protected by the Federal Confidentiality of Alcohol and Drug Abuse Patient Records regulations: The Federal rules restrict any use of the information to criminally investigate or prosecute any alcohol or drug abuse patient.[facility] HospitalIn the event this information is protected by the Federal Confidentiality of Alcohol and Drug Abuse Patient Records regulations: The Federal rules restrict any use of the information to criminally investigate or prosecute any alcohol or drug abuse patient.[facility] HospitalIn the event this information is protected by the Federal Confidentiality of Alcohol and Drug Abuse Patient Records regulations: The Federal rules restrict any use of the information to criminally investigate or prosecute any alcohol or drug abuse patient.[facility] HospitalIn the event this information is protected by the Federal Confidentiality of Alcohol and Drug Abuse Patient Records regulations: The Federal rules restrict any use of the information to criminally investigate or prosecute any alcohol or drug abuse patient.[facility] HospitalIn the event this information is protected by the Federal Confidentiality of Alcohol and Drug Abuse Patient Records regulations: The Federal rules restrict any use of the information to criminally investigate or prosecute any alcohol or drug abuse patient.[facility] HospitalIn the event this information is protected by the Federal Confidentiality of Alcohol and Drug Abuse Patient Records regulations: The Federal rules restrict any use of the information to criminally investigate or prosecute any alcohol or drug abuse patient.[facility] HospitalIn the event this information is protected by the Federal Confidentiality of Alcohol and Drug Abuse Patient Records regulations: The Federal rules restrict any use of the information to criminally investigate or prosecute any alcohol or drug abuse patient.[facility] HospitalIn the event this information is protected by the Federal Confidentiality of Alcohol and Drug Abuse Patient Records regulations: The Federal rules restrict any use of the information to criminally investigate or prosecute any alcohol or drug abuse patient.[facility] HospitalIn the event this information is protected by the Federal Confidentiality of Alcohol and Drug Abuse Patient Records regulations: The Federal rules restrict any use of the information to criminally investigate or prosecute any alcohol or drug abuse patient.[facility] HospitalIn the event this information is protected by the Federal Confidentiality of Alcohol and Drug Abuse Patient Records regulations: The Federal rules restrict any use of the information to criminally investigate or prosecute any alcohol or drug abuse patient.[facility] HospitalIn the event this information is protected by the Federal Confidentiality of Alcohol and Drug Abuse Patient Records regulations: The Federal rules restrict any use of the information to criminally investigate or prosecute any alcohol or drug abuse patient.[facility] HospitalIn the event this information is protected by the Federal Confidentiality of Alcohol and Drug Abuse Patient Records regulations: The Federal rules restrict any use of the information to criminally investigate or prosecute any alcohol or drug abuse patient.[facility] HospitalIn the event this information is protected by the Federal Confidentiality of Alcohol and Drug Abuse Patient Records regulations: The Federal rules restrict any use of the information to criminally investigate or prosecute any alcohol or drug abuse patient.[facility] HospitalIn the event this information is protected by the Federal Confidentiality of Alcohol and Drug Abuse Patient Records regulations: The Federal rules restrict any use of the information to criminally investigate or prosecute any alcohol or drug abuse patient.[facility] HospitalIn the event this information is protected by the Federal Confidentiality of Alcohol and Drug Abuse Patient Records regulations: The Federal rules restrict any use of the information to criminally investigate or prosecute any alcohol or drug abuse patient.[facility] HospitalIn the event this information is protected by the Federal Confidentiality of Alcohol and Drug Abuse Patient Records regulations: The Federal rules restrict any use of the information to criminally investigate or prosecute any alcohol or drug abuse patient.[facility] Reason for Visit (unrecogniz ed section and content) Reason Comments Urinary Problem Reason Comments Follow Up Hosp. Stay Reason Comments Patient Update Reason Comments Procedure Reason Comments Refill Request Reason Comments Follow Up 3 month Reason Comments Medication Problem Reason Comments 6 Month Exam Reason Comments Results A1C Reason Comments Patient Question referral vascular Reason Comments New Patient Specialty Diagnoses / Procedures Referred By Contac t Referred To Contact Vascular Medicine Diagnoses PAD (peripheral artery disease) (HCC) Procedures CONSULT TO VASCULAR MEDICINE OFFICE/OUTPATIENT NEW HIGH MDM 60 MINUTES Jayde Castellanos MD [address] [place] [address] Referral ID Status Reason Start Date Expiration Date V isits Requested Visits Authorized [id number] Closed PCP Requested Referral 03/13/2024 03/13/2025 1 1 Reason Comments Follow Up 6 month follow up Reason Comments Results Labs Reason Comments Medication Request Reason Comments Pre-Op Exam Specialty Diagnoses / Procedures Referred By Contac t Referred To Contact Diagnoses Spinal stenosis of lumbar region, unspecified whether neurogenic claudication present Spinal stenosis of lumbar region, unspecified whether neurogenic claudication present [M48.061] Procedures SC COOMBS FACETECTOMY & FORAMOTOMY 1 VRT SGM LUMBAR SC COOMBS FACETECTOMY&FORAMOT 1 VRT SGM EA ADDL SGM L2-L5 LAMINECTOMY L2-L5 LAMINECTOMY Vidal Salas MD [facility] [place] [address] [facility] [address] [place] [address] Referral ID Status Reason Start Date Expiration Date Visits Re quested Visits Authorized [id number] 1 1 Reason Comments Home Health Call-Patient Update Reason Comments Hospital F/U [facility] for back surge ry Specialty Diagnoses / Procedures Referred By Contac t Referred To Contact MR IMAGING Diagnoses Other specified disorders of kidney and ureter Procedures MRI KIDNEY WO/W IVCON MRI ABDOMEN W/O & W/CONTRAST MATERIAL Jayde Castellanos MD [address] [place] [address] [place] [address] Referral ID Status Reason Start Date Expiration Date V isits Requested Visits Authorized [id number] Closed Auto-Generate d Referral 10/18/2024 12/17/2024 1 1 Reason Comments Results Reason Comments F/U 6 Month Reason Comments Medicare Wellness Exam Reason Onset Date Comments Population Health Navigation Outreach 01/18/2025 [employer] 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 tobin Reason Onset Date Comments Allied Health Visit 02/22/2025 Medication A dherence Outreach Reason Onset Date Comments Allied Health Visit 03/05/2025 Medication A dherence Outreach Reason Onset Date Comments requesting medication that is 05/01/2025 Reason Comments Weakness X several months Care Teams (unrecognized sec tion and content) Manager Book Relationship Specialty Start Date End Date Jayde Castellanos MD [address] [place] [address] PCP - General Family Practice 12/03/21 Manager Book Relationship Specialty Start Date End Date Jayde Castellanos MD [address] [place], [place] [address] PCP - General Family Practice 12/03/21 Manager Book Relationship Specialty Start Date End Date Jayde Castellanos MD [address] [place] [address] PCP - General Family Medicine 12/03/21 Manager Book Relationship Specialty Start Date End Date Jayde Castellanos MD [address] [place], [place] [id number] PCP - General Family Medicine 12/03/21 Manager Book Relationship Specialty Start Date End Date Jayde Castellanos MD [address] [place], [place] [address] PCP - General Family Medicine 12/03/21 Team Status: Active Member Role Status Dates Dr. Vidal Grover III, MD Family Provider Active Dr. Jayde Castellanos MD Primary Care Provider Active Team Status: Inactive Member Role Status Dates Dr. Jayde Castellanos MD Primary Care Provider Active Dr. Daniel Steele MD Emergency Provider Active Manager Book Relationship Specialty Start Date End Date Jayde Castellanos MD [address] [place] [address] PCP - General Family Medicine 12/03/21 Manager Book Relationship Specialty Start Date End Date Jayde Castellanos MD [address] [place] [address] PCP - General Family Medicine 12/03/21 Team Status: Inactive Member Role Status Dates Dr. Jayde Castellanos MD Primary Care Provider, Referr ing Provider Active Dr. Catherine Kong MD Attending Provider Active Team Status: Inactive Member Role Status Dates Dr. Jayde Castellanos MD Primary Care Provider Active Dr. Daniel Steele MD Attending Provider, Emergency Pro vider Active Team Status: Inactive Member Role Status Dates Dr. Jayde Castellanos MD Primary Care Provider Active Dr. Charles Shaikh MD Attending Provider, Referr ing Provider Active Team Status: Inactive Member Role Status Dates Dr. Jayde Castellanos MD Primary Care Provider Active Dr. Catherine Kong MD Attending Provider, Referring Pr ovider Active Manager Book Relationship Specialty Start Date End Date Jayde Castellanos MD [address] [place] [address] PCP - General Family Medicine 12/03/21 Manager Book Relationship Specialty Start Date End Date Jayde Castellanos MD [address] [place] [address] PCP - General Family Medicine 12/03/21 Manager Book Relationship Specialty Start Date End Date Jayde Castellanos MD [address] [place] [address] PCP - General Family Medicine 12/03/21 Manager Book Relationship Specialty Start Date End Date Jayde Castellanos MD [address] [place] [address] PCP - General Family Medicine 12/03/21 Manager Book Relationship Specialty Start Date End Date Jayde Castellanos MD [address] [place] [address] PCP - General Family Medicine 12/03/21 Diana Escobar APRN.CLOTHING DESIGNER [address] [place] [address] Repair Order Clerk Family Medicine 08/26/24 Manager Book Relationship Specialty Start Date End Date Jayde Castellanos MD [address] [place] [address] PCP - General Sports Medicine 09/26/24 Manager Book Relationship Specialty Start Date End Date Jayde Castellanos MD [address] [place] [address] PCP - General Family Medicine 12/03/21 Diana Escobar APRN.CLOTHING DESIGNER [address] [place] [address] Repair Order Clerk Family Medicine 08/26/24 Herb Dacosta APRN.CLOTHING DESIGNER [address] [place] [address] Repair Order Clerk Family Medicine 09/04/24 Manager Book Relationship Specialty Start Date End Date Jayde Castellanos MD [address] [place] [address] PCP - General Family Medicine 12/03/21 Diana Escobar APRN.CLOTHING DESIGNER [address] [place] [address] Repair Order Clerk Family Medicine 08/26/24 Herb Dacosta APRN.CLOTHING DESIGNER [address] [place] [address] Repair Order Clerk Family [facility] 09/04/24 Manager Book Relationship Specialty Start Date End Date Jayde Castellanos MD [address] [place] [address] PCP - General Family Medicine 12/03/21 Diana Escobar, KYLEE.CLOTHING DESIGNER [address] [place] [address] Repair Order Clerk Family Medicine 08/26/24 Herb Dacosta APRN.CLOTHING DESIGNER [address] [place] [address] [facility] Manager Book Relationship Specialty Start Date End Date Jayde Castellanos MD [address] [place] [address] PCP - General Family Medicine 12/03/21 Diana Escobar, POSTAL SORTING OFFICER.CLOTHING DESIGNER [address] [place] [address] Repair Order Clerk Family Medicine 08/26/24 Herb Dacosta POSTAL SORTING OFFICER.CLOTHING DESIGNER [address] [place] [address] Repair Order Clerk Family Medicine 09/04/24 Manager Book Relationship Specialty Start Date End Date Jayde Castellanos MD [address] [place] [address] PCP - General Family Medicine 12/03/21 Diana Escobar POSTAL SORTING OFFICER.CLOTHING DESIGNER [address] [place] [address] Repair Order Clerk Family Medicine 08/26/24 Herb Dacosta APRN.CLOTHING DESIGNER [address] [place] [address] Repair Order Clerk Family Medicine 09/04/24 Manager Book Relationship Specialty Start Date End Date Jayde Castellanos MD [address] [place] [address] PCP - General Family Medicine 12/03/21 Diana Escobar APRN.CLOTHING DESIGNER [address] [place] [address] Repair Order Clerk Family Medicine 08/26/24 Herb Dacosta APRN.CLOTHING DESIGNER [address] [place] [address] Repair Order Clerk Family Medicine 09/04/24 Manager Book Relationship Specialty Start Date End Date Jayde Castellanos MD [address] [place] [address] PCP - General Family Medicine 12/03/21 Diana Escobar APRN.CLOTHING DESIGNER [address] [place] [address] Repair Order Clerk Family Medicine 08/26/24 Herb Dacosta POSTAL SORTING OFFICER.CLOTHING DESIGNER [address] [place] [address] Repair Order Clerk Family Medicine 09/04/24 Manager Book Relationship Specialty Start Date End Date Jayde Castellanos MD [address] [place] [address] PCP - General Family Medicine 12/03/21 Herb Dacosta POSTAL SORTING OFFICER.CLOTHING DESIGNER [address] [place] [address] Repair Order Clerk Family Medicine 09/04/24 Manager Book Relationship Specialty Start Date End Date Jayde Castellanos MD [address] [place] [address] PCP - General Family Medicine 12/03/21 Diana Escobar APRN.CLOTHING DESIGNER [address] [place] [address] Repair Order Clerk Family Medicine 08/26/24 01/30/25 Herb Dacosta APRN.CLOTHING DESIGNER [address] [place] [address] [facility] Manager Book Relationship Specialty Start Date End Date Jayde Castellanos MD [address] [place] [address] PCP - General Family Medicine 12/03/21 Herb Dacosta, POSTAL SORTING OFFICER.CLOTHING DESIGNER [address] [place] [address] [facility] 09/04/24 Manager Book Relationship Specialty Start Date End Date Jayde Castellanos MD [address] [place] [address] PCP - General Family Medicine 12/03/21 Herb Dacosta, POSTAL SORTING OFFICER.CLOTHING DESIGNER [address] [place] [address] [facility] 09/04/24 Manager Book Relationship Specialty Start Date End Date Jayde Castellanos MD [address] [place] [address] PCP - General Family Medicine 12/03/21 Herb Dacosta APRN.CLOTHING DESIGNER [address] [place] [address] Repair Order Clerk Family Medicine 09/04/24 Ordered Prescriptions (unrec ognized section and content) Prescription Sig Dispensed Refills Start Date End Da te oxyCODONE (ROXICODONE) 5 MG immediate release tabletIndications:S/P lumbar laminectomy Take 1 tablet by mouth every 4 hours as needed for Pain for up to 7 days. Max Daily Amount: 30 mg 42 tablet 09/30/2024 10/07/2024 cyclobenzaprine (FLEXERIL) 10 MG tablet Take 1 tablet by mouth 3 times daily as needed for Muscle spasms 42 tablet 09/30/2024 10/10/2024 Scheduled Active and Recently Administ ered Medications (unrecognized section and content) Medication Order 09/29/2024 09/30/2024 10/01/2024 acetaminophen (TYLENOL) tablet 650 mg 650 mg, Oral, EVERY 4 HOURS, First dose on 09/30/24 at 1130, Until Discontinued, Maximum dose of acetaminophen is 4000 mg from all sources in 24 hours. 1321 (Given - Provider: Jeannette Springer RN)1544 (Not Given - Provider: Jeannette Springer RN - Reason: Patient/family refused)2042 (Given - Provider: Sonia Pedro RN) 0048 (Not Given - Provider: Sonia Pedro RN - Reason: Patient/family refused)0325 (Given - Provider: Sonia Pedro RN)1009 (Not Given - Provider: Vianca Yu RN - Reason: Other)1013 (Not Given - Provider: Vinaca Yu, DANIEL - Reason: Patient/family refused)1558 (Not Given - Provider: Vianca Yu RN - Reason: Patient/family refused)1930 (Due)2330 (Due) amLODIPine (NORVASC) tablet 5 mg 5 mg, Oral, DAILY, First dose on Rasheeda 09/27/24 at 0900, Until Discontinued 0824 (Given - Provider: Dana Goldberg RN) 0820 (Given - Provider: Jeannette Springer RN) 1012 (Given - Provider: Vianca Yu, DANIEL) docusate sodium (COLACE) capsule 100 mg 100 mg, Oral, DAILY, First dose on Tue09/28/24 at 0900, Until Discontinued, Do not crush or break. 1020 (Given - Provider: Dana Goldberg RN) 0819 (Given - Provider: Jeannette Springer RN) 1012 (Given - Provider: Vianca Yu, DANIEL) furosemide (LASIX) injection 40 mg 40 mg, IntraVENous, ONCE, 1 dose, On Tue10/01/24 at 1500 1500 (Due) insulin lispro (HUMALOG,ADMELOG) injection vial 0-4 Units 0-4 Units, SubCUTAneous, 4 TIMES DAILY BEFORE MEALS & NIGHTLY, First dose on Tue09/29/24 at 2100, Until Discontinued, Corrective Low Dose Algorithm Glucose: Dose: 70-179 No Insulin 180-249 1 Unit 250-299 2 Units 300-349 3 Units Over 349 4 Units and notify physician Administer as soon as possible within 60 minutes of last blood glucose check 2241 (Given - Provider: Sonia Pedro RN) 0857 (Not Given - Provider: Jeannette Springer RN - Reason: Order parameters not met)1310 (Not Given - Provider: Jeannette Springer RN - Reason: Order parameters not met)1908 (Not Given - Provider: Jeannette Springer RN - Reason: Order parameters not met)2029 (Not Given - Provider: Sonia Pedro RN - Reason: Order parameters not met) 1009 (Not Given - Provider: Vianca Yu RN - Reason: Order parameters not met)1210 (Not Given - Provider: Nichole Alex RN - Reason: Order parameters not met)1700 (Due)2100 (Due) lactated ringers bolus 500 mL (COMPLETED) 500 mL, IntraVENous, at 491.8 mL/hr, Administer over 61 Minutes, ONCE, On Tue09/30/24 at 1430, For 1 dose 1450 (New Bag - Provider: Jeannette Springer RN)1552 (Stopped - Provider: Jeannette Springer RN) losartan (COZAAR) tablet 100 mg 100 mg, Oral, DAILY, First dose on Tue09/27/24 at 0900, Until Discontinued, On hold since 09/30/2024 at 0957 until manually unheld 0824 (Given - Provider: Dana Goldberg RN) 08 (Given - Provider: Jeannette Springer RN)09 (Held by provider - Provider: Wilfred Calles MD - Reason: Other) 0900 (Automatically Held - Provider: Wilfred Calles MD) metoprolol succinate (TOPROL XL) extended release tablet 100 mg 100 mg, Oral, DAILY, First dose (after last modification) on Tue10/01/24 at 0900, Until Discontinued, Do not crush or chew. 1013 (Given - Provider: Vianca Yu, DANIEL) metoprolol succinate (TOPROL XL) extended release tablet 25 mg (CANCELED) 25 mg, Oral, DAILY, First dose on Rasheeda 09/27/24 at 0900, Until Discontinued, Do not crush or chew. 08 (Given - Provider: Dana Goldberg RN) metoprolol succinate (TOPROL XL) extended release tablet 50 mg (CANCELED) 50 mg, Oral, DAILY, First dose (after last modification) on 09/30/24 at 0900, Until Discontinued, Do not crush or chew. 08 (Given - Provider: Jeannette Springer RN) metoprolol tartrate (LOPRESSOR) tablet 25 mg (COMPLETED) 25 mg, Oral, ONCE, 1 dose, On 09/29/24 at 1400, To get total metoprolol dose for today up to 50 mg 1558 (Given - Provider: Dana Goldberg RN) naloxegol (MOVANTIK) tablet 12.5 mg 12.5 mg, Oral, EVERY MORNING, First dose on Rasheeda 09/27/24 at 0800, Until Discontinued, Administer on an empty stomach at least 1 hour prior to or 2 hours after the first meal of the day. Swallow tablets whole, do not crush or chew. Avoid consumption of grapefruit or grapefruit juice during treatment. 0824 (Given - Provider: Dana Goldberg RN) 0819 (Given - Provider: Jeannette Springer RN) 1012 (Given - Provider: Vianca Yu, DANIEL) polyethylene glycol (GLYCOLAX) packet 17 g 17 g, Oral, DAILY, First dose on Tue09/26/24 at 1900, Until Discontinued, Post-op 2037 (Given - Provider: Sonia Pedro, RN) 0819 (Given - Provider: Jeannette Springer RN) 1012 (Given - Provider: Vianca Yu, RN) sodium chloride flush 0.9 % injection 5-40 mL 5-40 mL, IntraVENous, EVERY 12 HOURS SCHEDULED (2 times per day), First dose on Tue09/26/24 at 2100, Until Discontinued, For Line Patency: Peripheral IV = 5 mL; Midline or Central Line = 10 mL/lumen. If following IV push medication, administer flush at same rate as the IV push. Flush volume is determined by type of infusion therapy being given. For non-viscous solutions use: Peripheral IV = 5 mL Midline or Central Line = 10 mL/lumen For viscous solutions (i.e. blood components, parenteral nutrition, contrast media, or after obtaining blood sample) use: Peripheral IV = 10 mL Midline or Central Line = 20 mL/lumen, Post-op 822 (Given - Provider: Dana Goldberg RN)2041 (Given - Provider: Sonia Pedro, DANIEL) 0819 (Given - Provider: Jeannette Springer, DANIEL)2041 (Given - Provider: Sonia Pedro, RN) 1012 (Given - Provider: Vianca Yu, RN)2100 (Due) Continuous Medication Order 09/29/2024 09/30/2024 10/01/2024 lactated ringers infusion IntraVENous, at 100 mL/hr, CONTINUOUS, Starting on Tue09/30/24 at 1530, For 12 hours 1554 (New Bag - Provider: Jeannette Springer RN) 1640 (Stopped - Provider: Vianca Yu, RN) PRN Medication Order 09/29/2024 09/30/2024 10/01/2024 0.9 % sodium chloride infusion IntraVENous, at 5-250 mL/hr, PRN, if patient receiving piggyback infusions and maintenance fluids are not ordered, Starting on Tue09/26/24 at 1827, For piggyback infusion, administer at same rate as piggyback for a total of 25 mL. Enter 25 mL into dose field and piggyback rate into rate field of order. If piggyback is infusing at a rate less than 100 mL/hr, enter 25 mL into dose field and 100 mL/hr into rate field of order., Post-op bisacodyl (DULCOLAX) suppository 10 mg 10 mg, Rectal, DAILY PRN, Starting on Tue09/26/24 at 1827, Until Discontinued, Constipation, First line therapy for constipation, Post-op cyclobenzaprine (FLEXERIL) tablet 10 mg 10 mg, Oral, 3 TIMES DAILY PRN, Starting on Tue09/26/24 at 1421, Until Discontinued, Muscle spasms, Post-op 0529 (Given - Provider: Nereida Mullins RN) dextrose 10 % infusion IntraVENous, at 100 mL/hr, CONTINUOUS PRN, if blood glucose remains LESS THAN 70 mg/dL after 2 dextrose 10% intravenous boluses or administration of glucagon, Starting on 09/29/24 at 1942, If blood glucose fails to stabilize after 2 dextrose 10% intravenous boluses or glucagon administration, start dextrose 10% infusion at 100 mL/hour and repeat blood glucose at 30 and 60 minutes. If blood glucose is GREATER THAN 70 mg/dL after 60 minutes, discontinue dextrose 10% infusion. dextrose bolus 10% 125 mL(Linked Group 1) 125 mL, IntraVENous, at 937.5 mL/hr, Administer over 8 Minutes, PRN, Other, Blood glucose 40 - 69 mg/dL and patient NOT ALERT or NPO, Starting on 09/29/24 at 1942, Repeat blood glucose in 15 minutes. If blood glucose remains LESS THAN 70 mg/dL, repeat treatment and recheck blood glucose in 15 minutes x 2. If using glycemic management system, dose as instructed per system. If blood glucose remains LESS THAN 70 mg/dL after 2 intravenous boluses start dextrose 10% at 100 mL/hour and notify provider. dextrose bolus 10% 250 mL(Linked Group 1) 250 mL, IntraVENous, at 937.5 mL/hr, Administer over 16 Minutes, PRN, Other, Blood glucose LESS THAN 40 mg/dL and patient NOT ALERT or NPO, Starting on 09/29/24 at 1942, Repeat blood glucose in 15 minutes. If blood glucose remains LESS THAN 70 mg/dL, repeat treatment and recheck blood glucose in 15 minutes x 2. If using glycemic management system, dose as instructed per system. If blood glucose remains LESS THAN 70 mg/dL after 2 intravenous boluses start dextrose 10% at 100 mL/hour and notify provider. glucagon injection 1 mg 1 mg, SubCUTAneous, PRN, Starting on 09/29/24 at 1942, Until Discontinued, Low blood sugar, Blood glucose LESS THAN 70 mg/dL and patient NOT ALERT or NPO and does not have IV access., After administration, attempt intravenous access and start dextrose 10% at 100 mL/hr. Repeat blood glucose in 15 minutes x 2 and notify provider. Reconstitute powder for injection by adding 1 mL of industrial waste treatment technician-supplied sterile diluent or sterile water for injection to a vial containing 1 mg of the drug, to provide solutions containing 1 mg/mL. Shake vial gently to dissolve. glucose chewable tablet 16 g 16 g (4 tablet), Oral, PRN, Starting on 09/29/24 at 1942, Until Discontinued, Low blood sugar, If blood glucose is LESS THAN 70 mg/dL and patient is alert and tolerating oral. Give 4 tablets (16g) Repeat blood glucose in 15 minutes. If blood glucose is LESS THAN 70 mg/dL, repeat treatment and recheck blood glucose in 15 minutes x 2. If blood glucose remains LESS THAN 70 mg/dL, notify provider. HYDROmorphone (DILAUDID) injection 0.25 mg(Linked Group 2) 0.25 mg, IntraVENous, EVERY 3 HOURS PRN, Starting on Tue09/26/24 at 1827, Until Discontinued, Pain Moderate (4-6), If oral and IV narcotics ordered, use oral first and only use IV if oral is ineffective or cannot take oral. Do Not give oral and IV within 1 hour of each other unless specifically ordered., Post-op 528 (See Alternative - Provider: Nereida Mullins RN)827 (Given - Provider: Dana Goldberg RN) HYDROmorphone (DILAUDID) injection 0.5 mg(Linked Group 2) 0.5 mg, IntraVENous, EVERY 3 HOURS PRN, Starting on Tue09/26/24 at 1827, Until Discontinued, Pain Severe (7-10), If oral and IV narcotics ordered, use oral first and only use IV if oral is ineffective or cannot take oral. Do Not give oral and IV within 1 hour of each other unless specifically ordered., Post-op 528 (Given - Provider: Nereida Mullins RN)0828 (See Alternative - Provider: Dana Goldberg RN) ipratropium 0.5 mg-albuterol 2.5 mg (DUONEB) nebulizer solution 1 Dose 1 Dose, Inhalation, EVERY 4 HOURS PRN, Starting on Tue09/28/24 at 1710, Until Discontinued, Shortness of Breath, Wheezing, Initiate RT Bronchodilator Protocol: No magnesium hydroxide (MILK OF MAGNESIA) 400 MG/5ML suspension 30 mL 30 mL, Oral, DAILY PRN, Starting on Tue09/28/24 at 0833, Until Discontinued, Constipation 1300 (Given - Provider: Dana Goldberg RN) ondansetron (ZOFRAN) injection 4 mg(Linked Group 3) 4 mg, IntraVENous, EVERY 6 HOURS PRN, Starting on Tue09/26/24 at 1827, Until Discontinued, Nausea, Vomiting, Administer if oral route cannot be used., Post-op ondansetron (ZOFRAN-ODT) disintegrating tablet 4 mg(Linked Group 3) 4 mg, Oral, EVERY 8 HOURS PRN, Starting on Tue09/26/24 at 1827, Until Discontinued, Nausea, Vomiting, Post-op oxyCODONE (ROXICODONE) immediate release tablet 10 mg(Linked Group 4) 10 mg, Oral, EVERY 4 HOURS PRN, Starting on Tue09/26/24 at 1421, Until Discontinued, Pain Severe (7-10), Post-op 1020 (Given - Provider: Dana Goldberg RN)1537 (Given - Provider: Sarah Buckley RN) 0628 (Given - Provider: Sonia Pedro RN) oxyCODONE (ROXICODONE) immediate release tablet 5 mg(Linked Group 4) 5 mg, Oral, EVERY 4 HOURS PRN, Starting on Tue09/26/24 at 1421, Until Discontinued, Pain Moderate (4-6), Post-op 1020 (See Alternative - Provider: Dana Goldberg RN)1537 (See Alternative - Provider: Sarah Buckley RN) 0628 (See Alternative - Provider: Sonia Pedro RN) sennosides-docusate sodium (SENOKOT-S) 8.6-50 MG tablet 2 tablet 2 tablet, Oral, DAILY PRN, Starting on Tue09/28/24 at 0833, Until Discontinued, Constipation sodium chloride flush 0.9 % injection 5-40 mL 5-40 mL, IntraVENous, PRN, Starting on Tue09/26/24 at 1827, Until Discontinued, Line Care, After every IV line use, For Line Patency: Peripheral IV = 5 mL; Midline or Central Line = 10 mL/lumen. If following IV push medication, administer flush at same rate as the IV push. Flush volume is determined by type of infusion therapy being given. For non-viscous solutions use: Peripheral IV = 5 mL Midline or Central Line = 10 mL/lumen For viscous solutions (i.e. blood components, parenteral nutrition, contrast media, or after obtaining blood sample) use: Peripheral IV = 10 mL Midline or Central Line = 20 mL/lumen, Post-op sodium phosphate (FLEET) rectal enema 1 enema 1 enema, Rectal, DAILY PRN, Starting on Tue09/26/24 at 1827, Until Discontinued, Constipation, Second line therapy for constipation, After 24 hours, if no result from first line PRN therapy, give second line therapy in combination with first line therapy., Post-op Linked Groups Order Group 1: dextrose bolus 10% 125 mLJump to med 125 mL, IntraVENous, at 937.5 mL/hr, Administer over 8 Minutes, PRN, Other, Blood glucose 40 - 69 mg/dL and patient NOT ALERT or NPO, Starting on 09/29/24 at 1942, Repeat blood glucose in 15 minutes. If blood glucose remains LESS THAN 70 mg/dL, repeat treatment and recheck blood glucose in 15 minutes x 2. If using glycemic management system, dose as instructed per system. If blood glucose remains LESS THAN 70 mg/dL after 2 intravenous boluses start dextrose 10% at 100 mL/hour and notify provider. Or dextrose bolus 10% 250 mLJump to med 250 mL, IntraVENous, at 937.5 mL/hr, Administer over 16 Minutes, PRN, Other, Blood glucose LESS THAN 40 mg/dL and patient NOT ALERT or NPO, Starting on 09/29/24 at 1942, Repeat blood glucose in 15 minutes. If blood glucose remains LESS THAN 70 mg/dL, repeat treatment and recheck blood glucose in 15 minutes x 2. If using glycemic management system, dose as instructed per system. If blood glucose remains LESS THAN 70 mg/dL after 2 intravenous boluses start dextrose 10% at 100 mL/hour and notify provider. Group 2: HYDROmorphone (DILAUDID) injection 0.25 mgJump to med 0.25 mg, IntraVENous, EVERY 3 HOURS PRN, Starting on Tue09/26/24 at 1827, Until Discontinued, Pain Moderate (4-6), If oral and IV narcotics ordered, use oral first and only use IV if oral is ineffective or cannot take oral. Do Not give oral and IV within 1 hour of each other unless specifically ordered., Post-op Or HYDROmorphone (DILAUDID) injection 0.5 mgJump to med 0.5 mg, IntraVENous, EVERY 3 HOURS PRN, Starting on Tue09/26/24 at 1827, Until Discontinued, Pain Severe (7-10), If oral and IV narcotics ordered, use oral first and only use IV if oral is ineffective or cannot take oral. Do Not give oral and IV within 1 hour of each other unless specifically ordered., Post-op Group 3: ondansetron (ZOFRAN-ODT) disintegrating tablet 4 mgJump to med 4 mg, Oral, EVERY 8 HOURS PRN, Starting on Tue09/26/24 at 1827, Until Discontinued, Nausea, Vomiting, Post-op Or ondansetron (ZOFRAN) injection 4 mgJump to med 4 mg, IntraVENous, EVERY 6 HOURS PRN, Starting on Tue09/26/24 at 1827, Until Discontinued, Nausea, Vomiting, Administer if oral route cannot be used., Post- op Group 4: oxyCODONE (ROXICODONE) immediate release tablet 5 mgJump to med 5 mg, Oral, EVERY 4 HOURS PRN, Starting on Tue09/26/24 at 1421, Until Discontinued, Pain Moderate (4-6), Post-op Or oxyCODONE (ROXICODONE) immediate release tablet 10 mgJump to med 10 mg, Oral, EVERY 4 HOURS PRN, Starting on Tue09/26/24 at 1421, Until Discontinued, Pain Severe (7-10), Post-op FOR RECORDS PERTAINING TO PATIENTS WHO ARE OR HAVE BEEN ENROLLED IN A CHEMICAL DEPENDENCY/SUBSTANCEABUSE PROGRAM, SOME INFORMATION MAY BE OMITTED. This clinical summary was aggregated from multiple sources. Caution should be exercised in using it in the provision of clinical care. This summary normalizes information from multiple sources, and as a consequence, information in this document may materially change the coding, format and clinical context of patient data. In addition, data may be omitted in some cases. CLINICAL DECISIONS SHOULD BE BASED ON THE PRIMARY CLINICAL RECORDS. [facility] [employer] [facility]. provides no warranty or guarantee of the accuracy or completeness of information in this document.
[2025-05-08 00:03] VITALS: BP 128/76; PULSE 80; RESP 18; TEMP 36.6; O2SAT 95
== END 2025-05-08 00:04 | disposition home or self-care (01) ==
LOC: ED 23:56
PROVIDERS: Emergency Provider Emergency Medicine; PCP Family Medicine; Visit Provider Emergency Medicine
DX: R04.0 Epistaxis (principal); I10 Essential (primary) hypertension; E78.5 Hyperlipidemia, unspecified; I25.10 Atherosclerotic heart disease of native coronary artery without angina pectoris; J45.909 Unspecified asthma, uncomplicated; N40.1 Benign prostatic hyperplasia with lower urinary tract symptoms; Z79.899 Other long term (current) drug therapy; Z87.891 Personal history of nicotine dependence
CPT/HCPCS: 99284

== ENCOUNTER → 2025-07-19 | Outpatient (CLI) | payer MEDICARE, SELFPAY ==
[2025-07-19 11:26] LABS: Anion Gap 9 (5-15); BUN 22 mg/dL (4-19); BUN/Creat Ratio 20.7 RATIO (10-20); Calcium,Total 9.8 mg/dL (7.6-11.0); Carbon Dioxide 25.5 mmol/L (21.0-32.0); Chloride 106 mmol/L (98-108); Glucose 93 mg/dL (70-99); Potassium 4.6 mmol/L (3.3-5.1); Pro- Brain NATRIURETIC PEPTIDE 232 pg/mL (<=1800)
== END | disposition home or self-care (01) ==
LOC: LAB 10:23
PROVIDERS: PCP Family Medicine; Referring Provider Nurse Practitioner Gerontology; Visit Provider Nurse Practitioner Gerontology
DX: R06.02 Shortness of breath (principal)
CPT/HCPCS: 36415; 80048; 83880

== ENCOUNTER → 2025-09-04 | Outpatient (CLI) | payer MEDICARE, SELFPAY ==
--- NOTE | 2025-09-04 09:53 | VDLE_ITS ---
Reason For Study Reason For Study: S/P Total Knee RIGHT LEFT GSV is normal. GSV is normal. CFV is compressible, spontaneous, phasic, competent CFV is compressible, spontaneous, phasic, competent, and demonstrates normal augmentation. and demonstrates normal augmentation. FV is compressible, spontaneous, phasic, competent FV is compressible, spontaneous, phasic, competent and demonstrates normal augmentation. and demonstrates normal augmentation. POP V is compressible, spontaneous, phasic, competent POP V is compressible, spontaneous, phasic, competent and demonstrates normal augmentation. and demonstrates normal augmentation. T/P Trunk is compressible. T/P Trunk is compressible. PTV is compressible. PTV is compressible. RT PerV is compressible. LT PerV is compressible. Procedure This is a venous duplex using B-mode, color flow and spectral Doppler. Exam performed in department. A preliminary report was called and/or faxed to Brad Avalos MD. VL/Venous Duplex US - Homar Extrem Interpretation Summary Deep veins of the bilateral lower extremity are patent and compressible segment ally. There is no evidence of bilateral lower extremity deep vein thrombosis. The bilateral great saphenous veins appea r patent and compressible segmentally. Ordering Physician: Brad Avalos Referring Physician: Deo Castellanos MD Performed By: Katelynn Colindres RVT
== END | disposition home or self-care (01) ==
LOC: CVS 09:47
PROVIDERS: PCP Family Medicine; Referring Provider Orthopaedic Surgery; Visit Provider Orthopaedic Surgery
DX: I82.493 Acute embolism and thrombosis of other specified deep vein of lower extremity, bilateral (principal); Z96.652 Presence of left artificial knee joint
CPT/HCPCS: 93970